=== PATIENT | female | born 1940 | race Caucasian/White ===

== ENCOUNTER → 2016-12-01 | Outpatient (CLI) | payer MEDICARE, OTHER ==
--- NOTE | 2016-12-01 16:00 | REP ---
CHEST, TWO VIEWS: HISTORY: Smoking history. COMPARISON: 07/06/2003. An increase in interstitial markings is present in the lungs. The heart is upper limits of normal in size. The pulmonary vasculature is normal in appearance. There is an old compression fracture of a lower thoracic vertebral body. IMPRESSION: COPD. Signed by Manjit Crockett MD 12/01/2016 04:01 P
[2016-12-01 16:10] LABS: ANION GAP 7 MEQ/L (8-16); BLOOD UREA NITROGEN 13 MG/DL (7-18); CALCIUM LEVEL 9.3 MG/DL (8.8-10.2); CARBON DIOXIDE LEVEL 31 MEQ/L (21-32); CHLORIDE LEVEL 103 MEQ/L (98-107); CREATININE FOR GFR 0.62 MG/DL (0.55-1.02); GLOMERULAR FILTRATION RATE > 60.0 (>39); GLUCOSE, FASTING 106 MG/DL (83-110); POTASSIUM SERUM 4.2 MEQ/L (3.5-5.1); SODIUM LEVEL 141 MEQ/L (136-145)
--- NOTE | 2016-12-01 17:12 | ECGEPIP ---
Stationary ECG Study [facility] Test Date: 2016-12-01 Pat Name: JONY HARKINS Department: Room: - Gender: F Internet Consultant: : 1940 Requested By: Mark Anthony Schroeder Order Number: [id number] Reading MD: Karma Hurtado Measurements Intervals [place] Rate: 65 P: 32 DC: 159 QRS: 0 QRSD: 102 T: 27 QT: 360 QTc: 375 Interpretive Statements SINUS RHYTHM WITH SINUS ARRHYTHMIA ST & T-WAVE ABNORMALITY NO PRIOR Electronically Signed On 12-01-2016 17:11:41 EST by Karma Hurtado
== END ==
LOC: M LAB 14:08
PROVIDERS: ATTEND Ophthalmology
DX: Z01.818 Encounter for other preprocedural examination (principal); Z79.891 Long term (current) use of opiate analgesic; H02.115 Cicatricial ectropion of left lower eyelid

== ENCOUNTER → 2017-11-06 | Outpatient (REF) | payer MEDICARE, OTHER ==
[2017-11-06 13:31] LABS: ESTIMATED AVERAGE GLUCOSE 126 MG/DL (60-110)
[2017-11-06 13:33] LABS: ALBUMIN 3.7 GM/DL (3.2-5.2); ALBUMIN/GLOBULIN RATIO 1.12 (1.00-1.93); ALKALINE PHOSPHATASE 85 U/L (45-117); ALT/SGPT 21 U/L (12-78); ANION GAP 6 MEQ/L (8-16); AST/SGOT 17 U/L (7-37); BASO # 0.1 10^3/uL (0.0-0.2); BASO % 0.8 % (0.0-1.0); BILIRUBIN,TOTAL 0.5 MG/DL (0.2-1.0); BLOOD UREA NITROGEN 14 MG/DL (7-18); CALCIUM LEVEL 8.9 MG/DL (8.8-10.2); CARBON DIOXIDE LEVEL 31 MEQ/L (21-32); CHLORIDE LEVEL 105 MEQ/L (98-107); CHOLESTEROL LEVEL 188 MG/DL (<200); CHOLESTEROL RISK RATIO 3.241 (<5); CREATININE FOR GFR 0.69 MG/DL (0.55-1.30); EOS # 0.2 10^3/uL (0.0-0.50); EOS % 2.8 % (0.0-3.0); GLOMERULAR FILTRATION RATE > 60.0 (>39); GLUCOSE, FASTING 106 MG/DL (70-100); HDL CHOLESTEROL 58 MG/DL (>40); HEMATOCRIT 45.7 % (36.0-47.0); HEMOGLOBIN 15.3 g/dl (12.0-16.0); IMMATURE GRANULOCYTE % 0.5 % (0-3.0); LDL CHOLESTEROL 109.2 MG/DL (<100); LYMPH # 1.5 10^3/uL (1.5-4.5); LYMPH % 22.2 % (24.0-44.0); MEAN CORPUSCULAR HEMOGLOBIN 33.6 pg (27.0-33.0); MEAN CORPUSCULAR HGB CONC 33.5 g/dl (32.0-36.5); MEAN CORPUSCULAR VOLUME 100.4 fl (80.0-96.0); MONO # 0.6 10^3/uL (0.0-0.8); MONO % 8.6 % (0.0-5.0); NEUTROPHILS # 4.3 10^3/uL (1.8-7.7); NEUTROPHILS % 65.1 % (36.0-66.0); NON-HDL-C 130 MG/DL; PLATELET COUNT, AUTOMATED 176 10^3/uL (150-450); POTASSIUM SERUM 4.3 MEQ/L (3.5-5.1); RED BLOOD COUNT 4.55 10^6/uL (4.00-5.40); RED CELL DISTRIBUTION WIDTH 12.4 % (11.5-14.5); SODIUM LEVEL 142 MEQ/L (136-145); TRIGLYCERIDES LEVEL 104 MG/DL (<150); WHITE BLOOD COUNT 6.5 10^3/uL (4.0-10.0)
== END ==
LOC: M SFHCADAM 08:29
DX: R73.01 Impaired fasting glucose (principal); E03.9 Hypothyroidism, unspecified
CPT/HCPCS: 84443

== ENCOUNTER → 2017-12-09 | Outpatient (REF) | payer MEDICARE, OTHER ==
[2017-12-09 13:30] LABS: INR 0.99; PROTHROMBIN TIME 13.1 SECONDS (12.4-14.5)
[2017-12-09 13:31] LABS: PARTIAL THROMBOPLASTIN TIME 24.9 SECONDS (26.8-37.9)
== END ==
LOC: M LABDRWAD 12:57
DX: R23.3 Spontaneous ecchymoses (principal)
CPT/HCPCS: 85610

== ENCOUNTER → 2018-10-15 | Outpatient (REF) | payer MEDICARE, OTHER ==
[2018-10-15 20:05] LABS: BASO # 0.1 10^3/uL (0.0-0.2); BASO % 0.6 % (0.0-1.0); EOS # 0.1 10^3/uL (0.0-0.50); EOS % 1.6 % (0.0-3.0); HEMATOCRIT 50.4 % (36.0-47.0); HEMOGLOBIN 16.9 g/dl (12.0-15.5); LYMPH # 1.8 10^3/uL (1.5-4.5); LYMPH % 22.2 % (24.0-44.0); MEAN CORPUSCULAR HEMOGLOBIN 34.6 pg (27.0-33.0); MEAN CORPUSCULAR HGB CONC 33.5 g/dl (32.0-36.5); MEAN CORPUSCULAR VOLUME 103.3 fl (80.0-96.0); MONO # 0.7 10^3/uL (0.0-0.8); MONO % 8.8 % (0.0-5.0); NEUTROPHILS # 5.4 10^3/uL (1.8-7.7); NEUTROPHILS % 66.6 % (36.0-66.0); PLATELET COUNT, AUTOMATED 189 10^3/uL (150-450); RED BLOOD COUNT 4.88 10^6/uL (4.00-5.40); WHITE BLOOD COUNT 8.1 10^3/uL (4.0-10.0)
[2018-10-15 20:20] LABS: ALBUMIN 2.9 GM/DL (3.2-5.2); ALT/SGPT 25 U/L (12-78); BILIRUBIN,TOTAL 0.4 MG/DL (0.2-1.0); BLOOD UREA NITROGEN 15 MG/DL (7-18); CALCIUM LEVEL 8.7 MG/DL (8.8-10.2); CARBON DIOXIDE LEVEL 29 MEQ/L (21-32); CHLORIDE LEVEL 103 MEQ/L (98-107); CHOLESTEROL LEVEL 215 MG/DL (<200); CHOLESTEROL RISK RATIO 3.208 (<5); CREATININE FOR GFR 0.54 MG/DL (0.55-1.30); GLOMERULAR FILTRATION RATE > 60.0 (>39); GLUCOSE, FASTING 94 MG/DL (70-100); HDL CHOLESTEROL 67 MG/DL (>40); LDL CHOLESTEROL 89 MG/DL (<100); NON-HDL-C 148 MG/DL; POTASSIUM SERUM 3.9 MEQ/L (3.5-5.1); SODIUM LEVEL 141 MEQ/L (136-145); TOTAL PROTEIN 6.1 GM/DL (6.4-8.2); TRIGLYCERIDES LEVEL 294 MG/DL (<150)
[2018-10-15 20:23] LABS: HEMOGLOBIN A1c 6.1 %
== END ==
LOC: M SFHCADAM 15:25
PROVIDERS: ATTEND Physician Assistant Medical
DX: Z00.00 Encounter for general adult medical examination without abnormal findings (principal); I10 Essential (primary) hypertension; E03.9 Hypothyroidism, unspecified; R73.01 Impaired fasting glucose
CPT/HCPCS: 80053; 80061; 83036; 84443; 85025; 93005; G0463

== ENCOUNTER → 2018-10-16 | Outpatient (REF) | payer MEDICARE, OTHER ==
[2018-10-16 20:58] LABS: CREATININE, URINE 65.6 MG/DL; MAU/CREAT RATIO 4664.6 MCG/MG (0.0-30.0)
== END ==
LOC: M SFHCADAM 12:00
PROVIDERS: ATTEND Physician Assistant Medical
DX: Z00.00 Encounter for general adult medical examination without abnormal findings (principal); I10 Essential (primary) hypertension; E03.9 Hypothyroidism, unspecified; R73.01 Impaired fasting glucose

== ENCOUNTER → 2018-12-02 | Outpatient (REF) | payer MEDICARE, OTHER ==
[2018-12-02 19:24] LABS: COMPLEMENT C3 112 MG/DL (90-180); COMPLEMENT C4 20 MG/DL (10-40)
[2018-12-08 00:08] LABS: ANCA-ATYPICAL <1:20 titer (Neg:<1:20); ANTI DOUBLE STRAND-DNA AB 2 IU/mL (0-9); ANTI-GLOMERULAR BASEMENT MEMB 4 units (0-20); CYTOPLASMIC NEUTROP AB ANCA-C <1:20 titer (Neg:<1:20); PERINUCLEAR AB ANCA-P <1:20 titer (Neg:<1:20)
[2018-12-09 13:28] LABS: UPEP INTERPRETATION NO M-SPIKE NOTED; URINE VOLUME RANDOM ML
== END ==
LOC: M LAB REF 17:24
PROVIDERS: ATTEND Internal Medicine Nephrology
DX: R80.9 Proteinuria, unspecified (principal)

== ENCOUNTER → 2018-12-20 | Outpatient (CLI) | payer MEDICARE, OTHER ==
[2018-12-20 13:01] LABS: INR 0.93; PROTHROMBIN TIME 12.6 SECONDS (12.1-14.4)
--- NOTE | 2018-12-20 13:36 | REP ---
Right lower extremity Duplex Doppler venous ultrasound: Real time compression and duplex Doppler interrogation of the right lower extremity deep venous system is performed. The right common femoral, superficial femoral and popliteal veins are fully compressible with transducer pressure and demonstrate normal spontaneous and phasic flow, without evidence of deep venous thrombosis. Impression: No evidence of deep venous thrombosis of the right lower extremity femoral popliteal venous system. Electronically Signed by Aubrey Montgomery MD 12/20/2018 01:27 P
== END ==
LOC: M RAD 11:33
PROVIDERS: ATTEND Internal Medicine Nephrology
DX: I82.401 Acute embolism and thrombosis of unspecified deep veins of right lower extremity (principal); R80.9 Proteinuria, unspecified

== ENCOUNTER → 2018-12-31 | Outpatient (CLI) | payer MEDICARE, OTHER ==
[~2018-12-31] MED LIST: LIDOCAINE 1% MDV 20ML VIAL As Ordered ONE; cloNIDine 0.1 MG TAB PO ONE
--- NOTE | 2018-12-31 18:22 | RO ---
DATE OF PROCEDURE: 12/31/2018 PREPROCEDURE DIAGNOSIS: Proteinuria. POSTPROCEDURE DIAGNOSIS: Proteinuria. PROCEDURE: Left kidney biopsy. SURGEON: Dr. Trupti Prado SHINGLE GRADER: None. ANESTHESIA: 1% lidocaine for local anesthesia. DESCRIPTION OF PROCEDURE: The patient was originally scheduled for left kidney biopsy on December 30, 2018; however, her blood pressure was about 200 mmHg due to which her biopsy was postponed yesterday and her blood pressure medications were adjusted. This morning she arrived around 9 o'clock and blood pressure was high again; however, after she settled down, her blood pressure was down into 150s. She was brought to ultrasound room after signing the consent, and she was placed in prone position on the table with a roll of towel under her abdomen. Left kidney was identified with ultrasound and skin was marked in the usual fashion. Skin was then cleaned and prepped in the usual sterile fashion. 1% lidocaine was used for local anesthesia from skin all the way down to the renal capsule. A total of 15 mL of 1% lidocaine was used. Under direct ultrasound guidance, trocar was introduced after making a small skin incision. Once we felt that the trocar was in good position, then we attempted kidney biopsy. Initially we could not penetrate the renal capsule, and the patient had to be repositioned. The trocar was removed and replaced and then we made four attempts and small pieces of tissue were obtained and sent to pathology for histopathology. The patient tolerated the procedure well, and there were no complications. At the completion of procedure, trocar was removed and dressing was applied. The patient was then sent to recovery room.
--- NOTE | 2019-01-03 17:11 | REP ---
Limited left renal sonography: History: Proteinuria. Hematuria. Findings: Sonographic guidance is provided Dr. Prado who performed ultrasound-guided needle biopsy of the left kidney. Electronically Signed by Jose Osorio MD 01/03/2019 05:43 P
== END ==
LOC: M RADPRO 12-30 10:59
PROVIDERS: ATTEND Internal Medicine Nephrology
DX: N28.9 Disorder of kidney and ureter, unspecified (principal); R80.9 Proteinuria, unspecified; R31.9 Hematuria, unspecified

== ENCOUNTER → 2019-01-11 | Outpatient (CLI) | payer MEDICARE, OTHER ==
--- NOTE | 2019-01-12 06:21 | ECHO ---
DATE OF PROCEDURE: 01/11/2019 DATE OF : 1940 AGE: 78 REFERRING PROVIDER: LUPE Sanz LOCATION: Outpatient. REASON FOR THE ECHOCARDIOGRAM: Hypertension, edema. 2D MEASUREMENTS: IVS: 0.84 cm LV: 4.8 cm LVPW: 1.1 cm LA: 3.9 cm Aorta: 3.4 cm IVC: 1.5 cm DOPPLER MEASUREMENTS: Peak velocity across the aortic valve: 1.2 m/s Peak velocity across the LVOT: 0.77 m/s Mitral E: 0.87 Mitral A: 0.78 Ratio: 1.1 Maximum tricuspid valve velocity: 3.08 m/s 2D COMMENTS: 1. Normal left ventricular size, wall thickness and low normal global left ventricular systolic function. The estimated left ventricular systolic ejection fraction is 55-60%. 2. Subjectively, the left atrium appeared to be mildly enlarged. The right atrium also subjectively appeared to be mildly enlarged. Normal right ventricle in size. Left ventricular wall thickness seems to be increased. There is normal correction of the right ventricular free wall. 3. The atrial septum appeared to be normal without evidence of defect or shunt. 4. Normal aortic root. 5. Small pericardial effusion noted. No evidence of cardiac tamponade. 6. Mildly calcified aortic valve with normal leaflet excursion. Mildly calcified mitral annulus with normal anterior mitral valve leaflet motion. Normal tricuspid valve. The pulmonic valve and proximal pulmonary artery branches were not well visualized. 7. The inferior vena cava was normal in size. DOPPLER: It detects trace mitral regurgitation, mild tricuspid regurgitation and trace pulmonic regurgitation. The calculated pulmonary artery systolic pressure varied between 40-50 mmHg. Abnormal relaxation pattern was noted across the mitral valve annulus. IMPRESSION: 1. Low normal global left ventricular systolic function. There are some features of left ventricular diastolic dysfunction, probably grade II. 2. Aortic valve sclerosis without stenosis or aortic regurgitation. 3. Mitral annulus calcification with trace mitral regurgitation. The left atrium appeared to be mildly enlarged subjectively. 4. Mild tricuspid regurgitation with probably moderate pulmonary hypertension and dilated right atrium. Right ventricular hypertrophy was noted with a normal contraction. 5. Trace pulmonic regurgitation. 6. Small pericardial effusion noted, no evidence of cardiac tamponade.
== END ==
LOC: M CARPUL 10:16
PROVIDERS: ATTEND Physician Assistant Medical
DX: I10 Essential (primary) hypertension (principal); I31.3 Pericardial effusion (noninflammatory); I35.8 Other nonrheumatic aortic valve disorders; I34.0 Nonrheumatic mitral (valve) insufficiency

== ENCOUNTER → 2019-01-25 | Outpatient (REF) | payer MEDICARE, OTHER | LOC: M LAB REF 13:20 | PROVIDERS: ATTEND Internal Medicine Nephrology | DX: R80.9 Proteinuria, unspecified (principal) ==

== ENCOUNTER → 2019-02-07 | Outpatient (REF) | payer MEDICARE, OTHER | LOC: M LAB REF 17:32 | PROVIDERS: ATTEND Internal Medicine Nephrology | DX: R80.9 Proteinuria, unspecified (principal) ==

== ENCOUNTER → 2019-02-14 | Outpatient (REF) | payer MEDICARE, OTHER | LOC: M LAB REF 17:19 | PROVIDERS: ATTEND Internal Medicine Nephrology | DX: R80.9 Proteinuria, unspecified (principal) ==

== ENCOUNTER → 2019-02-25 | Outpatient (REF) | payer MEDICARE, OTHER | LOC: M LAB REF 13:26 | PROVIDERS: ATTEND Internal Medicine Nephrology | DX: N04.2 Nephrotic syndrome with diffuse membranous glomerulonephritis (principal) ==

== ENCOUNTER → 2019-02-28 | Outpatient (REF) | payer MEDICARE, OTHER | LOC: M LAB REF 12:30 | PROVIDERS: ATTEND Internal Medicine Nephrology | DX: R80.9 Proteinuria, unspecified (principal) ==

== ENCOUNTER → 2019-03-14 | Outpatient (REF) | payer MEDICARE, OTHER | LOC: M LAB REF 17:06 | PROVIDERS: ATTEND Internal Medicine Nephrology | DX: N04.2 Nephrotic syndrome with diffuse membranous glomerulonephritis (principal); R80.9 Proteinuria, unspecified ==

== ENCOUNTER → 2019-03-29 | Outpatient (REF) | payer MEDICARE, OTHER | LOC: M LAB REF 17:21 | PROVIDERS: ATTEND Internal Medicine Nephrology | DX: R80.9 Proteinuria, unspecified (principal) ==

== ENCOUNTER → 2019-05-02 | Outpatient (REF) | payer MEDICARE, OTHER ==
[2019-05-02 20:03] LABS: HEMOGLOBIN A1c 7.7 %
== END ==
LOC: M SFHCADAM 15:26
PROVIDERS: ATTEND Physician Assistant Medical
DX: E03.9 Hypothyroidism, unspecified (principal); R73.03 Prediabetes
CPT/HCPCS: 83036; 84443; G0463

== ENCOUNTER → 2019-05-20 | Outpatient (REF) | payer MEDICARE, OTHER ==
[2019-05-20 14:29] LABS: PERCENT SATURATION 40.9 % (13.2-45.0)
== END ==
LOC: M LAB REF 12:46
PROVIDERS: ATTEND Internal Medicine Nephrology
DX: N04.2 Nephrotic syndrome with diffuse membranous glomerulonephritis (principal); R80.9 Proteinuria, unspecified; D50.9 Iron deficiency anemia, unspecified

== ENCOUNTER → 2019-06-03 | Outpatient (REF) | payer MEDICARE, OTHER ==
[2019-06-03 17:39] LABS: FREE T4 1.18 NG/DL (0.76-1.46); THYROID STIMULATING HORMONE 1.35 uIU/ML (0.358-3.740)
== END ==
LOC: M LAB REF 16:49
PROVIDERS: ATTEND Internal Medicine Nephrology
DX: N04.2 Nephrotic syndrome with diffuse membranous glomerulonephritis (principal); R80.9 Proteinuria, unspecified; E03.9 Hypothyroidism, unspecified

== ENCOUNTER → 2019-08-02 | Outpatient (REF) | payer MEDICARE, OTHER | LOC: M LAB REF 13:33 | PROVIDERS: ATTEND Internal Medicine Nephrology | DX: N04.2 Nephrotic syndrome with diffuse membranous glomerulonephritis (principal); R80.9 Proteinuria, unspecified ==

== ENCOUNTER → 2019-11-02 | Outpatient (REF) | payer MEDICARE, OTHER ==
[2019-11-02 16:58] LABS: ALBUMIN 3.4 GM/DL (3.2-5.2); BILIRUBIN,TOTAL 0.4 MG/DL (0.2-1.0); CALCIUM LEVEL 9.1 MG/DL (8.8-10.2); CHOLESTEROL RISK RATIO 3.131 (<5); CREATININE FOR GFR 1.95 MG/DL (0.55-1.30); GLOMERULAR FILTRATION RATE 26.5 (>39); POTASSIUM SERUM 5.2 MEQ/L (3.5-5.1); THYROID STIMULATING HORMONE 1.54 uIU/ML (0.358-3.740); TOTAL PROTEIN 6.2 GM/DL (6.4-8.2)
[2019-11-02 17:03] LABS: HEMOGLOBIN A1c 5.8 %
== END ==
LOC: M SFHCADAM 14:06
PROVIDERS: ATTEND Physician Assistant Medical
DX: E03.9 Hypothyroidism, unspecified (principal); I15.0 Renovascular hypertension; Z79.899 Other long term (current) drug therapy

== ENCOUNTER → 2019-12-19 | Outpatient (REF) | payer MEDICARE, OTHER | LOC: M LAB REF 13:16 | PROVIDERS: ATTEND Internal Medicine Nephrology | DX: N04.2 Nephrotic syndrome with diffuse membranous glomerulonephritis (principal); R80.9 Proteinuria, unspecified ==

== ENCOUNTER → 2020-01-03 | Outpatient (REF) | payer MEDICARE, OTHER ==
[2020-01-03 17:08] LABS: ALBUMIN 3.6 GM/DL (3.2-5.2); BILIRUBIN,TOTAL 0.6 MG/DL (0.2-1.0); CALCIUM LEVEL 9.7 MG/DL (8.8-10.2); CREATININE FOR GFR 2.02 MG/DL (0.55-1.30); GLOMERULAR FILTRATION RATE 25.4 (>39); POTASSIUM SERUM 5.6 MEQ/L (3.5-5.1); TOTAL PROTEIN 6.6 GM/DL (6.4-8.2)
[2020-01-03 17:21] LABS: HEMOGLOBIN A1c 6.4 %
== END ==
LOC: M SFHCADAM 14:17
PROVIDERS: ATTEND Physician Assistant Medical
DX: E11.22 Type 2 diabetes mellitus with diabetic chronic kidney disease (principal); N18.9 Chronic kidney disease, unspecified

== ENCOUNTER → 2020-04-30 | Outpatient (REF) | payer MEDICARE, OTHER | LOC: M LAB REF 08:18 | PROVIDERS: ATTEND Internal Medicine Nephrology | DX: N04.2 Nephrotic syndrome with diffuse membranous glomerulonephritis (principal); R80.9 Proteinuria, unspecified ==

== ENCOUNTER → 2020-08-08 | Outpatient (REF) | payer MEDICARE, OTHER | LOC: M LAB REF 16:57 | PROVIDERS: ATTEND Internal Medicine Nephrology | DX: N04.2 Nephrotic syndrome with diffuse membranous glomerulonephritis (principal); R80.9 Proteinuria, unspecified ==

== ENCOUNTER → 2020-08-31 | Outpatient (REF) | payer MEDICARE, OTHER ==
[2020-09-06 19:38] LABS: URINE TOTAL PROTEIN 560.1 MG/DL (0-12)
[2020-09-06 19:39] LABS: TOTAL PROTEIN 24 HOUR URINE 2576.4 MG/24HR (50-150)
== END ==
LOC: M LAB REF 16:54
PROVIDERS: ATTEND Internal Medicine Nephrology
DX: R80.9 Proteinuria, unspecified (principal); N04.2 Nephrotic syndrome with diffuse membranous glomerulonephritis

== ENCOUNTER → 2020-09-06 | Outpatient (REF) | payer MEDICARE, OTHER ==
[2020-09-06 18:29] LABS: FREE T4 0.92 NG/DL (0.76-1.46); THYROID STIMULATING HORMONE 2.21 uIU/ML (0.358-3.740)
== END ==
LOC: M LAB REF 16:55
PROVIDERS: ATTEND Internal Medicine Nephrology
DX: E03.9 Hypothyroidism, unspecified (principal)

== ENCOUNTER → 2020-11-05 | Outpatient (REF) | payer MEDICARE, OTHER ==
[2020-11-05 18:41] LABS: PERCENT SATURATION 28.4 % (13.2-45.0)
== END ==
LOC: M LAB REF 16:50
PROVIDERS: ATTEND Internal Medicine Nephrology
DX: N04.2 Nephrotic syndrome with diffuse membranous glomerulonephritis (principal); D50.9 Iron deficiency anemia, unspecified

== ENCOUNTER 2020-12-06 07:24 | Outpatient (CLI) | payer MEDICARE, OTHER ==
[~2020-12-06] VITALS: Ht 160 cm; Wt 62.7 kg
[2020-12-06 07:47] VITALS: BP 153/67
[2020-12-06] MEDS ORDERED: ASPI81CH33 PO (08:25)
[2020-12-06] MEDS ORDERED: LEVO25TA5 PO (08:25)
[2020-12-06] MEDS ORDERED: CARV6.25 PO (08:25)
[2020-12-06] MEDS ORDERED: ELIQ2.5T PO (08:25)
[2020-12-06] MEDS ORDERED: OMEP40CA97 PO (08:25)
[2020-12-06] MEDS ORDERED: PRED10PA PO (08:25)
[2020-12-06] MEDS ORDERED: CYCL25CA5 PO (08:25)
[2020-12-06 09:12] VITALS: BP 153/67
[2020-12-06 09:30] VITALS: BP 118/58
[2020-12-06 10:35] VITALS: BP 127/56
[2020-12-06 11:14] VITALS: BP 145/65
[2020-12-07] MEDS ORDERED: BUME2TAB3 PO (19:03)
[2020-12-07] MEDS ORDERED: ASPI81TA26 PO (20:57)
[2020-12-07] MEDS ORDERED: THERTAB52 PO (20:57)
[2020-12-07] MEDS ORDERED: OCUVTAB4 PO (20:57)
== END 2020-12-06 13:45 | disposition home or self-care (01) ==
LOC: M INFU 07:24
PROVIDERS: ATTEND Internal Medicine Nephrology
DX: D50.9 Iron deficiency anemia, unspecified (principal); D63.1 Anemia in chronic kidney disease
CPT/HCPCS: 36430; 86850; 86900; 86901; 86920; P9016

== ENCOUNTER 2020-12-07 17:38 | Inpatient (IN) | payer MEDICARE, OTHER ==
[~2020-12-07] VITALS: Ht 162.6 cm; Wt 61.8 kg
[~2020-12-07 17:38] MED LIST changes: +ASPI81CH33 PO; +CARV6.25 PO; +CYCL25CA5 PO; +ELIQ2.5T PO; +LEVO25TA5 PO; -LIDOCAINE 1% MDV 20ML VIAL As Ordered ONE; +OMEP40CA97 PO; +PRED10PA PO; +SandIMMUNE 25 MG CAP (cycloSPORINE) (J7515) PO SCH; -cloNIDine 0.1 MG TAB PO ONE
[2020-12-07] MEDS ORDERED: FUROSEMIDE 40MG/4ML VIAL (J1940) IV ONE (18:20)
[2020-12-07 18:52] LABS: EOS % 0.1 % (0.0-3.0); HEMATOCRIT 28.9 % (36.0-47.0); HEMOGLOBIN 9.3 g/dl (12.0-15.5); LYMPH # 0.5 10^3/uL (1.5-5.0); LYMPH % 7.3 % (24.0-44.0); MEAN CORPUSCULAR HEMOGLOBIN 31.1 pg (27.0-33.0); MEAN CORPUSCULAR HGB CONC 32.2 g/dl (32.0-36.5); MEAN CORPUSCULAR VOLUME 96.7 fl (80.0-96.0); MONO # 0.2 10^3/uL (0.0-0.8); MONO % 2.4 % (2.0-8.0); NEUTROPHILS # 6.3 10^3/uL (1.5-8.5); NEUTROPHILS % 89.4 % (36.0-66.0); PLATELET COUNT, AUTOMATED 303 10^3/uL (150-450); RED BLOOD COUNT 2.99 10^6/uL (4.00-5.40); WHITE BLOOD COUNT 7.1 10^3/uL (4.0-10.0)
[2020-12-07 19:00] LABS: INR 1.16; PROTHROMBIN TIME 15.1 SECONDS (12.5-14.3)
[2020-12-07] MEDS ORDERED: BUME2TAB3 PO (19:03)
--- NOTE | 2020-12-07 19:07 | REP ---
INDICATION: edema COMPARISON: 01/07/2019 TECHNIQUE: Portable AP view of the chest FINDINGS: Cardiomegaly is appreciated. Evaluation is limited by technique and underpenetration and mild interstitial edema cannot be excluded. No focal consolidation. No effusion. No pneumothorax. Skeletal structures intact. IMPRESSION: Cardiomegaly. Examination is limited by technique and mild interstitial edema cannot be excluded. <Electronically signed by Felix Alexander > 12/07/20 [id number]
--- NOTE | 2020-12-07 19:19 | REPVR ---
PROCEDURE INFORMATION: Exam: US Duplex Lower Extremity Veins, Bilateral Exam date and time: 12/07/2020 6:23 PM Age: 80 years old Clinical indication: Pain; Leg, upper and leg, lower; Bilateral; Additional info: Edema TECHNIQUE: Imaging protocol: Real-time duplex ultrasound of the extremities with 2-D matos scale, color Doppler flow and spectral waveform analysis with image documentation. Complete exam focused on the bilateral lower extremity veins. COMPARISON: US Duplex, Ext,LOWER veins,unilat 12/20/2018 11:43 AM FINDINGS: Right deep veins: Unremarkable. The common femoral, femoral, proximal profunda femoral and popliteal veins are patent without thrombus. Normal Doppler waveforms. Normal compressibility and/or augmentation response. Right superficial veins: Saphenofemoral junction is patent without thrombus. Left deep veins: Unremarkable. The common femoral, femoral, proximal profunda femoral and popliteal veins are patent without thrombus. Normal Doppler waveforms. Normal compressibility and/or augmentation response. Left superficial veins: Saphenofemoral junction is patent without thrombus. Soft tissues: There is a tiny popliteal cyst on the right 1.2 cm x 4 mm. There is also soft tissue swelling right popliteal fossa IMPRESSION: No evidence of deep venous thrombosis right or left leg. Electronically signed by: Jay Florez On 12/07/2020 19:20:33 PM
[2020-12-07 19:23] LABS: ALBUMIN 1.9 GM/DL (3.2-5.2); ALT/SGPT 22 U/L (12-78); BILIRUBIN,DIRECT < 0.1 MG/DL (0.0-0.2); BILIRUBIN,TOTAL 0.4 MG/DL (0.2-1.0); BLOOD UREA NITROGEN 90 MG/DL (7-18); CALCIUM LEVEL 8.3 MG/DL (8.8-10.2); CARBON DIOXIDE LEVEL 23 MEQ/L (21-32); CHLORIDE LEVEL 99 MEQ/L (98-107); CK-MB VALUE MASS 1.2 NG/ML (<3.6); CPK CREATINE PHOSPHOKINASE 28 U/L (26-192); CREATININE FOR GFR 3.25 MG/DL (0.55-1.30); GLOMERULAR FILTRATION RATE 14.6 (>39); GLUCOSE, FASTING 119 MG/DL (70-100); LIPASE 168 U/L (73-393); MB/CK RELATIVE INDEX 4.29 (< OR =4); NT-PRO BNP 20445 PG/ML (<450); POTASSIUM SERUM 5.5 MEQ/L (3.5-5.1); SODIUM LEVEL 132 MEQ/L (136-145); TROPONIN I < 0.02 NG/ML (< 0.10)
[2020-12-07 20:51] LABS: RSV AMPLIFICATION NEGATIVE (NEGATIVE)
--- NOTE | 2020-12-07 20:55 | HPEPDOC ---
[facility] [place] Medical History & Physical Date of Admission Dec 07, 2020 Date of Service: Dec 07, 2020 Attending Physician: LIAN GUTIERRES MD History and Physical CHIEF COMPLAINT: leg pain HISTORY OF PRESENT ILLNESS: 80 year old female with PMHx below presented to the ED with worsening leg pain and swelling. She states she has had leg pain the past few days. She states it hurts her to walk or bear weight on her legs currently. She states she is not sure how long the leg swelling has been worsening. She does note worsening leaking of fluid out of her feet and lower legs. She states she has been wrapping her legs with bandages to help with all the fluid. She states she does have some chronic shortness of breath which is at baseline. Denies chest pain or palpitations. PAST MEDICAL HISTORY: 1. 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 CKD Stage 3 3. CHF with diastolic dysfunction 4. Anemia of chronic disease 5. Hypothyroidism 6. Hypertension 7. Type 2 diabetes mellitus PAST SURGICAL HISTORY: 1. Appendectomy 2. Bilateral cataracts 3. D&C SOCIAL HISTORY: Former smoker, quit 10 years ago, 1 ppd for 40 years. Drinks 1 glass of wine per night. Denies IV drug or illicit substance use. FAMILY HISTORY: Patient had a total of six sisters, one currently living. Two had CKD, one had pancreatic cancer, and one had lung cancer. ALLERGIES: Please see below. REVIEW OF SYSTEMS: CONSTITUTIONAL: Denies fevers, chills, night sweats, fatigue. HEENT: Denies change in vision, change in hearing. CARDIOVASCULAR: Denies chest pain, palpitations, lightheadedness. RESPIRATORY: Denies cough, wheezing. GASTROINTESTINAL: Denies nausea, vomiting, abdominal pain, diarrhea, constipation, blood in stool. GENITOURINARY: Denies dysuria, urinary frequency, urinary urgency. SKIN: Denies rash, lesions. MUSCULOSKELETAL: Denies joint pain or muscle aches. NEUROLOGICAL: Denies headache, dizziness. PSYCHIATRIC: Denies change in mood. HOME MEDICATIONS: Please see below. PHYSICAL EXAMINATION: VITAL SIGNS: See below GENERAL: Alert, comfortable, in no acute distress HEENT: Normocephalic, atraumatic, sclera anicteric, moist mucous membranes NECK: Supple, trachea midline, JVP appears elevated. CARDIOVASCULAR: Irregular rhythm, normal rate, normal S1 and S2. No murmurs, rubs, or gallops RESPIRATORY: Lung sounds diminished in bilateral lung bases. Upper lung duarte clear to auscultation bilaterally. ABDOMEN: Soft, nontender, nondistended, bowel sounds present EXTREMITIES: 3+ pitting edema extending up bilateral LE with sacral 2+ pitting edema. There is extravasation of fluid through the skin in bilateral feet and lower legs. Lower extremity pulses difficulty to appreciate with extensive edema. Radial pulses 2+ bilaterally NEUROLOGIC: Alert and oriented x3 to person, place and time. No focal deficits appreciated PSYCHIATRIC: Mood and affect appropriate LABORATORY DATA: See below. IMAGING: (per radiology report impression) -CXR Cardiomegaly. Examination is limited by technique and mild interstitial edema cannot be excluded. -Bilateral duplex U/S of LE No evidence of deep venous thrombosis right or left leg. MICROBIOLOGY: Please see below. ASSESSMENT: 80 year old female with PMHx of nephrotic syndrome, CKD stage 3, CHF, anemia, hypothyroidism, and diabetes mellitus who presented with worsening leg pain and edema found to be fluid overloaded admitted for diuresis PLAN: 1. Volume overload secondary to nephrotic syndrome vs exacerbation of CHF - Pt recently switched from furosemide to bumetanide outpatient - unclear if etiology is renal failure vs CHF at this time - Echocardiogram ordered, last echo in 2019 shows diastolic dysfunction - 2 gram sodium restriction. 1800ml fluid restriction - IV lasix 40 mg q8h for net negative 2-2.5L/day 2. 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 FARNAZ on CKD Stage 3 vs worsening CKD - diuresis as noted above, trend Cr daily 4. CHF with diastolic dysfunction - repeat echo as noted above 5. Type 2 diabetes mellitus - currently no home medications, attributed to chronic steroid use - consistent carb diet. SSI ACHS while inpatient. hypoglycemic protocol 6. Anemia of chronic disease - recently transfused due to persistently low H/H - trend H/H daily 7. Hypertension - continue home carvedilol 8. Hypothyroidism - continue home levothyroxine DVT prophylaxis: on eliquis Disposition: admitted inpatient to med/surg Vital Signs Vital Signs Date Time Temp Pulse Resp B/P (MAP) Pulse Ox O2 Delivery O2 Flow Rate FiO2 12/07/20 18:53 62 18 97 Room Air 12/07/20 18:20 12/07/20 17:49 97.0 Laboratory Data Labs 24H Laboratory Tests 2 12/07/20 18:18: Immature Granulocyte % (Auto) 0.8, Neutrophils (%) (Auto) 89.4H, Lymphocytes (%) (Auto) 7.3L, Monocytes (%) (Auto) 2.4, Eosinophils (%) (Auto) 0.1, Basophils (%) (Auto) 0.0, Neutrophils # (Auto) 6.3, Lymphocytes # (Auto) 0.5L, Monocytes # (Auto) 0.2, Eosinophils # (Auto) 0.0, Basophils # (Auto) 0.0, Nucleated Red Blood Cells % (auto) 0.0, Prothrombin Time 15.1H, Prothromb Time International Ratio 1.16, Urine Color YELLOW, Urine Appearance CLOUDYH, Urine pH 5.0, Urine Specific [place] 1.011, Urine Protein 3+H, Urine Glucose (UA) NEGATIVE, Urine Ketones NEGATIVE, Urine Blood NEGATIVE, Urine Nitrite NEGATIVE, Urine Bilirubin NEGATIVE, Urine Urobilinogen 0.2, Urine Leukocyte Esterase NEGATIVE, Urine WBC (Auto) 5H, Urine RBC (Auto) 3, Urine Hyaline Casts (Auto) 13, Urine Bacteria (Auto) NEGATIVE, Urine Squamous Epithelial Cells 1, Urine Sperm (Auto) , Anion Gap 10, Glomerular Filtration Rate 14.6L, Calcium Level 8.3L, Total Bilirubin 0.4, Direct Bilirubin < 0.1, Aspartate Amino Transf (AST/SGOT) 10, Alanine Aminotransferase (ALT/SGPT) 22, Alkaline Phosphatase 97, Total Creatine Kinase 28, Creatine Kinase MB 1.2, Creatine Kinase MB Relative Index 4.29H, Troponin I < 0.02, YW-Wuu-H-Type Natriuretic Peptide 92361G, Total Protein 5.0L, Albumin 1.9L, Albumin/Globulin Ratio 0.6L, Lipase 168 12/07/20 20:03: Coronavirus (COVID-19)(PCR) NEGATIVE, Influenza Type A (RT-PCR) NEGATIVE, Influenza Type B (RT-PCR) NEGATIVE, Respiratory Syncytial Virus (PCR) NEGATIVE CBC/BMP Laboratory Tests 12/07/20 18:18 Home Medications Scheduled Apixaban (Eliquis) 2.5 Mg Tablet, 2.5 MG PO BID Aspirin (Aspirin EC) 81 Mg Tablet.dr, 81 MG PO DAILY Bumetanide (Bumetanide) 2 Mg Tablet, 3 MG PO DAILY Carvedilol (Carvedilol) 6.25 Mg Tablet, 6.25 MG PO BID Cyclosporine (Cyclosporine) 25 Mg Capsule, 50 MG PO BID Levothyroxine Sodium (Levothyroxine Sodium) 25 Mcg Tablet, 25 MCG PO DAILY Multivitamin,Therapeutic (Thera-Tabs) 1 Each Tablet, 1 TAB PO DAILY Omeprazole (Omeprazole) 40 Mg Capsule.dr, 40 MG PO Q2D Prednisone (Prednisone) 10 Mg Tab.ds.pk, 10 MG PO DAILY Vit A/Vit C/Vit E/Zinc/Copper (Preservision Areds Tablet) 1 Each Tablet, 1 TAB P O BID Allergies Coded Allergies: No Known Drug Allergies (Verified Allergy, Unknown, 12/07/20) A-FIB/CHADSVASC A-FIB History Current/History of A-Fib/PAF?: No GME ATTESTATION GME ATTESTATION My faculty preceptor for this patient encounter was physically present during the encounter and was fully available. All aspects of the patient interview, examination, medical decision making process, and medical care plan development were reviewed and approved by the faculty preceptor. The faculty preceptor is aware and concurs with the plan as stated in the body of this note and will attest to such by his/her cosignature. ATTENDING NOTE Patient seen 12/07/2020.I, Julissa Gutierres, have independently examined this patient and performed my own physical exam, as well as reviewed the documentation and edited where necessary. I have discussed in detail with the resident / student the findings and plan of treatment as documented by the resident / student and edited their note. I agree with their findings and treatment plan and have edited their documentation. I will continue to follow the patient during this hospital stay. Consider nephrology consultation in the morning if renal function does not improve. Dr Coy clinic patient. ROSHNI VELAZCO D.O. Dec 07, 2020 20:55 LIAN GUTIERRES MD Dec 08, 2020 05:45
[2020-12-07] MEDS ORDERED: OCUVTAB4 PO (20:57)
[2020-12-07] MEDS ORDERED: THERTAB52 PO (20:57)
[2020-12-07] MEDS ORDERED: ASPI81TA26 PO (20:57)
[2020-12-07] MEDS ORDERED: MOM 30ML SUSPENSION UDC PO PRN (21:00)
[2020-12-07] MEDS ORDERED: MAALOX 30 ML SUSP *UDC PO PRN (21:00)
[2020-12-07 23:15] VITALS: BP 146/62
[2020-12-08] MEDS: APIXABAN 2.5 MG TAB (ELIQUIS) PO SCH ×3 (00:23→21:15)
[2020-12-08] MEDS: CARVedilol 6.25 MG TAB PO SCH ×3 (00:29→21:15)
[2020-12-08] MEDS: OCUVITE 1 TAB PO SCH ×3 (00:30→21:15)
[2020-12-08] MEDS: FUROSEMIDE 40MG/4ML VIAL (J1940) IV SCH ×2 (00:30→08:51)
[2020-12-08] MEDS: ACETAMINOPHEN TAB 650MG DOSE (2X325MG) PO PRN ×3 (00:32→21:16)
[2020-12-08] MEDS: SandIMMUNE 25 MG CAP (cycloSPORINE) (J7515) PO SCH ×3 (00:37→21:15)
--- NOTE | 2020-12-08 05:38 | ECGEPIP ---
[facility] - ED Test Date: 2020-12-07 Pat Name: JONY HARKINS Department: Room: - Gender: Female Lumber Marker: SUSAN : 1940 Requested By: ROLLY DOMINGUEZ Order Number: [id number] Reading MD: Golden Herrera Measurements Intervals [place] Rate: 68 P: 28 DC: 156 QRS: 21 QRSD: 86 T: 8 QT: 370 QTc: 393 Interpretive Statements Sinus rhythm with marked sinus arrhythmia Nonspecific ST abnormality BASELINE ARTIFACT AFFECTS INTERPRETATION SIMILAR TO 12/01/16 Electronically Signed on 12-08-2020 5:37:49 EST by Golden Herrera
[2020-12-08 06:00] VITALS: BP 136/64
[2020-12-08 07:30] VITALS: BP 130/62
--- NOTE | 2020-12-08 08:14 | IPNPDOC ---
Subjective Date Seen The patient was seen on 12/08/20. Subjective Chief Complaint/HPI Subjective: Patient was seen this morning at bedside, She's in no acute distress. Dressing on bilateral extremities were changed. Denies CP, abd pain, fever, chills, n/v/d. Currently diuresing with IV lasix 40mg q8h and ECHO pending. Objective: PHYSICAL EXAMINATION: VITAL SIGNS: See below GENERAL: nikhil pleasant elderly female, Alert, comfortable, in no acute distress HEENT: Normocephalic, atraumatic, sclera anicteric, moist mucous membranes, fluid accumulation in the chin and neck region NECK: Supple, trachea midline, JVP appears elevated. CARDIOVASCULAR: Irregular rhythm, normal rate, normal S1 and S2. No murmurs, rubs, or gallops RESPIRATORY: Lung sounds diminished in bilateral lung bases. Upper lung duarte clear to auscultation bilaterally. ABDOMEN: Soft, nontender, nondistended, bowel sounds present EXTREMITIES: 2+ pitting edema extending up bilateral LE with sacral 2+ pitting edema. NEUROLOGIC: Alert and oriented x3 to person, place and time. No focal deficits appreciated PSYCHIATRIC: Mood and affect appropriate LABORATORY DATA: See below MICROBIOLOGY: Please see below ASSESSMENT: 80 year old female with PMHx below presented to the ED with worsening leg pain and swelling. She states she has had leg pain the past few days. She states it hurts her to walk or bear weight on her legs currently. She states she is not sure how long the leg swelling has been worsening. She does note worsening leaking of fluid out of her feet and lower legs. She states she has been wrapping her legs with bandages to help with all the fluid. She states she does have some chronic shortness of breath which is at baseline. Denies chest pain or palpitations. She'll be admitted under hospitalist service for diuresis. I will consult nephrology and speak with Dr. Snowden directly. PLAN: #Volume overload likely 2/2 nephrotic syndrome vs exacerbation of CHF - Pt recently switched from furosemide to bumetanide outpatient - unclear if etiology is renal failure vs CHF at this time - Echocardiogram ordered pending, last echo in 2019 shows diastolic dysfunction - 2 gram sodium restriction. 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 SSI ACHS while inpatient. hypoglycemic protocol #Anemia of chronic disease - recently transfused due to persistently low H/H - trend H/H daily #Hypertension - continue home carvedilol #Hypothyroidism - continue home levothyroxine DVT prophylaxis: Eliquis GI ppx: Prilosec Diet: 2g Na+ Fluids: none CODE STATUS: DNR/DNI Disposition: continue diureses. Nephrology on consult- appreciate further recommendations Assessment /Plan Plan/VTE VTE Prophylaxis Ordered?: Yes VS, I&O, 24H, Fishbone Vital Signs/I&O Vital Signs Date Time Temp Pulse Resp B/P (MAP) Pulse Ox O2 Delivery O2 Flow Rate FiO2 12/08/20 06:00 97.8 81 18 136/64 (88) 95 Room Air I&O- Last 24 Hours up to 6 AM 12/08/20 06:00 Intake Total 310 ml Output Total 425 ml Balance -115 ml Laboratory Data 24H LABS Laboratory Tests 2 12/07/20 18:18: Immature Granulocyte % (Auto) 0.8, Neutrophils (%) (Auto) 89.4H, Lymphocytes (%) (Auto) 7.3L, Monocytes (%) (Auto) 2.4, Eosinophils (%) (Auto) 0.1, Basophils (%) (Auto) 0.0, Neutrophils # (Auto) 6.3, Lymphocytes # (Auto) 0.5L, Monocytes # (Auto) 0.2, Eosinophils # (Auto) 0.0, Basophils # (Auto) 0.0, Nucleated Red Blood Cells % (auto) 0.0, Prothrombin Time 15.1H, Prothromb Time International Ratio 1.16, Urine Color YELLOW, Urine Appearance CLOUDYH, Urine pH 5.0, Urine Specific [place] 1.011, Urine Protein 3+H, Urine Glucose (UA) NEGATIVE, Urine Ketones NEGATIVE, Urine Blood NEGATIVE, Urine Nitrite NEGATIVE, Urine Bilirubin NEGATIVE, Urine Urobilinogen 0.2, Urine Leukocyte Esterase NEGATIVE, Urine WBC (Auto) 5H, Urine RBC (Auto) 3, Urine Hyaline Casts (Auto) 13, Urine Bacteria (Auto) NEGATIVE, Urine Squamous Epithelial Cells 1, Urine Sperm (Auto) , Anion Gap 10, Glomerular Filtration Rate 14.6L, Calcium Level 8.3L, Total Bilirubin 0.4, Direct Bilirubin < 0.1, Aspartate Amino Transf (AST/SGOT) 10, Alanine Aminotransferase (ALT/SGPT) 22, Alkaline Phosphatase 97, Total Creatine Kinase 28, Creatine Kinase MB 1.2, Creatine Kinase MB Relative Index 4.29H, Troponin I < 0.02, MH-[id number]-F-Type Natriuretic Peptide 04935S, Total Protein 5.0L, Albumin 1.9L, Albumin/Globulin Ratio 0.6L, Lipase 168 12/07/20 20:03: Coronavirus (COVID-19)(PCR) NEGATIVE, Influenza Type A (RT-PCR) NEGATIVE, Influenza Type B (RT-PCR) NEGATIVE, Respiratory Syncytial Virus (PCR) NEGATIVE CBC/BMP Laboratory Tests 12/07/20 18:18 GME ATTESTATION GME ATTESTATION My faculty preceptor for this patient encounter was physically present during the encounter and was fully available. All aspects of the patient interview, examination, medical decision making process, and medical care plan development were reviewed and approved by the faculty preceptor. The faculty preceptor is aware and concurs with the plan as stated in the body of this note and will attest to such by his/her cosignature. ATTENDING NOTE I, Abigail Fernandes, have independently examined this patient and performed my own physical exam, as well as reviewed the documentation and edited where necessary. I have discussed in detail with the resident / student the findings and plan of treatment as documented by the resident / student and edited their note. I agree with their findings and treatment plan and have edited their documentation. I will continue to follow the patient during this hospital stay. Alee Salter DO Dec 08, 2020 08:14 ABIGAIL FERNANDES MD Dec 08, 2020 14:38
[2020-12-08] MEDS ORDERED: DEXTROSE 50% 50 ML SYRINGE IV PRN (08:30)
[2020-12-08] MEDS ORDERED: GLUCAGON INJ 1MG VIAL SC PRN (08:30)
[2020-12-08] MEDS ORDERED: GLUCOSE 4GM CHEW TABLET PO PRN (08:30)
[2020-12-08] MEDS: predniSONE 10 MG TAB PO SCH (08:51)
[2020-12-08] MEDS: LEVOTHYROXINE 25MCG TABLET (0.025MG) PO SCH (08:52)
[2020-12-08] MEDS: ASPIRIN 81MG ENTERIC TABLET PO SCH (08:52)
[2020-12-08 09:33] LABS: BASO % 0.1 % (0.0-1.0); EOS # 0.1 10^3/uL (0.0-0.5); EOS % 1.1 % (0.0-3.0); HEMATOCRIT 27.1 % (36.0-47.0); HEMOGLOBIN 8.9 g/dl (12.0-15.5); LYMPH % 10.6 % (24.0-44.0); MEAN CORPUSCULAR HEMOGLOBIN 31.1 pg (27.0-33.0); MEAN CORPUSCULAR HGB CONC 32.8 g/dl (32.0-36.5); MEAN CORPUSCULAR VOLUME 94.8 fl (80.0-96.0); MONO # 0.6 10^3/uL (0.0-0.8); MONO % 5.9 % (2.0-8.0); NEUTROPHILS # 7.7 10^3/uL (1.5-8.5); PLATELET COUNT, AUTOMATED 318 10^3/uL (150-450); RED BLOOD COUNT 2.86 10^6/uL (4.00-5.40); WHITE BLOOD COUNT 9.3 10^3/uL (4.0-10.0)
[2020-12-08 10:03] LABS: ALBUMIN 1.6 GM/DL (3.2-5.2); BILIRUBIN,TOTAL 0.3 MG/DL (0.2-1.0); CALCIUM LEVEL 7.9 MG/DL (8.8-10.2); CREATININE FOR GFR 3.08 MG/DL (0.55-1.30); GLOMERULAR FILTRATION RATE 15.5 (>39); MAGNESIUM LEVEL 2.7 MG/DL (1.8-2.4); POTASSIUM SERUM 5.1 MEQ/L (3.5-5.1); TOTAL PROTEIN 4.3 GM/DL (6.4-8.2)
[2020-12-08] MEDS: HumaLOG INSULIN (NovoLOG) PER UNIT SC SCH ×4 (10:27→21:00)
[2020-12-08] MEDS ORDERED: metOLazone 5 MG TAB PO ONE (11:55)
[2020-12-08 13:19] VITALS: BP 118/58
[2020-12-08] MEDS: FUROSEMIDE 100MG/10ML VIAL (J1940) IV SCH (15:44)
[2020-12-08 18:46] LABS: CREATININE,RANDOM URINE 87.6 MG/DL
[2020-12-08 22:00] VITALS: BP 149/71
[2020-12-09] VITALS (8 sets, daily range): BP systolic 119–169; BP diastolic 56–78
[2020-12-09] MEDS: FUROSEMIDE 100MG/10ML VIAL (J1940) IV SCH ×3 (00:35→18:15)
[2020-12-09 07:18] LABS: CHOLESTEROL LEVEL 141 MG/DL (<200); CHOLESTEROL RISK RATIO 2.517 (<5); FERRITIN 93 NG/ML (8-252); HDL CHOLESTEROL 56 MG/DL (>40); IRON (FE) 14 UG/DL (50-170); LDL CHOLESTEROL 68 MG/DL (<100); NON-HDL-C 85 MG/DL; PERCENT SATURATION 8.2 % (13.2-45.0); TOTAL IRON BINDING CAPACITY 171 UG/DL (250-450); TRIGLYCERIDES LEVEL 86 MG/DL (<150)
[2020-12-09] MEDS: HumaLOG INSULIN (NovoLOG) PER UNIT SC SCH ×4 (07:30→20:45)
[2020-12-09 07:34] LABS: EOS # 0.1 10^3/uL (0.0-0.5); EOS % 1.7 % (0.0-3.0); HEMATOCRIT 23.7 % (36.0-47.0); HEMOGLOBIN 7.5 g/dl (12.0-15.5); LYMPH # 1.4 10^3/uL (1.5-5.0); LYMPH % 23.3 % (24.0-44.0); MEAN CORPUSCULAR HEMOGLOBIN 30.7 pg (27.0-33.0); MEAN CORPUSCULAR HGB CONC 31.6 g/dl (32.0-36.5); MEAN CORPUSCULAR VOLUME 97.1 fl (80.0-96.0); MONO # 0.5 10^3/uL (0.0-0.8); MONO % 9.2 % (2.0-8.0); NEUTROPHILS # 3.8 10^3/uL (1.5-8.5); NEUTROPHILS % 65.3 % (36.0-66.0); PLATELET COUNT, AUTOMATED 282 10^3/uL (150-450); RED BLOOD COUNT 2.44 10^6/uL (4.00-5.40); WHITE BLOOD COUNT 5.9 10^3/uL (4.0-10.0)
[2020-12-09 07:41] LABS: ALBUMIN 1.4 GM/DL (3.2-5.2); ALT/SGPT 15 U/L (12-78); BILIRUBIN,TOTAL 0.1 MG/DL (0.2-1.0); BLOOD UREA NITROGEN 89 MG/DL (7-18); CALCIUM LEVEL 7.8 MG/DL (8.8-10.2); CARBON DIOXIDE LEVEL 25 MEQ/L (21-32); CHLORIDE LEVEL 104 MEQ/L (98-107); CREATININE FOR GFR 2.92 MG/DL (0.55-1.30); GLOMERULAR FILTRATION RATE 16.5 (>39); GLUCOSE, FASTING 86 MG/DL (70-100); MAGNESIUM LEVEL 2.7 MG/DL (1.8-2.4); POTASSIUM SERUM 4.7 MEQ/L (3.5-5.1); SODIUM LEVEL 136 MEQ/L (136-145); TOTAL PROTEIN 3.8 GM/DL (6.4-8.2)
[2020-12-09] MEDS: ASPIRIN 81MG ENTERIC TABLET PO SCH (09:00)
[2020-12-09] MEDS: APIXABAN 2.5 MG TAB (ELIQUIS) PO SCH ×2 (09:00→20:44)
[2020-12-09] MEDS: OCUVITE 1 TAB PO SCH ×2 (09:00→20:44)
[2020-12-09] MEDS: LEVOTHYROXINE 25MCG TABLET (0.025MG) PO SCH (09:00)
[2020-12-09] MEDS: OMEPRAZOLE 20 MG CAP PO SCH (09:01)
[2020-12-09] MEDS: CARVedilol 6.25 MG TAB PO SCH ×2 (09:01→20:44)
[2020-12-09] MEDS: predniSONE 10 MG TAB PO SCH (09:01)
[2020-12-09] MEDS: SandIMMUNE 25 MG CAP (cycloSPORINE) (J7515) PO SCH ×2 (09:01→20:44)
--- NOTE | 2020-12-09 11:12 | IPNPDOC ---
Text Note Date of Service The patient was seen on 12/09/20. NOTE Subjective: Patient is a 80-year-old female with a PMHx of Nephrotic syndrome, CKD, HTN, Hypothyroidism, GERD who presented to emergency room with worsening leg pain and swelling. Patient had reported wheezing and leaking of her feet. She was admitted to the hospital service for further evaluation and treatment and nephrology was called on consultation. Patient was seen and examined at the bedside. Patient reports she has had an uneventful night. Denies any chest pain, shortness of breath or palpitations. Denies any nausea, vomiting, abdominal pain, still reports her lower extremities are swollen. Objective: Vitals (See below) General: Lying in bed, appears comfortable, AAOx3 HEENT: NC, AT CVS: +S1S2 Lungs: Fair air entry b/l, -w/r/r Abdomen: Soft, ND, NT Extremities: 2+ pitting edema bilaterally Skin: Dorsal surface bilateral lower extremities with some area of unroofed blisters Assessment and plan: LE edema / volume overload - likely 2/2 nephrotic syndrome vs exacerbation of CHF - Currently still exhibits signs of fluid overload - Lower extremities still reveal significant edema with some skin breakdown - No signs of infection - c/w dressing changes FARNAZ on CKD3 - Creatinine has had some improvement this morning - c/w diuresis as per nephrology - Nephrology on consultation; appreciate their input Nephrotic syndrome - likely 2/2 membranous nephropathy - Cyclosporine level pending - Anti-phospholipase A2 receptor pending - c/w cyclosporine, prednisone, and eliquis s/p Hyponatremia Diastolic CHF - ECHO 12/2018: Grade 2 diastolic dysfunction, moderate pulmonary HTN, RV hypertrophy - ECHO complete; report pending - See above Corticosteroid induced hyperglycemia - c/w ISS Anemia of chronic disease - Hg below 8 this morning - Will transfuse 1 unit PRBC - c/w Iron infusion HTN - BP well controlled - c/w Carvedilol / Furosemide Hypothyroidism - c/w Levothyroxine GERD - c/w Omeprazole DVT prophylaxis - c/w full anticoagulation with Eliquis Disposition: - Awaiting clinical improvement VS,Fishbone, I+O VS, Fishbone, I+O Laboratory Tests 12/09/20 05:26 Vital Signs Date Time Temp Pulse Resp B/P (MAP) Pulse Ox O2 Delivery O2 Flow Rate FiO2 12/09/20 09:01 69 120/72 3/14/21 06:00 97.3 18 92 Room Air I&O- Last 24 Hours up to 6 AM 12/09/20 06:00 Intake Total 870 ml Output Total 1000 ml Balance -130 ml TAURN OLVERA MD Dec 09, 2020 11:12
[2020-12-09] MEDS ORDERED: metOLazone 5 MG TAB PO ONE (11:20)
--- NOTE | 2020-12-09 11:55 | CR ---
NEPHROLOGY CONSULTATION DATE: 12/08/2020 REQUESTING PHYSICIAN: Dr. Abigail Fernandes CONSULTING PHYSICIAN: Dr. Gee Gutierrez REASON FOR CONSULTATION: Management of acute renal failure superimposed on chronic kidney disease and fluid overload. CHIEF COMPLAINT: The patient presented to the hospital yesterday with progressive lower extremity edema and leg pain. HISTORY OF PRESENT ILLNESS: Deion Boykin is a 80-year-old female with a past medical history of nephrotic syndrome secondary to membranous nephropathy, currently on immunosuppression with Cyclosporin and Prednisone; not very responsive to the treatment. She has gradually worsening renal function. She follows up with Dr. Trupti Beth as an outpatient. She presented to the hospital yesterday with worsening lower extremity edema, tenderness of the lower extremities, inability to walk and shortness of breath on walking. She also reported oozing of fluid from her feet and legs. She was using leg wraps and bandages at home. She was admitted under the Hospitalist service with volume overload. Nephrology Service was called for further help in the management of nephrotic syndrome and worsening renal function. I saw and evaluated the patient today morning at the bedside. I was told by the nursing staff that she is not responding much to the IV Lasix dose that she is receiving. She has indwelling Ray catheter now. PAST MEDICAL HISTORY: The patient's past medical history is significant for: 1. 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 2. Baseline chronic kidney disease stage 3. 3. In our records in the hospital she has a baseline creatinine of around 2 as of last year. 4. She has congestive heart failure with diastolic dysfunction. 5. Anemia of end-stage renal disease. 6. Hypothyroidism. 7. Hypertension. 8. Diabetes mellitus type 2. PAST SURGICAL HISTORY: The patient's past surgical history is significant for : 1. Appendectomy. 2. History of bilateral cataract surgeries. 3. D&C in the past. ALLERGIES: No known drug allergies. FAMILY HISTORY: No significant family history of end-stage renal disease requiring hemodialysis but two of her sisters had chronic kidney disease. SOCIAL HISTORY: The patient lives at home. She is a former smoker. She quit about 10 years ago. She denies any illicit drug abuse. REVIEW OF SYSTEMS: Constitutional: The patient reports feeling weak and tired. She denies any fevers or chills. Eyes: She denies any blurry vision, double vision. ENT: She denies any dysphagia, odynophagia. Cardiovascular: She denies any chest pain. She does report lower extremity edema. Respiratory: She denies any cough or wheezing. GI: Denies any nausea, vomiting. Genitourinary: She reports decreased urine output. Musculoskeletal: She reports lower extremity edema and pain and inability to walk. Skin: She reports oozing of fluid from the legs. Psych: She denies any depression or anxiety. Endocrine: She reports diabetes mellitus type 2. Hematological/Oncological: She denies any easy bleeding or bruising. WASHER ENGINEER: She denies any strokes or seizures or weakness. All other review of systems is negative. PHYSICAL EXAMINATION: GENERAL APPEARANCE: The patient is awake, alert, oriented x3 laying in bed. VITAL SIGNS: Temperature is 97.2 degrees Fahrenheit, blood pressure 118/58, pulse is 71, respiratory rate of 16, saturating 88% on room air. INTAKE AND OUTPUT: Urine output recorded as 125 mL yesterday and 500 mL so far today. Weight in the bed scale was 56.3 kg yesterday. GENERAL APPEARANCE: The patient is awake, alert, oriented x3, laying in bed in no apparent distress. HEAD AND NECK: Extraocular muscles intact. Pupils are equally round and reactive to light. Mucous membranes are moist. Neck is supple. Mildly elevated jugular venous distention. CARDIOVASCULAR: S1, S2, regular rate, 2+ edema of the bilateral lower extremities all the way up to the thighs. RESPIRATORY: Mildly decreased breath sounds at the bases otherwise no active rales or rhonchi. ABDOMEN: Soft, positive bowel sounds, nontender. GENITOURINARY: She has an indwelling Ray catheter. MUSCULOSKELETAL: She has 2+ edema of the bilateral lower extremities. Legs are tender to deep palpation. WASHER ENGINEER: No focal deficits. Power is 5/5 in all extremities. LABORATORY REVIEW: CBC showed a white blood cell count of 9.3, hemoglobin 8.9, platelet count 318. INR is 1.16. Urinalysis showed it was cloudy with 3+ protein, 5 WBCs. BNP showed sodium 134, potassium 5.1, chloride 103, bicarbonate 22, BUN 84, creatinine 3. It was 3.2 yesterday. Calcium 7.9, magnesium is 2.7, pro BNP is 21,703. Cyclosporin level is pending. Anti phospholipase A-2 receptor antibody is pending. IMAGING DATA: A chest x-ray was done yesterday which showed cardiomegaly, mild interstitial edema. A bilateral lower extremity Doppler was also done which showed no evidence of DVT in bilateral lower extremities. CURRENT INPATIENT MEDICATIONS: The patient's medications were all reviewed by myself. She is on: 1. Tylenol p.r.n. 2. Mylanta 30 mL daily p.r.n. 3. Dyspepsia. 4. Eliquis 2.5 mg p.o. twice daily. 5. Aspirin 81 mg p.o. daily. 6. Coreg 6.25 mg p.o. twice daily. 7. Cyclosporin 50 mg p.o. twice daily. 8. She was on Lasix 40 mg IV q. 8 hourly which I have stopped. I have increased the Lasix dose to 80 mg IV q. 8 hourly. 9. She is on Insulin Lispro sliding scale. 10. Levothyroxine 25 mcg p.o. daily. 11. He was given a dose of Metolazone 5 mg p.o. times one dose. 12. Omeprazole 40 mg p.o. q. 2 days. 13. She is on Prednisone 10 mg p.o. daily. ASSESSMENT AND PLAN: 1. Acute renal failure superimposed on chronic kidney disease the patient has worsening renal function secondary to membranous nephropathy. Creatinine was 3.2 on arrival. It is slightly better today. Okay to continue diuretics at this time since the patient is volume overloaded. If the patient does not respond well to the diuretics, she might need to start hemodialysis. 2. [id number] decompensated diastolic congestive heart failure it is secondary to nephrotic syndrome, hyperalbuminemia and salt and fluid retention. The patient's Lasix dose has been increased. He was also given a dose of Metolazone for sequential nephron blockade. Continue to monitor intake and output; 1,800 mL fluid restriction is already placed by the Medical Team. 3. 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 4. Continue home dose of Prednisone, Eliquis and Cyclosporin. Anti phospholipase A2 receptor antibody has been ordered. I was told by Dr. Prado that the patient is not responding well to the treatment at this time. 5. Hypothyroidism it is secondary to nephrotic syndrome. Continue current dose of Levothyroxine. 6. Hyperlipidemia - The patient has nephrotic syndrome and associated hyperlipidemia. She needs to be started on statins. 7. Hypercoagulability - The patient is currently on Eliquis and Aspirin. 8. Hypertension - blood pressure is acceptable at this time. Continue current dose of Coreg and diuretics. She is not a candidate for krystal inhibitors or adjutant receptor blockers because of worsening renal failure. 9. Anemia and chronic kidney disease iron levels will be checked and if the iron levels are adequate, the patient will be started on Aranesp.
[2020-12-09] MEDS: IRON SUCROSE 200 MG in NS 100 ML IV SCH (12:11)
[2020-12-09] MEDS: ACETAMINOPHEN TAB 650MG DOSE (2X325MG) PO PRN (20:45)
--- NOTE | 2020-12-09 21:31 | IPN ---
PROGRESS NOTE DATE: 12/09/2020 SUBJECTIVE: Patient was seen and examined at the bedside today morning. Her diuretic dose was increased yesterday. She reports that she is making more urine and lower extremity edema is also getting better. Renal function is stable. Creatinine is slightly down today at 2.9. OBJECTIVE: Vital signs: Temperature is 99 degrees Fahrenheit, blood pressure 169/74, pulse is 66, respiratory rate of 18, saturating 92% on room air. Intake and output: Urine output recorded is 950 mL yesterday, 1 liter so far today since overnight. Weight in the bed scale is 56 kg. PHYSICAL EXAMINATION: General: Patient is awake, alert, oriented times three, laying in bed, no apparent distress. Head and neck exam: Extraocular muscles intact. Pupils equally round and reactive to light. Mucous membranes are moist. Neck is supple. Mildly elevated jugular venous distension (JVD). Cardiovascular: S1, S2, regular rate. 2+ edema of the bilateral lower extremities. Respiratory: Chest is clear to auscultation bilaterally. Bilateral equal air entry. No rales or rhonchi. Abdomen: Soft, positive bowel sounds, nontender, no organomegaly. Musculoskeletal: Edema of the bilateral lower extremities with compression dressings. Central nervous system (SERVER SOFTWARE ENGINEER): No focal deficit. Power is 5/5 in all extremities. LABORATORY REVIEW: CBC showed WBC 5.9, hemoglobin 7.5, platelets are 282. BMP showed sodium 136, potassium 4.7, chloride 104, bicarbonate 25, BUN 89, creatinine is 2.9, it was 3 yesterday, iron is 14, TIBC is (cut off), ferritin is 93, albumin is 1.4. Triglycerides 86, total cholesterol 141, LDL cholesterol is 68, HDL is 56. Cyclosporin level is pending. CURRENT INPATIENT MEDICATIONS: Patient's medications were all reviewed by myself. She continues to be on Lasix 80 mg IV every 8 hours. She was also given a dose of metolazone 5 mg by mouth today. I have also started the patient on Venofer 200 mg IV daily for a total of three doses. ASSESSMENT AND PLAN: 1. Acute renal failure superimposed on chronic kidney disease. Patient's creatinine is stable and slightly better today. She is tolerating the high dose of diuretics. No urgent need of dialysis at this time. Continue diuresis. 2. Acute on chronic decompensated diastolic congestive heart failure. Continue Lasix 80 mg IV every 8 hours. Continue the metolazone as well. Edema is slowly improving. 3. 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 Continue cyclosporin and prednisone. Continue Eliquis for anticoagulation. Anti-phospholipase A2 receptor antibody is pending. 4. Hypertension. Blood pressure is acceptable. Continue diuretics and Coreg at this time. 5. Iron deficiency anemia. Patient will get one unit of packed red blood cells (PRBC) transfusion. She has also been started on IV Venofer.
[2020-12-10] MEDS ORDERED: diphenhydrAMINE 50MG/ML VIAL (J1200) IM PRN
[2020-12-10] MEDS ORDERED: EPINEPHrine INJ 1 MG/ML 1ML AMP IM PRN
[2020-12-10] MEDS: FUROSEMIDE 100MG/10ML VIAL (J1940) IV SCH ×3 (00:07→15:45)
[2020-12-10] MEDS: ACETAMINOPHEN TAB 650MG DOSE (2X325MG) PO PRN ×3 (00:49→20:47)
[2020-12-10 06:00] VITALS: BP 128/60
[2020-12-10 06:24] LABS: BASO % 0.2 % (0.0-1.0); EOS # 0.2 10^3/uL (0.0-0.5); EOS % 2.8 % (0.0-3.0); HEMATOCRIT 27.5 % (36.0-47.0); HEMOGLOBIN 8.8 g/dl (12.0-15.5); LYMPH # 1.4 10^3/uL (1.5-5.0); LYMPH % 20.8 % (24.0-44.0); MEAN CORPUSCULAR HEMOGLOBIN 30.8 pg (27.0-33.0); MEAN CORPUSCULAR VOLUME 96.2 fl (80.0-96.0); MONO # 0.8 10^3/uL (0.0-0.8); MONO % 11.6 % (2.0-8.0); NEUTROPHILS # 4.2 10^3/uL (1.5-8.5); PLATELET COUNT, AUTOMATED 291 10^3/uL (150-450); RED BLOOD COUNT 2.86 10^6/uL (4.00-5.40); WHITE BLOOD COUNT 6.5 10^3/uL (4.0-10.0)
[2020-12-10 07:02] LABS: ALBUMIN 1.6 GM/DL (3.2-5.2); BILIRUBIN,TOTAL 0.2 MG/DL (0.2-1.0); CALCIUM LEVEL 7.9 MG/DL (8.8-10.2); CREATININE FOR GFR 2.52 MG/DL (0.55-1.30); GLOMERULAR FILTRATION RATE 19.6 (>39); MAGNESIUM LEVEL 2.5 MG/DL (1.8-2.4); POTASSIUM SERUM 4.2 MEQ/L (3.5-5.1)
[2020-12-10] MEDS: HumaLOG INSULIN (NovoLOG) PER UNIT SC SCH ×4 (07:30→20:46)
[2020-12-10 08:00] VITALS: BP 160/78
--- NOTE | 2020-12-10 08:41 | IPNPDOC ---
Text Note Date of Service The patient was seen on 12/10/20. NOTE Subjective: Patient is a 80-year-old female with a PMHx of Nephrotic syndrome, CKD, HTN, Hypothyroidism, GERD who presented to emergency room with worsening leg pain and swelling. Patient had reported wheezing and leaking of her feet. She was admitted to the hospital service for further evaluation and treatment and nephrology was called on consultation. Patient was seen and examined at the bedside. Currently patient reports that he feels relatively fine. She has had good urine output overnight and yesterday. Denies any chest pain, shortness breath, palpitations. Has not experience any nausea, vomiting, abdominal pain or diarrhea. Patient will be working with physical therapy today. Objective: Vitals (See below) General: Patient is laying in bed, appears to be comfortable, is awake, alert and oriented 3 HEENT: NC, AT CVS: +S1S2 Lungs: Fair air entry b/l, no visual wheezing, rhonchi or rales Abdomen: Soft, nondistended and nontender Extremities: Lower extremity still reveal significant plus pitting edema Assessment and plan: LE edema / volume overload - likely 2/2 nephrotic syndrome vs exacerbation of CHF - Currently still exhibits signs of fluid overload - Lower extremities still reveal significant edema with some skin breakdown - No signs of infection - c/w dressing changes - Will consult wound care PT today - Will order PT evaluation today FARNAZ on CKD3 - Creatinine continues to improve - Has been diuresing appropriately - c/w diuresis as per nephrology - Nephrology on consultation; appreciate their input Nephrotic syndrome - likely 2/2 membranous nephropathy - Cyclosporine level pending - Anti-phospholipase A2 receptor pending - c/w cyclosporine, prednisone, and eliquis s/p Hyponatremia Diastolic CHF - ECHO 12/2018: Grade 2 diastolic dysfunction, moderate pulmonary HTN, RV hypertrophy - ECHO complete; report pending - See above Corticosteroid induced hyperglycemia - c/w ISS Anemia of chronic disease - Hg has improved appropriately - s/p 1 unit PRBC - c/w Iron infusion HTN - BP well controlled - c/w Carvedilol / Furosemide Hypothyroidism - c/w Levothyroxine GERD - c/w Omeprazole DVT prophylaxis - c/w full anticoagulation with Eliquis Disposition: - Awaiting clinical improvement - Will have PT evaluation today VS,Nayanbone, I+O VS, Fishbone, I+O Laboratory Tests 12/10/20 05:57 Vital Signs Date Time Temp Pulse Resp B/P (MAP) Pulse Ox O2 Delivery O2 Flow Rate FiO2 12/10/20 06:00 98.4 84 18 128/60 (82) 96 12/09/20 18:02 Room Air I&O- Last 24 Hours up to 6 AM 12/10/20 06:00 Intake Total 1680 ml Output Total 1620 ml Balance 60 ml TARUN OLVERA MD Dec 10, 2020 08:41
[2020-12-10] MEDS ORDERED: COVID-19 VAC,AD26(JANSSEN)/PF 0.5ML SYRINGE (EUA) IM ONE (10:00)
[2020-12-10] MEDS: SandIMMUNE 25 MG CAP (cycloSPORINE) (J7515) PO SCH ×2 (10:05→20:48)
[2020-12-10] MEDS: predniSONE 10 MG TAB PO SCH (10:06)
[2020-12-10] MEDS: ASPIRIN 81MG ENTERIC TABLET PO SCH (10:06)
[2020-12-10] MEDS: OCUVITE 1 TAB PO SCH ×2 (10:06→20:48)
[2020-12-10] MEDS: APIXABAN 2.5 MG TAB (ELIQUIS) PO SCH ×2 (10:06→20:48)
[2020-12-10] MEDS: LEVOTHYROXINE 25MCG TABLET (0.025MG) PO SCH (10:06)
[2020-12-10] MEDS: CARVedilol 6.25 MG TAB PO SCH ×2 (10:07→20:50)
[2020-12-10 11:02] LABS: HEPATITIS B SURFACE ANTIBODY NEGATIVE (POSITIVE)
[2020-12-10] MEDS: IRON SUCROSE 200 MG in NS 100 ML IV SCH (11:03)
[2020-12-10 11:12] LABS: HEPATITIS B SURFACE ANTIGEN NEGATIVE (NEGATIVE)
[2020-12-10 11:40] LABS: HEPATITIS B CORE ANTIBODY IGM NEGATIVE (NEGATIVE); HEPATITIS C VIRUS ABY INDEX < 0.0 INDEX (<0.8)
[2020-12-10] MEDS ORDERED: metOLazone 5 MG TAB PO ONE (11:55)
--- NOTE | 2020-12-10 13:51 | ECHO ---
DATE OF PROCEDURE: 12/08/2020 Age: 80 Gender: Female Height: 163 cm Weight: 56 kg REFERRING PHYSICIAN: Wilmar Gutierres MD and Jenniffer Max DO INDICATION: Edema. MEASUREMENTS: IVS 1.3 cm LV 4.9 cm LVPW 1.3 cm LA 3.3 cm Aorta 3.4 cm IVC 1.7 cm Mitral E wave velocity 84% Mitral A wave 66 E prime septal 5.9 E prime lateral 9.6 FINDINGS: This study is of acceptable technical quality. Underlying sinus rhythm. Left ventricle is normal size. Mild left ventricular hypertrophy is noted. Overall hyperdynamic LV systolic function with estimated LVEF 70% to 75%. Right ventricle is also normal size and systolic function. Both atria appear at least mildly enlarged. The aortic valve is sclerotic, but it is tricuspid and has normal mobility. There are also mild degenerative abnormalities of the mitral valve with mitral annular calcifications. Mobility of leaflets is preserved. Tricuspid and pulmonic valves are normal. No pericardial effusion is noted. Inferior vena cava is of normal size. Aortic root appears normal. The aortic arch and abdominal aorta were not visualized. Doppler interrogation of the aortic valve reveals no stenosis or insufficiency. There is mild mitral and tricuspid insufficiency. Calculated pulmonary artery pressure is in the mid to high 30s corresponding to mild pulmonary hypertension. Pulmonic valve is functionally competent. Mitral inflow pattern and tissue Doppler imaging of mitral annulus revealed grade 2 diastolic dysfunction. CONCLUSIONS: 1. Study is of acceptable technical quality, underlying sinus rhythm. 2. Normal LV size with mild LVH and hyperdynamic LV systolic function. Estimated LVEF 70% to 75%. Grade 2 diastolic dysfunction. 3. No hemodynamically significant valvular disease. 4. Normal central venous pressure. 5. Likely mild pulmonary hypertension. COMMENTS: This study is most consistent with hypertensive heart disease. MTDD
--- NOTE | 2020-12-10 21:45 | IPN ---
NEPHROLOGY PROGRESS NOTE DATE: 12/10/2020 SUBJECTIVE: Patient was seen and examined at the bedside today morning. She is afebrile, hemodynamically stable. Edema is getting better. She still has a Ray catheter. Patient has a good urine output. Creatinine is also slightly trending down, it has improved to 2.5 today. OBJECTIVE: VITAL SIGNS: Temperature 98.6 degrees Fahrenheit, blood pressure 160/78, pulse 70, respiratory rate 16, sating 91% on room air. INTAKE/OUTPUT: Urine output recorded as 1.5 liters yesterday and 1 liter so far today since overnight. Weight in the bed scale is 56.1 kg yesterday. PHYSICAL EXAMINATION: GENERAL: Patient is awake, alert, oriented x3, lying in bed, in no apparent distress. HEAD/NECK: Extraocular muscles intact. Pupils equally round and reactive to light. Mucous membranes are moist. Neck is supple. There is no JVD. RESPIRATORY: Chest is clear to auscultation bilaterally. Bilateral equal air entry. No rales or rhonchi. CARDIOVASCULAR: S1, S2, regular rate. 2+ edema of bilateral lower extremities. ABDOMEN: Soft, positive bowel sounds, nontender. No organomegaly. MUSCULOSKELETAL: 2+ edema of the bilateral lower extremities with compression dressings on the bilateral lower extremities. FAGOT HEATER: No focal deficit. Power is 5/5 in all extremities. LABORATORY DATA: CBC showed WBC 6.5, hemoglobin 8.8, platelets 291,000. BMP showed sodium 137, potassium 4.2, chloride 104, bicarb 26, BUN 87, creatinine 2.5; it was 2.9 yesterday. Magnesium 2.5. CURRENT INPATIENT MEDICATIONS: Patient's medications were all reviewed by myself. She continues to be on I.V. Venofer. She continues to be on Lasix 80 mg I.V. every 8 hours. I have ordered another dose of Metolazone 5 mg p.o. times one dose. ASSESSMENT AND PLAN: 1. Acute renal failure superimposed on chronic kidney disease: Patient's renal function is gradually improving with diuresis. Her creatinine is trending down. Continue current medical regimen. 2. Acute on chronic decompensated diastolic congestive heart failure: Continue Lasix 80 mg I.V. every 8 hours, another dose of Metolazone was given. Ray catheter is being removed now. 3. 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 Continue Eliquis. Antibody level is pending. 4. Hypertension: Blood pressure is controlled with current dose of diuretics and Coreg. 5. Iron deficiency anemia: Hemoglobin level is stable and improving. Continue I.V. Venofer. Patient got 1 unit of PRBC transfusion yesterday as well.
[2020-12-10 22:00] VITALS: BP 118/70
[2020-12-11] MEDS: FUROSEMIDE 100MG/10ML VIAL (J1940) IV SCH ×2 (00:23→08:33)
[2020-12-11 06:00] VITALS: BP 140/66
[2020-12-11 06:03] LABS: BASO % 0.2 % (0.0-1.0); EOS # 0.2 10^3/uL (0.0-0.5); EOS % 3.1 % (0.0-3.0); HEMOGLOBIN 8.8 g/dl (12.0-15.5); LYMPH # 1.3 10^3/uL (1.5-5.0); MEAN CORPUSCULAR HEMOGLOBIN 31.3 pg (27.0-33.0); MEAN CORPUSCULAR HGB CONC 32.6 g/dl (32.0-36.5); MEAN CORPUSCULAR VOLUME 96.1 fl (80.0-96.0); MONO # 0.7 10^3/uL (0.0-0.8); MONO % 9.9 % (2.0-8.0); NEUTROPHILS # 4.3 10^3/uL (1.5-8.5); NEUTROPHILS % 65.9 % (36.0-66.0); PLATELET COUNT, AUTOMATED 309 10^3/uL (150-450); RED BLOOD COUNT 2.81 10^6/uL (4.00-5.40); WHITE BLOOD COUNT 6.6 10^3/uL (4.0-10.0)
[2020-12-11 06:29] LABS: ALBUMIN 1.5 GM/DL (3.2-5.2); BILIRUBIN,TOTAL 0.1 MG/DL (0.2-1.0); CREATININE FOR GFR 2.24 MG/DL (0.55-1.30); GLOMERULAR FILTRATION RATE 22.4 (>39); MAGNESIUM LEVEL 2.6 MG/DL (1.8-2.4); POTASSIUM SERUM 4.1 MEQ/L (3.5-5.1); TOTAL PROTEIN 4.3 GM/DL (6.4-8.2)
[2020-12-11] MEDS: HumaLOG INSULIN (NovoLOG) PER UNIT SC SCH ×4 (07:29→20:27)
[2020-12-11] MEDS: IRON SUCROSE 200 MG in NS 100 ML IV SCH (08:31)
[2020-12-11] MEDS: predniSONE 10 MG TAB PO SCH (08:35)
[2020-12-11] MEDS: ASPIRIN 81MG ENTERIC TABLET PO SCH (08:35)
[2020-12-11] MEDS: APIXABAN 2.5 MG TAB (ELIQUIS) PO SCH ×2 (08:35→20:25)
[2020-12-11] MEDS: LEVOTHYROXINE 25MCG TABLET (0.025MG) PO SCH (08:35)
[2020-12-11] MEDS: OMEPRAZOLE 20 MG CAP PO SCH (08:35)
[2020-12-11] MEDS: OCUVITE 1 TAB PO SCH ×2 (08:35→20:24)
[2020-12-11] MEDS: SandIMMUNE 25 MG CAP (cycloSPORINE) (J7515) PO SCH ×2 (08:35→20:25)
[2020-12-11] MEDS: CARVedilol 6.25 MG TAB PO SCH ×2 (08:37→20:25)
[2020-12-11] MEDS: metOLazone 5 MG TAB PO ONE ×2 (12:00→13:18)
[2020-12-11] MEDS ORDERED: DARBEPOETIN 100 MCG/0.5 ML *NON-DIALYSIS* SYRINGE (J0881) SC SCH (12:00)
--- NOTE | 2020-12-11 12:35 | IPNPDOC ---
Date Seen The patient was seen on 12/11/20. Progress Note SUBJECTIVE: "Patient is a 80-year-old female with a PMHx of Nephrotic syndrome, CKD, HTN, Hypothyroidism, GERD who presented to emergency room with worsening leg pain and swelling. Patient had reported wheezing and leaking of her feet. She was admitted to the hospital service for further evaluation and treatment and nephrology was called on consultation." Patient was seen and examined at bedside this morning. Denies any acute. Has no chest pain, fevers, shortness of breath, nausea, vomiting or diarrhea. In good spirits. Had good urine output overnight. OBJECTIVE PHYSICAL EXAMINATION: VITAL SIGNS: please see below General: NAD, comfortable HEENT: PERRLA, EOMI, sclerae clear Neck: supple, normal ROM, no JVD Respiratory: lungs CTAB, no wheeze, no rales, no crackles CVS: RRR, normal S1, S2, no murmurs Abdo: soft, no masses, no hepatosplenomegaly, BS+, no rebound tenderness Extremities: Edema persists, although I suspect improved from yesterday. Chronic venous stasis changes. MSK: no joint deformities, normal ROM Psych: calm, cooperative, AAO x 3 LABORATORY DATA, IMAGING STUDIES, MICROBIOLOGY: Please see below. Echocardiogram (12/08/20): 1. Study is of acceptable technical quality, underlying sinus rhythm. 2. Normal LV size with mild LVH and hyperdynamic LV systolic function. Estimated LVEF 70% to 75%. Grade 2 diastolic dysfunction. 3. No hemodynamically significant valvular disease. 4. Normal central venous pressure. 5. Likely mild pulmonary hypertension DVT prophylaxis ordered?: on eliquis. ASSESSMENT AND PLAN: TLE edema / volume overload - likely 2/2 nephrotic syndrome vs exacerbation of CHF - Currently still exhibits signs of fluid overload - Lower extremity edema is slightly improved with some skin breakdown - No signs of infection - c/w dressing changes - wound care PT consulted FARNAZ on CKD3 - Cr improving consistently daily - c/w diuresis as per nephrology - Nephrology on consultation; appreciate their input - another dose of metalozone was given - DC lasix 80 TID - started on torsemide 50 mg PO BID by Dr. Gutierrez. 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 G2DD. No hemodynamically significant valvular disease. Mild pulmonary HTN Corticosteroid induced hyperglycemia - c/w ISS Anemia of chronic disease - Hg has improved appropriately - s/p 1 unit PRBC - c/w Iron infusion HTN - BP well controlled - c/w Carvedilol / Furosemide Hypothyroidism - c/w Levothyroxine GERD - c/w Omeprazole DVT prophylaxis - c/w full anticoagulation with Eliquis Disposition: - Awaiting clinical improvement - Evaluated with physical therapy on 12/11/20. Likely rehabilitation after discharge versus possible home with services VS, I&O, 24H, [facility] Vital Signs/I&O Vital Signs Date Time Temp Pulse Resp B/P (MAP) Pulse Ox O2 Delivery O2 Flow Rate FiO2 12/11/20 08:37 68 148/70 12/11/20 06:00 97.7 18 93 12/10/20 08:00 Room Air I&O- Last 24 Hours up to 6 AM 12/11/20 06:00 Intake Total 2063 ml Output Total 900 ml Balance 1163 ml Laboratory Data 24H LABS Laboratory Tests 2 12/10/20 17:29: Bedside Glucose (Misc Panel) 115H 12/10/20 20:44: Bedside Glucose (Misc Panel) 148H 12/11/20 05:29: Immature Granulocyte % (Auto) 0.9, Neutrophils (%) (Auto) 65.9, Lymphocytes (%) (Auto) 20.0L, Monocytes (%) (Auto) 9.9H, Eosinophils (%) (Auto) 3.1H, Basophils (%) (Auto) 0.2, Neutrophils # (Auto) 4.3, Lymphocytes # (Auto) 1.3L, Monocytes # (Auto) 0.7, Eosinophils # (Auto) 0.2, Basophils # (Auto) 0.0, Nucleated Red Blood Cells % (auto) 0.0, Anion Gap 7L, Glomerular Filtration Rate 22.4L, Calcium Level 8.0L, Magnesium Level 2.6H, Total Bilirubin 0.1L, Aspartate Amino Transf (AST/SGOT) 9, Alanine Aminotransferase (ALT/SGPT) 16, Alkaline Phosphatase 63, Total Protein 4.3L, Albumin 1.5L, Albumin/Globulin Ratio 0.5L 12/11/20 11:49: Bedside Glucose (Misc Panel) 97 CBC/BMP Laboratory Tests 12/11/20 05:29 IKE GAFFNEY MD Dec 11, 2020 12:35
[2020-12-11 14:00] VITALS: BP 120/70
[2020-12-11] MEDS: TORSEMIDE (DEMADEX) 50 MG PER 1/2 TAB PO SCH (17:50)
[2020-12-11 22:00] VITALS: BP 146/70
--- NOTE | 2020-12-11 22:23 | IPN ---
NEPHROLOGY PROGRESS NOTE DATE: 12/11/2020 SUBJECTIVE: Patient was seen and examined at the bedside today morning. She was actually sitting up in the sofa. Her Ray catheter is out. She has been walking in the hallway now. Her leg swelling is getting better. She still reports tenderness in the lower extremities. Creatinine is also slowly trending down. OBJECTIVE: VITAL SIGNS: Temperature 97 degrees Fahrenheit, blood pressure 120/70, pulse 63, respiratory rate 18, sating 92% on room air. INTAKE/OUTPUT: Urine output recorded as 1 liter yesterday and 600 mL so far today since overnight. Weight in the bed scale is 60.2 kg, which is not reliable because there is a 4 kg difference since yesterday. PHYSICAL EXAMINATION: GENERAL: Patient is awake, alert, oriented x3, sitting up in the sofa. HEAD/NECK: Extraocular muscles intact. Pupils equally round and reactive to light. Mucous membranes are moist. Neck is supple. There is no JVD. RESPIRATORY: Chest is clear to auscultation bilaterally. Bilateral equal air entry. No rales or rhonchi. CARDIOVASCULAR: S1, S2, regular rate. 2+ edema of bilateral lower extremities. ABDOMEN: Soft, positive bowel sounds, nontender. No organomegaly. MUSCULOSKELETAL: Patient has tenderness of the lower extremities and she has edema of the lower extremities. SOIL SAMPLER: No focal deficit. Power is 5/5 in all extremities. LABORATORY DATA: CBC showed WBC 6.6, hemoglobin 8.8, platelets 309,000. BMP showed sodium 137, potassium 4.1, chloride 103, bicarb 27, BUN 88, creatinine 2.2; it was 2.5 yesterday. Calcium 8, magnesium 2.6. Albumin 1.5. Cyclosporine level from 12/08/20 was 42. CURRENT INPATIENT MEDICATIONS: Patient's medications were all reviewed by myself. Patient has finished three doses of I.V. Venofer now. I.V. Furosemide was stopped today. She was also started on Aranesp 100 mcg subcutaneously once a week. Patient has been started on Torsemide 50 mg p.o. twice a day. One dose of Metolazone 5 mg was also given today. ASSESSMENT AND PLAN: 1. Acute renal failure superimposed on chronic kidney disease: Patient is tolerating the diuretics and with improvement in the volume status, her renal function is also improving. I.V. diuretic has been changed to oral now. 2. 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 Anti-phospholipase antibody level is slightly elevated. Patient would likely benefit from getting Rituxan as an outpatient. Continue current dose of Eliquis. 3. Hypertension: Continue diuretics and Coreg. 4. Iron deficiency anemia: Patient got three doses of I.V. Venofer. Hemoglobin is still low. One dose of Aranesp was also given today. DISPOSITION: Patient's renal function is improving. Volume status is also getting better. She has been switched to oral medications. Hopefully we should be able to discharge the patient home over the next 24 to 48 hours.
[2020-12-11 23:16] LABS: CREATININE,RANDOM URINE 41.4 MG/DL; TOTAL PROTEIN,RANDOM URINE 127.4 MG/DL (0.0-12.0)
[2020-12-12 06:00] VITALS: BP 130/68
[2020-12-12] MEDS ORDERED: LEVOTHYROXINE 25MCG TABLET (0.025MG) PO SCH (06:00)
[2020-12-12 06:01] LABS: BASO % 0.3 % (0.0-1.0); EOS # 0.2 10^3/uL (0.0-0.5); EOS % 2.5 % (0.0-3.0); HEMATOCRIT 28.3 % (36.0-47.0); HEMOGLOBIN 9.1 g/dl (12.0-15.5); LYMPH # 1.4 10^3/uL (1.5-5.0); LYMPH % 18.9 % (24.0-44.0); MEAN CORPUSCULAR HEMOGLOBIN 30.8 pg (27.0-33.0); MEAN CORPUSCULAR HGB CONC 32.2 g/dl (32.0-36.5); MEAN CORPUSCULAR VOLUME 95.9 fl (80.0-96.0); MONO # 0.6 10^3/uL (0.0-0.8); MONO % 8.6 % (2.0-8.0); NEUTROPHILS # 5.1 10^3/uL (1.5-8.5); PLATELET COUNT, AUTOMATED 353 10^3/uL (150-450); RED BLOOD COUNT 2.95 10^6/uL (4.00-5.40); WHITE BLOOD COUNT 7.3 10^3/uL (4.0-10.0)
[2020-12-12 06:19] LABS: ALBUMIN 1.7 GM/DL (3.2-5.2); BILIRUBIN,TOTAL 0.1 MG/DL (0.2-1.0); CREATININE FOR GFR 2.1 MG/DL (0.55-1.30); GLOMERULAR FILTRATION RATE 24.2 (>39); MAGNESIUM LEVEL 2.5 MG/DL (1.8-2.4); POTASSIUM SERUM 3.8 MEQ/L (3.5-5.1); TOTAL PROTEIN 4.7 GM/DL (6.4-8.2)
[2020-12-12] MEDS: HumaLOG INSULIN (NovoLOG) PER UNIT SC SCH ×2 (07:30→12:00)
[2020-12-12] MEDS: SandIMMUNE 25 MG CAP (cycloSPORINE) (J7515) PO SCH (08:52)
[2020-12-12] MEDS: predniSONE 10 MG TAB PO SCH (08:52)
[2020-12-12] MEDS: ASPIRIN 81MG ENTERIC TABLET PO SCH (08:52)
[2020-12-12] MEDS: OCUVITE 1 TAB PO SCH (08:52)
[2020-12-12] MEDS: TORSEMIDE (DEMADEX) 50 MG PER 1/2 TAB PO SCH (08:52)
[2020-12-12] MEDS: APIXABAN 2.5 MG TAB (ELIQUIS) PO SCH (08:52)
[2020-12-12 08:53] VITALS: BP 130/70
[2020-12-12] MEDS: CARVedilol 6.25 MG TAB PO SCH (08:53)
[2020-12-12] MEDS ORDERED: metOLazone 2.5 MG TAB PO SCH (11:52)
[2020-12-12] MEDS ORDERED: ACET1TAB55 PO (12:19)
[2020-12-12] MEDS ORDERED: CARV6.25 PO (12:19)
[2020-12-12] MEDS ORDERED: PRED10TA2 PO (12:19)
[2020-12-12] MEDS ORDERED: OMEP-218 PO (12:19)
[2020-12-12] MEDS ORDERED: LEVO25TA5 PO (12:19)
[2020-12-12] MEDS ORDERED: TORS100T PO (12:19)
[2020-12-12] MEDS ORDERED: METO25TA PO (12:19)
[2020-12-12] MEDS ORDERED: OCUVTA PO (12:19)
--- NOTE | 2020-12-12 12:23 | DS.PDOC ---
Discharge Summary General Date of Admission Dec 07, 2020 at 20:46 Date of Discharge 12/13/20 Discharge Summary PROCEDURES PERFORMED DURING STAY: [None]. ADMITTING DIAGNOSES: volume overload 2/2 nephrotic syndrome vs diastolic CHF exacerbation nephrotic syndrome diastolic CHF FARNAZ on CKD3 DM2 Anemia of chronic disease HTN Hypothyrodism DISCHARGE DIAGNOSES: volume overload 2/2 nephrotic syndrome vs diastolic CHF exacerbation nephrotic syndrome diastolic CHF FARNAZ on CKD3 DM2 Anemia of chronic disease HTN Hypothyrodism COMPLICATIONS/CHIEF COMPLAINT: Edema,Renal Failure. HISTORY OF PRESENT ILLNESS: 80 year old female with PMHx below presented to the ED with worsening leg pain and swelling. She states she has had leg pain the past few days. She states it hurts her to walk or bear weight on her legs c urrently. She states she is not sure how long the leg swelling has been worsening. She does note worsening leaking of fluid out of her feet and lower legs. She states she has been wrapping her legs with bandages to help with all the fluid. She states she does have some chronic shortness of breath which is at baseline. Denies chest pain or palpitations. HOSPITAL COURSE: TLE edema / volume overload - likely 2/2 nephrotic syndrome vs exacerbation of CHF - Currently still exhibits signs of fluid overload - Lower extremity edema is slightly improved with some skin breakdown - No signs of infection - c/w dressing changes - wound care PT consulted FARNAZ on CKD3 - Cr improving consistently daily - c/w diuresis as per nephrology - Nephrology on consultation; appreciate their input - another dose of metalozone was given - DC lasix 80 TID - started on torsemide 50 mg PO BID by Dr. Gutierrez. 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 G2DD. No hemodynamically significant valvular disease. Mild pulmonary HTN Corticosteroid induced hyperglycemia - c/w ISS Anemia of chronic disease - Hg has improved appropriately - s/p 1 unit PRBC - c/w Iron infusion HTN - BP well controlled - c/w Carvedilol / Furosemide Hypothyroidism - c/w Levothyroxine GERD - c/w Omeprazole DVT prophylaxis - c/w full anticoagulation with Eliquis DISCHARGE MEDICATIONS: Please see below. ALLERGIES: Please see below. PHYSICAL EXAMINATION ON DISCHARGE: VITAL SIGNS: Please see below. General: NAD, comfortable HEENT: PERRLA, EOMI, sclerae clear Neck: supple, normal ROM, no JVD Respiratory: lungs CTAB, no wheeze, no rales, no crackles CVS: RRR, normal S1, S2, no murmurs Abdo: soft, no masses, no hepatosplenomegaly, BS+, no rebound tenderness Extremities:1+ edema. Chronic venous stasis changes. MSK: no joint deformities, normal ROM Psych: calm, cooperative, AAO x 3 LABORATORY DATA: Please see below. IMAGING: CXR (12/07/20): Cardiomegaly. Examination is limited by technique and mild interstitial edema cannot be excluded. Bilateral Venous Duplex (12/07/20): No evidence of deep venous thrombosis right or left leg. Echocardiogram (12/08/20): 1. Study is of acceptable technical quality, underlying sinus rhythm. 2. Normal LV size with mild LVH and hyperdynamic LV systolic function. Estimated LVEF 70% to 75%. Grade 2 diastolic dysfunction. 3. No hemodynamically significant valvular disease. 4. Normal central venous pressure. 5. Likely mild pulmonary hypertension PROGNOSIS: good ACTIVITY: home health. 2 wheel walker. Gome PT> DIET: 2G sodium restricted DISCHARGE PLAN: DC home with PCP and nephrology follow up. Continue with PO diuretics as prescribed by nephrology. DISPOSITION: home with home health DISCHARGE INSTRUCTIONS: . Please follow up with PCP 3-5 days . Please follow up with nephrology in 1 week . Please take your medications as prescribed . if you developed worsening shortness of breath, chest pain, fevers, chills, nausea, vomiting or otherwise worsening of your symptoms, please call 911 or return to the ER. ITEMS TO FOLLOWUP ON ON OUTPATIENT: cyclosporine level DISCHARGE CONDITION: Stable TIME SPENT ON DISCHARGE: 35 minutes Vital Signs/I&Os Vital Signs Date Time Temp Pulse Resp B/P (MAP) Pulse Ox O2 Delivery O2 Flow Rate FiO2 12/12/20 08:53 72 130/70 12/12/20 06:00 97.9 18 93 12/11/20 14:00 Room Air I&O- Last 24 Hours up to 6 AM 12/12/20 06:00 Intake Total 1070 ml Output Total 1100 ml Balance -30 ml Laboratory Data Labs 24H Laboratory Tests 2 12/11/20 16:46: Bedside Glucose (Misc Panel) 125H 12/11/20 20:26: Bedside Glucose (Misc Panel) 128H 12/11/20 22:42: Urine Random Creatinine 41.4, Urine Random Total Protein 127.4H 12/12/20 05:25: Immature Granulocyte % (Auto) 0.7, Neutrophils (%) (Auto) 69.0H, Lymphocytes (%) (Auto) 18.9L, Monocytes (%) (Auto) 8.6H, Eosinophils (%) (Auto) 2.5, Basophils (%) (Auto) 0.3, Neutrophils # (Auto) 5.1, Lymphocytes # (Auto) 1.4L, Monocytes # (Auto) 0.6, Eosinophils # (Auto) 0.2, Basophils # (Auto) 0.0, Nucleated Red Blood Cells % (auto) 0.0, Anion Gap 7L, Glomerular Filtration Rate 24.2L, Calcium Level 8.0L, Magnesium Level 2.5H, Total Bilirubin 0.1L, Aspartate Amino Transf (AST/SGOT) 9, Alanine Aminotransferase (ALT/SGPT) 17, Alkaline Phosphatase 65, Total Protein 4.7L, Albumin 1.7L, Albumin/Globulin Ratio 0.6L 12/12/20 11:50: Bedside Glucose (Misc Panel) 105 CBC/BMP Laboratory Tests 12/12/20 05:25 FSBS Laboratory Tests Test 12/11/20 16:46 12/11/20 20:26 12/12/20 11:50 Range/Units Bedside Glucose (Misc Panel) 125 128 105 83-110 MG/DL Discharge Medications Scheduled Apixaban (Eliquis) 2.5 Mg Tablet, 2.5 MG PO BID, (Reported) Aspirin (Aspirin EC) 81 Mg Tablet.dr, 81 MG PO DAILY, (Reported) Bumetanide (Bumetanide) 2 Mg Tablet, 3 MG PO DAILY, (Reported) Carvedilol (Carvedilol) 6.25 Mg Tablet, 6.25 MG PO BID Cyclosporine (Cyclosporine) 25 Mg Capsule, 50 MG PO BID, (Reported) Levothyroxine Sodium (Levothyroxine Sodium) 25 Mcg Tablet, 25 MCG PO DAILY@0600 Metolazone (Metolazone) 2.5 Mg Tablet, 2.5 MG PO MoWeFr@0900 Multivitamin,Therapeutic (Thera-Tabs) 1 Each Tablet, 1 TAB PO DAILY, (Reported) Multivitamins (I-Shruthi Tablet) 1 Each Tablet, 1 TAB PO BID Omeprazole (Omeprazole) 20 Mg Capsule.dr, 40 MG PO Q2D Prednisone (Prednisone) 10 Mg Tablet, 10 MG PO DAILY Torsemide (Torsemide) 100 Mg Tablet, 50 MG PO BID@ Scheduled PRN Acetaminophen (Acetaminophen) 325 Mg Tablet, 650 MG PO Q4H PRN for PAIN OR FEVER Allergies Coded Allergies: No Known Drug Allergies (Verified Allergy, Unknown, 12/07/20) IKE GAFFNEY MD Dec 12, 2020 12:23
[2020-12-12 14:00] VITALS: BP 132/64
--- NOTE | 2020-12-12 21:42 | IPN ---
NEPHROLOGY PROGRESS NOTE DATE: 12/12/2020 SUBJECTIVE: Patient was seen and examined at the bedside today morning. She was actually sitting up in the sofa. She reports that she has been walking with the help of a walker now. Her leg swelling is getting better. Renal function is stable and slowly improving. Diuretics were changed to oral diuretics and she is diuresing well. OBJECTIVE: VITAL SIGNS: Temperature 97.5 degrees Fahrenheit, blood pressure 132/64, pulse 76, respiratory rate 18, sating 93% on room air. INTAKE/OUTPUT: Urine output recorded as 1 liter yesterday and 725 mL so far today since overnight. Weight in the bed scale is 61.8 kg. PHYSICAL EXAMINATION: GENERAL: Patient is awake, alert, oriented x3, sitting up in the sofa, in no apparent distress. HEAD/NECK: Extraocular muscles intact. Pupils equally round and reactive to light. Mucous membranes are moist. Neck is supple. There is no JVD. RESPIRATORY: Chest is clear to auscultation bilaterally. Bilateral equal air entry. No rales or rhonchi. CARDIOVASCULAR: S1, S2, regular rate. 1+ edema of bilateral lower extremities. ABDOMEN: Soft, positive bowel sounds, nontender. No organomegaly. MUSCULOSKELETAL: 1+ edema of the bilateral lower extremities with mild tenderness to deep palpation. MESSENGER FLOORPERSON: No focal deficit. Power is 5/5 in all extremities. LABORATORY REVIEW: CBC showed WBC 7.3, hemoglobin 9.1, platelets 353,000. BMP showed sodium 136, potassium 3.8, chloride 103, bicarb 26, BUN 91, creatinine 2.1; it was 2.2 yesterday. Magnesium 2.5. CURRENT INPATIENT MEDICATIONS: Patient's medications were all reviewed by myself. Patient is on Torsemide 50 mg p.o. twice a day. She was also started on Metolazone 2.5 mg p.o. Thursday, Thursday, Thursday. ASSESSMENT AND PLAN: 1. Acute renal failure superimposed on chronic kidney disease: Patient's renal function started improving with aggressive diuresis. Continue the diuretic regimen at this time. Creatinine is improving. 2. 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 Anti-phospholipase A2 receptor antibody is slightly elevated. She would likely benefit from I.V. Rituxan as an outpatient. Continue current regimen at this time. 3. Hypertension: Continue diuretics and Coreg. 4. Lower extremity edema: Continue Torsemide 50 mg p.o. twice a day and Metolazone 2.5 mg p.o. three times a week on discharge. 5. Iron deficiency anemia: Patient got I.V. Venofer during the hospitalization. She was also given a dose of Aranesp during the hospital stay. DISPOSITION: Patient is optimized from nephrology standpoint to be discharged home. She will need to follow-up with Dr. Prado within one week after discharge from the hospital.
== END 2020-12-12 16:47 | disposition home health service (06) | DRG 640 ==
LOC: M ED 17:38 → M ED INP 20:46 → ENRESERV 21:57 → M MSPAV 23:10
PROVIDERS: ADMIT Family Medicine; ATTEND Family Medicine
PROC: 30233N1 Transfusion of Nonautologous Red Blood Cells into Peripheral Vein, Percutaneous Approach (ICD-10-PCS; principal; 2020-12-09)
DX: E87.79 Other fluid overload (principal); I50.33 Acute on chronic diastolic (congestive) heart failure; N02.2 Recurrent and persistent hematuria with diffuse membranous glomerulonephritis; I13.0 Hypertensive heart and chronic kidney disease with heart failure and stage 1 through stage 4 chronic kidney disease, or unspecified chronic kidney disease; N17.9 Acute kidney failure, unspecified; D63.1 Anemia in chronic kidney disease; D50.9 Iron deficiency anemia, unspecified; N18.30 Chronic kidney disease, stage 3 unspecified; E11.65 Type 2 diabetes mellitus with hyperglycemia; E03.9 Hypothyroidism, unspecified; K21.9 Gastro-esophageal reflux disease without esophagitis; I27.20 Pulmonary hypertension, unspecified; Z79.82 Long term (current) use of aspirin; Z79.899 Other long term (current) drug therapy; Z98.41 Cataract extraction status, right eye; Z98.42 Cataract extraction status, left eye; E78.5 Hyperlipidemia, unspecified

== ENCOUNTER → 2021-01-03 | Outpatient (REF) | payer MEDICARE, OTHER ==
[~2021-01-03] MED LIST changes: +ACET1TAB55 PO; +ASPI81TA26 PO; +BUME2TAB3 PO; +METO25TA PO; +OCUVTA PO; +OCUVTAB4 PO; +OMEP-218 PO; +PRED10TA2 PO; -SandIMMUNE 25 MG CAP (cycloSPORINE) (J7515) PO SCH; +THERTAB52 PO; +TORS100T PO
== END ==
LOC: M LAB REF 16:53
PROVIDERS: ATTEND Internal Medicine Nephrology
DX: D64.9 Anemia, unspecified (principal)

== ENCOUNTER 2021-01-04 12:00 | Outpatient (CLI) | payer MEDICARE, OTHER ==
[2021-01-04] VITALS (9 sets, daily range): BP systolic 112–146; BP diastolic 54–67
[~2021-01-04] VITALS: Ht 160 cm; Wt 62.7 kg
== END 2021-01-04 16:00 | disposition home or self-care (01) ==
LOC: M INFU 12:00
PROVIDERS: ATTEND Internal Medicine Nephrology
DX: D50.9 Iron deficiency anemia, unspecified (principal); D63.1 Anemia in chronic kidney disease
CPT/HCPCS: 36430; P9016

== ENCOUNTER → 2021-01-16 | Outpatient (REF) | payer MEDICARE, OTHER ==
[2021-01-16 18:30] LABS: PERCENT SATURATION 24.3 % (13.2-45.0)
== END ==
LOC: M LAB REF 17:09
PROVIDERS: ATTEND Internal Medicine Nephrology
DX: D50.9 Iron deficiency anemia, unspecified (principal)

== ENCOUNTER → 2021-02-19 | Outpatient (REF) | payer MEDICARE, OTHER ==
[~2021-02-19] MED LIST changes: +POTA1TAB23 PO; +RETA1000 SQ
[2021-02-19 17:51] LABS: FREE T4 0.94 NG/DL (0.76-1.46); THYROID STIMULATING HORMONE 1.49 uIU/ML (0.358-3.740)
== END ==
LOC: M LAB REF 16:41
PROVIDERS: ATTEND Internal Medicine Nephrology
DX: N39.0 Urinary tract infection, site not specified (principal); E03.9 Hypothyroidism, unspecified

== ENCOUNTER → 2021-02-22 | Outpatient (CLI) | payer MEDICARE, OTHER | LOC: M LABSMTC 10:13 | PROVIDERS: ATTEND Anesthesiology | DX: Z20.828 Contact with and (suspected) exposure to other viral communicable diseases (principal); Z11.59 Encounter for screening for other viral diseases ==

== ENCOUNTER 2021-02-27 10:59 | Day surgery (SDC) | payer MEDICARE, OTHER ==
[~2021-02-27] VITALS: Ht 162.6 cm; Wt 56.0 kg
[~2021-02-27 10:59] MED LIST changes: +LIDOCAINE 2% 100MG/5ML SDV (FOR ANES.) As Ordered ONE; +NS 1,000 ML IV ONE; +propofoL 500 MG/50 ML VIAL As Ordered ONE
[2021-02-27] MEDS ORDERED: fentaNYL 100 MCG/2 ML INJECTION (J3010) As Ordered ONE (11:31)
[2021-02-27] MEDS ORDERED: propofoL 200 MG/20 ML VIAL As Ordered ONE (13:37)
--- NOTE | 2021-02-27 13:56 | ROOR ---
Patient Name: Deion Boykin Procedure Date: 02/27/2021 12:22 PM Date of : 1940 Age: 80 Room: [facility] Gender: Female Note Status: Finalized Procedure: Upper GI endoscopy Indications: Iron deficiency anemia Providers: Lenny Neal MD Referring MD: LUPE Ortiz Requesting Provider: Medicines: Monitored Anesthesia Care Complications: No immediate complications. Procedure: Pre-Anesthesia Assessment: - Prior to the procedure, a History and Physical was performed, and patient medications and allergies were reviewed. The patient is competent. The risks and benefits of the procedure and the sedation options and risks were discussed with the patient. All questions were answered and informed consent was obtained. Patient identification and proposed procedure were verified by the physician, the nurse and the rehabilitation therapy aide in the endoscopy suite. Mental Status Examination: alert and oriented. Airway Examination: normal oropharyngeal airway and neck mobility. Respiratory Examination: clear to auscultation. CV Examination: normal. Prophylactic Antibiotics: The patient does not require prophylactic antibiotics. Prior Anticoagulants: The patient has taken no previous anticoagulant or antiplatelet agents. ASA Grade Assessment: III - A patient with severe systemic disease. After reviewing the risks and benefits, the patient was deemed in satisfactory condition to undergo the procedure. The anesthesia plan was to use monitored anesthesia care (MAC). Immediately prior to administration of medications, the patient was re-assessed for adequacy to receive sedatives. The heart rate, respiratory rate, oxygen saturations, blood pressure, adequacy of pulmonary ventilation, and response to care were monitored throughout the procedure. The physical status of the patient was re-assessed after the procedure. The Endoscope was introduced through the mouth, and advanced to the second part of duodenum. The upper GI endoscopy was technically difficult and complex due to significant looping. Successful completion of the procedure was aided by applying abdominal pressure. Findings: The examined esophagus was normal. The Z-line was regular and was found 36 cm from the incisors. Diffuse mildly erythematous mucosa without bleeding was found in the gastric antrum. Biopsies were taken with a cold forceps for Helicobacter pylori testing. Estimated blood loss was minimal. One non-bleeding superficial gastric ulcer with no stigmata of bleeding was found in the gastric antrum. The lesion was 2 mm in largest dimension. The first portion of the duodenum and second portion of the duodenum were normal. Impression: - Normal esophagus. - Z-line regular, 36 cm from the incisors. - Erythematous mucosa in the antrum. Biopsied. - Non-bleeding gastric ulcer with no stigmata of bleeding. - Normal first portion of the duodenum and second portion of the duodenum. Recommendation: - Discharge patient to home (ambulatory). - Continue present medications. - Await pathology results. Procedure Code(s): --- Professional --- 70434, Esophagogastroduodenoscopy, flexible, transoral; with biopsy, single or multiple Diagnosis Code(s): --- Professional --- K31.89, Other diseases of stomach and duodenum K25.9, Gastric ulcer, unspecified as acute or chronic, without hemorrhage or perforation D50.9, Iron deficiency anemia, unspecified CPT copyright 2019 [employer]. All rights reserved. The codes documented in this report are preliminary and upon shock absorption floor layer review may be revised to meet current compliance requirements. Lenny Nael MD Lenny Neal MD 02/27/2021 1:56:03 PM Electronically signed by Lenny Neal MD Number of Addenda: 0 Note Initiated On: 02/27/2021 12:22 PM Estimated Blood Loss: Estimated blood loss was minimal.
--- NOTE | 2021-02-27 14:02 | ROOR ---
Patient Name: Deion Boykin Procedure Date: 02/27/2021 12:23 PM Date of : 1940 Age: 80 Room: [facility] Gender: Female Note Status: Finalized Procedure: Colonoscopy Indications: Iron deficiency anemia Providers: Lenny Neal MD Referring MD: LUPE Ortiz Requesting Provider: Medicines: Monitored Anesthesia Care Complications: No immediate complications. Procedure: Pre-Anesthesia Assessment: - Prior to the procedure, a History and Physical was performed, and patient medications and allergies were reviewed. The patient is competent. The risks and benefits of the procedure and the sedation options and risks were discussed with the patient. All questions were answered and informed consent was obtained. Patient identification and proposed procedure were verified by the physician, the nurse and the space sciences director in the endoscopy suite. Mental Status Examination: alert and oriented. Airway Examination: normal oropharyngeal airway and neck mobility. Respiratory Examination: clear to auscultation. CV Examination: normal. Prophylactic Antibiotics: The patient does not require prophylactic antibiotics. Prior Anticoagulants: The patient has taken no previous anticoagulant or antiplatelet agents. ASA Grade Assessment: III - A patient with severe systemic disease. After reviewing the risks and benefits, the patient was deemed in satisfactory condition to undergo the procedure. The anesthesia plan was to use monitored anesthesia care (MAC). Immediately prior to administration of medications, the patient was re-assessed for adequacy to receive sedatives. The heart rate, respiratory rate, oxygen saturations, blood pressure, adequacy of pulmonary ventilation, and response to care were monitored throughout the procedure. The physical status of the patient was re-assessed after the procedure. The Colonoscope was introduced through the anus and advanced to the cecum, identified by appendiceal orifice and ileocecal valve. The colonoscopy was technically difficult and complex due to a redundant colon, significant looping and a tortuous colon. Successful completion of the procedure was aided by applying abdominal pressure. The patient tolerated the procedure well. The quality of the bowel preparation was good. Findings: Hemorrhoids were found on perianal exam. A few small-mouthed diverticula were found in the sigmoid colon. Three pedunculated polyps were found in the ascending colon and cecum. The polyps were 1 to 5 mm in size. These polyps were removed with a hot snare. Resection and retrieval were complete. A 15 mm polyp was found in the proximal transverse colon. The polyp was pedunculated. The polyp was removed with a hot snare. Resection and retrieval were complete. Estimated blood loss: none. Two pedunculated polyps were found in the rectum. The polyps were 20 to 30 mm in size. These polyps were removed with a hot snare. Resection and retrieval were complete. Area was successfully injected with 2 mL Danielle ink for tattooing. The retroflexed view of the distal rectum and anal verge was normal and showed no anal or rectal abnormalities. smaller polyps may have been missed due to the length of time needed to maneuver through her colon and the larger polyps taking priorirty for removal. Impression: - Hemorrhoids found on perianal exam. - Diverticulosis in the sigmoid colon. - Three 1 to 5 mm polyps in the ascending colon and in the cecum, removed with a hot snare. Resected and retrieved. - One 15 mm polyp in the proximal transverse colon, removed with a hot snare. Resected and retrieved. - Two 20 to 30 mm polyps in the rectum, removed with a hot snare. Resected and retrieved. Injected. - The distal rectum and anal verge are normal on retroflexion view. Recommendation: - Discharge patient to home (ambulatory). - Await pathology results. - Repeat colonoscopy at appointment to be scheduled for surveillance based on pathology results. - Return to my office in 2 weeks. Procedure Code(s): --- Professional --- 91606, Colonoscopy, flexible; with removal of tumor(s), polyp(s), or other lesion(s) by snare technique 39331, Colonoscopy, flexible; with directed submucosal injection(s), any substance Diagnosis Code(s): --- Professional --- K64.9, Unspecified hemorrhoids K63.5, Polyp of colon K62.1, Rectal polyp D50.9, Iron deficiency anemia, unspecified K57.30, Diverticulosis of large intestine without perforation or abscess without bleeding CPT copyright 2019 [employer]. All rights reserved. The codes documented in this report are preliminary and upon rod pointer review may be revised to meet current compliance requirements. Lenny Neal MD Lenny Neal MD 02/27/2021 2:02:29 PM Electronically signed by Lenny Neal MD Number of Addenda: 0 Note Initiated On: 02/27/2021 12:23 PM Estimated Blood Loss: Estimated blood loss was minimal.
[2021-02-27 14:15] VITALS: BP 156/77
== END 2021-02-27 14:25 | disposition home or self-care (01) ==
LOC: M OPP 10:59
PROVIDERS: ATTEND Surgery
DX: D12.0 Benign neoplasm of cecum (principal); D12.2 Benign neoplasm of ascending colon; D12.3 Benign neoplasm of transverse colon; K57.30 Diverticulosis of large intestine without perforation or abscess without bleeding; K64.8 Other hemorrhoids; K62.1 Rectal polyp; D50.0 Iron deficiency anemia secondary to blood loss (chronic); K31.89 Other diseases of stomach and duodenum; K25.9 Gastric ulcer, unspecified as acute or chronic, without hemorrhage or perforation; Z79.82 Long term (current) use of aspirin; Z79.899 Other long term (current) drug therapy; Z80.0 Family history of malignant neoplasm of digestive organs; Z87.891 Personal history of nicotine dependence
CPT/HCPCS: 43239; 45381; 45385; 88305; J3010

== ENCOUNTER 2021-04-13 13:10 | Emergency (ER) | payer MEDICARE, OTHER ==
[~2021-04-13] VITALS: Ht 162.6 cm; Wt 56.4 kg
[~2021-04-13 13:10] MED LIST changes: -LIDOCAINE 2% 100MG/5ML SDV (FOR ANES.) As Ordered ONE; -NS 1,000 ML IV ONE; +OMEP40CA4 PO; -OMEP40CA97 PO; -propofoL 500 MG/50 ML VIAL As Ordered ONE
--- NOTE | 2021-04-13 14:08 | REP ---
INDICATION: FALL. COMPARISON: None. TECHNIQUE: Four views. The middle 1/3 of the calf is heavily bandaged. FINDINGS: Tibia and fibula show no visible or displaced fracture or avulsion. There is no destructive lesion. There are vascular calcifications of the calf arteries and other ill-defined soft tissue calcifications may reflect some myositis ossificans. Soft tissue injury is suspected with contour of a bulges that may reflect hematomas medially the upper aspect of the middle 1/3 of the calf a possible laceration also suggested anteriorly and laterally but overlying bandages make this difficult to assess. No radiopaque foreign body identified. Mortise joint symmetric. Subtalar joints intact some degenerative changes in the talar navicular joint superiorly some chondrocalcinosis of the medial and lateral joint compartments without joint space narrowing. IMPRESSION: 1. No evidence of acute fracture tibia fibula but soft tissue injury and swelling suggesting hematoma and laceration as described in detail above. Overlying dressing/bandage limits evaluation for this. No visualized radiopaque foreign body. There is vascular calcification throughout arteries in the calf. <Electronically signed by Lucian Quan > 04/13/21 2300
[2021-04-13] MEDS ORDERED: BOOSTRIX/ADACEL VACCINE (DIPHTH/PERTUSS/ACELL/TETANUS) 0.5ML SYR IM ONE (16:30)
[2021-04-13 16:39] VITALS: BP 198/77
[2021-04-14] MEDS ORDERED: CYCL25CA23 PO (14:10)
== END 2021-04-13 16:50 | disposition home or self-care (01) ==
LOC: M ED 13:10
DX: S81.811A Laceration without foreign body, right lower leg, initial encounter (principal); W10.8XXA Fall (on) (from) other stairs and steps, initial encounter; Y92.019 Unspecified place in single-family (private) house as the place of occurrence of the external cause; Y93.9 Activity, unspecified; Y99.8 Other external cause status; Z79.82 Long term (current) use of aspirin; Z79.899 Other long term (current) drug therapy

== ENCOUNTER 2021-04-14 13:37 | Emergency (ER) | payer MEDICARE, OTHER ==
[~2021-04-14] VITALS: Ht 162.6 cm; Wt 56.4 kg
[2021-04-14] MEDS ORDERED: CYCL25CA23 (14:10)
[2021-04-14] MEDS ORDERED: SILVER SULFADIAZINE 1% CR 50 GM JAR TOP ONE (18:25)
[2021-04-14 19:20] VITALS: BP 162/80
== END 2021-04-14 19:24 | disposition home or self-care (01) ==
LOC: M ED 13:37
DX: S81.811D Laceration without foreign body, right lower leg, subsequent encounter (principal); W10.8XXD Fall (on) (from) other stairs and steps, subsequent encounter; Y92.9 Unspecified place or not applicable; Y93.9 Activity, unspecified; Y99.8 Other external cause status; I12.9 Hypertensive chronic kidney disease with stage 1 through stage 4 chronic kidney disease, or unspecified chronic kidney disease; E78.5 Hyperlipidemia, unspecified; G89.29 Other chronic pain; M54.5 Low back pain; K21.9 Gastro-esophageal reflux disease without esophagitis; G47.30 Sleep apnea, unspecified; E03.9 Hypothyroidism, unspecified; H35.30 Unspecified macular degeneration; Z79.82 Long term (current) use of aspirin; Z79.899 Other long term (current) drug therapy

== ENCOUNTER 2021-04-17 14:43 | Inpatient (IN) | payer MEDICARE, OTHER ==
[2021-04-17] VITALS (7 sets, daily range): BP systolic 130–194; BP diastolic 67–84
[~2021-04-17] VITALS: Ht 162.6 cm; Wt 60.0 kg
[~2021-04-17 14:43] MED LIST changes: +CYCL25CA23 PO
[2021-04-17] MEDS ORDERED: OCUVTAB4 PO (15:00)
[2021-04-17] MEDS ORDERED: CARV6.25 PO (15:48)
[2021-04-17] MEDS ORDERED: PRED10TA2 PO (15:48)
[2021-04-17] MEDS ORDERED: TORS100T PO (15:48)
[2021-04-17] MEDS ORDERED: METO25TA PO (15:48)
[2021-04-17] MEDS ORDERED: OMEP-221 PO (15:48)
[2021-04-17] MEDS ORDERED: SYNT25TA PO (15:48)
[2021-04-17 16:15] LABS: BASO % 0.1 % (0.0-1.0); EOS % 0.1 % (0.0-3.0); HEMATOCRIT 24.9 % (36.0-47.0); HEMOGLOBIN 7.8 g/dl (12.0-15.5); LYMPH # 0.9 10^3/uL (1.5-5.0); LYMPH % 9.5 % (24.0-44.0); MEAN CORPUSCULAR HEMOGLOBIN 30.7 pg (27.0-33.0); MEAN CORPUSCULAR HGB CONC 31.3 g/dl (32.0-36.5); MONO # 0.6 10^3/uL (0.0-0.8); MONO % 5.9 % (2.0-8.0); NEUTROPHILS # 7.9 10^3/uL (1.5-8.5); NEUTROPHILS % 83.8 % (36.0-66.0); PLATELET COUNT, AUTOMATED 194 10^3/uL (150-450); RED BLOOD COUNT 2.54 10^6/uL (4.00-5.40); WHITE BLOOD COUNT 9.5 10^3/uL (4.0-10.0)
[2021-04-17] MEDS ORDERED: cefTRIAXone SOD 1 GM in D5W MINI-BAG PLUS 50 ML IV ONE (16:30)
[2021-04-17 16:32] LABS: CALCIUM LEVEL 8.3 MG/DL (8.8-10.2); CREATININE FOR GFR 2.32 MG/DL (0.55-1.30); GLOMERULAR FILTRATION RATE 21.6 (>39); POTASSIUM SERUM 4.2 MEQ/L (3.5-5.1)
--- NOTE | 2021-04-17 17:00 | REP ---
INDICATION: pre-op clearance. COMPARISON: 12/07/2020. TECHNIQUE: Single portable AP view of the chest was performed. FINDINGS: There is no acute infiltrate. There is mild bibasilar interstitial fibrotic change which is stable. There is mild cardiomegaly. There is mild calcification and tortuosity of the thoracic aorta. The mediastinal silhouette is unchanged. IMPRESSION: No acute pulmonary disease.Stable chronic findings. <Electronically signed by Aubrey Montgomery > 04/17/21 1583
[2021-04-17 17:34] LABS: RSV AMPLIFICATION NEGATIVE (NEGATIVE)
[2021-04-17 17:34] LABS: INR 0.93; PROTHROMBIN TIME 12.7 SECONDS (12.5-14.3)
[2021-04-17] MEDS ORDERED: NS 1,000 ML IV SCH (17:35)
--- NOTE | 2021-04-17 17:50 | HPEPDOC ---
[facility] Medical History & Physical Date of Admission Apr 17, 2021 Date of Service: Apr 17, 2021 History and Physical CHIEF COMPLAINT: RLE wound HISTORY OF PRESENT ILLNESS: Patient is 80 year old female with PMH HTN, Hypothyroidism, Nephrotic syndrome, CKD 3, HFpEF is sent in from her plastic surgeon's office for RLE debridement. She fell several days prior resulting in a significant RLE skin tear that was initially cleaned out by general surgery. She was discharged to follow up with Dr. Elliott as outpatient today for further treatment. However, given the extensive nature of her wound, it was recommended that she be admitted to the hospital for debridement in OR tomorrow instead. Patient reports pain to the extremity but otherwise denies any other physical complaints. She is chronically anemic with current Hb at 7.8 PAST MEDICAL HISTORY: Refer to [facility] PAST SURGICAL HISTORY: Appendectomy b/l cataract surgery D and C SOCIAL HISTORY: Former smoker, consumed 1 glass of wine nigihtly. Denies illicit drug use. FAMILY HISTORY: Patient had 2 siblings with CKD, one with pancreatic cancer and one with lung cancer ALLERGIES: Please see below. REVIEW OF SYSTEMS: 10 point review of system negative except as stated in [facility] HOME MEDICATIONS: Please see below. PHYSICAL EXAMINATION: General: No acute distress, Alert Eyes: Normal sclera, EOMI HENT: Atraumatic Cardiovascular: Normal rate, normal rhythm. Pulmonary: Clear to auscultation b/l, no wheezing GI: Soft, nontender, nondistended Skin: Warm and dry. RLE in JOCY wrap c/d/i, recently bandaged outpatient today. Neuro: CN grossly intact. No focal deficits. Strengths equal b/l. Psych: oriented x 3 LABORATORY DATA: See below. IMAGING: CXR- No acute pulmonary disease.Stable chronic findings. MICROBIOLOGY: Please see below. ASSESSMENT AND PLAN: 1. RLE wound s/p fall - Initial debridement by general surgery several days ago. Wound still extensive with plan for plastic surgery tomorrow AM. - Given 1 dose of Abx in ER per instructed. - Patient's Hb 7.8, will give 1 unit pRBC to optimize prior to surgery. 2. Hypothyroidism - levothyroxine 25 mcg daily. 3. GERD - Omeprazole 4. HFpEF - c/w home med torsemide and coreg. 5. HTN - Patient denies. DVT ppx: HSQ, hold Am dose. Code status: DNR/DNI. Vital Signs Vital Signs Date Time Temp Pulse Resp B/P (MAP) Pulse Ox O2 Delivery O2 Flow Rate FiO2 04/17/21 15:36 04/17/21 14:45 97.6 68 18 96 Room Air Laboratory Data Labs 24H Laboratory Tests 2 04/17/21 15:21: Immature Granulocyte % (Auto) 0.6, Neutrophils (%) (Auto) 83.8H, Lymphocytes (%) (Auto) 9.5L, Monocytes (%) (Auto) 5.9, Eosinophils (%) (Auto) 0.1, Basophils (%) (Auto) 0.1, Neutrophils # (Auto) 7.9, Lymphocytes # (Auto) 0.9L, Monocytes # (Auto) 0.6, Eosinophils # (Auto) 0.0, Basophils # (Auto) 0.0, Nucleated Red Blood Cells % (auto) 0.0, Anion Gap 7L, Glomerular Filtration Rate 21.6L, Calcium Level 8.3L 04/17/21 16:18: Coronavirus (COVID-19)(PCR) NEGATIVE, Influenza Type A (RT-PCR) NEGATIVE, Influenza Type B (RT-PCR) NEGATIVE, Respiratory Syncytial Virus (PCR) NEGATIVE 04/17/21 16:56: Prothrombin Time 12.7, Prothromb Time International Ratio 0.93 CBC/BMP Laboratory Tests 04/17/21 15:21 Microbiology Microbiology 04/17/21 Blood Culture, Received Pending Home Medications Scheduled Aspirin (Aspirin EC) 81 Mg Tablet.dr, 81 MG PO DAILY Carvedilol (Carvedilol) 6.25 Mg Tablet, 6.25 MG PO BID Cyclosporine, Modified (Cyclosporine Modified) 25 Mg Capsule, 50 MG PO BID Epoetin Shay-Epbx (Retacrit) 10,000 Unit/1 Ml Vial, 1 INJ SQ Q2WK Levothyroxine Sodium (Synthroid) 25 Mcg Tablet, 25 MCG PO DAILY Metolazone (Metolazone) 2.5 Mg Tablet, 2.5 MG PO 3XW MON, WED, FRI Multivitamin,Therapeutic (Thera-Tabs) 1 Each Tablet, 1 TAB PO DAILY Omeprazole (Omeprazole) 40 Mg Capsule.dr, 40 MG PO DAILY Potassium Chloride (Potassium Chloride) 10 Meq Tablet.er, 20 MEQ PO BID Prednisone (Prednisone) 10 Mg Tablet, 10 MG PO DAILY Torsemide (Torsemide) 100 Mg Tablet, 50 MG PO BID Vit A/Vit C/Vit E/Zinc/Copper (Preservision Areds Tablet) 1 Each Tablet, 1 TAB PO BID Allergies Coded Allergies: No Known Drug Allergies (Verified Allergy, Unknown, 02/18/21) A-FIB/CHADSVASC A-FIB History Current/History of A-Fib/PAF?: No HUMPHREY CUNNINGHAM MD Apr 17, 2021 17:50
--- NOTE | 2021-04-17 17:57 | ECGEPIP ---
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
[2021-04-17] MEDS ORDERED: HOME MED LIST COMPLETE! XX SCH (18:20)
[2021-04-17] MEDS ORDERED: **hydrALAZINE HCL** 25 MG TAB PO ONE (22:15)
[2021-04-17] MEDS: ACETAMINOPHEN TAB 650MG DOSE (2X325MG) PO PRN (22:19)
[2021-04-18] VITALS (12 sets, daily range): BP systolic 126–156; BP diastolic 62–81
[2021-04-18] MEDS: LEVOTHYROXINE 25MCG TABLET (0.025MG) PO SCH (06:00)
[2021-04-18 06:43] LABS: ALBUMIN 2.1 GM/DL (3.2-5.2); BILIRUBIN,TOTAL 0.4 MG/DL (0.2-1.0); CALCIUM LEVEL 8.2 MG/DL (8.8-10.2); CREATININE FOR GFR 2.11 MG/DL (0.55-1.30); GLOMERULAR FILTRATION RATE 24.1 (>39); POTASSIUM SERUM 3.9 MEQ/L (3.5-5.1); TOTAL PROTEIN 4.6 GM/DL (6.4-8.2)
[2021-04-18] MEDS ORDERED: LIDOCAINE 2% 100MG/5ML SDV (FOR ANES.) As Ordered ONE (08:16)
[2021-04-18] MEDS ORDERED: ONDANSETRON 4MG/2ML VIAL As Ordered ONE (08:16)
[2021-04-18] MEDS ORDERED: propofoL 200 MG/20 ML VIAL As Ordered ONE (08:16)
[2021-04-18] MEDS ORDERED: fentaNYL 100 MCG/2 ML INJECTION (J3010) As Ordered ONE ×2 (08:16→10:49)
[2021-04-18] MEDS ORDERED: dexameTHASONE 4 MG/ML 1ML VIAL (J1100 PER 1MG) As Ordered ONE (08:16)
[2021-04-18] MEDS ORDERED: MIDAZOLAM INJ 2MG/2ML VIAL (J2250 PER 1MG) As Ordered ONE (08:17)
[2021-04-18] MEDS: HEPARIN SOD (PORCINE) 5000UNITS/ML 1ML VIAL/SYRINGE SC SCH ×2 (08:27→21:00)
[2021-04-18] MEDS ORDERED: GENTAMICIN SULF 80MG/2ML VIAL As Ordered ONE (09:07)
--- NOTE | 2021-04-18 09:17 | CR.PDOC ---
Plastic Surgery Consultation Date of Consultation 04/18/21 History and Physical CONSULT REPORT FOR: Medical team REASON FOR CONSULTATION: Right lower extremity open wound HISTORY OF PRESENT ILLNESS: 80 y/o female s/p fall 5 days ago at home. Patient tripped and right leg skin got degloved from the front of the leg. Patient was seen in ER and partial debridement was done by general surgery. Patient was seen in my office yesterday. Significant amount of necrotic tissue still present. Patient was not able to tolerate debridement at the bedside and wound started to have odor. Patient is a known anemic. We have decided to admit patient for possible blood transfusion and surgical debridement of the right extremity. PAST MEDICAL HISTORY: Renal dz, HTN, anemia PAST SURGICAL HISTORY: INCLUDES: appendectomy, D&C PREVIOUS ANESTHESIA REACTIONS: denies ALLERGIES: Please see below. FAMILY HISTORY: non contributory HOME MEDICATIONS: Please see below. REVIEW OF SYSTEMS: GENERAL: Denies chills, reports weight gain,. HEENT: Denies blurred vision and double vision. Denies ear symptoms. Denies hoarseness. NECK: Denies any neck pain]. CARDIOVASCULAR: Denies chest pain and palpitations. MUSCULOSKELETAL: Denies arthralgias, back pain and thrombophlebitis. SKIN: Open wound right leg. NEUROLOGIC: Denies headache, stroke and transient ischemic attack. PSYCHIATRIC: Denies anxiety and depression. ENDOCRINE: Denies thyroid disease. HEMATOLOGY/ONCOLOGY: Denies bleeding or clotting disorder. HEART: Denies any chest pains, palpitations, paroxysmal dyspnea, orthopnea. PULMONARY: Denies chronic cough, dyspnea and wheezing. GASTROINTESTINAL: Denies rectal bleeding, family history of colon cancer, constipation, diarrhea, dysphagia, heartburn and jaundice. GENITOURINARY: Denies dysuria, frequency, hematuria and nocturia. ENDOCRINE: Denies polydipsia, polyphagia, polyuria, heat or cold intolerance. INFECTIOUS: Denies any recent upper respiratory tract infection, UTI, need for use of antibiotics. NUTRITION: Reports good appetite. PHYSICAL EXAMINATION: VITALS SIGNS: Please see below. GENERAL APPEARANCE:Patient seen, laying in bed, awake, alert, and oriented. Comfortable, in no acute distress. SKIN: Warm and moist. Right leg with full thickness open wound with significant amount of necrotic skin. Part of degloving injury. Wound full thickness from the knee to the ankle crease. NECK: Supple, no thyromegaly. No obvious jugular venous distention. LUNGS: Clear to auscultation bilaterally. No wheezing appreciated. HEART: No chest wall abnormalities. Regular rate and rhythm with no murmurs appreciated. ABDOMEN: Abdomen is soft, non-tender, non-distended. EXTREMITIES: Extremities have no deformities. No edema identified. No calf tenderness. LABORATORY DATA: Please see below. IMAGING STUDIES:LE xray no fractures IMPRESSION: Right lower extremity degloving injury. PLANS: Admit to hospital. Blood transfusion if Hg below 8 Irrigation and debridement right lower extremity under general anesthesia Antibiotics Cultures. Vital Signs Vital Signs Date Time Temp Pulse Resp B/P (MAP) Pulse Ox O2 Delivery O2 Flow Rate FiO2 04/18/21 08:32 97.9 83 16 152/81 (104) 91 Room Air I&Os I&O- Last 24 Hours up to 6 AM 04/18/21 06:00 Intake Total 400 ml Output Total 350 ml Balance 50 ml Laboratory Data Labs 24H Laboratory Tests 2 04/17/21 15:21: Immature Granulocyte % (Auto) 0.6, Neutrophils (%) (Auto) 83.8H, Lymphocytes (%) (Auto) 9.5L, Monocytes (%) (Auto) 5.9, Eosinophils (%) (Auto) 0.1, Basophils (%) (Auto) 0.1, Neutrophils # (Auto) 7.9, Lymphocytes # (Auto) 0.9L, Monocytes # (Auto) 0.6, Eosinophils # (Auto) 0.0, Basophils # (Auto) 0.0, Nucleated Red Blo od Cells % (auto) 0.0, Anion Gap 7L, Glomerular Filtration Rate 21.6L, Calcium Level 8.3L 04/17/21 16:18: Coronavirus (COVID-19)(PCR) NEGATIVE, Influenza Type A (RT-PCR) NEGATIVE, Influenza Type B (RT-PCR) NEGATIVE, Respiratory Syncytial Virus (PCR) NEGATIVE 04/17/21 16:56: Prothrombin Time 12.7, Prothromb Time International Ratio 0.93 04/18/21 05:57: Anion Gap 5L, Glomerular Filtration Rate 24.1L, Calcium Level 8.2L, Total Bilirubin 0.4, Aspartate Amino Transf (AST/SGOT) 18, Alanine Aminotransferase (ALT/SGPT) 22, Alkaline Phosphatase 97, Total Protein 4.6L, Albumin 2.1L, Albumin/Globulin Ratio 0.8L CBC/BMP Laboratory Tests 04/17/21 15:21 04/17/21 22:09 04/18/21 05:57 Microbiology Microbiology 04/17/21 Blood Culture, Received Pending Home Medications Scheduled Aspirin (Aspirin EC) 81 Mg Tablet.dr, 81 MG PO DAILY, (Reported) Carvedilol (Carvedilol) 6.25 Mg Tablet, 6.25 MG PO BID, (Reported) Cyclosporine, Modified (Cyclosporine Modified) 25 Mg Capsule, 50 MG PO BID, (Reported) Epoetin Shay-Epbx (Retacrit) 10,000 Unit/1 Ml Vial, 1 INJ SQ Q2WK, (Reported) HAD NEXT DOSE SCHEDULED FOR 04/18/21 Levothyroxine Sodium (Synthroid) 25 Mcg Tablet, 25 MCG PO DAILY, (Reported) Metolazone (Metolazone) 2.5 Mg Tablet, 2.5 MG PO 3XW, (Reported) MON, WED, FRI Multivitamin,Therapeutic (Thera-Tabs) 1 Each Tablet, 1 TAB PO DAILY, (Reported) Omeprazole (Omeprazole) 40 Mg Capsule.dr, 40 MG PO DAILY, (Reported) Potassium Chloride (Potassium Chloride) 10 Meq Tablet.er, 20 MEQ PO BID, (Reported) Prednisone (Prednisone) 10 Mg Tablet, 10 MG PO DAILY, (Reported) Torsemide (Torsemide) 100 Mg Tablet, 50 MG PO BID, (Reported) Vit A/Vit C/Vit E/Zinc/Copper (Preservision Areds Tablet) 1 Each Tablet, 1 TAB PO BID, (Reported) Allergies Coded Allergies: No Known Drug Allergies (Verified Allergy, Unknown, 02/18/21) SHILPI VÁSQUEZ DO Apr 18, 2021 09:17
[2021-04-18] MEDS ORDERED: cefTRIAXone SOD 1GM VIAL (J0696 PER 250MG) As Ordered ONE (09:52)
[2021-04-18] MEDS ORDERED: ePHEDrine SULFATE 25 MG/5 ML(5MG/ML) SYRINGE As Ordered ONE (09:53)
[2021-04-18] MEDS ORDERED: LIDOCAINE W/EPINEPHRINE 1% 20ML VIAL As Ordered ONE (10:11)
--- NOTE | 2021-04-18 10:43 | POST-OPPD ---
Postoperative Procedure Note Date Of Procedure: Apr 18, 2021 PREOPERATIVE DIAGNOSIS: Right lower leg degloving injury. Open wound POSTOPERATIVE DIAGNOSIS: same FINDINGS: full thickness open wound right lower anterior leg. Size [id number] PROCEDURE: Irrigation and debridement right lower leg open wound. Application of Epifix 100 mg. SURGEON: Dr Vásquez PATTERN CHECKER: none SPECIMENS: debrided tissue. Cultures. ESTIMATED BLOOD LOSS: 50 cc ANESTHESIA: General REPLACED: none DRAINS: none COMPLICATIONS: none POSTOPERATIVE CONDITION: stable SHILPI VÁSQUEZ DO Apr 18, 2021 10:43
--- NOTE | 2021-04-18 10:43 | ROOPDOC ---
[facility] Report Of Operation Report of Operation DATE OF PROCEDURE: 04/18/21 PREOPERATIVE DIAGNOSIS: Right lower leg degloving injury. Open wound POSTOPERATIVE DIAGNOSIS: same FINDINGS: full thickness open wound right lower anterior leg. Size [id number] PROCEDURE: Irrigation and debridement right lower leg open wound. Application of Epifix 100 mg. SURGEON: Dr Vásquez PROCUREMENT PROFESSIONAL LOGISTICS: none SPECIMENS: debrided tissue. Cultures. ESTIMATED BLOOD LOSS: 50 cc ANESTHESIA: General REPLACED: none DRAINS: none COMPLICATIONS: none POSTOPERATIVE CONDITION: stable DESCRIPTION OF PROCEDURE: This is a 80-year-old female with degloving injury to the right lower extremity. She is scheduled today for irrigation debridement of necrotic tissue of right lower extremity with possible application of artificial dermis. Risk, benefits, and alternatives discussed with the patient and her family in details and she is ready to proceed. After obtaining informed consent, patient was brought into the operating room, placed in supine position, preoperative antibiotics were given, sequential sto ckings placed on the left lower leg, and general anesthesia was induced. She was prepped and draped in usual sterile fashion. The wound measures 30 x 14 cm extending from just below the knee to the ankle crease. We started by doing excisional debridement using knife and curettes to eliminate the necrotic tissue. Significant amount of degloving skin was identified on the lower part of the wound which was excised. Tissue was cultured and also sent to pathology. Post debridement measurements are the same 30 x 14 cm full-thickness. The wound is irrigated with copious amount of gentamicin normal saline solution. Hemostasis obtained with pressure as well as 1% lidocaine with epinephrine diluted with saline topical gauze. We used 100 mg powdered epifix throughout the wound then it was covered with single-layer Xeroform followed by bulky dressing, Kerlix, and Deon. Patient tolerated procedure well, she was extubated in operating room and transferred to recovery room in stable condition. SHILPI VÁSQUEZ DO Apr 18, 2021 10:43
[2021-04-18] MEDS ORDERED: LR 1,000 ML IV SCH (10:55)
[2021-04-18] MEDS ORDERED: ONDANSETRON 4MG/2ML VIAL IV PRN (10:55)
[2021-04-18] MEDS ORDERED: METOCLOPRAMIDE INJ 10MG/2ML VIAL (J2765 PER 1) IV PRN (10:55)
[2021-04-18] MEDS: fentaNYL 100 MCG/2 ML INJECTION (J3010) IV PRN ×4 (11:10→11:26)
[2021-04-18] MEDS: OCUVITE 1 TAB PO SCH ×2 (12:58→20:59)
[2021-04-18] MEDS: POTASSIUM CHLORIDE 10 MEQ SR TABLET PO SCH ×2 (12:58→20:59)
[2021-04-18] MEDS: ASPIRIN 81MG ENTERIC TABLET PO SCH (12:59)
[2021-04-18] MEDS: CARVedilol 6.25 MG TAB PO SCH ×2 (12:59→21:00)
[2021-04-18] MEDS: NEORAL 25 MG CAP (J7515) PO SCH ×2 (13:00→20:59)
[2021-04-18] MEDS: predniSONE 10 MG TAB PO SCH (13:00)
[2021-04-18] MEDS: TORSEMIDE (DEMADEX) 50 MG PER 1/2 TAB PO SCH (16:23)
--- NOTE | 2021-04-18 16:28 | IPNPDOC ---
Text Note Date of Service The patient was seen on 04/18/21. NOTE SUBJECTIVE: Ms. Boykin was taken to the OR with Plastics today. Per Dr. Elliott procedure went well with about 50cc EBL though extensive washout was performed. Patient reports good pain control and no other symptoms. PHYSICAL EXAM: VITAL SIGNS: see below GENERAL APPEARANCE: Well appearing female, slightly older than stated age, lying in bed, NAD HEENT: Atraumatic, normocephalic. Eyes are anicteric. Left inferior eyelid with slight erythema which is chronic per patient. Mucous membranes are pink and moist CARDIOVASCULAR: NSR regular rhythm, no noted murmurs LUNGS: CTAB ABDOMEN: Normoactive sounds, soft, nondistended. No rebound tenderness or guarding. EXTREMITIES: No lower extremity edema, RLE surgical site is covered in dressing without strikethrough NEUROLOGICAL: Awake, speech is clear, AOx3 LABORATORY STUDIES: Reviewed, please see below. RADIOLOGY STUDIES: No recent ASSESSMENT: 80 year old female with PMH HTN, Hypothyroidism, Nephrotic syndrome, CKD 3, HF pEF is sent in from her plastic surgeon's office for RLE debridement admitted for obs overnight following 2U PRBC for perioperative/post procedural acute blood loss anemia. # RLE wound: Patient tolerated procedure well with no intra or post-operative complications. She has adequate pain control and will work with physical therapy in the morning. Meds: Tylenol first line PRN pain Percocet second line PRN pain Follow up with plastics as directed # Anemia: Patient had anemia 2/2 wound and has received 2U PRBCs for optimization with great response. Will recheck H&H in the morning. Meds: None f/u with iron studies as outpatient in approximately 1 month # Hypothyroidism: Continue home medications # GERD: Continue Omeprazole HFpEF: Continue home Torsemide and Coreg following surgery. DISPO: Med/Surg Obs DIET: Heart Healthy DVT PROPHY: SQ Heparin CONSULTS: Plastic Surgery, PT/OT, NCM/SW DISCHARGE: Anticipate d/c to home with home health for wound care in the morning PLAN: DISPO: DIET: DVT PROPHY: CONSULTS: DISCHARGE: VS,Fishbone, I+O VS, Fishbone, I+O Laboratory Tests 04/17/21 22:09 04/18/21 05:57 Vital Signs Date Time Temp Pulse Resp B/P (MAP) Pulse Ox O2 Delivery O2 Flow Rate FiO2 04/18/21 15:10 97.9 75 16 139/73 92 Nasal Cannula 1.0 I&O- Last 24 Hours up to 6 AM 04/18/21 06:00 Intake Total 400 ml Output Total 350 ml Balance 50 ml SUMANTH GARNICA MD [facility] Apr 18, 2021 16:28
[2021-04-18 18:14] LABS: HEMOGLOBIN 10.3 g/dl (12.0-15.5); MEAN CORPUSCULAR HEMOGLOBIN 30.3 pg (27.0-33.0); MEAN CORPUSCULAR HGB CONC 32.2 g/dl (32.0-36.5); MEAN CORPUSCULAR VOLUME 94.1 fl (80.0-96.0); PLATELET COUNT, AUTOMATED 209 10^3/uL (150-450); WHITE BLOOD COUNT 7.8 10^3/uL (4.0-10.0)
[2021-04-18] MEDS: ACETAMINOPHEN TAB 650MG DOSE (2X325MG) PO PRN (21:05)
[2021-04-19 05:54] LABS: HEMATOCRIT 28.9 % (36.0-47.0); HEMOGLOBIN 9.3 g/dl (12.0-15.5)
[2021-04-19 06:00] VITALS: BP 152/86
[2021-04-19] MEDS: LEVOTHYROXINE 25MCG TABLET (0.025MG) PO SCH (06:02)
[2021-04-19] MEDS: ASPIRIN 81MG ENTERIC TABLET PO SCH (08:51)
[2021-04-19] MEDS: NEORAL 25 MG CAP (J7515) PO SCH ×2 (08:51→20:19)
[2021-04-19] MEDS: TORSEMIDE (DEMADEX) 50 MG PER 1/2 TAB PO SCH ×2 (08:51→17:54)
[2021-04-19] MEDS: predniSONE 10 MG TAB PO SCH (08:51)
[2021-04-19] MEDS: OCUVITE 1 TAB PO SCH ×2 (08:52→20:17)
[2021-04-19] MEDS: metOLazone 2.5 MG TAB PO SCH (08:52)
[2021-04-19] MEDS: POTASSIUM CHLORIDE 10 MEQ SR TABLET PO SCH ×2 (08:52→20:18)
[2021-04-19] MEDS: ACETAMINOPHEN TAB 650MG DOSE (2X325MG) PO PRN (08:54)
[2021-04-19] MEDS: CARVedilol 6.25 MG TAB PO SCH ×2 (08:54→20:18)
[2021-04-19] MEDS: HEPARIN SOD (PORCINE) 5000UNITS/ML 1ML VIAL/SYRINGE SC SCH ×2 (08:54→20:16)
--- NOTE | 2021-04-19 10:53 | IPNPDOC ---
Text Note Date of Service The patient was seen on 04/19/21. NOTE SUBJECTIVE: Ms. Boykin reports that she is feeling well, pain is well controlled. The major issue today is that she continues to require oxygen to maintain saturations. Especially when walking with PT she desaturated into the 70's on two different monitors. She is not normally on oxygen at home. PHYSICAL EXAM: GENERAL APPEARANCE: Well appearing female, slightly older than stated age, sitting on the edge of the bed, she was just returned to bed by PT HEENT: Atraumatic, normocephalic. Eyes are anicteric. Left inferior eyelid with slight erythema which is chronic per patient. Mucous membranes are pink and moist CARDIOVASCULAR: NSR regular rhythm, no noted murmurs LUNGS: CTAB ABDOMEN: Normoactive sounds, soft, nondistended. No rebound tenderness or guarding. EXTREMITIES: No lower extremity edema, RLE surgical site is covered in dressing, appears clean NEUROLOGICAL: Awake, speech is clear, AOx3 ASSESSMENT: 80 year old female with PMH HTN, Hypothyroidism, Nephrotic syndrome, CKD 3, HFpEF is sent in from her plastic surgeon's office for RLE debridement admitted for obs overnight following 2U PRBC for perioperative/post procedural acute blood loss anemia. # RLE wound: - Patient tolerated procedure well with no intra or post-operative complications. - She has adequate pain control - Working with PT, wound seems to be doing well, just desaturating with a mbulation Meds: Tylenol first line PRN pain Percocet second line PRN pain Follow up with plastics as directed # Hypoxia - Desaturations with ambulation - Will keep in hospital another 24 hours and attempt to wean O2, not on O2 at home # Anemia: Patient had anemia 2/2 wound and has received 2U PRBCs for optimization with great response. -H&H a little lower this morning, but still within acceptable limits, will repeat H&H daily Meds: None f/u with iron studies as outpatient in approximately 1 month # Hypothyroidism: Continue home medications # GERD: Continue Omeprazole HFpEF: Continue home Torsemide and Coreg following surgery. DISPO: Med/Surg Obs DIET: Heart Healthy DVT PROPHY: SQ Heparin CONSULTS: Plastic Surgery, PT/OT, NCM/SW DISCHARGE: Anticipate d/c to home when we can wean off oxygen VS,Fishbone, I+O VS, Fishbone, I+O Laboratory Tests 7/22/21 17:00 04/19/21 05:16 Vital Signs Date Time Temp Pulse Resp B/P (MAP) Pulse Ox O2 Delivery O2 Flow Rate FiO2 04/19/21 08:54 79 168/78 04/19/21 06:00 97.8 20 93 Nasal Cannula 0.5 I&O- Last 24 Hours up to 6 AM 04/19/21 06:00 Intake Total 1701 ml Output Total 750 ml Balance 951 ml BUCK GALLARDO DO Apr 19, 2021 10:53
[2021-04-19] MEDS: PERCOCET 5MG/325MG TAB PO PRN ×2 (11:01→20:17)
--- NOTE | 2021-04-19 11:59 | IPNPDOC ---
Subjective General Date Seen: Apr 19, 2021 Subject Chief Complaint/History The patient is a 80-year-old female admitted with a reason for visit of ISTAP type 3 skin tear of right lower extremity. Patient s/p irrigation and debridement of Right lower extremity degloving injury with application Epifix. POD 1. Doing well. Pain controlled. Current Medications Current Medications Current Medications Medications (Trade) Dose Ordered Sig/Ruddy Route PRN Reason Start Time Stop Time Status Last Admin Dose Admin Acetaminophen (Tylenol Tab) 650 mg Q4H PRN PO MILD PAIN or TEMP > 101 04/17/21 17:40 04/19/21 08:54 Aspirin (Ecotrin) 81 mg DAILY PO 04/18/21 09:00 04/19/21 08:51 Carvedilol (COReg) 6.25 mg BID PO 04/18/21 09:00 04/19/21 08:54 Cyclosporine (Modified) (NeoraL) 50 mg BID PO 04/18/21 09:00 04/19/21 08:51 Fentanyl Citrate (Sublimaze) 25 mcg Q5MP PRN IV PAIN LEVEL 5-10 04/18/21 10:55 04/18/21 11:26 DC 04/18/21 11:26 Heparin Sodium (Porcine) (Heparin) 5,000 units Q12H SC 04/18/21 09:00 04/19/21 08:54 Home Med (Med Rec Complete!) ASDIRECTED XX 04/17/21 18:20 04/17/21 18:21 DC Lactated Ringer's 1,000 ml @ 50 mls/hr Q20H IV 04/18/21 10:55 04/18/21 12:55 DC 04/18/21 11:26 Levothyroxine Sodium (Synthroid) 25 mcg DAILY@0600 PO 04/18/21 06:00 04/19/21 06:02 Metoclopramide HCl (REGLAN INJection) 10 mg Q6HP PRN IV NAUSEA OR VOMITING 04/18/21 10:55 04/18/21 12:55 DC Metolazone (Zaroxolyn) 2.5 mg MoWeFr@0900 PO 04/19/21 09:00 04/19/21 08:52 Multivitamins (Ocuvite(I-Shruthi)) 1 tab BID PO 04/18/21 09:00 04/19/21 08:52 Ondansetron HCl (ZOFRAN INJection) 4 mg Q4HP PRN IV NAUSEA OR VOMITING 04/18/21 10:55 04/18/21 12:55 DC Oxycodone/ Acetaminophen (Percocet 5mg/ 325mg Tablet) 1 tab Q4HP PRN PO PAIN LEVEL 8-10 04/18/21 10:50 Potassium Chloride (Micro-K Extencaps) 20 meq BID PO 04/18/21 09:00 04/19/21 08:52 Prednisone (Deltasone) 10 mg DAILY PO 04/18/21 09:00 04/19/21 08:51 Sodium Chloride 1,000 ml @ 15 mls/hr Q24H IV 04/17/21 17:35 04/17/21 22:22 DC 04/17/21 21:27 Torsemide (Demadex) 50 mg BID@0900,1700 PO 04/18/21 17:00 04/19/21 08:51 Allergies Coded Allergies: No Known Drug Allergies (Verified Allergy, Unknown, 02/18/21) Objective Physical Examination Examination GENERAL APPEARANCE:Patient seen, laying in bed, awake, alert, and oriented. Comfortable, in no acute distress. SKIN: Warm and moist. Dressing in place on the right lower extremity. No bleeding. NECK: Supple, no thyromegaly. No obvious jugular venous distention. LUNGS: Clear to auscultation bilaterally. No wheezing appreciated. HEART: No chest wall abnormalities. Regular rate and rhythm with no murmurs appreciated. ABDOMEN: Abdomen is soft, non-tender, non-distended. EXTREMITIES: No edema identified. No calf tenderness. Vital Signs Vital Signs Date Time Temp Pulse Resp B/P (MAP) Pulse Ox O2 Delivery O2 Flow Rate FiO2 04/19/21 08:54 79 168/78 04/19/21 06:00 97.8 20 93 Nasal Cannula 0.5 I&Os I&O- Last 24 Hours up to 6 AM 04/19/21 05:59 Intake Total 1601 ml Output Total 650 ml Balance 951 ml Laboratory Data Labs 24H Laboratory Tests 2 04/18/21 11:16: Lab Scanned Report Transfusion Record 04/18/21 17:00: Nucleated Red Blood Cells % (auto) 0.0 CBC/BMP Laboratory Tests 04/18/21 17:00 04/19/21 05:16 Microbiology Microbiology 04/18/21 Gram Stain - Final, Resulted 04/18/21 Abscess Culture, Resulted Pending 04/18/21 Anaerobic Culture, Resulted Pending 04/17/21 Blood Culture - Preliminary, Resulted No growth after 24 hours . All specim... Impression S/p right lower extremity irrigation and debridement open wound POD 1. Doing well from the surgical stand point. Pain controlled. No bleeding. S/p 2 U PRBC transfusion. Plan for dressing removal on Thursday04/22/21 Plastic surgery f/up scheduled. Home health referral for dressing changes for next week. Plan / VTE VTE Prophylaxis Ordered?: Yes SHILPI VÁSQUEZ DO Apr 19, 2021 11:59
[2021-04-19 14:00] VITALS: BP 124/54
[2021-04-19 20:00] VITALS: BP 156/87
[2021-04-20] MEDS: ACETAMINOPHEN TAB 650MG DOSE (2X325MG) PO PRN ×3 (03:08→21:33)
[2021-04-20] MEDS: LEVOTHYROXINE 25MCG TABLET (0.025MG) PO SCH (05:31)
[2021-04-20 06:00] VITALS: BP 169/81
[2021-04-20 08:22] LABS: HEMATOCRIT 31.5 % (36.0-47.0); MEAN CORPUSCULAR HEMOGLOBIN 30.6 pg (27.0-33.0); MEAN CORPUSCULAR HGB CONC 31.7 g/dl (32.0-36.5); MEAN CORPUSCULAR VOLUME 96.3 fl (80.0-96.0); PLATELET COUNT, AUTOMATED 225 10^3/uL (150-450); RED BLOOD COUNT 3.27 10^6/uL (4.00-5.40); WHITE BLOOD COUNT 6.8 10^3/uL (4.0-10.0)
[2021-04-20 08:48] LABS: CALCIUM LEVEL 8.5 MG/DL (8.8-10.2); CREATININE FOR GFR 1.86 MG/DL (0.55-1.30); GLOMERULAR FILTRATION RATE 27.8 (>39); POTASSIUM SERUM 4.2 MEQ/L (3.5-5.1); THYROID STIMULATING HORMONE 1.18 uIU/ML (0.358-3.740)
[2021-04-20] MEDS ORDERED: predniSONE 20 MG TAB PO ONE (09:00)
[2021-04-20] MEDS: NEORAL 25 MG CAP (J7515) PO SCH ×2 (10:48→21:32)
[2021-04-20] MEDS: TORSEMIDE (DEMADEX) 50 MG PER 1/2 TAB PO SCH ×2 (10:48→16:43)
[2021-04-20] MEDS: POTASSIUM CHLORIDE 10 MEQ SR TABLET PO SCH ×2 (10:48→21:32)
[2021-04-20] MEDS: CARVedilol 6.25 MG TAB PO SCH ×2 (10:49→21:36)
[2021-04-20] MEDS: OCUVITE 1 TAB PO SCH ×2 (10:49→21:32)
[2021-04-20] MEDS: ASPIRIN 81MG ENTERIC TABLET PO SCH (10:49)
[2021-04-20] MEDS: PERCOCET 5MG/325MG TAB PO PRN (10:49)
[2021-04-20] MEDS: HEPARIN SOD (PORCINE) 5000UNITS/ML 1ML VIAL/SYRINGE SC SCH ×2 (10:50→21:33)
--- NOTE | 2021-04-20 12:09 | IPNPDOC ---
Text Note Date of Service The patient was seen on 04/20/21. NOTE SUBJECTIVE: Ms. Boykin reports that she is once again feeling well, however she does become short of breath and fatigued when working with physical therapy. Otherwise, she reports that her leg is feeling well, and her pain is adequately controlled PHYSICAL EXAM: GENERAL APPEARANCE: Sitting in the chair, she is in no acute distress at this time. CARDIOVASCULAR: NSR regular rhythm, no noted murmurs LUNGS: CTAB ABDOMEN: Normoactive sounds, soft, nondistended. No rebound tenderness or guarding. EXTREMITIES: No lower extremity edema, RLE surgical site is covered in dressing, appears clean NEUROLOGICAL: Awake, speech is clear, AOx3 ASSESSMENT: 80 year old female with PMH HTN, Hypothyroidism, Nephrotic syndrome, CKD 3, HFpEF is sent in from her plastic surgeon's office for RLE debridement admitted for obs overnight following 2U PRBC for perioperative/post procedural acute blood loss anemia. # RLE wound: - Patient tolerated procedure well with no intra or post-operative complications. - wound seems to be doing well - She has adequate pain control - Working with PT, apparently improved today, but still not quite ready for discharge at this time -I spoke with the surgeon yesterday, and she indicated that the patient may go home when medically ready, recommend home health care referral for wound care. Meds: Tylenol first line PRN pain Percocet second line PRN pain Follow up with plastics as directed # Hypoxia - Desaturations with ambulation -Improved today, but still not safe for home at this time -I will give her an increased dose of prednisone today (40 mg). Apparently she has been on 10 mg daily for many years due to renal disease. She may have adrenal insufficiency, but she is certainly not an adrenal crisis at this time. -Also, on review of the charts it appears that she generally oxygen saturation approximately 90-92%, therefore I will adjust the oxygen weaning orders for a target of greater than 88%. # Anemia: Patient had anemia 2/2 wound and has received 2U PRBCs for optimization with great response. -H&H still within acceptable limits, no indication for transfusion at this time Meds: None f/u with iron studies as outpatient in approximately 1 month # Hypothyroidism: Continue home medications, TSH was rechecked and found to be within normal limits # GERD: Continue Omeprazole HFpEF: Continue home Torsemide and Coreg following surgery. DISPO: Med/Surg Obs DIET: Heart Healthy DVT PROPHY: SQ Heparin CONSULTS: Plastic Surgery, PT/OT, NCM/SW DISCHARGE: Anticipate d/c to home when we can wean off oxygen. Will need re ferral for wound care for dressing changes, and follow-up with surgeon as indicated in their notes. VS,Fishbone, I+O VS, Fishbone, I+O Laboratory Tests 04/20/21 07:51 Vital Signs Date Time Temp Pulse Resp B/P (MAP) Pulse Ox O2 Delivery O2 Flow Rate FiO2 04/20/21 10:49 16 04/20/21 10:49 78 169/81 04/20/21 06:00 97.1 92 Nasal Cannula 0.5 I&O- Last 24 Hours up to 6 AM 04/20/21 05:59 Intake Total 1118 ml Output Total 700 ml Balance 418 ml BUCK GALLARDO DO Apr 20, 2021 12:09
[2021-04-20 14:00] VITALS: BP 156/72
[2021-04-20] MEDS ORDERED: MIRALAX *UNIT DOSE* 17GM PACKET PO PRN (21:45)
[2021-04-20] MEDS ORDERED: MOM 30ML SUSPENSION UDC PO PRN (21:45)
[2021-04-20] MEDS: DOCUSATE SODIUM 100MG CAPSULE PO SCH (21:56)
[2021-04-20 22:00] VITALS: BP 178/74
[2021-04-21] MEDS: PERCOCET 5MG/325MG TAB PO PRN ×2 (03:51→13:07)
[2021-04-21 06:00] VITALS: BP 168/74
[2021-04-21] MEDS: LEVOTHYROXINE 25MCG TABLET (0.025MG) PO SCH (06:07)
[2021-04-21 06:37] LABS: HEMATOCRIT 28.7 % (36.0-47.0); HEMOGLOBIN 9.1 g/dl (12.0-15.5); MEAN CORPUSCULAR HEMOGLOBIN 30.1 pg (27.0-33.0); MEAN CORPUSCULAR HGB CONC 31.7 g/dl (32.0-36.5); PLATELET COUNT, AUTOMATED 239 10^3/uL (150-450); RED BLOOD COUNT 3.02 10^6/uL (4.00-5.40); WHITE BLOOD COUNT 5.5 10^3/uL (4.0-10.0)
[2021-04-21 07:04] LABS: CALCIUM LEVEL 8.2 MG/DL (8.8-10.2); CREATININE FOR GFR 1.64 MG/DL (0.55-1.30); GLOMERULAR FILTRATION RATE 32.2 (>39); POTASSIUM SERUM 4.3 MEQ/L (3.5-5.1)
[2021-04-21] MEDS: TORSEMIDE (DEMADEX) 50 MG PER 1/2 TAB PO SCH ×2 (09:58→17:56)
[2021-04-21] MEDS: ASPIRIN 81MG ENTERIC TABLET PO SCH (09:58)
[2021-04-21] MEDS: CARVedilol 6.25 MG TAB PO SCH ×2 (09:58→20:15)
[2021-04-21] MEDS: predniSONE 10 MG TAB PO SCH (09:58)
[2021-04-21] MEDS: NEORAL 25 MG CAP (J7515) PO SCH ×2 (09:58→20:14)
[2021-04-21] MEDS: DOCUSATE SODIUM 100MG CAPSULE PO SCH ×2 (09:58→20:13)
[2021-04-21] MEDS: POTASSIUM CHLORIDE 10 MEQ SR TABLET PO SCH ×2 (09:58→20:14)
[2021-04-21] MEDS: OCUVITE 1 TAB PO SCH ×2 (09:59→20:13)
[2021-04-21] MEDS: HEPARIN SOD (PORCINE) 5000UNITS/ML 1ML VIAL/SYRINGE SC SCH ×2 (09:59→20:13)
[2021-04-21 14:00] VITALS: BP_SYST 158; BP_DIAS 62; BP_DIAS 72
--- NOTE | 2021-04-21 15:01 | IPNPDOC ---
Subjective Date Seen The patient was seen on 04/21/21. Subjective Chief Complaint/HPI Mrs. Boykin is a 80 year old female with hypothyroidism, CKD stage 3 with nephrotic syndrome, and HFpEF who presents from her plastic surgeon's office for RLE debridement. Overnight, she was weaned off of her oxygen. This morning, she denied any chest pain or dyspnea. Placed order for HSE. When she worked with physical therapy, her oxygen saturation dropped to 82. She required some time to recover. Objective Physical Examination General Exam: Positive: Alert, Cooperative Eye Exam: Negative: Sclera icteric ENT Exam: Positive: Atraumatic Neck Exam: Positive: Supple Chest Exam: Positive: Clear to auscultation Heart Exam: Positive: Rate Normal, Regular Rhythm Abdomen Exam: Positive: Normal bowel sounds, Soft; Negative: Tenderness Extremity Exam: Negative: Edema Neuro Exam: Positive: Normal Speech Psych Exam: Positive: Mental status NL, Mood NL Assessment /Plan Assessment Mrs. Boykin is a 80 year old female with hypothyroidism, CKD stage 3 with nephrotic syndrome, and HFpEF who presents from her plastic surgeon's office for RLE debridement. Dr. Elliott took patient to the OR on 04/18/21, and afterwards, patient was hypoxic. Unclear etiology. Patient was able to be weaned off of NC. Attempted physical therapy, but patient desaturated down to 82%. Continue with current steroid regimen and diuresis. Will add on incentive spirometry Plan/VTE VTE Prophylaxis Ordered?: Yes Plan 1. Right lower extremity wound -Plastic surgery following, recommendations appreciated -Patient went to the OR on 04/18 for debridement 2. Acute hypoxic respiratory failure -Patient was able to be weaned off of oxygen at rest -On ambulation, patient desaturated down to 82% -Continue with PO prednisone and PO diuretics -Will add on incentive spirometer 3. Anemia -During hospitalization, patient received 2u pRBC -Monitor 4. Hypothyroidism -Continue levothyroxine 5. GERD -Continue omeprazole 6. HFpEF -Continue with torsemide 7. Hypertension -Continue Coreg -Patient hypertensive today, added on amlodipine 8. DVT ppx -Heparin subq Disposition: Pending improvement on oxygenation during ambulation VS, I&O, 24H, Fishbone Vital Signs/I&O Vital Signs Date Time Temp Pulse Resp B/P (MAP) Pulse Ox O2 Delivery O2 Flow Rate FiO2 04/21/21 14:00 97.9 70 20 158/72 (100) 90 Room Air 04/20/21 06:00 0.5 I&O- Last 24 Hours up to 6 AM 04/21/21 06:00 Intake Total 1500 ml Balance 1500 ml Laboratory Data 24H LABS Laboratory Tests 2 04/21/21 05:35: Nucleated Red Blood Cells % (auto) 0.0, Anion Gap 8, Glomerular Filtration Rate 32.2L, Calcium Level 8.2L CBC/BMP Laboratory Tests 04/21/21 05:35 Microbiology Microbiology 04/18/21 Gram Stain - Final, Complete 04/18/21 Abscess Culture - Final, Complete Enterococcus Faecalis Staphylococcus Aureus 04/18/21 Anaerobic Culture - Final, Complete 04/17/21 Blood Culture - Preliminary, Resulted No Growth after 72 hours. All specime... DARNELL VERAS DO Apr 21, 2021 15:01
[2021-04-21] MEDS: amLODIPine 5 MG TAB PO SCH (15:20)
[2021-04-21] MEDS: ACETAMINOPHEN TAB 650MG DOSE (2X325MG) PO PRN (20:15)
--- NOTE | 2021-04-21 20:32 | ECGEPIP ---
[facility] Test Date: 2021-04-21 Pat Name: JONY HARKINS Department: Room: [place] [address] Gender: Female Dining Room Hostess: tanja : 1940 Requested By: DARNELL Gonzalez Order Number: [id number] Reading MD: Varinder Hendrix Measurements Intervals [place] Rate: 78 P: IA: 148 QRS: 6 QRSD: 92 T: 50 QT: 348 QTc: 396 Interpretive Statements Sinus rhythm with premature atrial complexes Nonspecific T wave abnormality Compared to prior tracings in the system. No remarkable changes Electronically Signed on 04-21-2021 20:31:53 EDT by Varinder Hendrix
[2021-04-21 21:00] VITALS: BP 132/55
[2021-04-22] MEDS: ACETAMINOPHEN TAB 650MG DOSE (2X325MG) PO PRN ×3 (04:27→20:28)
[2021-04-22] MEDS: LEVOTHYROXINE 25MCG TABLET (0.025MG) PO SCH (05:34)
[2021-04-22 06:09] LABS: HEMOGLOBIN 9.6 g/dl (12.0-15.5); MEAN CORPUSCULAR HEMOGLOBIN 30.4 pg (27.0-33.0); MEAN CORPUSCULAR VOLUME 94.9 fl (80.0-96.0); PLATELET COUNT, AUTOMATED 257 10^3/uL (150-450); RED BLOOD COUNT 3.16 10^6/uL (4.00-5.40); WHITE BLOOD COUNT 6.4 10^3/uL (4.0-10.0)
[2021-04-22 06:31] LABS: CALCIUM LEVEL 8.1 MG/DL (8.8-10.2); CREATININE FOR GFR 1.6 MG/DL (0.55-1.30); GLOMERULAR FILTRATION RATE 33.1 (>39); POTASSIUM SERUM 4.3 MEQ/L (3.5-5.1)
[2021-04-22 08:03] VITALS: BP 179/88
[2021-04-22] MEDS: HEPARIN SOD (PORCINE) 5000UNITS/ML 1ML VIAL/SYRINGE SC SCH ×2 (08:48→20:27)
[2021-04-22] MEDS: ASPIRIN 81MG ENTERIC TABLET PO SCH (08:49)
[2021-04-22] MEDS: NEORAL 25 MG CAP (J7515) PO SCH ×2 (08:49→20:28)
[2021-04-22] MEDS: predniSONE 10 MG TAB PO SCH (08:49)
[2021-04-22] MEDS: TORSEMIDE (DEMADEX) 50 MG PER 1/2 TAB PO SCH ×2 (08:49→16:09)
[2021-04-22] MEDS: OCUVITE 1 TAB PO SCH ×2 (08:49→20:28)
[2021-04-22] MEDS: POTASSIUM CHLORIDE 10 MEQ SR TABLET PO SCH ×2 (08:50→20:28)
[2021-04-22] MEDS: DOCUSATE SODIUM 100MG CAPSULE PO SCH ×2 (08:50→20:29)
[2021-04-22] MEDS: CARVedilol 6.25 MG TAB PO SCH ×2 (08:50→20:27)
[2021-04-22] MEDS: metOLazone 2.5 MG TAB PO SCH (08:50)
[2021-04-22] MEDS: amLODIPine 5 MG TAB PO SCH (08:51)
[2021-04-22] MEDS: MUPIROCIN 2% OINT 22 GM TUBE TOP SCH (13:24)
[2021-04-22 14:00] VITALS: BP 163/82
--- NOTE | 2021-04-22 15:02 | IPNPDOC ---
Subjective Date Seen The patient was seen on 04/22/21. Subjective Chief Complaint/HPI Mrs. Boykin is a 80 year old female with hypothyroidism, CKD stage 3 with nephrotic syndrome, and HFpEF who presents from her plastic surgeon's office for RLE debridement. This morning, her oxygen saturation is borderline. She has not been using her incentive spirometer. I continue to encourage the use of her IS. Otherwise, she is hypoxic with ambulation. Will repeat CXR and obtain US lower extremity. Objective Physical Examination General Exam: Positive: Alert, Cooperative Eye Exam: Negative: Sclera icteric ENT Exam: Positive: Atraumatic Neck Exam: Positive: Supple Chest Exam: Positive: Clear to auscultation Heart Exam: Positive: Rate Normal, Regular Rhythm Abdomen Exam: Positive: Normal bowel sounds, Soft; Negative: Tenderness Extremity Exam: Negative: Edema Neuro Exam: Positive: Normal Speech Psych Exam: Positive: Mental status NL, Mood NL Assessment /Plan Assessment Mrs. Boykin is a 80 year old female with hypothyroidism, CKD stage 3 with nephrotic syndrome, and HFpEF who presents from her plastic surgeon's office for RLE debridement. Dr. Elliott took patient to the OR on 04/18/21, and afterwards, patient was hypoxic. Unclear etiology. Patient was able to be weaned off of NC. Attempted physical therapy, but patient desaturated down to 82%. Continue with current steroid regimen and diuresis. Continue to encourage incentive spirometry Since hypoxia has not improved, will order CXR and US lower extremity Plan/VTE VTE Prophylaxis Ordered?: Yes Plan 1. Right lower extremity wound -Plastic surgery following, recommendations appreciated -Patient went to the OR on 04/18 for debridement 2. Acute hypoxic respiratory failure -Patient was able to be weaned off of oxygen at rest -On ambulation, patient desaturated down to 82% -Continue with PO prednisone and PO diuretics -Will add on incentive spirometer and encourage the use of incentive spirometer -Otherwise, will repeat CXR and obtain US lower extremity 3. Anemia -During hospitalization, patient received 2u pRBC -Hemoglobin stable -Monitor 4. Hypothyroidism -Continue levothyroxine 5. GERD -Continue omeprazole 6. HFpEF -Continue with torsemide 7. Hypertension -Continue Coreg -Added amlodipine, BP still elevated. Did not want to use thiazide or ACEi/ARB due to FARNAZ. Will add on hydralazine 8. DVT ppx -Heparin subq Disposition: Pending improvement on oxygenation during ambulation VS, I&O, 24H, Fishbone Vital Signs/I&O Vital Signs Date Time Temp Pulse Resp B/P (MAP) Pulse Ox O2 Delivery O2 Flow Rate FiO2 04/22/21 13:12 88 Room Air 04/22/21 08:50 72 176/86 04/22/21 08:03 97.6 17 04/20/21 06:00 0.5 I&O- Last 24 Hours up to 6 AM 04/22/21 06:00 Intake Total 270 ml Output Total 300 ml Balance -30 ml Laboratory Data 24H LABS Laboratory Tests 2 04/22/21 05:28: Nucleated Red Blood Cells % (auto) 0.0, Anion Gap 6L, Glomerular Filtration Rate 33.1L, Calcium Level 8.1L 04/22/21 11:58: Bedside Glucose (Misc Panel) 119H CBC/BMP Laboratory Tests 04/22/21 05:28 Microbiology Microbiology 04/18/21 Gram Stain - Final, Complete 04/18/21 Abscess Culture - Final, Complete Enterococcus Faecalis Staphylococcus Aureus 04/18/21 Anaerobic Culture - Final, Complete 04/17/21 Blood Culture - Preliminary, Resulted No Growth after 72 hours. All specime... DARNELL VERAS DO Apr 22, 2021 15:02
--- NOTE | 2021-04-22 15:57 | REP ---
INDICATION: Hypoxia. COMPARISON: 12/01/2016 TECHNIQUE: PA lateral FINDINGS: Lung duarte are hyperinflated with changes of COPD, bullous emphysematous changes and pulmonary artery hypertension with prominent central pulmonary arteries. There are a few Beena B lines in the bases that may reflect some mild interstitial edema there are blunted CP angles left greater than right consistent with small effusions. The heart is enlarged with left atrial and ventricular enlargement. The aorta is calcified and tortuous without gross aneurysm. Bony thorax shows the T10 superior endplate depression unchanged from 2017 bones demineralized without acute compression deformity. No kyphosis or scoliosis. Demineralization with degenerative changes in the shoulders as well. IMPRESSION: 1. Cardiomegaly with the some mild interstitial edema with Beena B lines noted at the bases peripherally and bilateral small effusions, left greater than right. 2. No dense consolidation or parenchymal mass. 3. Advanced COPD, bullous emphysematous changes and pulmonary artery hypertension, likely on the basis of that COPD. 4. Tortuous calcified aorta without gross aneurysm. <Electronically signed by Lucian Quan > 04/22/21 [id number]
[2021-04-22] MEDS: **hydrALAZINE HCL** 25 MG TAB PO SCH ×2 (16:09→21:00)
[2021-04-22] MEDS: PERCOCET 5MG/325MG TAB PO PRN (16:10)
--- NOTE | 2021-04-22 16:45 | REP ---
INDICATION: Hypoxia, recent surgery, unable to obtain CTA. COMPARISON: Comparison study December 16, 2020.. TECHNIQUE: Bilateral lower extremity duplex venous scanning is performed from the groin to the ankle level. FINDINGS: In the right lower extremity, there is occlusive thrombosis involving the greater saphenous vein from the groin to the knee region. The deep veins in the right lower extremity visualized from the groin to the popliteal fossa are anechoic and compressible. No evidence of deep vein thrombosis. We were not able to evaluate the calf veins in the right lower extremity due to bandage related to recent surgery. There is superficial vein, saphenous, venous thrombosis. In the left lower extremity the deep veins are anechoic and fully compressible from the groin to the popliteal fossa. There is no evidence of DVT in the visualized calf veins. . IMPRESSION: There is occlusive superficial vein thrombosis of the right greater saphenous vein. No evidence of DVT seen on either side as discussed in detail above.. <Electronically signed by Yogesh Osorio > 04/22/21 [id number]
--- NOTE | 2021-04-22 17:05 | IPNPDOC ---
Subjective General Date Seen: Apr 22, 2021 Subject Chief Complaint/History The patient is a 80-year-old female admitted with a reason for visit of ISTAP type 3 skin tear of right lower extremity. Patient is feeling better today. No pain in the leg. She describes intermittent achiness in the ankle. No active bleeding in the wound. Current Medications Current Medications Current Medications Medications (Trade) Dose Ordered Sig/Ruddy Route PRN Reason Start Time Stop Time Status Last Admin Dose Admin Acetaminophen (Tylenol Tab) 650 mg Q4H PRN PO MILD PAIN or TEMP > 101 04/17/21 17:40 04/22/21 08:49 Amlodipine Besylate (Norvasc) 5 mg DAILY PO 04/21/21 09:00 04/22/21 08:51 Aspirin (Ecotrin) 81 mg DAILY PO 04/18/21 09:00 04/22/21 08:49 Carvedilol (COReg) 6.25 mg BID PO 04/18/21 09:00 04/22/21 08:50 Cyclosporine (Modified) (NeoraL) 50 mg BID PO 04/18/21 09:00 04/22/21 08:49 Docusate Sodium (Colace) 100 mg BID PO 04/20/21 21:00 04/22/21 08:50 Fentanyl Citrate (Sublimaze) 25 mcg Q5MP PRN IV PAIN LEVEL 5-10 04/18/21 10:55 04/18/21 11:26 DC 04/18/21 11:26 Heparin Sodium (Porcine) (Heparin) 5,000 units Q12H SC 04/18/21 09:00 04/22/21 08:48 Home Med (Med Rec Complete!) ASDIRECTED XX 04/17/21 18:20 04/17/21 18:21 DC Hydralazine HCl (Apresoline) 25 mg BID PO 04/22/21 09:00 04/22/21 16:09 Lactated Ringer's 1,000 ml @ 50 mls/hr Q20H IV 04/18/21 10:55 04/18/21 12:55 DC 04/18/21 11:26 Levothyroxine Sodium (Synthroid) 25 mcg DAILY@0600 PO 04/18/21 06:00 04/22/21 05:34 Magnesium Hydroxide (Milk Of Magnesia) 30 ml DAILYPRN PRN PO CONSTIPATION 04/20/21 21:45 04/21/21 06:16 Metoclopramide HCl (REGLAN INJection) 10 mg Q6HP PRN IV NAUSEA OR VOMITING 04/18/21 10:55 04/18/21 12:55 DC Metolazone (Zaroxolyn) 2.5 mg MoWeFr@0900 PO 04/19/21 09:00 04/22/21 08:50 Multivitamins (Ocuvite(I-Shruthi)) 1 tab BID PO 04/18/21 09:00 04/22/21 08:49 Mupirocin (Bactroban 2% Ointment) RIGHT LEG DAILY TOP 04/22/21 09:00 04/22/21 13:24 Ondansetron HCl (ZOFRAN INJection) 4 mg Q4HP PRN IV NAUSEA OR VOMITING 04/18/21 10:55 04/18/21 12:55 DC Oxycodone/ Acetaminophen (Percocet 5mg/ 325mg Tablet) 1 tab Q4HP PRN PO PAIN LEVEL 8-10 04/18/21 10:50 04/22/21 16:10 Polyethylene Glycol (Miralax) 1 pkt DAILYPRN PRN PO CONSTIPATION 04/20/21 21:45 Potassium Chloride (Micro-K Extencaps) 20 meq BID PO 04/18/21 09:00 04/22/21 08:50 Prednisone (Deltasone) 10 mg DAILY PO 04/18/21 09:00 04/22/21 08:49 Sodium Chloride 1,000 ml @ 15 mls/hr Q24H IV 04/17/21 17:35 04/17/21 22:22 DC 04/17/21 21:27 Torsemide (Demadex) 50 mg BID@0900,1700 PO 04/18/21 17:00 04/22/21 16:09 Allergies Coded Allergies: No Known Drug Allergies (Verified Allergy, Unknown, 02/18/21) Objective Physical Examination Examination GENERAL APPEARANCE:Patient seen, laying in bed, awake, alert, and oriented. Comfortable, in no acute distress. Able to breath without O2 at rest. SKIN: Warm and moist. Right lower anterior leg with open wound. 100 % granulating tissue. No active bleeding, no odor. No bleeding. LUNGS: Clear to auscultation bilaterally. No wheezing appreciated. HEART: No chest wall abnormalities. EXTREMITIES: No edema identified. No calf tenderness. Vital Signs Vital Signs Date Time Temp Pulse Resp B/P (MAP) Pulse Ox O2 Delivery O2 Flow Rate FiO2 04/22/21 16:10 18 91 Room Air 04/22/21 16:09 164/81 04/22/21 14:00 97.8 63 04/20/21 06:00 0.5 I&Os I&O- Last 24 Hours up to 6 AM 04/22/21 06:00 Intake Total 270 ml Output Total 300 ml Balance -30 ml Laboratory Data Labs 24H Laboratory Tests 2 04/22/21 05:28: Nucleated Red Blood Cells % (auto) 0.0, Anion Gap 6L, Glomerular Filtration Rate 33.1L, Calcium Level 8.1L 04/22/21 11:58: Bedside Glucose (Misc Panel) 119H CBC/BMP Laboratory Tests 04/22/21 05:28 Microbiology Microbiology 04/18/21 Gram Stain - Final, Complete 04/18/21 Abscess Culture - Final, Complete Enterococcus Faecalis Staphylococcus Aureus 04/18/21 Anaerobic Culture - Final, Complete 04/17/21 Blood Culture - Final, Complete NO GROWTH AFTER 5 DAYS Impression Cultures, CXR and right leg venous US appreciated. No DVT. Dressing changed. Mupirocin topical to the wound daily, covered with Xeroform, bulky dressing. Continue with treatment per medical team for COPD and CHF. No plan for further surgery at this time. Will continue with wound care. Will plan for skin graft after medically improved and wound bed is ready for grafting. Findings discussed with patient and daughter. Will continue to follow. Plan / VTE VTE Prophylaxis Ordered?: Yes SHILPI VÁSQUEZ DO Apr 22, 2021 17:05
[2021-04-22] MEDS ORDERED: IPRATROPIUM 0.5MG/ALBUTEROL 2.5MG INH SOL UD 3ML (DUONEB) NEB PRN (17:10)
[2021-04-22] MEDS ORDERED: FUROSEMIDE 40MG/4ML VIAL (J1940) IV ONE (20:00)
[2021-04-22 20:24] VITALS: BP 116/63
[2021-04-23] MEDS: LEVOTHYROXINE 25MCG TABLET (0.025MG) PO SCH (05:26)
[2021-04-23] MEDS: ACETAMINOPHEN TAB 650MG DOSE (2X325MG) PO PRN ×2 (05:26→20:42)
[2021-04-23 05:47] LABS: HEMATOCRIT 29.8 % (36.0-47.0); HEMOGLOBIN 9.7 g/dl (12.0-15.5); MEAN CORPUSCULAR HEMOGLOBIN 30.6 pg (27.0-33.0); MEAN CORPUSCULAR HGB CONC 32.6 g/dl (32.0-36.5); PLATELET COUNT, AUTOMATED 278 10^3/uL (150-450); RED BLOOD COUNT 3.17 10^6/uL (4.00-5.40)
[2021-04-23 06:08] LABS: CALCIUM LEVEL 8.6 MG/DL (8.8-10.2); CREATININE FOR GFR 1.6 MG/DL (0.55-1.30); GLOMERULAR FILTRATION RATE 33.1 (>39); POTASSIUM SERUM 4.3 MEQ/L (3.5-5.1)
[2021-04-23 06:26] VITALS: BP 140/78
[2021-04-23] MEDS: **hydrALAZINE HCL** 25 MG TAB PO SCH ×2 (09:00→20:43)
[2021-04-23] MEDS: amLODIPine 5 MG TAB PO SCH (09:00)
[2021-04-23] MEDS: CARVedilol 6.25 MG TAB PO SCH ×2 (09:00→20:43)
[2021-04-23] MEDS: ASPIRIN 81MG ENTERIC TABLET PO SCH (09:27)
[2021-04-23] MEDS: NEORAL 25 MG CAP (J7515) PO SCH ×2 (09:27→20:41)
[2021-04-23] MEDS: POTASSIUM CHLORIDE 10 MEQ SR TABLET PO SCH ×2 (09:28→20:41)
[2021-04-23] MEDS: HEPARIN SOD (PORCINE) 5000UNITS/ML 1ML VIAL/SYRINGE SC SCH ×2 (09:28→20:40)
[2021-04-23] MEDS: OCUVITE 1 TAB PO SCH ×2 (09:28→20:40)
[2021-04-23] MEDS: predniSONE 10 MG TAB PO SCH (09:28)
[2021-04-23] MEDS: TORSEMIDE (DEMADEX) 50 MG PER 1/2 TAB PO SCH ×2 (09:28→17:39)
[2021-04-23] MEDS: PERCOCET 5MG/325MG TAB PO PRN (09:29)
[2021-04-23] MEDS: DOCUSATE SODIUM 100MG CAPSULE PO SCH ×2 (09:30→20:43)
[2021-04-23] MEDS: MUPIROCIN 2% OINT 22 GM TUBE TOP SCH (09:30)
--- NOTE | 2021-04-23 11:10 | IPNPDOC ---
Subjective Date Seen The patient was seen on 04/23/21. Subjective Chief Complaint/HPI Mrs. Boykin is a 80 year old female with hypothyroidism, CKD stage 3 with nephrotic syndrome, and HFpEF who presents from her plastic surgeon's office for RLE debridement. Yesterday, Dr. Elliott debrided the right lower extremity. I ordered a CXR yesterday which was suggestive of acute CHF exacerbation. Gave an addition dose of Lasix this evening in addition to her BID torsemide. Otherwise, this morning, she denies chest pain or worsening dyspnea. Objective Physical Examination General Exam: Positive: Alert, Cooperative Eye Exam: Negative: Sclera icteric ENT Exam: Positive: Atraumatic Neck Exam: Positive: Supple Chest Exam: Positive: Clear to auscultation Heart Exam: Positive: Rate Normal, Regular Rhythm Abdomen Exam: Positive: Normal bowel sounds, Soft; Negative: Tenderness Extremity Exam: Negative: Edema Neuro Exam: Positive: Normal Speech Psych Exam: Positive: Mental status NL, Mood NL Assessment /Plan Assessment Mrs. Boykin is a 80 year old female with hypothyroidism, CKD stage 3 with nephrotic syndrome, and HFpEF who presents from her plastic surgeon's office for RLE debridement. Dr. Elliott took patient to the OR on 04/18/21, and afterwards, patient was hypoxic. Unclear etiology. Patient was able to be weaned off of NC. Attempted physical therapy, but patient desaturated down to 82%. Continue with current steroid regimen and diuresis. Continue to encourage incentive spirometry. Otherwise, CXR suggests acute CHF exacerbation which is the most likely cause to patient's hypoxia. Patient already on high dose torsemide and metolazone. Adding on a daily evening IV Lasix. Albumin is low which may make diuresis difficult. Added on Ensure Enlive to help. Plan/VTE VTE Prophylaxis Ordered?: Yes Plan 1. Right lower extremity wound -Plastic surgery following, recommendations appreciated -Patient went to the OR on 04/18 for debridement. Dressings were changed on 04/22 2. Acute hypoxic respiratory failure -Patient was able to be weaned off of oxygen at rest -On ambulation, patient desaturated down to 82% -Continue with PO prednisone and PO diuretics -Will add on incentive spirometer and encourage the use of incentive spirometer -CXR demonstrates severe COPD and acute CHF exacerbation -US lower extremity was negative for DVT 3. Anemia -During hospitalization, patient received 2u pRBC -Hemoglobin stable -Monitor 4. Hypothyroidism -Continue levothyroxine 5. GERD -Continue omeprazole 6. Acute HFpEF -Echocardiogram from 12/08/20 demonstrates EF 70 to 75% with grade 2 diastolic dysfunction -Continue with torsemide and metolazone -Add on additional Lasix -Albumin is low, added on Ensure Enlive 7. Hypertension -Continue Coreg -Continue amlodipine and hydralazine 8. DVT ppx -Heparin subq Disposition: Pending improvement on oxygenation during ambulation. Hypoxia most likely from acute CHF exacerbation. Already on high dose Torsemide and Metalozone. Adding on an evening Lasix. Albumin is low which may be causing difficulty with diuresis. Added on Ensure. VS, I&O, 24H, Fishbone Vital Signs/I&O Vital Signs Date Time Temp Pulse Resp B/P (MAP) Pulse Ox O2 Delivery O2 Flow Rate FiO2 04/23/21 09:29 65 18 104/72 89 Room Air 04/23/21 06:26 98.2 04/20/21 06:00 0.5 I&O- Last 24 Hours up to 6 AM 04/23/21 06:00 Intake Total 1200 ml Output Total 550 ml Balance 650 ml Laboratory Data 24H LABS Laboratory Tests 2 04/22/21 11:58: Bedside Glucose (Misc Panel) 119H 04/23/21 05:22: Nucleated Red Blood Cells % (auto) 0.0, Anion Gap 6L, Glomerular Filtration Rate 33.1L, Calcium Level 8.6L CBC/BMP Laboratory Tests 04/23/21 05:22 Microbiology Microbiology 04/18/21 Gram Stain - Final, Complete 04/18/21 Abscess Culture - Final, Complete Enterococcus Faecalis Staphylococcus Aureus 04/18/21 Anaerobic Culture - Final, Complete 04/17/21 Blood Culture - Final, Complete NO GROWTH AFTER 5 DAYS DARNELL VERAS DO Apr 23, 2021 11:10
[2021-04-23 14:00] VITALS: BP 111/70
[2021-04-23 16:00] VITALS: O2SAT 92
[2021-04-23] MEDS ORDERED: FUROSEMIDE 40MG/4ML VIAL (J1940) IV SCH (20:00)
[2021-04-23 22:00] VITALS: BP 144/65
[2021-04-24] MEDS: LEVOTHYROXINE 25MCG TABLET (0.025MG) PO SCH (05:09)
[2021-04-24 06:00] VITALS: BP 153/81
[2021-04-24 06:14] LABS: HEMATOCRIT 30.4 % (36.0-47.0); HEMOGLOBIN 9.6 g/dl (12.0-15.5); MEAN CORPUSCULAR HEMOGLOBIN 30.1 pg (27.0-33.0); MEAN CORPUSCULAR HGB CONC 31.6 g/dl (32.0-36.5); MEAN CORPUSCULAR VOLUME 95.3 fl (80.0-96.0); PLATELET COUNT, AUTOMATED 291 10^3/uL (150-450); RED BLOOD COUNT 3.19 10^6/uL (4.00-5.40); WHITE BLOOD COUNT 6.3 10^3/uL (4.0-10.0)
[2021-04-24 06:41] LABS: CALCIUM LEVEL 8.7 MG/DL (8.8-10.2); CREATININE FOR GFR 1.59 MG/DL (0.55-1.30); GLOMERULAR FILTRATION RATE 33.3 (>39); POTASSIUM SERUM 4.3 MEQ/L (3.5-5.1)
[2021-04-24] MEDS: OCUVITE 1 TAB PO SCH ×2 (08:45→22:02)
[2021-04-24] MEDS: metOLazone 2.5 MG TAB PO SCH (08:46)
[2021-04-24] MEDS: POTASSIUM CHLORIDE 10 MEQ SR TABLET PO SCH ×2 (08:46→22:01)
[2021-04-24] MEDS: ASPIRIN 81MG ENTERIC TABLET PO SCH (08:46)
[2021-04-24] MEDS: DOCUSATE SODIUM 100MG CAPSULE PO SCH ×2 (08:46→22:01)
[2021-04-24] MEDS: **hydrALAZINE HCL** 25 MG TAB PO SCH ×2 (08:47→22:02)
[2021-04-24] MEDS: CARVedilol 6.25 MG TAB PO SCH ×2 (08:48→22:02)
[2021-04-24] MEDS: amLODIPine 5 MG TAB PO SCH (08:48)
[2021-04-24] MEDS: predniSONE 10 MG TAB PO SCH (08:49)
[2021-04-24] MEDS: TORSEMIDE (DEMADEX) 50 MG PER 1/2 TAB PO SCH (08:49)
[2021-04-24] MEDS: HEPARIN SOD (PORCINE) 5000UNITS/ML 1ML VIAL/SYRINGE SC SCH ×2 (08:50→22:01)
[2021-04-24] MEDS: MUPIROCIN 2% OINT 22 GM TUBE TOP SCH (08:50)
[2021-04-24] MEDS: NEORAL 25 MG CAP (J7515) PO SCH ×2 (08:51→22:19)
[2021-04-24 09:00] VITALS: O2SAT 93
[2021-04-24 10:45] VITALS: O2SAT 95
[2021-04-24 11:00] VITALS: O2SAT 89
[2021-04-24] MEDS: TIOTROPIUM INHALER/CAPSULE (SPIRIVA) INH SCH (11:15)
[2021-04-24] MEDS: SALMETEROL DISKUS 50MCG INHALER (SEREVENT) INH SCH ×2 (11:15→19:28)
[2021-04-24 14:00] VITALS: BP 144/61
[2021-04-24] MEDS: PERCOCET 5MG/325MG TAB PO PRN (15:19)
--- NOTE | 2021-04-24 16:09 | IPNPDOC ---
Subjective Date Seen The patient was seen on 04/24/21. Subjective Chief Complaint/HPI Mrs. Boykin is a 80 year old female with hypothyroidism, CKD stage 3 with nephrotic syndrome, and HFpEF who presents from her plastic surgeon's office for RLE debridement. This morning, patient denies any chest pain or dyspnea. There is no wheezing on auscultation. I touched base with pulmonology about patient's newly diagnosed COPD. Okay to start LAMA/LABA. Objective Physical Examination General Exam: Positive: Alert, Cooperative Eye Exam: Negative: Sclera icteric ENT Exam: Positive: Atraumatic Neck Exam: Positive: Supple Chest Exam: Positive: Clear to auscultation Heart Exam: Positive: Rate Normal, Regular Rhythm Abdomen Exam: Positive: Normal bowel sounds, Soft; Negative: Tenderness Extremity Exam: Negative: Edema Neuro Exam: Positive: Normal Speech Psych Exam: Positive: Mental status NL, Mood NL Assessment /Plan Assessment Mrs. Boykin is a 80 year old female with hypothyroidism, CKD stage 3 with nephrotic syndrome, and HFpEF who presents from her plastic surgeon's office for RLE debridement. Dr. Elliott took patient to the OR on 04/18/21, and afterwards, patient was hypoxic. Unclear etiology. Patient was able to be weaned off of NC. Attempted physical therapy, but patient desaturated down to 82%. Continue with current steroid regimen and diuresis. Continue to encourage incentive spirometry. Otherwise, CXR suggests acute CHF exacerbation which is the most likely cause to patient's hypoxia. Patient already on high dose torsemide and metolazone. Adding on a daily evening IV Lasix. Albumin is low which may make diuresis difficult. Added on Ensure Enlive to help. Patient does have COPD, but not in exacerbation. Will start patient on LAMA and LABA Plan/VTE VTE Prophylaxis Ordered?: Yes Plan 1. Right lower extremity wound -Plastic surgery following, recommendations appreciated -Patient went to the OR on 04/18 for debridement. Dressings were changed on 04/22 2. Acute hypoxic respiratory failure -Weaning patient off of oxygen -Most likely from acute CHF exacerbation -Will add on incentive spirometer and encourage the use of incentive spirometer 3. Acute HFpEF -Echocardiogram from 12/08/20 demonstrates EF 70 to 75% with grade 2 diastolic dysfunction -Continue with metolazone -Discontinued torsemide. Will instead do IV Lasix q8h -Albumin is low, added on Ensure Enlive 4. Advanced COPD -Not in exacerbation -Will need outpatient PFTs for evaluation -Nelia RUBION dyspnea -Start LAMA and LABA 5. GERD -Continue omeprazole 6. Anemia -During hospitalization, patient received 2u pRBC -Hemoglobin stable -Monitor 7. Hypertension -Continue Coreg -Continue amlodipine and hydralazine 8. Hypothyroidism -Continue levothyroxine 9. DVT ppx -Heparin subq Disposition: Pending improvement on oxygenation during ambulation. Hypoxia most likely from acute CHF exacerbation. Changed diuretics to Lasix q8h with metolazone. Starting patient on LAMA and LABA for COPD. VS, I&O, 24H, Fishbone Vital Signs/I&O Vital Signs Date Time Temp Pulse Resp B/P (MAP) Pulse Ox O2 Delivery O2 Flow Rate FiO2 04/24/21 15:19 16 04/24/21 15:15 85 Room Air 04/24/21 15:15 0.5 04/24/21 14:00 97.8 73 144/61 (88) I&O- Last 24 Hours up to 6 AM 04/24/21 06:00 Intake Total 740 ml Output Total 200 ml Balance 540 ml Laboratory Data 24H LABS Laboratory Tests 2 04/24/21 05:32: Nucleated Red Blood Cells % (auto) 0.0, Anion Gap 6L, Glomerular Filtration Rate 33.3L, Calcium Level 8.7L CBC/BMP Laboratory Tests 04/24/21 05:32 Microbiology Microbiology 04/18/21 Gram Stain - Final, Complete 04/18/21 Abscess Culture - Final, Complete Enterococcus Faecalis Staphylococcus Aureus 04/18/21 Anaerobic Culture - Final, Complete 04/17/21 Blood Culture - Final, Complete NO GROWTH AFTER 5 DAYS DARNELL VERAS DO Apr 24, 2021 16:09
[2021-04-24] MEDS: FUROSEMIDE 100MG/10ML VIAL (J1940) IV SCH (17:09)
[2021-04-24 22:00] VITALS: BP 133/74
[2021-04-24] MEDS: ACETAMINOPHEN TAB 650MG DOSE (2X325MG) PO PRN (22:20)
[2021-04-25] MEDS: FUROSEMIDE 100MG/10ML VIAL (J1940) IV SCH ×4 (00:41→23:12)
[2021-04-25 02:25] VITALS: O2SAT 94
[2021-04-25] MEDS ORDERED: LEVALBUTEROL 1.25 MG/0.5 ML CONCENTRATE NEB INH PRN (03:10)
[2021-04-25 04:22] LABS: HEMATOCRIT 31.7 % (36.0-47.0); HEMOGLOBIN 10.1 g/dl (12.0-15.5); MEAN CORPUSCULAR HEMOGLOBIN 30.6 pg (27.0-33.0); MEAN CORPUSCULAR HGB CONC 31.9 g/dl (32.0-36.5); MEAN CORPUSCULAR VOLUME 96.1 fl (80.0-96.0); PLATELET COUNT, AUTOMATED 342 10^3/uL (150-450); WHITE BLOOD COUNT 5.6 10^3/uL (4.0-10.0)
[2021-04-25 04:54] LABS: CALCIUM LEVEL 8.7 MG/DL (8.8-10.2); CREATININE FOR GFR 1.55 MG/DL (0.55-1.30); GLOMERULAR FILTRATION RATE 34.3 (>39); MAGNESIUM LEVEL 2.1 MG/DL (1.8-2.4); POTASSIUM SERUM 4.6 MEQ/L (3.5-5.1)
[2021-04-25] MEDS: LEVOTHYROXINE 25MCG TABLET (0.025MG) PO SCH (05:55)
[2021-04-25 06:00] VITALS: BP 130/77
[2021-04-25] MEDS: ACETAMINOPHEN TAB 650MG DOSE (2X325MG) PO PRN (06:09)
[2021-04-25] MEDS: SALMETEROL DISKUS 50MCG INHALER (SEREVENT) INH SCH ×2 (07:19→20:00)
[2021-04-25] MEDS: TIOTROPIUM INHALER/CAPSULE (SPIRIVA) INH SCH (07:19)
[2021-04-25] MEDS: POTASSIUM CHLORIDE 10 MEQ SR TABLET PO SCH ×2 (08:54→20:40)
[2021-04-25] MEDS: ASPIRIN 81MG ENTERIC TABLET PO SCH (08:54)
[2021-04-25] MEDS: OCUVITE 1 TAB PO SCH ×2 (08:54→20:36)
[2021-04-25] MEDS: predniSONE 10 MG TAB PO SCH (08:54)
[2021-04-25] MEDS: HEPARIN SOD (PORCINE) 5000UNITS/ML 1ML VIAL/SYRINGE SC SCH ×2 (08:54→20:34)
[2021-04-25] MEDS: DOCUSATE SODIUM 100MG CAPSULE PO SCH ×2 (08:54→20:36)
[2021-04-25] MEDS: CARVedilol 6.25 MG TAB PO SCH ×2 (08:55→22:05)
[2021-04-25] MEDS: amLODIPine 5 MG TAB PO SCH (08:55)
[2021-04-25] MEDS: MUPIROCIN 2% OINT 22 GM TUBE TOP SCH (08:56)
[2021-04-25] MEDS: **hydrALAZINE HCL** 25 MG TAB PO SCH ×3 (08:56→23:05)
[2021-04-25] MEDS: NEORAL 25 MG CAP (J7515) PO SCH ×2 (08:56→20:37)
[2021-04-25] MEDS: PERCOCET 5MG/325MG TAB PO PRN ×2 (11:31→20:35)
--- NOTE | 2021-04-25 13:56 | IPNPDOC ---
Subjective Date Seen The patient was seen on 04/25/21. Subjective Chief Complaint/HPI Mrs. Boykin is a 80 year old female with hypothyroidism, CKD stage 3 with nephrotic syndrome, and HFpEF who presents from her plastic surgeon's office for RLE debridement. This morning, she denies any chest pain or worsening dyspnea. Will need to continue to encourage use of IS and ambulation. Objective Physical Examination General Exam: Positive: Alert, Cooperative Eye Exam: Negative: Sclera icteric ENT Exam: Positive: Atraumatic Neck Exam: Positive: Supple Chest Exam: Positive: Clear to auscultation Heart Exam: Positive: Rate Normal, Regular Rhythm Abdomen Exam: Positive: Normal bowel sounds, Soft; Negative: Tenderness Extremity Exam: Negative: Edema Neuro Exam: Positive: Normal Speech Psych Exam: Positive: Mental status NL, Mood NL Assessment /Plan Assessment Mrs. Boykin is a 80 year old female with hypothyroidism, CKD stage 3 with nephrotic syndrome, and HFpEF who presents from her plastic surgeon's office for RLE debridement. Dr. Elliott took patient to the OR on 04/18/21, and afterwards, patient was hypoxic. Unclear etiology. Patient was able to be weaned off of NC. Attempted physical therapy, but patient desaturated down to 82%. Continue with current steroid regimen and diuresis. Continue to encourage incentive spirometry. Otherwise, CXR suggests acute CHF exacerbation which is the most likely cause to patient's hypoxia. Patient already on high dose torsemide and metolazone. Adding on a daily evening IV Lasix. Albumin is low which may make diuresis difficult. Added on Ensure Enlive to help. Patient does have COPD, but not in exacerbation. Will start patient on LAMA and LABA Plan/VTE VTE Prophylaxis Ordered?: Yes Plan 1. Right lower extremity wound -Plastic surgery following, recommendations appreciated -Patient went to the OR on 04/18 for debridement. Dressings were changed on 04/22 2. Acute hypoxic respiratory failure -Weaning patient off of oxygen -Most likely from acute CHF exacerbation -Will add on incentive spirometer and encourage the use of incentive spirometer 3. Acute HFpEF -Echocardiogram from 12/08/20 demonstrates EF 70 to 75% with grade 2 diastolic dysfunction -Continue with metolazone -Discontinued torsemide. On IV Lasix q8h instead -Albumin is low, added on Ensure Enlive 4. Advanced COPD -Not in exacerbation -Will need outpatient PFTs for evaluation -On Xopenex as needed (tachycardia with duonebs) -Start LAMA and LABA 5. GERD -Continue omeprazole 6. Anemia -During hospitalization, patient received 2u pRBC -Hemoglobin stable -Monitor 7. Hypertension -Continue Coreg -Continue amlodipine and hydralazine 8. Hypothyroidism -Continue levothyroxine 9. DVT ppx -Heparin subq Disposition: Pending improvement on oxygenation VS, I&O, 24H, Fishbone Vital Signs/I&O Vital Signs Date Time Temp Pulse Resp B/P (MAP) Pulse Ox O2 Delivery O2 Flow Rate FiO2 04/25/21 11:34 88 Room Air 04/25/21 11:31 20 04/25/21 09:00 0.5 04/25/21 08:55 93 129/77 04/25/21 06:00 97.5 I&O- Last 24 Hours up to 6 AM 04/25/21 06:00 Intake Total 1530 ml Output Total 2200 ml Balance -670 ml Laboratory Data 24H LABS Laboratory Tests 2 04/25/21 04:10: Nucleated Red Blood Cells % (auto) 0.0, Anion Gap 5L, Glomerular Filtration Rate 34.3L, Calcium Level 8.7L, Magnesium Level 2.1 CBC/BMP Laboratory Tests 04/25/21 04:10 Microbiology Microbiology 04/18/21 Gram Stain - Final, Complete 04/18/21 Abscess Culture - Final, Complete Enterococcus Faecalis Staphylococcus Aureus 04/18/21 Anaerobic Culture - Final, Complete 04/17/21 Blood Culture - Final, Complete NO GROWTH AFTER 5 DAYS DARNELL VERAS DO Apr 25, 2021 13:56
[2021-04-25 14:00] VITALS: BP 108/63
--- NOTE | 2021-04-25 18:48 | ECGEPIP ---
[facility] Test Date: 2021-04-25 Pat Name: JONY HARKINS Department: Room: [place] [address] Gender: Female Director Speech And Hearing: [place] : 1940 Requested By: PREET Gonzalez Order Number: [id number] Reading MD: Varinder Hendrix Measurements Intervals [place] Rate: 111 P: PA: QRS: -12 QRSD: 92 T: 130 QT: 312 QTc: 424 Interpretive Statements Atrial flutter with variable AV block Minimal voltage criteria for LVH, may be normal variant ( Mansoor product ) Nonspecific ST and T wave abnormality Compared to prior tracings (4) in the system, Atrial Flutter is new Electronically Signed on 04-25-2021 18:48:05 EDT by Varinder Hendrix
[2021-04-25] MEDS ORDERED: METOPROLOL 5 MG/5 ML VIAL IV ONE (20:00)
--- NOTE | 2021-04-25 20:49 | IPNPDOC ---
Text Note Date of Service Significant event. The patient was seen on 04/25/21. NOTE Notified pt with tachycardia, labile at rest with oxygen. Her albuterol changed to xopenex, mag 2.1. EKG shows aflutter with variable block- her previous ekg had showed sinus arrythmia with block. Pt in no acute distress. 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 Last echo >1 year ago. Pt with coarse bases, but no overt wheeze. 88% on RA, 91% on 1L NC with no change in HR. Hr ranging 105-130. Pt denies cp, palpitations or SOB. s1,s2, notable extrasystoles and irregularity. Chads vasc 5pt, however with her wound and anemia believe full AC risk benefit too great- consider OAC with discharge. She is on Asa and Hep sq presently. Will increase coreg with BP parameters. ECHO in AM. WCTM. VS,Fishbone, I+O VS, Fishbone, I+O Laboratory Tests 04/25/21 04:10 Vital Signs Date Time Temp Pulse Resp B/P (MAP) Pulse Ox O2 Delivery O2 Flow Rate FiO2 04/25/21 14:00 98.2 99 18 108/63 (78) 91 Room Air 04/25/21 09:00 0.5 I&O- Last 24 Hours up to 6 AM 04/25/21 06:00 Intake Total 1530 ml Output Total 2200 ml Balance -670 ml PREET CONTRERAS NP Apr 25, 2021 20:12
[2021-04-25 22:00] VITALS: BP 112/67
[2021-04-25 23:05] VITALS: BP 121/76
[2021-04-25 23:27] VITALS: O2SAT 93
[2021-04-26] MEDS: LEVOTHYROXINE 25MCG TABLET (0.025MG) PO SCH (05:45)
[2021-04-26 06:00] VITALS: BP 132/73
[2021-04-26 06:01] LABS: HEMATOCRIT 32.2 % (36.0-47.0); HEMOGLOBIN 10.1 g/dl (12.0-15.5); MEAN CORPUSCULAR HEMOGLOBIN 30.1 pg (27.0-33.0); MEAN CORPUSCULAR HGB CONC 31.4 g/dl (32.0-36.5); MEAN CORPUSCULAR VOLUME 95.8 fl (80.0-96.0); PLATELET COUNT, AUTOMATED 388 10^3/uL (150-450); RED BLOOD COUNT 3.36 10^6/uL (4.00-5.40); WHITE BLOOD COUNT 7.6 10^3/uL (4.0-10.0)
[2021-04-26] MEDS: PERCOCET 5MG/325MG TAB PO PRN (06:16)
[2021-04-26 06:23] LABS: CALCIUM LEVEL 8.9 MG/DL (8.8-10.2); CREATININE FOR GFR 1.84 MG/DL (0.55-1.30); GLOMERULAR FILTRATION RATE 28.2 (>39); POTASSIUM SERUM 4.3 MEQ/L (3.5-5.1)
[2021-04-26 06:35] LABS: FREE T4 1.14 NG/DL (0.76-1.46); THYROID STIMULATING HORMONE 1.57 uIU/ML (0.358-3.740)
[2021-04-26] MEDS: TIOTROPIUM INHALER/CAPSULE (SPIRIVA) INH SCH (07:21)
[2021-04-26] MEDS: SALMETEROL DISKUS 50MCG INHALER (SEREVENT) INH SCH ×2 (07:21→17:35)
[2021-04-26] MEDS: FUROSEMIDE 100MG/10ML VIAL (J1940) IV SCH ×3 (08:00→16:06)
[2021-04-26] MEDS: HEPARIN SOD (PORCINE) 5000UNITS/ML 1ML VIAL/SYRINGE SC SCH (08:17)
[2021-04-26] MEDS: DOCUSATE SODIUM 100MG CAPSULE PO SCH ×2 (08:18→20:43)
[2021-04-26] MEDS: predniSONE 10 MG TAB PO SCH (08:18)
[2021-04-26] MEDS: ASPIRIN 81MG ENTERIC TABLET PO SCH (08:19)
[2021-04-26] MEDS: metOLazone 2.5 MG TAB PO SCH (08:19)
[2021-04-26] MEDS: NEORAL 25 MG CAP (J7515) PO SCH ×2 (08:19→20:43)
[2021-04-26] MEDS: POTASSIUM CHLORIDE 10 MEQ SR TABLET PO SCH ×2 (08:19→20:43)
[2021-04-26] MEDS: OCUVITE 1 TAB PO SCH ×2 (08:19→21:48)
[2021-04-26] MEDS: amLODIPine 5 MG TAB PO SCH ×2 (08:21→08:36)
[2021-04-26] MEDS: **hydrALAZINE HCL** 25 MG TAB PO SCH ×2 (08:22→08:35)
[2021-04-26] MEDS: CARVedilol 6.25 MG TAB PO SCH (08:22)
[2021-04-26] MEDS: MUPIROCIN 2% OINT 22 GM TUBE TOP SCH (08:36)
--- NOTE | 2021-04-26 09:16 | IPNPDOC ---
Subjective General Date Seen: Apr 26, 2021 Subject Chief Complaint/History The patient is a 80-year-old female admitted with a reason for visit of ISTAP type 3 skin tear of right lower extremity. Patient seen and examined at bedside today. She states she is feeling well. She does have nasal cannula oxygen on, feeling no shortness of breath. No pain in the leg. Current Medications Current Medications Current Medications Medications (Trade) Dose Ordered Sig/Ruddy Route PRN Reason Start Time Stop Time Status Last Admin Dose Admin Acetaminophen (Tylenol Tab) 650 mg Q4H PRN PO MILD PAIN or TEMP > 101 04/17/21 17:40 04/25/21 06:09 Albuterol/ Ipratropium (Duoneb (Ipr 0.5mg/Alb 2.5mg)) 3 ml Q4HP PRN NEB SOB/WHEEZING 04/22/21 17:10 04/25/21 03:11 DC 04/22/21 17:25 Amlodipine Besylate (Norvasc) 5 mg DAILY PO 04/21/21 09:00 04/25/21 08:55 Aspirin (Ecotrin) 81 mg DAILY PO 04/18/21 09:00 04/26/21 08:19 Carvedilol (COReg) 6.25 mg BID PO 04/18/21 09:00 04/25/21 20:32 DC 04/25/21 08:55 Carvedilol (COReg) 12.5 mg BID PO 04/25/21 21:00 04/26/21 08:22 Cyclosporine (Modified) (NeoraL) 50 mg BID PO 04/18/21 09:00 04/26/21 08:19 Docusate Sodium (Colace) 100 mg BID PO 04/20/21 21:00 04/26/21 08:18 Fentanyl Citrate (Sublimaze) 25 mcg Q5MP PRN IV PAIN LEVEL 5-10 04/18/21 10:55 04/18/21 11:26 DC 04/18/21 11:26 Furosemide (LASIX injection) 40 mg DAILY@2000 IV 04/23/21 20:00 04/24/21 16:04 DC 04/23/21 20:40 Furosemide (LASIX injection) 60 mg Q8H IV 04/24/21 16:00 04/25/21 23:12 Heparin Sodium (Porcine) (Heparin) 5,000 units Q12H SC 04/18/21 09:00 04/26/21 08:17 Home Med (Med Rec Complete!) ASDIRECTED XX 04/17/21 18:20 04/17/21 18:21 DC Hydralazine HCl (Apresoline) 25 mg BID PO 04/22/21 09:00 04/25/21 08:56 Lactated Ringer's 1,000 ml @ 50 mls/hr Q20H IV 04/18/21 10:55 04/18/21 12:55 DC 04/18/21 11:26 Levalbuterol HCl (Xopenex Neb) 0.63 mg Q4HP PRN INH SOB/WHEEZING 04/25/21 03:10 Levothyroxine Sodium (Synthroid) 25 mcg DAILY@0600 PO 04/18/21 06:00 04/26/21 05:45 Magnesium Hydroxide (Milk Of Magnesia) 30 ml DAILYPRN PRN PO CONSTIPATION 04/20/21 21:45 04/21/21 06:16 Metoclopramide HCl (REGLAN INJection) 10 mg Q6HP PRN IV NAUSEA OR VOMITING 04/18/21 10:55 04/18/21 12:55 DC Metolazone (Zaroxolyn) 2.5 mg MoWeFr@0900 PO 04/19/21 09:00 04/26/21 08:19 Multivitamins (Ocuvite(I-Shruthi)) 1 tab BID PO 04/18/21 09:00 04/26/21 08:19 Mupirocin (Bactroban 2% Ointment) RIGHT LEG DAILY TOP 04/22/21 09:00 04/25/21 08:56 Ondansetron HCl (ZOFRAN INJection) 4 mg Q4HP PRN IV NAUSEA OR VOMITING 04/18/21 10:55 04/18/21 12:55 DC Oxycodone/ Acetaminophen (Percocet 5mg/ 325mg Tablet) 1 tab Q4HP PRN PO PAIN LEVEL 8-10 04/18/21 10:50 04/26/21 06:16 Polyethylene Glycol (Miralax) 1 pkt DAILYPRN PRN PO CONSTIPATION 04/20/21 21:45 Potassium Chloride (Micro-K Extencaps) 20 meq BID PO 04/18/21 09:00 04/26/21 08:19 Prednisone (Deltasone) 10 mg DAILY PO 04/18/21 09:00 04/26/21 08:18 Salmeterol Xinafoate (Serevent Diskus) 1 puff BID INH 04/24/21 09:35 04/26/21 07:21 Sodium Chloride 1,000 ml @ 15 mls/hr Q24H IV 04/17/21 17:35 04/17/21 22:22 DC 04/17/21 21:27 Tiotropium [place] (Spiriva Handihaler) 1 inhalation DAILY@08 INH 04/24/21 09:35 04/26/21 07:21 Torsemide (Demadex) 50 mg BID@0900,1700 PO 04/18/21 17:00 04/24/21 16:04 DC 04/24/21 08:49 Allergies Coded Allergies: No Known Drug Allergies (Verified Allergy, Unknown, 02/18/21) Objective Physical Examination Examination GENERAL APPEARANCE:Patient seen, laying in bed, awake, alert, and oriented. Comfortable, in no acute distress. SKIN: Warm and moist. Right anterior leg with open wound. Clean granulating tissue, areas of epithelization present. No swelling, pain, drainage or odor. LUNGS: No wheezing appreciated. HEART: No chest wall abnormalities. Tachycardia. ABDOMEN: Abdomen is soft, non-tender, non-distended. EXTREMITIES: No edema identified. No calf tenderness. Vital Signs Vital Signs Date Time Temp Pulse Resp B/P (MAP) Pulse Ox O2 Delivery O2 Flow Rate FiO2 04/26/21 06:46 18 Nasal Cannula 1.0 04/26/21 06:00 97.9 117 132/73 (92) 95 I&Os I&O- Last 24 Hours up to 6 AM 04/26/21 05:59 Intake Total 1470 ml Output Total 0 ml Balance 1470 ml Laboratory Data Labs 24H Laboratory Tests 2 04/26/21 05:29: Nucleated Red Blood Cells % (auto) 0.0, Anion Gap 6L, Glomerular Filtration Rate 28.2L, Calcium Level 8.9, Thyroid Stimulating Hormone (TSH) 1.570, Free Thyroxine 1.14 CBC/BMP Laboratory Tests 04/26/21 05:29 Microbiology Microbiology 04/18/21 Gram Stain - Final, Complete 04/18/21 Abscess Culture - Final, Complete Enterococcus Faecalis Staphylococcus Aureus 04/18/21 Anaerobic Culture - Final, Complete 04/17/21 Blood Culture - Final, Complete NO GROWTH AFTER 5 DAYS Impression Right leg open wound s/p degloving injury. No evidence of residual infection. Wound is clean, no odor. Granulating tissue present. Continue with Xeroform dressing changes daily. Continue with medical management. No planning for surgical intervention at this time. Will follow. Plan / VTE VTE Prophylaxis Ordered?: Yes SHILPI VÁSQUEZ DO Apr 26, 2021 09:16
[2021-04-26 10:11] VITALS: BP 129/93
[2021-04-26] MEDS: METOPROLOL 5 MG/5 ML VIAL IV PRN (10:17)
--- NOTE | 2021-04-26 13:42 | IPNPDOC ---
Subjective Date Seen The patient was seen on 04/26/21. Subjective Chief Complaint/HPI Mrs. Boykin is a 80 year old female with hypothyroidism, CKD stage 3 with nephrotic syndrome, and HFpEF who presents from her plastic surgeon's office for RLE debridement. Overnight, she went into a rapid ventricular rhythm. She was increased in her Coreg. Heart rate was still elevated in the 150s this morning, and I upgraded her to PCU so that she may receive IV Lopressor. Otherwise, when I saw her she denies chest pain or worsening dyspnea. I discussed anticoagulation with patient. She was agreeable to anticoagulation. I spoke with Dr. Elliott. She is also okay with anticoagulation. Objective Physical Examination General Exam: Positive: Alert, Cooperative Eye Exam: Negative: Sclera icteric ENT Exam: Positive: Atraumatic Neck Exam: Positive: Supple Chest Exam: Positive: Clear to auscultation Heart Exam: Positive: Rate Normal, Regular Rhythm Abdomen Exam: Positive: Normal bowel sounds, Soft; Negative: Tenderness Extremity Exam: Negative: Edema Neuro Exam: Positive: Normal Speech Psych Exam: Positive: Mental status NL, Mood NL Assessment /Plan Assessment Mrs. Boykin is a 80 year old female with hypothyroidism, CKD stage 3 with nephrotic syndrome, and HFpEF who presents from her plastic surgeon's office for RLE debridement. Dr. Elliott took patient to the OR on 04/18/21, and afterwards, patient was hypoxic. Unclear etiology. Patient was able to be weaned off of NC. Attempted physical therapy, but patient desaturated down to 82%. Continue with current steroid regimen and diuresis. Continue to encourage incentive spirometry. Otherwise, CXR suggests acute CHF exacerbation which is the most likely cause to patient's hypoxia. Patient already on high dose torsemide and metolazone. Adding on a daily evening IV Lasix. Albumin is low which may make diuresis difficult. Added on Ensure Enlive to help. Patient does have COPD, but not in exacerbation. Will start patient on LAMA and LABA Patient went into rapid ventricular rhythm. Difficult to discern afib vs aflutter although previous EKG demonstrated atrial flutter with variable AV block. Patient agreeable to anticoagulation. Will increase beta davy to control rate. Plan/VTE VTE Prophylaxis Ordered?: Yes Plan 1. Right lower extremity wound -Plastic surgery following, recommendations appreciated -Patient went to the OR on 04/18 for debridement. Dressings were changed on 04/22 2. Acute hypoxic respiratory failure -Weaning patient off of oxygen -Most likely from acute CHF exacerbation -Will add on incentive spirometer and encourage the use of incentive spirometer 3. Acute HFpEF -Echocardiogram from 12/08/20 demonstrates EF 70 to 75% with grade 2 diastolic dysfunction -Continue with metolazone -Discontinued torsemide. On IV Lasix q8h instead -Albumin is low, added on Ensure Enlive 4. Advanced COPD -Not in exacerbation -Will need outpatient PFTs for evaluation -On Xopenex as needed (tachycardia with duonebs) -Start LAMA and LABA 5. Atrial flutter/fib with RVR -Tachycardic and irregular, but previous EKG read a.flutter with variable AV block -Patient is agreeable to anticoagulation with Eliquis -Increase Coreg for rate control -Continue Lopressor IV PRN HR >120 -Repeat Echocardiogram ordered -TSH and Free T4 within normal limits 6. Anemia -During hospitalization, patient received 2u pRBC -Hemoglobin stable -Monitor 7. Hypertension -Continue Coreg -Continue amlodipine and hydralazine 8. Hypothyroidism -Continue levothyroxine 9. GERD -Continue omeprazole 10. DVT ppx -Heparin subq Disposition: Pending improvement on oxygenation and rate control of rhythm VS, I&O, 24H, Fishbone Vital Signs/I&O Vital Signs Date Time Temp Pulse Resp B/P (MAP) Pulse Ox O2 Delivery O2 Flow Rate FiO2 04/26/21 10:17 139 129/93 04/26/21 10:15 1.0 04/26/21 10:11 97.5 18 97 Nasal Cannula I&O- Last 24 Hours up to 6 AM 04/26/21 05:59 Intake Total 1470 ml Output Total 0 ml Balance 1470 ml Laboratory Data 24H LABS Laboratory Tests 2 04/26/21 05:29: Nucleated Red Blood Cells % (auto) 0.0, Anion Gap 6L, Glomerular Filtration Rate 28.2L, Calcium Level 8.9, Thyroid Stimulating Hormone (TSH) 1.570, Free Thyroxine 1.14 CBC/BMP Laboratory Tests 04/26/21 05:29 Microbiology Microbiology 04/18/21 Gram Stain - Final, Complete 04/18/21 Abscess Culture - Final, Complete Enterococcus Faecalis Staphylococcus Aureus 04/18/21 Anaerobic Culture - Final, Complete 04/17/21 Blood Culture - Final, Complete NO GROWTH AFTER 5 DAYS DARNELL VERAS DO Apr 26, 2021 13:42
--- NOTE | 2021-04-26 13:47 | IPNPDOC ---
Subjective Date Seen The patient was seen on 04/26/21. Subjective Chief Complaint/HPI Mrs. Jonas is an 83 year old female with chronic neuropathy and multiple spinal cord stimulators s/p removal who is here for worsening tremors/tonic-clonic motions and inability to ambulate. This morning, she is more awake and alert. Still having neck pain and stiffness. Physical therapy worked with patient and recommended trying hot compress. Otherwise, patient denies chest pain or dyspnea. She feels that the tremors are improved. Placed ARU screen today. Objective Physical Examination General Exam: Positive: Alert, Cooperative Eye Exam: Negative: Sclera icteric ENT Exam: Positive: Atraumatic Neck Exam: Positive: Supple Chest Exam: Positive: Clear to auscultation Heart Exam: Positive: Rate Normal, Regular Rhythm Abdomen Exam: Positive: Normal bowel sounds, Soft; Negative: Tenderness Extremity Exam: Negative: Edema Neuro Exam: Positive: Normal Speech Psych Exam: Positive: Mental status NL, Mood NL Assessment /Plan Assessment Mrs. Jonas is an 83 year old female with chronic neuropathy and multiple spinal cord stimulators s/p removal who is here for worsening tremors/tonic-clonic motions and inability to ambulate. Neurology was consulted, recommendations appreciated. Patient was not able to tolerate Baclofen 10mg TID (increased lethargy). EEG demonstrates encephalopathy. MRI unable to obtain due to pacemaker. Neurology evaluated patient and patient's tremors is asterixis induced by Lyrica. Decreased Lyrica dosage and patient is doing better. Plan/VTE VTE Prophylaxis Ordered?: Yes Plan 1. Severe tremors affecting ADLs and ambulation//Asterixis secondary to Lyrica -Tremors worse with activity, better at rest -Patient unable to ambulate -Neurology consulted, recommendations appreciated -TSH 0.7, Copper 171, Vitamin B1 (Pending), and Vitamin B12 1494 -EEG demonstrates encephalopathy -Unable to obtain MRI due to pacemaker -Unable to tolerate baclofen 10mg TID (increased lethargy and nausea) -Decrease Lyrica dosage form 200mg TID to 100mg TID 2. Acute kidney injury -Unknown baseline but creatinine is elevated -Will hold Lasix and irbesartan -US renal negative -UA negative -Resolved 3. Atrial fibrillation on warfarin -Stable -Continue Lopressor and warfarin -Check INR daily 4. Hypertension -Continue amlodipine -Hold irbesartan. Start hydralazine 25mg PO q6hp SBP >160 5. Chronic pain -Continue tramadol and pregabalin -Pregabalin decreased as it was causing the asterixis/tremors 6. DVT ppx -On Warfarin Disposition: ARU screen placed VS, I&O, 24H, Fishbone Vital Signs/I&O Vital Signs Date Time Temp Pulse Resp B/P (MAP) Pulse Ox O2 Delivery O2 Flow Rate FiO2 04/26/21 10:17 139 129/93 04/26/21 10:15 1.0 04/26/21 10:11 97.5 18 97 Nasal Cannula I&O- Last 24 Hours up to 6 AM 04/26/21 05:59 Intake Total 1470 ml Output Total 0 ml Balance 1470 ml Laboratory Data 24H LABS Laboratory Tests 2 04/26/21 05:29: Nucleated Red Blood Cells % (auto) 0.0, Anion Gap 6L, Glomerular Filtration Rate 28.2L, Calcium Level 8.9, Thyroid Stimulating Hormone (TSH) 1.570, Free Thyroxine 1.14 CBC/BMP Laboratory Tests 04/26/21 05:29 Microbiology Microbiology 04/18/21 Gram Stain - Final, Complete 04/18/21 Abscess Culture - Final, Complete Enterococcus Faecalis Staphylococcus Aureus 04/18/21 Anaerobic Culture - Final, Complete 04/17/21 Blood Culture - Final, Complete NO GROWTH AFTER 5 DAYS DARNELL VERAS DO Apr 26, 2021 13:47
[2021-04-26] MEDS ORDERED: CARVedilol 12.5 MG TAB PO ONE (14:00)
[2021-04-26 15:11] VITALS: BP 116/70
[2021-04-26] MEDS: ACETAMINOPHEN TAB 650MG DOSE (2X325MG) PO PRN ×2 (16:07→20:44)
[2021-04-26 20:00] VITALS: BP 105/72
[2021-04-26] MEDS: APIXABAN 2.5 MG TAB (ELIQUIS) PO SCH (20:42)
[2021-04-26] MEDS: CARVedilol 12.5 MG TAB PO SCH (20:43)
[2021-04-27] VITALS (15 sets, daily range): BP systolic 101–127; BP diastolic 56–79; O2SAT 91–95
[2021-04-27] MEDS: FUROSEMIDE 100MG/10ML VIAL (J1940) IV SCH (00:28)
[2021-04-27 05:34] LABS: HEMOGLOBIN 10.1 g/dl (12.0-15.5); MEAN CORPUSCULAR HEMOGLOBIN 30.7 pg (27.0-33.0); MEAN CORPUSCULAR HGB CONC 31.6 g/dl (32.0-36.5); MEAN CORPUSCULAR VOLUME 97.3 fl (80.0-96.0); PLATELET COUNT, AUTOMATED 370 10^3/uL (150-450); RED BLOOD COUNT 3.29 10^6/uL (4.00-5.40); WHITE BLOOD COUNT 6.6 10^3/uL (4.0-10.0)
[2021-04-27 06:00] LABS: CALCIUM LEVEL 8.4 MG/DL (8.8-10.2); CREATININE FOR GFR 2.02 MG/DL (0.55-1.30); GLOMERULAR FILTRATION RATE 25.3 (>39); MAGNESIUM LEVEL 2.3 MG/DL (1.8-2.4); POTASSIUM SERUM 4.5 MEQ/L (3.5-5.1)
[2021-04-27] MEDS: LEVOTHYROXINE 25MCG TABLET (0.025MG) PO SCH (06:46)
[2021-04-27] MEDS: TIOTROPIUM INHALER/CAPSULE (SPIRIVA) INH SCH (07:20)
[2021-04-27] MEDS: SALMETEROL DISKUS 50MCG INHALER (SEREVENT) INH SCH (07:21)
[2021-04-27] MEDS: MUPIROCIN 2% OINT 22 GM TUBE TOP SCH ×2 (09:00→09:08)
[2021-04-27] MEDS ORDERED: TORSEMIDE (DEMADEX) 50 MG PER 1/2 TAB PO SCH (09:00)
[2021-04-27] MEDS: APIXABAN 2.5 MG TAB (ELIQUIS) PO SCH ×2 (09:03→20:48)
[2021-04-27] MEDS: OCUVITE 1 TAB PO SCH ×2 (09:04→20:47)
[2021-04-27] MEDS: DOCUSATE SODIUM 100MG CAPSULE PO SCH ×2 (09:05→20:48)
[2021-04-27] MEDS: CARVedilol 12.5 MG TAB PO SCH ×2 (09:05→20:47)
[2021-04-27] MEDS: POTASSIUM CHLORIDE 10 MEQ SR TABLET PO SCH ×2 (09:05→20:48)
[2021-04-27] MEDS: predniSONE 10 MG TAB PO SCH (09:06)
[2021-04-27] MEDS: NEORAL 25 MG CAP (J7515) PO SCH ×2 (09:06→20:47)
[2021-04-27] MEDS: ASPIRIN 81MG ENTERIC TABLET PO SCH (09:12)
[2021-04-27] MEDS: PERCOCET 5MG/325MG TAB PO PRN (10:09)
[2021-04-27] MEDS ORDERED: NS 500 ML IV ONE ×2 (14:35→17:10)
--- NOTE | 2021-04-27 14:41 | IPNPDOC ---
Subjective Date Seen The patient was seen on 04/27/21. Subjective Chief Complaint/HPI Mrs. Boykin is a 80 year old female with hypothyroidism, CKD stage 3 with nephrotic syndrome, and HFpEF who presents from her plastic surgeon's office for RLE debridement. This morning, she denies any chest pain or dyspnea. Her heart rate still not optimized. Her tachycardia and a.fib seems to have started after the initiate of salmeterol which I suspect may have instigated this rhythm. I will discontinue salmeterol and continue her on Spiriva. Will hold off on diuresis today as her creatinine is starting to rise. Objective Physical Examination General Exam: Positive: Alert, Cooperative Eye Exam: Negative: Sclera icteric ENT Exam: Positive: Atraumatic Neck Exam: Positive: Supple Chest Exam: Positive: Clear to auscultation Heart Exam: Positive: Rate Normal, Regular Rhythm Abdomen Exam: Positive: Normal bowel sounds, Soft; Negative: Tenderness Extremity Exam: Negative: Edema Neuro Exam: Positive: Normal Speech Psych Exam: Positive: Mental status NL, Mood NL Assessment /Plan Assessment Mrs. Boykin is a 80 year old female with hypothyroidism, CKD stage 3 with nephrotic syndrome, and HFpEF who presents from her plastic surgeon's office for RLE debridement. Dr. Elliott took patient to the OR on 04/18/21, and afterwards, patient was hypoxic. Repeat imaging did demonstrate both COPD and CHF. Suspecting that the CHF is the main cause of hypoxia. Otherwise, patient not in COPD exacerbation as there was no wheezing. Continue LAMA. Hold LABA as it may be contributing to her atrial fibrillation. Patient went into atrial fibrillation with rapid ventricular response. Patient agreeable to anticoagulation. Continue rate control with Coreg Plan/VTE VTE Prophylaxis Ordered?: Yes Plan 1. Right lower extremity wound -Plastic surgery following, recommendations appreciated -Patient went to the OR on 04/18 for debridement. Dressings were changed on 04/22 2. Acute hypoxic respiratory failure -Weaning patient off of oxygen -Most likely from acute CHF exacerbation -Continue with IS -Will order a CT chest as she is not improving 3. Acute HFpEF -Echocardiogram from 12/08/20 demonstrates EF 70 to 75% with grade 2 diastolic dysfunction -Anticipate difficult diuresis with low albumin -Will hold off on diuresis today as creatinine is on the rise 4. Advanced COPD -Not in exacerbation -Will need outpatient PFTs for evaluation -On Xopenex as needed (tachycardia with duonebs) -LABA held as it may be contributing to her atrial fibrillation with RVR -Continue LAMA 5. Atrial fib with RVR -Patient is agreeable to anticoagulation with Eliquis -Continue Coreg for rate control -Continue Lopressor IV PRN HR >120 6. Anemia -During hospitalization, patient received 2u pRBC -Hemoglobin stable -Monitor 7. Hypertension -Continue Coreg -Hold amlodipine and hydralazine so we may go up on beta davy 8. Hypothyroidism -Continue levothyroxine 9. GERD -Continue omeprazole 10. DVT ppx -Heparin subq Disposition: Pending improvement on oxygenation and rate control of rhythm VS, I&O, 24H, Fishbone Vital Signs/I&O Vital Signs Date Time Temp Pulse Resp B/P (MAP) Pulse Ox O2 Delivery O2 Flow Rate FiO2 04/27/21 12:00 97.9 119 18 102/56 (71) 93 Nasal Cannula 1.0 I&O- Last 24 Hours up to 6 AM 04/27/21 05:59 Intake Total 440 ml Output Total 0 ml Balance 440 ml Laboratory Data 24H LABS Laboratory Tests 2 04/27/21 04:59: Nucleated Red Blood Cells % (auto) 0.0, Anion Gap 5L, Glomerular Filtration Rate 25.3L, Calcium Level 8.4L, Magnesium Level 2.3, YS-Cpb-[id number]-Type Natriuretic Peptide [id number] CBC/BMP Laboratory Tests 04/27/21 04:59 Microbiology Microbiology 04/18/21 Gram Stain - Final, Complete 04/18/21 Abscess Culture - Final, Complete Enterococcus Faecalis Staphylococcus Aureus 04/18/21 Anaerobic Culture - Final, Complete 04/17/21 Blood Culture - Final, Complete NO GROWTH AFTER 5 DAYS DARNELL VERAS DO Apr 27, 2021 14:41
[2021-04-27] MEDS: METOPROLOL 5 MG/5 ML VIAL IV PRN (14:56)
[2021-04-27] MEDS: ACETAMINOPHEN TAB 650MG DOSE (2X325MG) PO PRN ×2 (16:16→20:48)
[2021-04-27] MEDS ORDERED: DIGOXIN INJ 0.5 MG/2 ML AMP (J1160) IV ONE (17:50)
--- NOTE | 2021-04-27 18:00 | REP ---
INDICATION: hypoxia. COMPARISON: None. TECHNIQUE: Contiguous axial [place] images were obtained of the chest. 2D sagittal and coronal reconstructions were performed. Radiation optimization: All CT scans at this facility use at least one of these dose optimization techniques: automated exposure control; mA and/or kV adjustment per patient size (includes targeted exams where dose is matched to clinical indication); or iterative reconstruction. FINDINGS: Lower neck: There is a coarse calcification in the right thyroid lobe. There are no noncalcified thyroid nodules. The thyroid gland is normal in size. There is no supraclavicular lymphadenopathy. Mediastinum: There are multiple common not pathologically enlarged, mediastinal lymph nodes. Heart/thoracic aorta: The heart is enlarged. There is a small pericardial effusion. There is calcific vascular disease of the thoracic aorta and coronary arteries. Upper abdomen: There is calcific vascular disease of the abdominal aorta. There is a possible infrarenal abdominal aortic aneurysm not imaged. There are 1.7 cm in diameter, and 5 mm in diameter, benign cortical cysts in the interpolar region of the left kidney. There is thickening of the limbs of both adrenal glands suggesting hyperplasia. Thoracic esophagus: Normal. Chest wall and axilla: The breasts and soft tissues of the chest wall appear unremarkable. There is no axillary lymphadenopathy. There is multilevel degenerative disc disease of the thoracic and upper lumbar spine with associated dextroscoliosis. There is moderate central compression of the superior endplate of T10. Lung parenchyma: There is moderate upper lobe predominant centrilobular emphysema. There is a 5 x 5 mm peripheral soft tissue density nodule in the lower lobe of the left lung (image 49). There is pulmonary parenchymal scarring in the middle lobe the right lung and in the inferior segment of the lingula. There are small bilateral pleural effusions. There is compressive atelectasis of the adjacent portion of both lungs. IMPRESSION: 1. Moderate emphysema. 2. Soft tissue density nodule in the lower lobes the left lung. Follow-up low-dose chest CT in 6 months. 3. Bilateral pleural effusions with bibasilar atelectasis. 4. There is calcific vascular disease of the thoracoabdominal aorta and coronary arteries. Possible infrarenal abdominal aortic aneurysm, not imaged. Recommend abdominal aortic ultrasound. 5. Cardiomegaly with a pericardial effusion. 6. Thoracolumbar degenerative disc disease with dextroscoliosis. 7. Other findings as noted. <Electronically signed by Manuel Hyatt > 04/27/21 1220
[2021-04-28] VITALS (11 sets, daily range): BP systolic 108–134; BP diastolic 56–93; O2SAT 91–96
[2021-04-28 05:18] LABS: HEMATOCRIT 29.6 % (36.0-47.0); HEMOGLOBIN 9.3 g/dl (12.0-15.5); MEAN CORPUSCULAR HEMOGLOBIN 30.6 pg (27.0-33.0); MEAN CORPUSCULAR HGB CONC 31.4 g/dl (32.0-36.5); MEAN CORPUSCULAR VOLUME 97.4 fl (80.0-96.0); PLATELET COUNT, AUTOMATED 367 10^3/uL (150-450); RED BLOOD COUNT 3.04 10^6/uL (4.00-5.40); WHITE BLOOD COUNT 7.3 10^3/uL (4.0-10.0)
[2021-04-28 05:39] LABS: CALCIUM LEVEL 7.8 MG/DL (8.8-10.2); CREATININE FOR GFR 1.98 MG/DL (0.55-1.30); GLOMERULAR FILTRATION RATE 25.9 (>39); POTASSIUM SERUM 4.4 MEQ/L (3.5-5.1)
[2021-04-28] MEDS: LEVOTHYROXINE 25MCG TABLET (0.025MG) PO SCH (05:49)
[2021-04-28] MEDS: TIOTROPIUM INHALER/CAPSULE (SPIRIVA) INH SCH (07:23)
[2021-04-28] MEDS: MUPIROCIN 2% OINT 22 GM TUBE TOP SCH (09:00)
[2021-04-28] MEDS: OCUVITE 1 TAB PO SCH ×2 (09:04→20:23)
[2021-04-28] MEDS: POTASSIUM CHLORIDE 10 MEQ SR TABLET PO SCH ×2 (09:04→20:21)
[2021-04-28] MEDS: ASPIRIN 81MG ENTERIC TABLET PO SCH (09:04)
[2021-04-28] MEDS: CARVedilol 12.5 MG TAB PO SCH (09:05)
[2021-04-28] MEDS: predniSONE 10 MG TAB PO SCH (09:06)
[2021-04-28] MEDS: APIXABAN 2.5 MG TAB (ELIQUIS) PO SCH ×2 (09:06→20:21)
[2021-04-28] MEDS: DOCUSATE SODIUM 100MG CAPSULE PO SCH ×2 (09:06→20:21)
[2021-04-28] MEDS: NEORAL 25 MG CAP (J7515) PO SCH ×2 (09:06→20:24)
[2021-04-28] MEDS: PERCOCET 5MG/325MG TAB PO PRN (10:44)
[2021-04-28] MEDS: METOPROLOL TART 25 MG TABLET PO SCH ×2 (15:51→20:21)
--- NOTE | 2021-04-28 17:14 | ECHO ---
ECHOCARDIOGRAM DATE OF PROCEDURE: 04/26/2021 Age: 80 Gender: Male Height: 163 cm Weight: 57 kg REFERRING PHYSICIAN: Cydney Roland NP. PATIENT LOCATION: Room 3214. REASON FOR THE TESTING: Cardiac arrhythmias. MEASUREMENTS: 2D Measurements: IVS 1.6 cm LVPW 1.5 cm LV 4.0 cm Aortic root 3.4 Left atrium 3.7 cm Doppler Measurements: Peak velocity across the aortic valve 0.93 m/sec Peak velocity across the LVOT 0.5 m/sec Mitral E 0.70 Maximum tricuspid valve velocity 2.2 m/sec 2D COMMENTS: 1. Moderately increased left ventricular wall thickness with normal left ventricular size, but with a depressed global left ventricular systolic function. The estimated left ventricular ejection fraction is 35-40%. There was global hypokinesis. 2. Subsequently, the left atrium and the right atrium appear to be enlarged. Normal right ventricle noted in limited views. 3. The atrial septum appeared to be normal without evidence of defect or shunt. 4. Normal aortic root. 5. A small pericardial effusion was noted. No evidence of cardiac tamponade. 6. Mildly calcified aortic valve with normal leaflet excursion. Moderately calcified mitral annulus with normal anterior mitral valve leaflet motion. Normal tricuspid valve and pulmonic valve. The proximal pulmonary artery branches were not well visualized. 7. The inferior vena cava was not well visualized DOPPLER: It detects just mild tricuspid regurgitation and mild pulmonic regurgitation. The calculated pulmonary artery systolic pressure was normal. Assessment of the left ventricular diastolic function was limited in view of the underlying arrhythmias. IMPRESSION: 1. Moderate global left ventricular systolic dysfunction with underlying moderate concentric left ventricular hypertrophy and a normal left ventricular size. There was global hypokinesis. 2. Moderate mitral annulus calcification. No evidence of mitral stenosis or mitral regurgitation. Subsequently, the left atrium appeared to be enlarged. 3. Trace to mild tricuspid regurgitation with a normal calculated pulmonary artery systolic pressure. The right atrium appeared to be mildly enlarged. 5. Aortic valve sclerosis without stenosis or aortic regurgitation. 6. A small pericardial effusion was noted. No evidence of cardiac tamponade. 7. Patient was in atrial fibrillation during the test.
--- NOTE | 2021-04-28 19:37 | IPNPDOC ---
Subjective Date Seen The patient was seen on 04/28/21. Subjective Chief Complaint/HPI Mrs. Boykin is a 80 year old female with hypothyroidism, CKD stage 3 with nephrotic syndrome, and HFpEF who presents from her plastic surgeon's office for RLE debridement. Patient's heart rate did improve with the digoxin, but only to between 90 to 130. This morning, patient continues to feel well. Denies chest pain , dyspnea, or palpitations. Planning to switch from PO Coreg to PO Lopressor for better rate control and less effect on the blood pressure. Objective Physical Examination General Exam: Positive: Alert, Cooperative Eye Exam: Negative: Sclera icteric ENT Exam: Positive: Atraumatic Neck Exam: Positive: Supple Chest Exam: Positive: Clear to auscultation Heart Exam: Positive: Rate Normal, Regular Rhythm Abdomen Exam: Positive: Normal bowel sounds, Soft; Negative: Tenderness Extremity Exam: Negative: Edema Neuro Exam: Positive: Normal Speech Psych Exam: Positive: Mental status NL, Mood NL Assessment /Plan Assessment Mrs. Boykin is a 80 year old female with hypothyroidism, CKD stage 3 with nephrotic syndrome, and HFpEF who presents from her plastic surgeon's office for RLE debridement. Dr. Elliott took patient to the OR on 04/18/21, and afterwards, patient was hypoxic. Repeat imaging did demonstrate both COPD and CHF. Suspecting that the CHF is the main cause of hypoxia. Otherwise, patient not in COPD exacerbation as there was no wheezing. Continue LAMA. Hold LABA as it may be contributing to her atrial fibrillation. Patient went into atrial fibrillation with rapid ventricular response. Patient agreeable to anticoagulation. Switch rate control from Coreg to Lopressor. Plan/VTE VTE Prophylaxis Ordered?: Yes Plan 1. Right lower extremity wound -Plastic surgery following, recommendations appreciated -Patient went to the OR on 04/18 for debridement. Dressings were changed on 04/22 2. Acute hypoxic respiratory failure -Weaning patient off of oxygen -Most likely from acute CHF exacerbation -Continue with IS -Will order a CT chest as she is not improving 3. Acute HFrEF -Echocardiogram from 12/08/20 demonstrates EF 70 to 75% with grade 2 diastolic dysfunction -Echocardiogram from 04/26/21 demonstrates EF 35 to 40% -Will need to reach out to Cardiology. Patient may be a candidate for a life vest 4. Advanced COPD -Not in exacerbation -Will need outpatient PFTs for evaluation -On Xopenex as needed (tachycardia with duonebs) -LABA held as it may be contributing to her atrial fibrillation with RVR -Continue LAMA 5. Atrial fib with RVR -Patient is agreeable to anticoagulation with Eliquis -Switched from PO Coreg to PO Lopressor -Continue Lopressor IV PRN HR >120 6. Anemia -During hospitalization, patient received 2u pRBC -Hemoglobin stable -Monitor 7. Hypertension -Switched from Coreg to Lopressor to have more control on rate without affecting blood pressure too much -Hold amlodipine and hydralazine so we may go up on beta davy 8. Hypothyroidism -Continue levothyroxine 9. GERD -Continue omeprazole 10. DVT ppx -Heparin subq Disposition: Pending improvement on oxygenation and rate control of rhythm VS, I&O, 24H, Fishbone Vital Signs/I&O Vital Signs Date Time Temp Pulse Resp B/P (MAP) Pulse Ox O2 Delivery O2 Flow Rate FiO2 04/28/21 16:00 97.4 106 18 134/93 (107) 93 Nasal Cannula 1.0 I&O- Last 24 Hours up to 6 AM 04/28/21 06:00 Intake Total 1500 ml Balance 1500 ml Laboratory Data 24H LABS Laboratory Tests 2 04/28/21 04:56: Nucleated Red Blood Cells % (auto) 0.0, Anion Gap 5L, Glomerular Filtration Rate 25.9L, Calcium Level 7.8L CBC/BMP Laboratory Tests 04/28/21 04:56 Microbiology Microbiology 04/18/21 Gram Stain - Final, Complete 04/18/21 Abscess Culture - Final, Complete Enterococcus Faecalis Staphylococcus Aureus 04/18/21 Anaerobic Culture - Final, Complete DARNELL VERAS DO Apr 28, 2021 19:37
[2021-04-28] MEDS: ACETAMINOPHEN TAB 650MG DOSE (2X325MG) PO PRN (20:24)
[2021-04-29] VITALS: BP 120/67
[2021-04-29 04:00] VITALS: BP 125/88
[2021-04-29 04:17] LABS: HEMATOCRIT 29.3 % (36.0-47.0); HEMOGLOBIN 8.9 g/dl (12.0-15.5); MEAN CORPUSCULAR HGB CONC 30.4 g/dl (32.0-36.5); MEAN CORPUSCULAR VOLUME 98.7 fl (80.0-96.0); PLATELET COUNT, AUTOMATED 372 10^3/uL (150-450); RED BLOOD COUNT 2.97 10^6/uL (4.00-5.40); WHITE BLOOD COUNT 7.9 10^3/uL (4.0-10.0)
[2021-04-29 04:34] LABS: CALCIUM LEVEL 8.3 MG/DL (8.8-10.2); CREATININE FOR GFR 1.94 MG/DL (0.55-1.30); GLOMERULAR FILTRATION RATE 26.5 (>39); POTASSIUM SERUM 4.9 MEQ/L (3.5-5.1)
[2021-04-29] MEDS: LEVOTHYROXINE 25MCG TABLET (0.025MG) PO SCH (06:14)
[2021-04-29] MEDS ORDERED: NS 500 ML IV ONE (07:00)
[2021-04-29 08:08] VITALS: BP 122/80
[2021-04-29] MEDS: TIOTROPIUM INHALER/CAPSULE (SPIRIVA) INH SCH (08:14)
[2021-04-29] MEDS: MUPIROCIN 2% OINT 22 GM TUBE TOP SCH ×2 (09:00→09:27)
[2021-04-29] MEDS: NEORAL 25 MG CAP (J7515) PO SCH ×2 (09:21→20:30)
[2021-04-29] MEDS: METOPROLOL TART 50 MG TAB PO SCH ×3 (09:21→20:29)
[2021-04-29] MEDS: DOCUSATE SODIUM 100MG CAPSULE PO SCH ×2 (09:21→20:29)
[2021-04-29] MEDS: APIXABAN 2.5 MG TAB (ELIQUIS) PO SCH ×2 (09:21→20:29)
[2021-04-29] MEDS: ASPIRIN 81MG ENTERIC TABLET PO SCH (09:21)
[2021-04-29] MEDS: OCUVITE 1 TAB PO SCH ×2 (09:21→20:29)
[2021-04-29] MEDS: predniSONE 10 MG TAB PO SCH (09:21)
[2021-04-29] MEDS: ACETAMINOPHEN TAB 650MG DOSE (2X325MG) PO PRN ×3 (09:25→20:30)
[2021-04-29 12:00] VITALS: BP 119/74
[2021-04-29 15:39] VITALS: BP 114/78
--- NOTE | 2021-04-29 16:30 | IPNPDOC ---
Subjective Date Seen The patient was seen on 04/29/21. Subjective Chief Complaint/HPI Mrs. Boykin is a 80 year old female with hypothyroidism, CKD stage 3 with nephrotic syndrome, and HFpEF who presents from her plastic surgeon's office for RLE debridement. This morning, she denies any chest pain, dyspnea, or palpitations. Her heart rate was not controlled on Lopressor 25mg TID so I increased it to 50mg TID. I reached out to cardiology, Dr. Hendrix, since her EF had dropped from 70 to 75% in November 2020 to 35-40% now. Patient does not need life vest, but would eventually need a cardiac cath. Since she has FARNAZ on CKD stage 3, recommending nephrology to be consulted. Objective Physical Examination General Exam: Positive: Alert, Cooperative Eye Exam: Negative: Sclera icteric ENT Exam: Positive: Atraumatic Neck Exam: Positive: Supple Chest Exam: Positive: Clear to auscultation Heart Exam: Positive: Tachycardic, Irregular Rhythm Abdomen Exam: Positive: Normal bowel sounds, Soft; Negative: Tenderness Extremity Exam: Negative: Edema Neuro Exam: Positive: Normal Speech Psych Exam: Positive: Mental status NL, Mood NL Assessment /Plan Assessment Mrs. Boykin is a 80 year old female with hypothyroidism, CKD stage 3 with nephrotic syndrome, and HFpEF who presents from her plastic surgeon's office for RLE debridement. Dr. Elliott took patient to the OR on 04/18/21, and afterwards, patient was hypoxic. Repeated CXR demonstrated COPD and CHF. Suspecting CHF was the cause of hypoxia and diuresed her. With her rising creatinine and BUN and falling blood pressure, diuresis was stopped. Nephrology has been consulted. Otherwise, echocardiogram repeated and demonstrated a drop in EF from 70-75% to 35-40%. Reached out to Cardiology, Dr. Hendrix. Patient would need a cardiac cath in the future. Nephrology has been consulted. CXR demonstrated bullous emphysematous changes. I initially started patient on LABA and LAMA, but patient went into A.fib with RVR. May have been due to the diuresis and LABA. LABA has been discontinued. Patient should follow up with Pulmonology outpatient for full PFTs Patient does not have history of A.fib. Discussed risk and benefits of anticoagulation and patient was agreeable to anticoagulation. Otherwise, switched from Coreg to Lopressor for rate control as Lopressor can be given more frequently. Plan/VTE VTE Prophylaxis Ordered?: Yes Plan 1. Right lower extremity wound -Plastic surgery following, recommendations appreciated -Patient went to the OR on 04/18 for debridement. Dressings were changed on 04/22 2. Hypoxia -Weaning patient off of oxygen -Most likely from acute CHF exacerbation -Continue with IS 3. Acute HFrEF -Echocardiogram from 12/08/20 demonstrates EF 70 to 75% with grade 2 diastolic dysfunction -Echocardiogram from 04/26/21 demonstrates EF 35 to 40% -Spoke with cardiology, patient would need cardiac cath in the future. Recommended nephrology consultation 4. FARNAZ on CKD stage 3 -Potentially due to diuresis -Held diuretics -Nephrology consulted, recommendations appreciated 5. Advanced COPD -Not in exacerbation -Will need outpatient PFTs for evaluation -On Xopenex as needed (tachycardia with duonebs) -LABA held as it may be contributing to her atrial fibrillation with RVR -Continue LAMA 6. Atrial fib with RVR -Patient is agreeable to anticoagulation with Eliquis -Switched from PO Coreg to PO Lopressor 7. Anemia -During hospitalization, patient received 2u pRBC -Hemoglobin stable -Monitor 8. Hypertension -Switched from Coreg to Lopressor -Hold amlodipine and hydralazine so we may go up on beta davy 9. Hypothyroidism -Continue levothyroxine 10. GERD -Continue omeprazole 11. DVT ppx -Eliquis Disposition: Pending improvement on oxygenation and rate control of rhythm VS, I&O, 24H, Fishbone Vital Signs/I&O Vital Signs Date Time Temp Pulse Resp B/P (MAP) Pulse Ox O2 Delivery O2 Flow Rate FiO2 04/29/21 15:39 96.9 143 18 114/78 (90) Room Air 04/29/21 14:50 85 04/29/21 14:40 1.0 I&O- Last 24 Hours up to 6 AM 04/29/21 06:00 Intake Total 940 ml Balance 940 ml Laboratory Data 24H LABS Laboratory Tests 2 04/29/21 03:46: Nucleated Red Blood Cells % (auto) 0.0, Anion Gap 5L, Glomerular Filtration Rate 26.5L, Calcium Level 8.3L CBC/BMP Laboratory Tests 04/29/21 03:46 DARNELL VERAS DO Apr 29, 2021 16:30
--- NOTE | 2021-04-29 17:40 | IPNPDOC ---
Subjective General Date Seen: Apr 29, 2021 Subject Chief Complaint/History The patient is a 80-year-old female admitted with a reason for visit of ISTAP type 3 skin tear of right lower extremity. Patient s/p debridement right LE for degloving injury. She is doing well with the wound. Minimal pain. No bleeding. She has been transferred to telemetry for cardiac issues. However, patient states she is feeling normal. Current Medications Current Medications Current Medications Medications (Trade) Dose Ordered Sig/Ruddy Route PRN Reason Start Time Stop Time Status Last Admin Dose Admin Acetaminophen (Tylenol Tab) 650 mg Q4H PRN PO MILD PAIN or TEMP > 101 04/17/21 17:40 04/29/21 16:24 Albuterol/ Ipratropium (Duoneb (Ipr 0.5mg/Alb 2.5mg)) 3 ml Q4HP PRN NEB SOB/WHEEZING 04/22/21 17:10 04/25/21 03:11 DC 04/22/21 17:25 Amlodipine Besylate (Norvasc) 5 mg DAILY PO 04/21/21 09:00 04/26/21 13:43 DC 04/25/21 08:55 Apixaban (Eliquis) 2.5 mg BID PO 04/26/21 21:00 04/29/21 09:21 Aspirin (Ecotrin) 81 mg DAILY PO 04/18/21 09:00 04/29/21 09:21 Carvedilol (COReg) 6.25 mg BID PO 04/18/21 09:00 04/25/21 20:32 DC 04/25/21 08:55 Carvedilol (COReg) 12.5 mg BID PO 04/25/21 21:00 04/26/21 13:24 DC 04/26/21 08:22 Carvedilol (COReg) 25 mg BID PO 04/26/21 21:00 04/28/21 15:16 DC 04/28/21 09:05 Cyclosporine (Modified) (NeoraL) 50 mg BID PO 04/18/21 09:00 04/29/21 09:21 Docusate Sodium (Colace) 100 mg BID PO 04/20/21 21:00 04/29/21 09:21 Fentanyl Citrate (Sublimaze) 25 mcg Q5MP PRN IV PAIN LEVEL 5-10 04/18/21 10:55 04/18/21 11:26 DC 04/18/21 11:26 Furosemide (LASIX injection) 40 mg DAILY@2000 IV 04/23/21 20:00 04/24/21 16:04 DC 04/23/21 20:40 Furosemide (LASIX injection) 60 mg Q8H IV 04/24/21 16:00 04/27/21 07:02 DC 04/27/21 00:28 Heparin Sodium (Porcine) (Heparin) 5,000 units Q12H SC 04/18/21 09:00 04/26/21 13:59 DC 04/26/21 08:17 Home Med (Med Rec Complete!) ASDIRECTED XX 04/17/21 18:20 04/17/21 18:21 DC Hydralazine HCl (Apresoline) 25 mg BID PO 04/22/21 09:00 04/26/21 13:43 DC 04/25/21 08:56 Lactated Ringer's 1,000 ml @ 50 mls/hr Q20H IV 04/18/21 10:55 04/18/21 12:55 DC 04/18/21 11:26 Levalbuterol HCl (Xopenex Neb) 0.63 mg Q4HP PRN INH SOB/WHEEZING 04/25/21 03:10 Levothyroxine Sodium (Synthroid) 25 mcg DAILY@0600 PO 04/18/21 06:00 04/29/21 06:14 Magnesium Hydroxide (Milk Of Magnesia) 30 ml DAILYPRN PRN PO CONSTIPATION 04/20/21 21:45 04/21/21 06:16 Metoclopramide HCl (REGLAN INJection) 10 mg Q6HP PRN IV NAUSEA OR VOMITING 04/18/21 10:55 04/18/21 12:55 DC Metolazone (Zaroxolyn) 2.5 mg MoWeFr@0900 PO 04/19/21 09:00 04/26/21 13:43 DC 04/26/21 08:19 Metoprolol Tartrate (Lopressor) 5 mg Q6HP PRN IV HR>120 04/26/21 09:25 04/27/21 14:56 Metoprolol Tartrate (Lopressor) 25 mg TID PO 04/28/21 16:00 04/29/21 07:49 DC 04/28/21 20:21 Metoprolol Tartrate (Lopressor) 50 mg TID PO 04/29/21 09:00 04/29/21 16:24 Multivitamins (Ocuvite(I-Shruthi)) 1 tab BID PO 04/18/21 09:00 04/29/21 09:21 Mupirocin (Bactroban 2% Ointment) RIGHT LEG DAILY TOP 04/22/21 09:00 04/25/21 08:56 Ondansetron HCl (ZOFRAN INJection) 4 mg Q4HP PRN IV NAUSEA OR VOMITING 04/18/21 10:55 04/18/21 12:55 DC Oxycodone/ Acetaminophen (Percocet 5mg/ 325mg Tablet) 1 tab Q4HP PRN PO PAIN LEVEL 8-10 04/18/21 10:50 04/28/21 10:44 Polyethylene Glycol (Miralax) 1 pkt DAILYPRN PRN PO CONSTIPATION 04/20/21 21:45 Potassium Chloride (Micro-K Extencaps) 20 meq BID PO 04/18/21 09:00 04/29/21 09:54 DC 04/28/21 20:21 Prednisone (Deltasone) 10 mg DAILY PO 04/18/21 09:00 04/29/21 09:21 Salmeterol Xinafoate (Serevent Diskus) 1 puff BID INH 04/24/21 09:35 04/27/21 14:32 DC 04/27/21 07:21 Sodium Chloride 1,000 ml @ 15 mls/hr Q24H IV 04/17/21 17:35 04/17/21 22:22 DC 04/17/21 21:27 Tiotropium [place] (Spiriva Handihaler) 1 inhalation DAILY@08 INH 04/24/21 09:35 04/29/21 08:14 Torsemide (Demadex) 50 mg BID@09,17 PO 04/27/21 09:00 04/27/21 14:33 DC 04/27/21 09:04 Torsemide (Demadex) 50 mg BID@0900,1700 PO 04/18/21 17:00 04/24/21 16:04 DC 04/24/21 08:49 Allergies Coded Allergies: No Known Drug Allergies (Verified Allergy, Unknown, 02/18/21) Objective Physical Examination Examination GENERAL APPEARANCE:Patient seen, laying in bed, awake, alert, and oriented. Comfortable, in no acute distress. SKIN: Warm and moist. Right lower anterior leg with open wound. Parts of the wound are epithelized. No drainage, odor, bleeding. LUNGS: Clear to auscultation bilaterally. HEART: No chest wall abnormalities. EXTREMITIES: No edema identified. No calf tenderness. Vital Signs Vital Signs Date Time Temp Pulse Resp B/P (MAP) Pulse Ox O2 Delivery O2 Flow Rate FiO2 04/29/21 16:24 117 114/78 04/29/21 16:00 1.0 04/29/21 15:39 96.9 18 Room Air 04/29/21 14:50 85 I&Os I&O- Last 24 Hours up to 6 AM 04/29/21 06:00 Intake Total 940 ml Balance 940 ml Laboratory Data Labs 24H Laboratory Tests 2 04/29/21 03:46: Nucleated Red Blood Cells % (auto) 0.0, Anion Gap 5L, Glomerular Filtration Rate 26.5L, Calcium Level 8.3L CBC/BMP Laboratory Tests 04/29/21 03:46 Impression Right lower leg degloving injury. Wound is epithelizing well. Do not expect the need for surgical intervention at this time. D/c Mupirocin ointment. Continue with Xeroform dressing changes every other day. Showing marked improvement. Keep leg elevated when in the chair. No restrictions to anticoagulation therapy. Will continue with follow. Findings discussed with patient. Plan / VTE VTE Prophylaxis Ordered?: Yes SHILPI VÁSQUEZ DO Apr 29, 2021 17:40
[2021-04-29 20:00] VITALS: BP_SYST 137; BP_SYST 155; BP_DIAS 66; BP_DIAS 69
[2021-04-30] VITALS (7 sets, daily range): BP systolic 124–144; BP diastolic 66–91
[2021-04-30 04:08] LABS: HEMATOCRIT 30.5 % (36.0-47.0); HEMOGLOBIN 9.4 g/dl (12.0-15.5); MEAN CORPUSCULAR HEMOGLOBIN 30.3 pg (27.0-33.0); MEAN CORPUSCULAR HGB CONC 30.8 g/dl (32.0-36.5); MEAN CORPUSCULAR VOLUME 98.4 fl (80.0-96.0); PLATELET COUNT, AUTOMATED 397 10^3/uL (150-450); WHITE BLOOD COUNT 8.3 10^3/uL (4.0-10.0)
[2021-04-30 04:32] LABS: ALBUMIN 2.2 GM/DL (3.2-5.2); CALCIUM LEVEL 8.2 MG/DL (8.8-10.2); CREATININE FOR GFR 1.75 MG/DL (0.55-1.30); GLOMERULAR FILTRATION RATE 29.8 (>39); PHOSPHORUS LEVEL 3.8 MG/DL (2.5-4.9); POTASSIUM SERUM 4.6 MEQ/L (3.5-5.1)
[2021-04-30] MEDS: LEVOTHYROXINE 25MCG TABLET (0.025MG) PO SCH (06:13)
[2021-04-30] MEDS: METOPROLOL 5 MG/5 ML VIAL IV PRN (06:59)
[2021-04-30] MEDS: TIOTROPIUM INHALER/CAPSULE (SPIRIVA) INH SCH (07:23)
[2021-04-30] MEDS: DOCUSATE SODIUM 100MG CAPSULE PO SCH ×2 (08:20→20:47)
[2021-04-30] MEDS: predniSONE 10 MG TAB PO SCH (08:38)
[2021-04-30] MEDS: NEORAL 25 MG CAP (J7515) PO SCH ×2 (08:39→20:46)
[2021-04-30] MEDS: METOPROLOL TART 50 MG TAB PO SCH ×3 (08:39→20:46)
[2021-04-30] MEDS: ASPIRIN 81MG ENTERIC TABLET PO SCH (08:39)
[2021-04-30] MEDS: APIXABAN 2.5 MG TAB (ELIQUIS) PO SCH ×2 (08:39→20:46)
[2021-04-30] MEDS: OCUVITE 1 TAB PO SCH ×2 (08:39→20:46)
[2021-04-30] MEDS: ACETAMINOPHEN TAB 650MG DOSE (2X325MG) PO PRN ×3 (08:40→20:47)
--- NOTE | 2021-04-30 15:55 | IPNPDOC ---
Subjective Date Seen The patient was seen on 04/30/21. Subjective Chief Complaint/HPI Patient was seen and examined at bedside this morning. This morning, she denies having palpitations, chest pain, shortness of breath, abdominal pain, nausea, vomiting, problems with urination or bowel movements. Overnight telemetry events noted patient to have uncontrolled A. fib. Other systems 10 point review of system was negative except for what is noted in the HPI Objective Physical Examination General Exam: Positive: Alert, Cooperative, No Acute Distress Eye Exam: Positive: EOMI; Negative: PERRLA, Sclera icteric ENT Exam: Positive: Atraumatic, Mucous membr. moist/pink, Pharynx Normal Neck Exam: Positive: Supple Chest Exam: Positive: Clear to auscultation, Normal air movement; Negative: Rales, Wheezing Heart Exam: Positive: Tachycardic (Heart rate around 115), Irregular Rhythm (Irregularly irregular) Telemetry: Positive: Atrial fibrillation Abdomen Exam: Positive: Normal bowel sounds, Soft; Negative: BS Hyperactive, BS Hypoactive, Tenderness Extremity Exam: Positive: Normal pulses; Negative: Clubbing, Cyanosis, Edema Skin Exam: Positive: Other skin issue (Left lower leg was wrapped and no soaking appreciated.) Neuro Exam: Positive: Normal Speech Psych Exam: Positive: Mental status NL, Mood NL Assessment /Plan Plan/VTE VTE Prophylaxis Ordered?: Yes Plan #Atrial fibrillation -This is new for her. Her heart rate remains uncontrolled. Electrolytes are within normal limits. In order to control her heart rate she was started on me toprolol 50 mg 3 times daily. However, she still remains uncontrolled. This was discussed with the cardiology team (Dr. Hendrix) and is recommended for her metoprolol dose to be increased to 50mg q6; increase dose with holding parameters. Systemic anticoagulation with apixaban. #HFrEF -s/p diuresis and now is clinically euvolemic. An echocardiogram noted a left ventricular ejection fraction of 35 to 40% done on 04/26. Prior echocardiogram done on 12/08 noted a left ventricular ejection fraction of 70 to 75%. Cardiology recommended a cardiac catheterization to rule out ischemic cardiomyopathy that can be done in follow-up. At this time, we are holding off on JOCY/ARB therapy due to her renal function. Continue with beta-blockers. Furosemide being held due to an elevation in her creatinine. If required will resume. #Acute on chronic kidney disease -Resolved. Baseline creatinine is 2.10 mg/dL from 11/2020. She was diuresed due to her heart failure with furosemide which likely caused the increase in her creatinine this admission. At this time she remains euvolemic. Will monitor off further diuresis. #COPD -No signs of acute exacerbation. She was switched to levalbuterol and ipratropium; gage thought to be causing contributing to tachycardia. She will need outpatient follow-up with pulmonology for pulmonary function tests. #Anemia -Normocytic anemia, MCV on the higher end. Will check B12/folate levels #HTN -Blood pressure acceptable. Continue with metoprolol. #Hypothyroidism -Continue levothyroxine #DVT ppx -On apixaban. VS, I&O, 24H, Fishbone Vital Signs/I&O Vital Signs Date Time Temp Pulse Resp B/P (MAP) Pulse Ox O2 Delivery O2 Flow Rate FiO2 04/30/21 12:07 98.0 78 18 130/74 (92) 88 Room Air 04/30/21 04:00 1.0 I&O- Last 24 Hours up to 6 AM 04/30/21 05:59 Intake Total 2400 ml Output Total 0 ml Balance 2400 ml Laboratory Data 24H LABS Laboratory Tests 2 04/30/21 03:36: Nucleated Red Blood Cells % (auto) 0.0, Anion Gap 5L, Glomerular Filtration Rate 29.8L, Calcium Level 8.2L, Phosphorus Level 3.8, Albumin 2.2L CBC/BMP Laboratory Tests 04/30/21 03:36 KHUSHBU PELAEZ M.D. Apr 30, 2021 14:43
--- NOTE | 2021-04-30 21:52 | CR ---
CONSULTATION DATE: 04/30/2021 REASON FOR CONSULTATION: Acute kidney injury superimposed on chronic kidney disease and congestive heart failure. HISTORY OF PRESENT ILLNESS: Ms. 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 She was admitted to [facility] on April 17. She developed recurrent episodes of atrial fibrillation with rapid ventricular rate. She has been on chronic anticoagulation. She was even on anticoagulation in the past due to severe nephrotic syndrome. However, currently, she has resumed apixaban due to atrial fibrillation. The patient is being followed by cardiology here in the hospital. She had an echocardiogram done, which did show decreased ejection fraction of 35 to 40% with global left ventricular hypokinesis. PAST MEDICAL HISTORY: Significant for: 1. Hypertension. 2. Nephrotic syndrome. 3. Stage IV chronic kidney disease. 4. Recurrent anemia. 5. History of hypothyroidism. 6. History of chronic obstructive pulmonary disease (COPD). PAST SURGICAL HISTORY: Significant for appendectomy, bilateral cataract surgery, dilation and curettage. PERSONAL AND SOCIAL HISTORY: The patient is a former smoker. She does drink one glass at night. Denies any illicit drug use. FAMILY HISTORY: Significant for chronic kidney disease and pancreatic cancer in her family. REVIEW OF SYSTEMS: She denies any fevers or chills. She has mild hearing deficit. Denies any headache. Nose and throat are unremarkable. Cardiovascular system: Significant for long standing hypertension. She has recently developed atrial fibrillation. She also has history of chronic lower extremity edema. Respiratory system: Significant for chronic obstructive pulmonary disease (COPD). She denies any hemoptysis or pleuritic type of chest pain. Gastrointestinal (GI) system: Negative for vomiting or diarrhea. Genitourinary () system: Negative for dysuria or hematuria. Musculoskeletal system: Significant for skin laceration to her right lower extremity. Hematological system: Significant for blood loss anemia and exterminator helper termite anticoagulation. Neurological system: Negative for seizures or stroke. PHYSICAL EXAMINATION: At the time of my visit this morning, the patient looks comfortable and lying in the bed. Temperature is 97.1 degrees Fahrenheit, heart rate 78 per minute and respiratory rate 18 per minute. Blood pressure 144/56 mmHg and oxygen saturation 100% on room air. Head is atraumatic. Neck supple and jugular venous distention (JVD) only mildly elevated. There is no oral thrush or ulcers. Heart sounds are irregular in rhythm and lungs with slightly diminished breath sounds at bases. She also has few basilar crepitations. Abdomen was soft and nontender and bowel sounds were normal. Extremities without any cyanosis or clubbing. Right lower extremity is wrapped in dressing. Neurologically, she is awake, alert, oriented x3. LABORATORY DATA: Previously labs showed WBC count 8.3, hemoglobin 9.4 and hematocrit 30.5. Platelets 397. Sodium 141, potassium 4.6, Co2 20, BUN 63 and creatinine 1.75. On April 27, her creatinine was 2.02. Her BNP level was 18,[address] scan of the chest was done on April 27 which revealed moderate emphysema and soft tissue density in left lung. Bilateral pleural effusions and basilar atelectasis. Cardiomegaly with a small pericardial effusion and calcific vascular disease of thoracoabdominal aorta and coronary arteries. PROBLEMS: 1. Acute kidney injury superimposed on chronic kidney disease. The patient did have worsening kidney function while she was being diuresed aggressively. Most likely this was related to atrial fibrillation with rapid ventricular rate and leading to renal hyperperfusion. Now, her diuretic is on hold and kidney function seems to be improved. She has been on chronic diuretic and likely to require diuretic again. I will reevaluate her tomorrow for need for diuretic. 2. Congestive heart failure. An echocardiogram did reveal systolic dysfunction with global hypokinesis and ejection fraction about 35 to 40%. I feel that rapid atrial fibrillation contributed to decompensation in her volume status. Now, volume has improved as her ventricular rate has also improved. Diuretic is currently on hold. 3. Anemia. She has a history of acute blood loss anemia, which is currently stable. No urgent need for a transfusion. 4. Hypertension. Blood pressure is very well controlled here in the hospital. She usually has suboptimal control of her hypertension. 5. Nephrotic syndrome. Nephrotic syndrome has been in partial remission. She is currently off angiotensin receptor davy. She has been treated with prednisone and cyclosporin. She remains on cyclosporin 50 mg twice a day. MEDICATIONS: Current medications include Eliquis 2.5 mg twice a day, aspirin 81 mg daily, cyclosporin 50 mg twice a day, Colace 100 mg twice a day, Xopenex nebulizers as needed and levothyroxine 25 mcg daily, metoprolol 50 mg tid1, Ocuvite one tablet daily, oxycodone 5/325 mg as needed for severe pain, prednisone 10 mg daily, MiraLax as needed. ALLERGIES: No known drug allergies. Thank you for involving in the care of Ms. Boykin. I will follow her along with you.
[2021-05-01] VITALS (9 sets, daily range): BP systolic 123–166; BP diastolic 60–77; O2SAT 92–96
[2021-05-01 05:51] LABS: HEMATOCRIT 28.6 % (36.0-47.0); HEMOGLOBIN 8.9 g/dl (12.0-15.5); MEAN CORPUSCULAR HEMOGLOBIN 30.3 pg (27.0-33.0); MEAN CORPUSCULAR HGB CONC 31.1 g/dl (32.0-36.5); MEAN CORPUSCULAR VOLUME 97.3 fl (80.0-96.0); PLATELET COUNT, AUTOMATED 365 10^3/uL (150-450); RED BLOOD COUNT 2.94 10^6/uL (4.00-5.40); WHITE BLOOD COUNT 8.2 10^3/uL (4.0-10.0)
[2021-05-01] MEDS: LEVOTHYROXINE 25MCG TABLET (0.025MG) PO SCH (06:00)
[2021-05-01 06:11] LABS: CALCIUM LEVEL 8.1 MG/DL (8.8-10.2); CREATININE FOR GFR 1.78 MG/DL (0.55-1.30); GLOMERULAR FILTRATION RATE 29.3 (>39); PHOSPHORUS LEVEL 3.5 MG/DL (2.5-4.9); POTASSIUM SERUM 4.1 MEQ/L (3.5-5.1)
[2021-05-01] MEDS: TIOTROPIUM INHALER/CAPSULE (SPIRIVA) INH SCH (07:30)
[2021-05-01] MEDS: NEORAL 25 MG CAP (J7515) PO SCH ×2 (08:58→20:10)
[2021-05-01] MEDS: DOCUSATE SODIUM 100MG CAPSULE PO SCH ×2 (08:59→20:10)
[2021-05-01] MEDS: predniSONE 10 MG TAB PO SCH (08:59)
[2021-05-01] MEDS: OCUVITE 1 TAB PO SCH ×2 (08:59→20:10)
[2021-05-01] MEDS: ACETAMINOPHEN TAB 650MG DOSE (2X325MG) PO PRN ×2 (08:59→20:19)
[2021-05-01] MEDS: METOPROLOL TART 50 MG TAB PO SCH ×3 (08:59→20:13)
[2021-05-01] MEDS: ASPIRIN 81MG ENTERIC TABLET PO SCH (08:59)
[2021-05-01] MEDS: APIXABAN 2.5 MG TAB (ELIQUIS) PO SCH ×2 (08:59→20:10)
[2021-05-01] MEDS ORDERED: SLF 3 ML SYR IV PRN (10:15)
[2021-05-01] MEDS: SLF 3 ML SYR IV SCH ×2 (14:15→20:13)
--- NOTE | 2021-05-01 14:36 | IPNPDOC ---
Subjective Date Seen The patient was seen on 05/01/21. Subjective Chief Complaint/HPI Patient was seen and examined at bedside this morning. She reports feeling well and has no new complaints. She denies headaches, chest pain, shortness of breath, palpitations, abdominal pain, nausea, vomiting components with urination and bowel movements. Other systems 10 point review of system was negative except for what is noted in the HPI. Objective Physical Examination Other physical findings General: Lying in bed, no acute distress Head/Neck/Throat: Trachea midline, mucous membranes moist Eyes: Sclera anicteric, no erythema or discharge appreciated bilateral Thorax: Normal respiratory effort on room air, lungs clear to auscultation bilaterally, no wheezes/rales/rhonchi Cardiovascular: Normal rate -60, regular rhythm, normal S1, S2 Abdomen: Bowel sounds present, soft/nontender/nondistended Genitourinary: No CVA tenderness, no Ray in place Musculoskeletal: Moving all extremities, no edema Skin: Warm, dry Neurologic: AAOx3, speech fluent and goal-directed, no focal deficits, grossly intact Assessment /Plan Plan/VTE VTE Prophylaxis Ordered?: Yes Plan #Atrial fibrillation -Broke into sinus rhythm on 05/01. We will continue with the current dose. If she is unable to tolerate this dose do HR/BP it will need to be decreased. Systemic anticoagulation with apixaban. #Constipation -Will optimize bowel regimen. KUB negative for his obstruction. #Urinary retention -She was retaining approximately 350 cc of urine which was bladder scanned and complaining of abdominal discomfort. She was straight cathed x1. We will continue to monitor for urinary retention at this time hold off on inserting Ray unless she needs to be straight cathetered 2 more times. #HFrEF -s/p diuresis and now is clinically euvolemic. An echocardiogram noted a left ventricular ejection fraction of 35 to 40% done on 04/26. Prior echocardiogram done on 12/08 noted a left ventricular ejection fraction of 70 to 75%. Cardiology recommended a cardiac catheterization to rule out ischemic cardiomyopathy that can be done in follow-up. At this time, we are holding off on JOCY/ARB therapy due to her renal function. Continue with beta-blockers. Furosemide being held due to an elevation in her creatinine. If required will resume. #Acute on chronic kidney disease -Resolved. Baseline creatinine is 2.10 mg/dL from 11/2020. She was diuresed due to her heart failure with furosemide which likely caused the increase in her creatinine this admission. At this time she remains euvolemic. Will monitor off further diuresis. #Nephrotic syndrome -Continue with chronic prednisone and cyclosporin. #COPD -No signs of acute exacerbation. She was switched to levalbuterol and ipratropium; gage thought to be causing contributing to tachycardia. She will need outpatient follow-up with pulmonology for pulmonary function tests. #Anemia -Normocytic anemia, MCV on the higher end. Will check B12/folate levels #HTN -Blood pressure acceptable. Continue with metoprolol. #Hypothyroidism -Continue levothyroxine #DVT ppx -On apixaban. VS, I&O, 24H, Fishbone Vital Signs/I&O Vital Signs Date Time Temp Pulse Resp B/P (MAP) Pulse Ox O2 Delivery O2 Flow Rate FiO2 05/01/21 04:00 1.0 05/01/21 04:00 97.7 64 16 144/66 (92) 92 Room Air I&O- Last 24 Hours up to 6 AM 05/01/21 06:00 Intake Total 770 ml Output Total 475 ml Balance 295 ml Laboratory Data 24H LABS Laboratory Tests 2 05/01/21 05:27: Nucleated Red Blood Cells % (auto) 0.0, Anion Gap 6L, Glomerular Filtration Rate 29.3L, Calcium Level 8.1L, Phosphorus Level 3.5, Magnesium Level 3.0H CBC/BMP Laboratory Tests 05/01/21 05:27 KHUSHBU PELAEZ M.D. May 01, 2021 07:00
--- NOTE | 2021-05-01 18:35 | REP ---
INDICATION: abd pain/r/o obstruction. COMPARISON: None. TECHNIQUE: AP view abdomen and pelvis. FINDINGS: There is scattered air throughout nondilated large and small bowel loops in a nonspecific pattern, with no compelling radiographic evidence of small bowel obstruction. Multiple phleboliths are seen in the pelvis and there are mild diffuse vascular calcifications. There is curvature of the lumbar spine convex to the right with mild degenerative changes. IMPRESSION: No compelling radiographic evidence of small bowel obstruction. <Electronically signed by Aubrey Montgomery > 05/01/21 [id number]
[2021-05-01] MEDS ORDERED: FUROSEMIDE 100MG/10ML VIAL (J1940) IV ONE (19:50)
--- NOTE | 2021-05-01 20:57 | IPN ---
PROGRESS NOTE DATE: 05/01/2021 SUBJECTIVE: Ms. Boykin is seen this morning on her bedside. She has complaint of abdominal discomfort and nausea. She reports that she did not eat well this morning. She denies any dyspnea or chest pain. OBJECTIVE: On physical examination, temperature 96.7 degrees Fahrenheit, heart rate is 68 per minute, respiratory rate 20 per minute. Blood pressure 138/60 mmHg and oxygen saturation about 90% on 1 liter of oxygen. Head is atraumatic. Neck supple and jugular venous distention (JVD) not abnormally elevated. Heart sounds are irregular and lungs with diminished breath sounds bilaterally. Abdomen soft and bowel sounds are present. Extremities without any cyanosis or clubbing. Right leg is wrapped in dressing. Neurologically, she is awake and at her baseline mentation. LABORATORY DATA: Today's labs showed WBC count 8.2, hemoglobin 8.9 and hematocrit 28.6. Platelets 365. Sodium 140, potassium 4.1, Co2 28, BUN 62 and creatinine 1.78. Calcium is 8.1 and phosphorus 3.5. PROBLEMS: 1. Acute on chronic kidney disease. Kidney function is essentially unchanged for the last 24 hours. She has no uremic symptoms and electrolytes are stable. 2. Congestive heart failure and hypoxemia. Her volume status seems to be worsened. She is now oxygenating only 88% with 1 liter oxygen. Her diuretic has been on hold. I am going to give her one dose of Lasix and we will monitor her oxygenation and urine output. Will give her one dose of 100 mg and see how she responds. 3. Anemia. Anemia is stable at present and does not need any urgent intervention. 4. Atrial fibrillation. At present, her ventricular rate is well controlled and should continue with metoprolol 50 mg three times a day. 5. Nephrotic syndrome. She has been in partial remission and remains on cyclosporin and prednisone. No changes are being made today.
[2021-05-02] VITALS (22 sets, daily range): BP systolic 132–160; BP diastolic 69–87; O2SAT 87–95
[2021-05-02 02:01] LABS: AMORPHOUS SEDIMENT SMALL (NEGATIVE); APPEARANCE, URINE HAZY (CLEAR); BACTERIA, URINE AUTO NEGATIVE (NEGATIVE); BILIRUBIN, URINE AUTO NEGATIVE (NEGATIVE); BLOOD, URINE BLOOD NEGATIVE (NEGATIVE); COLOR, URINE YELLOW (YELLOW); GLUCOSE, URINE (UA) AUTO NEGATIVE (NEGATIVE); KETONE, URINE AUTO NEGATIVE (NEGATIVE); LEUKOCYTE ESTERASE, URINE AUTO NEGATIVE (NEGATIVE); NITRITE, URINE AUTO NEGATIVE (NEGATIVE); PROTEIN, URINE AUTO 2+ mg/dL (NEGATIVE); RBC, URINE AUTO 7 /HPF (0-3); SPECIFIC GRAVITY URINE AUTO 1.009 (1.002-1.035); SQUAMOUS EPITHELIAL CELL UR AU 0 /HPF (0-6); UROBILINOGEN, URINE AUTO 0.2 mg/dL (0.0-2.0); WBC, URINE AUTO 1 /HPF (0-3)
[2021-05-02 04:01] LABS: HEMATOCRIT 29.1 % (36.0-47.0); HEMOGLOBIN 9.2 g/dl (12.0-15.5); MEAN CORPUSCULAR HEMOGLOBIN 30.7 pg (27.0-33.0); MEAN CORPUSCULAR HGB CONC 31.6 g/dl (32.0-36.5); PLATELET COUNT, AUTOMATED 356 10^3/uL (150-450); WHITE BLOOD COUNT 8.1 10^3/uL (4.0-10.0)
[2021-05-02 04:19] LABS: BLOOD UREA NITROGEN 61 MG/DL (7-18); CALCIUM LEVEL 7.9 MG/DL (8.8-10.2); CARBON DIOXIDE LEVEL 30 MEQ/L (21-32); CHLORIDE LEVEL 103 MEQ/L (98-107); CREATININE FOR GFR 1.66 MG/DL (0.55-1.30); GLOMERULAR FILTRATION RATE 31.7 (>39); GLUCOSE, FASTING 77 MG/DL (70-100); MAGNESIUM LEVEL 2.7 MG/DL (1.8-2.4); PHOSPHORUS LEVEL 4.1 MG/DL (2.5-4.9); POTASSIUM SERUM 4.2 MEQ/L (3.5-5.1); SODIUM LEVEL 138 MEQ/L (136-145)
[2021-05-02] MEDS: LEVOTHYROXINE 25MCG TABLET (0.025MG) PO SCH (05:28)
[2021-05-02] MEDS: SLF 3 ML SYR IV SCH ×3 (05:28→20:43)
--- NOTE | 2021-05-02 06:42 | IPNPDOC ---
Subjective Date Seen The patient was seen on 05/02/21. Subjective Chief Complaint/HPI Patient was seen and examined at bedside this morning. She reports having a difficult time urinating and required intermittent catheterization now twice. Otherwise, she denies headaches, chest pain, palpitation, abdominal pain, nausea, vomiting, and problems with bowel movements. Other systems 10 point review of system was negative except for what is noted in the HPI. Objective Physical Examination Other physical findings General: Lying in bed, no acute distress Head/Neck/Throat: Trachea midline, mucous membranes moist Eyes: Sclera anicteric, no erythema or discharge appreciated bilateral Thorax: Normal respiratory effort on room air, lungs clear to auscultation radha aterally, no wheezes/rales/rhonchi Cardiovascular: Normal rate -60, regular rhythm, normal S1, S2 Abdomen: Bowel sounds present, soft/nontender/nondistended Genitourinary: No CVA tenderness, no Ray in place Musculoskeletal: Moving all extremities, no edema Skin: Warm, dry Neurologic: AAOx3, speech fluent and goal-directed, no focal deficits, grossly intact Assessment /Plan Plan/VTE VTE Prophylaxis Ordered?: Yes Plan #Atrial fibrillation -Broke into sinus rhythm on 05/01. We will continue with the current dose. If she is unable to tolerate this dose do HR/BP it will need to be decreased. Systemic anticoagulation with apixaban. #Constipation -Will optimize bowel regimen. KUB negative for his obstruction. -She needs to mobilize, I have asked pt/ot for re-eval - Spoke with plastics team okay with this plan #Urinary retention -She was retaining approximately 350 cc of urine when bladder scanned and complaining of abdominal discomfort. She was straight cathed x2 now. We will continue to monitor for urinary retention at this time hold off on inserting Ray unless she needs to be straight cathetered another time. #HFrEF -s/p diuresis and now is clinically euvolemic. An echocardiogram noted a left ventricular ejection fraction of 35 to 40% done on 04/26. Prior echocardiogram done on 12/08 noted a left ventricular ejection fraction of 70 to 75%. Cardiology recommended a cardiac catheterization to rule out ischemic cardiomyopathy that can be done in follow-up. At this time, we are holding off on JOCY/ARB therapy due to her renal function. Continue with beta-blockers. Furosemide being held due to an elevation in her creatinine. If required will resume. #Acute on chronic kidney disease -Resolved. Baseline creatinine is 2.10 mg/dL from 11/2020. She was diuresed due to her heart failure with furosemide which likely caused the increase in her creatinine this admission. At this time she remains euvolemic. Will monitor off further diuresis. #Nephrotic syndrome -Continue with chronic prednisone and cyclosporin. #COPD -No signs of acute exacerbation. She was switched to levalbuterol and ipratropium; gage thought to be causing contributing to tachycardia. She will need outpatient follow-up with pulmonology for pulmonary function tests. #Anemia -Normocytic anemia, MCV on the higher end. Will check B12/folate levels #HTN -Blood pressure acceptable. Continue with metoprolol. #Hypothyroidism -Continue levothyroxine #DVT ppx -On apixaban. VS, I&O, 24H, Fishbone Vital Signs/I&O Vital Signs Date Time Temp Pulse Resp B/P (MAP) Pulse Ox O2 Delivery O2 Flow Rate FiO2 05/02/21 04:00 2.0 05/02/21 04:00 98.4 70 17 145/69 (94) 91 Nasal Cannula I&O- Last 24 Hours up to 6 AM 05/02/21 06:00 Intake Total 1060 ml Output Total 1780 ml Balance -720 ml Laboratory Data 24H LABS Laboratory Tests 2 05/02/21 01:44: Urine Color YELLOW, Urine Appearance HAZY, Urine pH 6.0, Urine Specific [place] 1.009, Urine Protein 2+H, Urine Glucose (Auto)(UA) NEGATIVE, Urine Ketones (Auto) NEGATIVE, Urine Blood NEGATIVE, Urine Nitrite NEGATIVE, Urine Bilirubin NEGATIVE, Urine Urobilinogen 0.2, Urine Leukocyte Esterase (Auto) NEGATIVE, Urine WBC (Auto) 1, Urine RBC (Auto) 7H, Urine Hyaline Casts (Auto) 0, Urine Bacteria (Auto) NEGATIVE, Urine Squamous Epithelial Cells 0, Urine Amorphous Sediment (Auto) SMALLH, Urine Sperm (Auto) 05/02/21 03:27: Nucleated Red Blood Cells % (auto) 0.0, Anion Gap 5L, Glomerular Filtration Rate 31.7L, Calcium Level 7.9L, Phosphorus Level 4.1, Magnesium Level 2.7H CBC/BMP Laboratory Tests 05/02/21 03:27 Microbiology Microbiology 05/02/21 Stool Occult Blood (BERTA) - Final, Complete KHUSHBU PELAEZ M.D. May 02, 2021 06:41
[2021-05-02] MEDS: TIOTROPIUM INHALER/CAPSULE (SPIRIVA) INH SCH (07:37)
[2021-05-02] MEDS ORDERED: FUROSEMIDE 100MG/10ML VIAL (J1940) IV ONE ×2 (07:55→15:00)
[2021-05-02] MEDS: MIRALAX *UNIT DOSE* 17GM PACKET PO SCH (09:00)
[2021-05-02] MEDS: ACETAMINOPHEN TAB 650MG DOSE (2X325MG) PO PRN ×2 (09:00→20:46)
[2021-05-02] MEDS: NEORAL 25 MG CAP (J7515) PO SCH ×2 (09:00→20:42)
[2021-05-02] MEDS: ASPIRIN 81MG ENTERIC TABLET PO SCH (09:01)
[2021-05-02] MEDS: predniSONE 10 MG TAB PO SCH (09:01)
[2021-05-02] MEDS: METOPROLOL TART 50 MG TAB PO SCH ×3 (09:01→20:42)
[2021-05-02] MEDS: DOCUSATE SODIUM 100MG CAPSULE PO SCH ×2 (09:01→20:41)
[2021-05-02] MEDS: APIXABAN 2.5 MG TAB (ELIQUIS) PO SCH ×2 (09:01→20:41)
[2021-05-02] MEDS: OCUVITE 1 TAB PO SCH ×2 (09:01→20:42)
[2021-05-02 09:04] LABS: VITAMIN B12 LEVEL 668 PG/ML (247-911)
[2021-05-02 09:05] LABS: FOLATE > 24.0 NG/ML (>5.4)
[2021-05-02] MEDS: METOPROLOL 5 MG/5 ML VIAL IV PRN (12:12)
--- NOTE | 2021-05-02 13:01 | IPN ---
PROGRESS NOTE DATE: 05/02/2021 SUBJECTIVE: Mrs. Boykin is seen this morning on her bedside. She is feeling about the same. She denies any fever or chills. She did drop her oxygen saturation down to 89% and required 2 liters of oxygen due to which I gave her one dose of Lasix 100 mg intravenously yesterday. She is still about the same and did not diurese a whole lot. She was negative only by 190 ml. Her weight is essentially unchanged. OBJECTIVE: VITAL SIGNS: Temperature is 98.7 degrees Fahrenheit, heart rate is 68 per minute and respiratory rate is 20 per minute. Blood pressure 160/74 mmHg and oxygen saturation is 90% on 2 liters of oxygen. HEAD: Atraumatic. NECK: Supple. JVD difficult to be assessed. LUNGS: Diminished breath sounds bilaterally. HEART: Irregular in rhythm. ABDOMEN: Soft and nontender. Bowel sounds are present. EXTREMITIES: Without any cyanosis or clubbing. The right leg is wrapped in a dressing. NEUROLOGIC: She is awake, alert and oriented x3. LABORATORY DATA: Today's labs showed a WBC of 8.1, hemoglobin 9.2 and hematocrit 29, platelets are 356,000. Sodium is 138, potassium is 4.2, CO2 30, BUN 61 and creatinine is 1.66. Calcium 7.9 and phosphorus 4.1. PROBLEMS: 1. Acute on chronic congestive heart failure, volume status is slightly decompensated. She did not respond to diuretic very well yesterday. We are going to give her another dose of 100 mg of Lasix intravenously now and we will repeat the dose again in the afternoon. 2. COPD. She has a known history of emphysema and COPD by her CT scan. She does not seem to have any acute exacerbation at this point. 3. Acute kidney injury superimposed on chronic kidney disease. Her kidney function is essentially unchanged with only slight variation. She has no uremic symptoms and will continue to monitor her closely. 4. Anemia, she has not been given any Aranesp since she is in the hospital. Anemia is stable. 5. Hypertension, blood pressure seems very well-controlled at present. 6. Atrial fibrillation, her ventricular rate seems to be reasonably well-controlled on current dose of metoprolol. She is also on Eliquis 2.5 mg b.i.d.
--- NOTE | 2021-05-02 13:22 | IPNPDOC ---
Subjective General Date Seen: May 02, 2021 Subject Chief Complaint/History The patient is a 80-year-old female admitted with a reason for visit of ISTAP type 3 skin tear of right lower extremity. Patient seen and examined at the bedside. She is feeling well right now. Leg has intermittent anterior side pain, no calf tenderness. She is compliant with dressing changes. No active bleeding. Current Medications Current Medications Current Medications Medications (Trade) Dose Ordered Sig/Ruddy Route PRN Reason Start Time Stop Time Status Last Admin Dose Admin Acetaminophen (Tylenol Tab) 650 mg Q4H PRN PO MILD PAIN or TEMP > 101 04/17/21 17:40 05/02/21 09:00 Albuterol/ Ipratropium (Duoneb (Ipr 0.5mg/Alb 2.5mg)) 3 ml Q4HP PRN NEB SOB/WHEEZING 04/22/21 17:10 04/25/21 03:11 DC 04/22/21 17:25 Amlodipine Besylate (Norvasc) 5 mg DAILY PO 04/21/21 09:00 04/26/21 13:43 DC 04/25/21 08:55 Apixaban (Eliquis) 2.5 mg BID PO 04/26/21 21:00 05/02/21 09:01 Aspirin (Ecotrin) 81 mg DAILY PO 04/18/21 09:00 05/02/21 09:01 Carvedilol (COReg) 6.25 mg BID PO 04/18/21 09:00 04/25/21 20:32 DC 04/25/21 08:55 Carvedilol (COReg) 12.5 mg BID PO 04/25/21 21:00 04/26/21 13:24 DC 04/26/21 08:22 Carvedilol (COReg) 25 mg BID PO 04/26/21 21:00 04/28/21 15:16 DC 04/28/21 09:05 Cyclosporine (Modified) (NeoraL) 50 mg BID PO 04/18/21 09:00 05/02/21 09:00 Docusate Sodium (Colace) 100 mg BID PO 04/20/21 21:00 05/02/21 09:01 Fentanyl Citrate (Sublimaze) 25 mcg Q5MP PRN IV PAIN LEVEL 5-10 04/18/21 10:55 04/18/21 11:26 DC 04/18/21 11:26 Furosemide (LASIX injection) 40 mg DAILY@2000 IV 04/23/21 20:00 04/24/21 16:04 DC 04/23/21 20:40 Furosemide (LASIX injection) 60 mg Q8H IV 04/24/21 16:00 04/27/21 07:02 DC 04/27/21 00:28 Heparin Sodium (Porcine) (Heparin) 5,000 units Q12H SC 04/18/21 09:00 04/26/21 13:59 DC 04/26/21 08:17 Home Med (Med Rec Complete!) ASDIRECTED XX 04/17/21 18:20 04/17/21 18:21 DC Hydralazine HCl (Apresoline) 25 mg BID PO 04/22/21 09:00 04/26/21 13:43 DC 04/25/21 08:56 Lactated Ringer's 1,000 ml @ 50 mls/hr Q20H IV 04/18/21 10:55 04/18/21 12:55 DC 04/18/21 11:26 Levalbuterol HCl (Xopenex Neb) 0.63 mg Q4HP PRN INH SOB/WHEEZING 04/25/21 03:10 Levothyroxine Sodium (Synthroid) 25 mcg DAILY@0600 PO 04/18/21 06:00 05/02/21 05:28 Magnesium Hydroxide (Milk Of Magnesia) 30 ml DAILYPRN PRN PO CONSTIPATION 04/20/21 21:45 05/01/21 07:00 DC 04/21/21 06:16 Metoclopramide HCl (REGLAN INJection) 10 mg Q6HP PRN IV NAUSEA OR VOMITING 04/18/21 10:55 04/18/21 12:55 DC Metolazone (Zaroxolyn) 2.5 mg MoWeFr@0900 PO 04/19/21 09:00 04/26/21 13:43 DC 04/26/21 08:19 Metoprolol Tartrate (Lopressor) 5 mg Q6HP PRN IV HR>120 04/26/21 09:25 05/02/21 12:12 Metoprolol Tartrate (Lopressor) 25 mg TID PO 04/28/21 16:00 04/29/21 07:49 DC 04/28/21 20:21 Metoprolol Tartrate (Lopressor) 50 mg TID PO 04/29/21 09:00 05/02/21 09:01 Multivitamins (Ocuvite(I-Shruthi)) 1 tab BID PO 04/18/21 09:00 05/02/21 09:01 Mupirocin (Bactroban 2% Ointment) RIGHT LEG DAILY TOP 04/22/21 09:00 04/29/21 17:40 DC 04/25/21 08:56 Ondansetron HCl (ZOFRAN INJection) 4 mg Q4HP PRN IV NAUSEA OR VOMITING 04/18/21 10:55 04/18/21 12:55 DC Oxycodone/ Acetaminophen (Percocet 5mg/ 325mg Tablet) 1 tab Q4HP PRN PO PAIN LEVEL 8-10 04/18/21 10:50 04/28/21 10:44 Polyethylene Glycol (Miralax) 1 pkt DAILY PO 05/02/21 09:00 05/02/21 09:00 Polyethylene Glycol (Miralax) 1 pkt DAILYPRN PRN PO CONSTIPATION 04/20/21 21:45 05/02/21 06:40 DC 05/01/21 16:37 Potassium Chloride (Micro-K Extencaps) 20 meq BID PO 04/18/21 09:00 04/29/21 09:54 DC 04/28/21 20:21 Prednisone (Deltasone) 10 mg DAILY PO 04/18/21 09:00 05/02/21 09:01 Salmeterol Xinafoate (Serevent Diskus) 1 puff BID INH 04/24/21 09:35 04/27/21 14:32 DC 04/27/21 07:21 Sodium Chloride 1,000 ml @ 15 mls/hr Q24H IV 04/17/21 17:35 04/17/21 22:22 DC 04/17/21 21:27 Sodium Chloride (Saline Lock Flush) 2 ml ASDIRECTED PRN IV SEE LABEL COMMENTS 05/01/21 10:15 Sodium Chloride (Saline Lock Flush) 2 ml SLF IV 05/01/21 14:00 05/02/21 05:28 Tiotropium [place] (Spiriva Handihaler) 1 inhalation DAILY@08 INH 04/24/21 09:35 05/02/21 07:37 Torsemide (Demadex) 50 mg BID@09,17 PO 04/27/21 09:00 04/27/21 14:33 DC 04/27/21 09:04 Torsemide (Demadex) 50 mg BID@0900,1700 PO 04/18/21 17:00 04/24/21 16:04 DC 04/24/21 08:49 Allergies Coded Allergies: No Known Drug Allergies (Verified Allergy, Unknown, 02/18/21) Objective Physical Examination Examination GENERAL APPEARANCE:Patient seen, laying in bed, awake, alert, and oriented. Comfortable, in no acute distress. SKIN: Warm and moist. Right anterior lower extremity with open wound 50% epithelization present now. Granulation tissue 50%. Clean wound. No drainage. LUNGS: No wheezing appreciated. ABDOMEN: Abdomen is soft, non-tender, non-distended. EXTREMITIES: No edema identified. No calf tenderness. No edema. Vital Signs Vital Signs Date Time Temp Pulse Resp B/P (MAP) Pulse Ox O2 Delivery O2 Flow Rate FiO2 05/02/21 12:12 138 137/77 05/02/21 12:06 98.2 20 91 Nasal Cannula 3.0 I&Os I&O- Last 24 Hours up to 6 AM 05/02/21 06:00 Intake Total 1060 ml Output Total 1780 ml Balance -720 ml Laboratory Data Labs 24H Laboratory Tests 2 05/02/21 01:44: Urine Color YELLOW, Urine Appearance HAZY, Urine pH 6.0, Urine Specific [place] 1.009, Urine Protein 2+H, Urine Glucose (Auto)(UA) NEGATIVE, Urine Ketones (Auto) NEGATIVE, Urine Blood NEGATIVE, Urine Nitrite NEGATIVE, Urine Bilirubin NEGATIVE, Urine Urobilinogen 0.2, Urine Leukocyte Esterase (Auto) NEGATIVE, Urine WBC (Auto) 1, Urine RBC (Auto) 7H, Urine Hyaline Casts (Auto) 0, Urine Bacteria (Auto) NEGATIVE, Urine Squamous Epithelial Cells 0, Urine Amorphous Sediment (Auto) SMALLH, Urine Sperm (Auto) 05/02/21 03:27: Nucleated Red Blood Cells % (auto) 0.0, Anion Gap 5L, Glomerular Filtration Rate 31.7L, Calcium Level 7.9L, Phosphorus Level 4.1, Magnesium Level 2.7H, Vitamin B12 Level 668, Folate > 24.0 CBC/BMP Laboratory Tests 05/02/21 03:27 Microbiology Microbiology 05/02/21 Stool Occult Blood (BERTA) - Final, Complete Impression Right lower extremity degloving injury. Wound is healing well. She may be followed outpatient for lower extremity open wound from plastic surgery standpoint. We will continue with Xeroform dressing changes every other day covered with dry gauze, Kerlix, and Deon dressing. Greatly improving. Will not anticipate surgical intervention. Follow-up with plastic surgery after discharge. Findings discussed with patient and primary care team. Plan / VTE VTE Prophylaxis Ordered?: Yes SHILPI VÁSQUEZ DO May 02, 2021 13:22
[2021-05-02] MEDS ORDERED: METOPROLOL 5 MG/5 ML VIAL IV STA (14:13)
[2021-05-03] VITALS (7 sets, daily range): BP systolic 118–137; BP diastolic 70–80
[2021-05-03 04:01] LABS: HEMATOCRIT 30.6 % (36.0-47.0); HEMOGLOBIN 9.9 g/dl (12.0-15.5); MEAN CORPUSCULAR HEMOGLOBIN 30.7 pg (27.0-33.0); MEAN CORPUSCULAR HGB CONC 32.4 g/dl (32.0-36.5); PLATELET COUNT, AUTOMATED 398 10^3/uL (150-450); RED BLOOD COUNT 3.22 10^6/uL (4.00-5.40); WHITE BLOOD COUNT 9.5 10^3/uL (4.0-10.0)
[2021-05-03 04:23] LABS: ALBUMIN 2.1 GM/DL (3.2-5.2); CALCIUM LEVEL 7.7 MG/DL (8.8-10.2); CREATININE FOR GFR 1.46 MG/DL (0.55-1.30); GLOMERULAR FILTRATION RATE 36.8 (>39); MAGNESIUM LEVEL 2.3 MG/DL (1.8-2.4); PHOSPHORUS LEVEL 4.3 MG/DL (2.5-4.9); POTASSIUM SERUM 3.8 MEQ/L (3.5-5.1)
[2021-05-03] MEDS: LEVOTHYROXINE 25MCG TABLET (0.025MG) PO SCH (05:35)
[2021-05-03] MEDS: ACETAMINOPHEN TAB 650MG DOSE (2X325MG) PO PRN ×3 (05:35→20:07)
[2021-05-03] MEDS: SLF 3 ML SYR IV SCH ×3 (05:37→22:00)
[2021-05-03] MEDS: TIOTROPIUM INHALER/CAPSULE (SPIRIVA) INH SCH (07:41)
[2021-05-03] MEDS: MIRALAX *UNIT DOSE* 17GM PACKET PO SCH ×2 (09:57→23:36)
[2021-05-03] MEDS: NEORAL 25 MG CAP (J7515) PO SCH ×2 (09:58→20:08)
[2021-05-03] MEDS: OCUVITE 1 TAB PO SCH ×2 (09:58→20:08)
[2021-05-03] MEDS: predniSONE 10 MG TAB PO SCH (09:58)
[2021-05-03] MEDS: APIXABAN 2.5 MG TAB (ELIQUIS) PO SCH ×2 (09:58→20:08)
[2021-05-03] MEDS: ASPIRIN 81MG ENTERIC TABLET PO SCH (09:58)
[2021-05-03] MEDS: DOCUSATE SODIUM 100MG CAPSULE PO SCH ×2 (09:58→20:08)
[2021-05-03] MEDS: METOPROLOL TART 50 MG TAB PO SCH ×3 (09:59→23:36)
[2021-05-03] MEDS: BUMETANIDE 1 MG TAB PO SCH (12:27)
[2021-05-03] MEDS: METOPROLOL 5 MG/5 ML VIAL IV PRN (14:40)
--- NOTE | 2021-05-03 15:55 | IPN ---
PROGRESS NOTE DATE: 05/03/2021 SUBJECTIVE: Mrs. Boykin is seen this morning on her bedside. She is feeling about the same and still feeling weak. She also has a concern about inability to urinate. Her Ray catheter did come out and she reports that she tried this morning, however, she was unable to urinate. PHYSICAL EXAMINATION: VITALS: Temperature 97.5 degrees Fahrenheit, heart rate 116 per minute, respiratory rate 18 per minute, blood pressure 134/70 mmHg, oxygen saturation 92% on 1 liter oxygen. INTAKE AND OUTPUT: Records from yesterday show a negative fluid balance of about 1770 mL. Her weight is down by about 1 kg. HEENT: Head is atraumatic. Neck is supple and JVD difficult to be assessed. LUNGS: Diminished breath sounds bilaterally. HEART: Sounds are irregular in rhythm and tachycardic. ABDOMEN: Soft, nontender. Bowel sounds are normal. EXTREMITIES: Without any cyanosis or clubbing. Right leg is wrapped in dressing. NEUROLOGIC: She is at baseline mentation, without a focal deficit. LABORATORY STUDIES: Today's labs show WBC 9.5, hemoglobin 9.9, hematocrit 30.6, platelets 398,000. Sodium 138, potassium 3.8, CO2 30, BUN 53 and creatinine 1.46, glucose 80 and calcium 7.7. Albumin is only 2.1. Her urinalysis yesterday did not show any blood, but she had 2+ protein. PROBLEMS: 1. Acute on chronic congestive heart failure: She did diurese well with intravenous Lasix yesterday and her hypoxemic has improved. I am going to switch her to oral Bumetanide 2 mg daily; dose may need to be adjusted if needed. 2. Acute on chronic kidney disease: Kidney function has been stable and improved. Electrolytes are within normal range. We will continue to monitor her closely. 3. Nephrotic syndrome: Her nephrotic syndrome has been in partial remission and she continues with prednisone and cyclosporin. 4. Anemia: Her anemia has improved and does not need any urgent intervention at present. 5. Urinary retention: Patient reports that she has difficulty voiding. Her Ray catheter has been removed and now she has not been able to void. It is likely that she will require Ray catheter again. Her bladder scan should be checked later today.
[2021-05-03] MEDS ORDERED: BISACODYL 10 MG SUPP PR ONE (16:30)
--- NOTE | 2021-05-03 19:17 | IPNPDOC ---
Subjective Date Seen The patient was seen on 05/03/21. Subjective Chief Complaint/HPI Pt seen and examined at bedside this morning. She had no new complaints except for feeling constipated. Denies chest pain, sob, abdominal pain, nausea, vomiting. Other systems 10 point review of system was negative except for what is noted in the HPI. Objective Physical Examination Other physical findings General: Lying in bed, no acute distress Head/Neck/Throat: Trachea midline, mucous membranes moist Eyes: Sclera anicteric, no erythema or discharge appreciated bilateral Thorax: Normal respiratory effort on room air, lungs clear to auscultation bilaterally, no wheezes/rales/rhonchi Cardiovascular: Normal rate -60, regular rhythm, normal S1, S2 Abdomen: Bowel sounds present, soft/nontender/nondistended Genitourinary: No CVA tenderness, no Powell in place Musculoskeletal: Moving all extremities, no edema Skin: Warm, dry Neurologic: AAOx3, speech fluent and goal-directed, no focal deficits, grossly intact Assessment /Plan Plan/VTE VTE Prophylaxis Ordered?: Yes Plan #Atrial fibrillation -Continue with bb therapy, system ac with apixaban. #Constipation -Will optimize bowel regimen. KUB negative for his obstruction. -She needs to mobilize, I have asked pt/ot for re-eval - Spoke with plastics team okay with this plan -suppository + rectal enema. #Urinary retention -Trial of voiding today, if not successful then will reinsert powell. #HFrEF -s/p diuresis and now is clinically euvolemic. An echocardiogram noted a left ventricular ejection fraction of 35 to 40% done on 04/26. Prior echocardiogram done on 12/08 noted a left ventricular ejection fraction of 70 to 75%. Cardiology recommended a cardiac catheterization to rule out ischemic cardiomyopathy that can be done in follow-up. At this time, will touch base with renal appropriate time to resume JOCY/ARB therapy due to her renal function. Continue with beta-blockers. Started on Bumex today. #Acute on chronic kidney disease -Resolved. Baseline creatinine is 2.10 mg/dL from 11/2020. She was diuresed due to her heart failure with furosemide which likely caused the increase in her creatinine this admission. #Nephrotic syndrome -Continue with chronic prednisone and cyclosporin. #COPD -No signs of acute exacerbation. She was switched to levalbuterol and ipratropium; gage thought to be causing contributing to tachycardia. She will need outpatient follow-up with pulmonology for pulmonary function tests. #Anemia -Normocytic anemia, MCV on the higher end. Will check B12/folate levels #HTN -Blood pressure acceptable. Continue with metoprolol. #Hypothyroidism -Continue levothyroxine #DVT ppx -On apixaban. VS, I&O, 24H, Fishbone Vital Signs/I&O Vital Signs Date Time Temp Pulse Resp B/P (MAP) Pulse Ox O2 Delivery O2 Flow Rate FiO2 05/03/21 18:19 131 126/76 05/03/21 15:34 98.6 18 93 Nasal Cannula 1.0 I&O- Last 24 Hours up to 6 AM 05/03/21 06:00 Intake Total 900 ml Output Total 2575 ml Balance -1675 ml Laboratory Data 24H LABS Laboratory Tests 2 05/03/21 03:29: Nucleated Red Blood Cells % (auto) 0.0, Anion Gap 6L, Glomerular Filtration Rate 36.8L, Calcium Level 7.7L, Phosphorus Level 4.3, Magnesium Level 2.3, Albumin 2.1L CBC/BMP Laboratory Tests 05/03/21 03:29 Microbiology Microbiology 05/02/21 Stool Occult Blood (BERTA) - Final, Complete KHUSHBU PELAEZ M.D. May 03, 2021 19:15
[2021-05-03] MEDS: BISACODYL 10 MG SUPP PR SCH (20:08)
[2021-05-04] VITALS (9 sets, daily range): BP systolic 108–142; BP diastolic 64–99; O2SAT 90–93
[2021-05-04] MEDS: LEVOTHYROXINE 25MCG TABLET (0.025MG) PO SCH (05:57)
[2021-05-04] MEDS: METOPROLOL TART 50 MG TAB PO SCH ×3 (05:58→17:44)
[2021-05-04] MEDS: ACETAMINOPHEN TAB 650MG DOSE (2X325MG) PO PRN ×2 (06:00→21:56)
[2021-05-04 06:08] LABS: HEMATOCRIT 30.7 % (36.0-47.0); HEMOGLOBIN 9.9 g/dl (12.0-15.5); MEAN CORPUSCULAR HEMOGLOBIN 30.5 pg (27.0-33.0); MEAN CORPUSCULAR HGB CONC 32.2 g/dl (32.0-36.5); MEAN CORPUSCULAR VOLUME 94.5 fl (80.0-96.0); PLATELET COUNT, AUTOMATED 369 10^3/uL (150-450); RED BLOOD COUNT 3.25 10^6/uL (4.00-5.40); WHITE BLOOD COUNT 9.8 10^3/uL (4.0-10.0)
[2021-05-04 06:29] LABS: CALCIUM LEVEL 7.7 MG/DL (8.8-10.2); CREATININE FOR GFR 1.5 MG/DL (0.55-1.30); GLOMERULAR FILTRATION RATE 35.7 (>39); MAGNESIUM LEVEL 2.3 MG/DL (1.8-2.4); PHOSPHORUS LEVEL 4.1 MG/DL (2.5-4.9); POTASSIUM SERUM 3.8 MEQ/L (3.5-5.1)
[2021-05-04] MEDS: SLF 3 ML SYR IV SCH ×3 (06:48→21:58)
[2021-05-04] MEDS: TIOTROPIUM INHALER/CAPSULE (SPIRIVA) INH SCH (07:05)
[2021-05-04] MEDS: BISACODYL 10 MG SUPP PR SCH ×2 (09:00→21:57)
[2021-05-04] MEDS: NEORAL 25 MG CAP (J7515) PO SCH ×2 (09:02→21:57)
[2021-05-04] MEDS: PERCOCET 5MG/325MG TAB PO PRN (09:02)
[2021-05-04] MEDS: BUMETANIDE 1 MG TAB PO SCH (09:03)
[2021-05-04] MEDS: ASPIRIN 81MG ENTERIC TABLET PO SCH (09:03)
[2021-05-04] MEDS: DOCUSATE SODIUM 100MG CAPSULE PO SCH ×2 (09:03→21:57)
[2021-05-04] MEDS: APIXABAN 2.5 MG TAB (ELIQUIS) PO SCH ×2 (09:03→21:58)
[2021-05-04] MEDS: OCUVITE 1 TAB PO SCH ×2 (09:03→21:58)
[2021-05-04] MEDS: predniSONE 10 MG TAB PO SCH (09:03)
[2021-05-04] MEDS: MIRALAX *UNIT DOSE* 17GM PACKET PO SCH ×2 (09:03→21:56)
--- NOTE | 2021-05-04 10:20 | REP ---
INDICATION: abdominal pain. COMPARISON: The chest CT dated 04/27/2021. TECHNIQUE: Abdomen/pelvis CT without IV or bowel contrast. FINDINGS: There are small bilateral pleural effusions, however, they have increased since in size from the comparison study. There is compression atelectasis of the lower lobe lung duarte adjacent to the pleural effusions. Cardiac size is upper normal. There is a small pericardial effusion. This measures up to 6 mm in depth along the right cardiac margin. The unenhanced hepatic parenchyma is unremarkable. The unenhanced pancreas and spleen are unremarkable except for calcified splenic granulomas. These are unchanged. There are surgical clips in the right upper quadrant compatible with bariatric surgery. The adrenals are unremarkable. The kidneys are unremarkable except for a left renal 1.9 cm cortical cyst. The abdominal aorta is unremarkable except for calcified atheroma. There is no periaortic adenopathy or mass. No bowel distention or obstruction. Pelvis: There is marked distention of the rectal ampulla with fecal residue. This extends into the sigmoid colon and may represent fecal impaction. There is a Ray catheter in the bladder. The uterus and adnexa are unremarkable. There is no ascites. IMPRESSION: Small bilateral pleural effusions, slightly increased in size from the comparison chest CT. Small pericardial effusion as an interval change. Surgical clips suggestive of bariatric surgery. No bowel distention or obstruction. Marked distention of the rectal ampulla extending into the sigmoid colon, is possibly fecal impaction. Bladder catheter. <Electronically signed by Aubrey Rankin > 05/04/21 [id number]
--- NOTE | 2021-05-04 13:52 | IPNPDOC ---
Subjective Date Seen The patient was seen on 05/04/21. Subjective Chief Complaint/HPI Pt was seen and examined at bedside this morning. She endorsed having abdominal discomfort attributed to constipation. She reports significant improvement after she was mildly dysmetric by nursing staff. Other systems 10 point review of system negative except for what is noted in the HPI Objective Physical Examination Other physical findings General: Lying in bed, no acute distress Head/Neck/Throat: Trachea midline, mucous membranes moist Eyes: Sclera anicteric, erythema and discharge appreciated bilaterally Thorax: Normal respiratory effort on room air, lungs clear to auscultation bilaterally, no wheezes/rales/rhonchi Cardiovascular: Normal rate, regular rhythm, normal S1, S2; no S3, S4, rubs/gallops/murmurs Abdomen: Bowel sounds present, soft, no tenderness reported with palpation. Genitourinary: Ray draining yellow urine Musculoskeletal: Moving all extremities, no edema Skin: Right leg was wrapped without soaking appreciated Neurologic: AAOx3, speech fluent and goal-directed, no focal deficits, grossly intact Assessment /Plan Assessment #Atrial fibrillation -Increase in metoprolol dose for better heart rate control, and continue system ac with apixaban. #Constipation -Pt was manually disimpacted by nursing staff; continue with bowel regimen. This helped relieve much of abdominal pain. Continue with mobilization. #Urinary retention -Suspect this secondary to her fecal impaction. She was manually disimpacted and responding to bowel regimen. We will give a trial of voiding on 05/05 #HFrEF -An echocardiogram noted a left ventricular ejection fraction of 35 to 40% done on 04/26. Prior echocardiogram done on 12/08 noted a left ventricular ejection fraction of 70 to 75%. Cardiology recommended a cardiac catheterization to rule out ischemic cardiomyopathy that can be done in follow-up. At this time, will touch base with renal appropriate time to resume JOCY/ARB therapy due to her renal function. Continue with beta-blockers. Started on Bumex by nephrology team. #Acute on chronic kidney disease -Resolved. Baseline creatinine is 2.10 mg/dL from 11/2020. She was diuresed due to her heart failure with furosemide which likely caused the increase in her creatinine this admission. #Nephrotic syndrome -Continue with chronic prednisone and cyclosporin. #COPD -No signs of acute exacerbation. She was switched to levalbuterol and ipratropium; gage thought to be contributing to tachycardia. She will need outpatient follow-up with pulmonology for pulmonary function tests. #Anemia -Normocytic anemia, MCV on the higher end. B12/folate within normal limits. #HTN -Blood pressure acceptable. Continue with metoprolol. #Hypothyroidism -Continue levothyroxine #DVT ppx -On apixaban. Plan/VTE VTE Prophylaxis Ordered?: Yes VS, I&O, 24H, Fishbone Vital Signs/I&O Vital Signs Date Time Temp Pulse Resp B/P (MAP) Pulse Ox O2 Delivery O2 Flow Rate FiO2 05/04/21 04:00 98.2 108 20 142/99 (113) 91 Nasal Cannula 1.0 I&O- Last 24 Hours up to 6 AM 05/04/21 06:00 Intake Total 660 ml Output Total 100 ml Balance 560 ml Laboratory Data 24H LABS Laboratory Tests 2 05/04/21 05:35: Nucleated Red Blood Cells % (auto) 0.0, Anion Gap 7L, Glomerular Filtration Rate 35.7L, Calcium Level 7.7L, Phosphorus Level 4.1, Magnesium Level 2.3 CBC/BMP Laboratory Tests 05/04/21 05:35 Microbiology Microbiology 05/02/21 Stool Occult Blood (BERTA) - Final, Complete KHUSHBU PELAEZ M.D. May 04, 2021 06:42
--- NOTE | 2021-05-04 21:39 | IPN ---
NEPHROLOGY PROGRESS NOTE DATE: 05/04/2021 SUBJECTIVE: The patient was seen and examined at the bedside today morning. She is afebrile, hemodynamically stable. She denies any active complaints at this time. Her renal function is stable and she reports mild pain in the right leg. OBJECTIVE: VITAL SIGNS: Temperature is 97.5 degrees Fahrenheit, blood pressure is 108/66, pulse is 122, respiratory rate of 18, saturating 92% on nasal cannula at one liter. INTAKE AND OUTPUT: Urine output recorded at 625 mL yesterday, 900 mL so far today since overnight. Weight in the bed scale is 60 kg. PHYSICAL EXAMINATION: GENERAL APPEARANCE: The patient is awake, alert, oriented x3, laying in bed in no apparent distress. HEAD AND NECK: Extraocular muscles intact. Pupils are equally round and reactive to light. Mucous membranes are moist. Neck is supple. There is no jugular venous distention. CARDIOVASCULAR: S1, S2, irregular rate. EXTREMITIES: Trace edema of the bilateral lower extremities. RESPIRATORY: Chest is clear to auscultation bilaterally. Bilaterally currently no rales or rhonchi. ABDOMEN: Soft, positive bowel sounds, nontender, no organomegaly. MUSCULOSKELETAL: No clubbing, no cyanosis. Pulses are 2+. AUTOMATION/CONTROLS MANAGER: No focal deficits. Power is 5/5 in all extremities. LAB REVIEW: CBC showed a WBC count of 9.8, hemoglobin is 9.9, platelet count 369. BMP showed sodium of 135, potassium 3.8, chloride 100, bicarbonate 28, BUN 53, creatinine is 1.5, phosphorous 4.1, magnesium 2.3. CURRENT INPATIENT MEDICATIONS: The patient's medications were all reviewed by myself. No significant change in the medications as compared with yesterday except that her Metoprolol dose was changed to 50 mg p.o. q. 6 hourly. ASSESSMENT AND PLAN: 1. 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 I have ordered a repeat antiphospholipid A2 receptor antibody levels. Latest levels were done in November, and they were positive at 36.5. 2. Acute kidney injury superimposed on chronic kidney disease the patient's renal function is improving back to baseline. Her creatinine is 1.5 which is okay at this time. 3. Atrial fibrillation - heart rate is uncontrolled. Metoprolol dose was already increased by the Medical Team. She is currently on anticoagulation with Eliquis. 4. Lower extremity edema it is controlled with current dose of Bumex 2 mg p.o. daily.
[2021-05-05] VITALS: BP 117/81
[2021-05-05] MEDS: METOPROLOL TART 50 MG TAB PO SCH ×2 (00:26→06:28)
[2021-05-05 04:55] LABS: HEMATOCRIT 30.1 % (36.0-47.0); HEMOGLOBIN 9.7 g/dl (12.0-15.5); MEAN CORPUSCULAR HEMOGLOBIN 30.7 pg (27.0-33.0); MEAN CORPUSCULAR HGB CONC 32.2 g/dl (32.0-36.5); MEAN CORPUSCULAR VOLUME 95.3 fl (80.0-96.0); PLATELET COUNT, AUTOMATED 322 10^3/uL (150-450); RED BLOOD COUNT 3.16 10^6/uL (4.00-5.40); WHITE BLOOD COUNT 7.2 10^3/uL (4.0-10.0)
[2021-05-05 05:14] LABS: CALCIUM LEVEL 7.8 MG/DL (8.8-10.2); CREATININE FOR GFR 1.57 MG/DL (0.55-1.30); GLOMERULAR FILTRATION RATE 33.8 (>39); MAGNESIUM LEVEL 2.5 MG/DL (1.8-2.4); POTASSIUM SERUM 3.7 MEQ/L (3.5-5.1)
[2021-05-05] MEDS: SLF 3 ML SYR IV SCH ×3 (06:28→20:57)
[2021-05-05] MEDS: LEVOTHYROXINE 25MCG TABLET (0.025MG) PO SCH (06:28)
[2021-05-05] MEDS: TIOTROPIUM INHALER/CAPSULE (SPIRIVA) INH SCH (07:17)
[2021-05-05 07:50] VITALS: BP 128/80
[2021-05-05] MEDS: APIXABAN 2.5 MG TAB (ELIQUIS) PO SCH ×2 (07:54→20:56)
[2021-05-05] MEDS: ASPIRIN 81MG ENTERIC TABLET PO SCH (07:54)
[2021-05-05] MEDS: NEORAL 25 MG CAP (J7515) PO SCH ×2 (07:54→20:57)
[2021-05-05] MEDS: OCUVITE 1 TAB PO SCH ×2 (07:54→20:57)
[2021-05-05] MEDS: MIRALAX *UNIT DOSE* 17GM PACKET PO SCH (07:55)
[2021-05-05] MEDS: BUMETANIDE 1 MG TAB PO SCH (07:55)
[2021-05-05] MEDS: predniSONE 10 MG TAB PO SCH (07:55)
[2021-05-05] MEDS: DOCUSATE SODIUM 100MG CAPSULE PO SCH (07:55)
[2021-05-05] MEDS: BISACODYL 10 MG SUPP PR SCH (07:55)
[2021-05-05] MEDS: PERCOCET 5MG/325MG TAB PO PRN (08:41)
--- NOTE | 2021-05-05 09:51 | IPNPDOC ---
Subjective Date Seen The patient was seen on 05/05/21. Subjective Chief Complaint/HPI Patient seen and examined at bedside this morning. She reports significant improvement in her abdominal pain with her bowel movement from 05/04. She endorsed no new complaints Other systems 10 point review of system was negative except for what is noted in the HPI Objective Physical Examination Other physical findings General: Lying in bed, no acute distress Head/Neck/Throat: Trachea midline, mucous membranes moist Eyes: Sclera anicteric, erythema and discharge appreciated bilaterally Thorax: Normal respiratory effort on room air, lungs clear to auscultation bilaterally, no wheezes/rales/rhonchi Cardiovascular: Normal rate, regular rhythm, normal S1, S2; no S3, S4, ru bs/gallops/murmurs Abdomen: Bowel sounds present, soft, no tenderness reported with palpation. Genitourinary: Ray draining yellow urine Musculoskeletal: Moving all extremities, no edema Skin: Right leg was wrapped without soaking appreciated Neurologic: AAOx3, speech fluent and goal-directed, no focal deficits, grossly intact Assessment /Plan Plan/VTE VTE Prophylaxis Ordered?: Yes Plan #Atrial fibrillation -Increase in metoprolol dose for better heart rate control. If she is uncontrolled despite increasing metoprolol as this has been the case, will add 0.125 MCG of digoxin every 48 hours. -continue system ac with apixaban. #Constipation -Pt was manually disimpacted by nursing staff on 05/04; continue with bowel regim en. Encourage mobilization #Urinary retention -Suspect this secondary to her fecal impaction. She was manually disimpacted and responding to bowel regimen. Trial of voiding today. #HFrEF -An echocardiogram noted a left ventricular ejection fraction of 35 to 40% done on 04/26. Prior echocardiogram done on 12/08 noted a left ventricular ejection fraction of 70 to 75%. Cardiology recommended a cardiac catheterization to rule out ischemic cardiomyopathy that can be done in follow-up. At this time, will touch base with renal appropriate time to resume JOCY/ARB therapy due to her renal function. Continue with beta-blockers. Started on Bumex by nephrology team. -Continue diuretic therapy. #Acute on chronic kidney disease -Resolved. Baseline creatinine is 2.10 mg/dL from 11/2020. She was diuresed due to her heart failure with furosemide which likely caused the increase in her creatinine this admission. #Nephrotic syndrome -Continue with chronic prednisone and cyclosporin. #Acute on chronic bronchitis -Suspect she may have copd; but this has not been formally diagnosed with pul monary function tests. Now resolved. -She was switched to levalbuterol and tiotropium; gage thought to be contributing to tachycardia. -She will need outpatient follow-up with pulmonology for pulmonary function tests. #Anemia -Normocytic anemia, MCV on the higher end. B12/folate within normal limits. #HTN -Blood pressure acceptable. Continue with metoprolol. #Hypothyroidism -Continue levothyroxine #Rt leg laceration -Follow up with plastics as outpatient. PRN pain meds. #DVT ppx -On apixaban. VS, I&O, 24H, Fishbone Vital Signs/I&O Vital Signs Date Time Temp Pulse Resp B/P (MAP) Pulse Ox O2 Delivery O2 Flow Rate FiO2 05/05/21 08:41 16 05/05/21 07:50 97.8 94 128/80 (96) 90 Room Air 05/05/21 04:00 1.0 I&O- Last 24 Hours up to 6 AM 05/05/21 06:00 Intake Total 1080 ml Output Total 900 ml Balance 180 ml Laboratory Data 24H LABS Laboratory Tests 2 05/05/21 04:22: Nucleated Red Blood Cells % (auto) 0.0, Anion Gap 6L, Glomerular Filtration Rate 33.8L, Calcium Level 7.8L, Phosphorus Level 4.0, Magnesium Level 2.5H CBC/BMP Laboratory Tests 05/05/21 04:22 Microbiology Microbiology 05/02/21 Stool Occult Blood (BERTA) - Final, Complete KHUSHBU PELAEZ M.D. May 05, 2021 09:38
[2021-05-05] MEDS ORDERED: POTASSIUM CHLORIDE 10 MEQ SR TABLET PO ONE (10:00)
[2021-05-05 11:57] VITALS: BP 128/70
[2021-05-05] MEDS: METOPROLOL SUCC (TopROL XL) 50MG **XL** TAB PO SCH ×2 (12:02→20:56)
[2021-05-05 15:49] VITALS: BP 138/80
[2021-05-05] MEDS ORDERED: DOCUSATE SODIUM 100MG CAPSULE PO PRN (18:00)
[2021-05-05 20:00] VITALS: BP 117/75
[2021-05-05] MEDS: ACETAMINOPHEN TAB 650MG DOSE (2X325MG) PO PRN (20:55)
--- NOTE | 2021-05-05 21:58 | IPN ---
NEPHROLOGY PROGRESS NOTE DATE: 05/05/2021 SUBJECTIVE: The patient was seen and examined at the bedside today morning. She is afebrile, hemodynamically stable, denies any active complaints at this time. Her renal function is stable. OBJECTIVE: VITAL SIGNS: Temperature is 98 degrees Fahrenheit, blood pressure 117/75, pulse is 98, respiratory rate of 16, saturating 93% on nasal cannula at one liter. INTAKE AND OUTPUT: Urine output recorded as 425 mL since overnight. Weight in the bed scale was 60 kg yesterday. PHYSICAL EXAMINATION: GENERAL APPEARANCE: The patient is awake, alert, oriented x3, laying in bed in no apparent distress. HEAD AND NECK: Extraocular muscles intact. Pupils are equally round and reactive to light. Mucous membranes are moist. Neck is supple. There is no jugular venous distention. CARDIOVASCULAR: S1, S2, regular rate. EXTREMITIES: Trace edema of the bilateral lower extremities. RESPIRATORY: Chest is clear to auscultation bilaterally. Bilaterally currently no rales or rhonchi. ABDOMEN: Soft, positive bowel sounds, nontender, no organomegaly. MUSCULOSKELETAL: She has a dressing on the right leg. METALLURGICAL ENGINEERING TEACHER: No focal deficits. Power is 5/5 in all extremities. LAB REVIEW: CBC showed a WBC of 7.2, hemoglobin 9.7, platelet count 322. BMP showed sodium of 137, potassium 3.7, chloride 101, bicarbonate 30, BUN 60, creatinine is 1.5; it was 1.5 yesterday as well. IMAGING: A CAT scan of the abdomen and pelvis was done yesterday which showed small bilateral pleural effusions, slightly increased in size from the comparison. Small pericardial effusion. Mild distention of the rectal ampulla extending into the sigmoid colon, possibly fecal impaction. CURRENT INPATIENT MEDICATIONS: The patient's medications were all reviewed by myself. Colace and Bisacodyl have been stopped. Metoprolol has been changed to 150 mg p.o. twice daily. ASSESSMENT AND PLAN: 1. History of nephrotic syndrome secondary to membranous nephropathy - The patient continues to be on Cyclosporin and Prednisone. Latest anti-phospholipase a2 receptor antibody is pending. Continue current immunosuppression. 2. Acute kidney injury superimposed on chronic kidney disease - renal function is stable with a creatinine of 1.5. Okay to continue diuretics. She has chronic kidney disease secondary to membranous nephropathy. 3. Atrial fibrillation - heart rate was uncontrolled so Metoprolol dose was increased. She is anticoagulated with Eliquis. 4. Lower extremity edema - continue current dose of Bumex. Weight is stable at this time. 5. Constipation on the CT scan - management is as per Medical Team.
[2021-05-06] VITALS: BP 128/93
[2021-05-06 04:00] VITALS: BP 135/89
[2021-05-06] MEDS: LEVOTHYROXINE 25MCG TABLET (0.025MG) PO SCH (05:15)
[2021-05-06] MEDS: SLF 3 ML SYR IV SCH ×3 (05:15→20:51)
[2021-05-06 06:01] LABS: CALCIUM LEVEL 8.1 MG/DL (8.8-10.2); CREATININE FOR GFR 1.56 MG/DL (0.55-1.30); GLOMERULAR FILTRATION RATE 34.1 (>39); MAGNESIUM LEVEL 2.5 MG/DL (1.8-2.4); PHOSPHORUS LEVEL 3.5 MG/DL (2.5-4.9); POTASSIUM SERUM 4.4 MEQ/L (3.5-5.1)
[2021-05-06 08:00] VITALS: BP 142/80
[2021-05-06] MEDS: TIOTROPIUM INHALER/CAPSULE (SPIRIVA) INH SCH (08:04)
[2021-05-06] MEDS ORDERED: DIGOXIN 0.125 MG TAB PO SCH (09:00)
[2021-05-06] MEDS ORDERED: DIGOXIN INJ 0.5 MG/2 ML AMP (J1160) IV SCH (09:00)
[2021-05-06] MEDS: NEORAL 25 MG CAP (J7515) PO SCH ×2 (09:01→20:49)
[2021-05-06] MEDS: APIXABAN 2.5 MG TAB (ELIQUIS) PO SCH ×2 (09:01→20:50)
[2021-05-06] MEDS: predniSONE 10 MG TAB PO SCH (09:01)
[2021-05-06] MEDS: BUMETANIDE 1 MG TAB PO SCH (09:01)
[2021-05-06] MEDS: ASPIRIN 81MG ENTERIC TABLET PO SCH (09:01)
[2021-05-06] MEDS: METOPROLOL SUCC (TopROL XL) 50MG **XL** TAB PO SCH (09:02)
[2021-05-06] MEDS: OCUVITE 1 TAB PO SCH ×2 (09:02→20:49)
--- NOTE | 2021-05-06 10:32 | IPNPDOC ---
Subjective Date Seen The patient was seen on 05/06/21. Subjective Chief Complaint/HPI Patient was seen and examined at bedside this morning. She had no new complaints. She denied chest pain, palpitations, shortness of breath, abdominal pain, problems urination and bowel movements. Other systems 10 point review of system was negative except for what is noted in the HPI Objective Physical Examination Other physical findings General: Lying in bed, no acute distress Head/Neck/Throat: Trachea midline, mucous membranes moist Eyes: Sclera anicteric, erythema of the left eye and discharge appreciated bilaterally Thorax: Normal respiratory effort on room air, lungs clear to auscultation bilaterally, no wheezes/rales/rhonchi Cardiovascular: Normal rate, irregularly irregular, normal S1, S2; no S3, S4, rubs/gallops/murmurs Abdomen: Bowel sounds present, soft/nontender/nondistended Genitourinary: No CVA tenderness, no Ray in place Musculoskeletal: Moving all extremities, no edema Skin: Warm, dry, right leg was wrapped with no soaking appreciated Neurologic: AAOx3, speech fluent and goal-directed, no focal deficits, grossly intact Assessment /Plan Plan/VTE VTE Prophylaxis Ordered?: Yes Plan #Atrial fibrillation -Increase in metoprolol dose for better heart rate control. Her heart rate tends to fluctuate. Today, digoxin will be added 0.125 MCG every 48 hours -this was discussed with cardiology as well as nephrology. #Bacterial conjunctivitis -Polymyxin/trimethoprim drops were added. She is to take these for 7 days. #Constipation -Resolved. Pt was manually disimpacted by nursing staff on 05/04; continue with bowel regimen. Encourage mobilization #Urinary retention -Resolved now. She is voiding freely. This was likely due to her constipation. #HFrEF -An echocardiogram noted a left ventricular ejection fraction of 35 to 40% done on 04/26. Prior echocardiogram done on 12/08 noted a left ventricular ejection fraction of 70 to 75%. Cardiology recommended a cardiac catheterization to rule out ischemic cardiomyopathy that can be done in follow-up. At this time, will touch base with renal appropriate time to resume JOCY/ARB therapy due to her renal function. Continue with beta-blockers. -Continue diuretic therapy. #Acute on chronic kidney disease -Resolved. Baseline creatinine is 2.10 mg/dL from 11/2020. #Nephrotic syndrome -Continue with chronic prednisone and cyclosporin. #Acute on chronic bronchitis -Resolved. Suspect she may have copd; but this has not been formally diagnosed with pulmonary function tests. -She was switched to levalbuterol and tiotropium; gage thought to be contributing to tachycardia. -She will need outpatient follow-up with pulmonology for pulmonary function tests. #Anemia -Normocytic anemia, MCV on the higher end. B12/folate within normal limits. #HTN -Blood pressure acceptable. Continue with metoprolol. #Hypothyroidism -Continue levothyroxine #Rt leg laceration -Follow up with plastics as outpatient. PRN pain meds. #DVT ppx -On apixaban. VS, I&O, 24H, Fishbone Vital Signs/I&O Vital Signs Date Time Temp Pulse Resp B/P (MAP) Pulse Ox O2 Delivery O2 Flow Rate FiO2 05/06/21 09:02 132 142/80 05/06/21 08:00 97.6 16 92 Nasal Cannula 1.0 I&O- Last 24 Hours up to 6 AM 05/06/21 06:00 Intake Total 1200 ml Output Total 825 ml Balance 375 ml Laboratory Data 24H LABS Laboratory Tests 2 05/06/21 05:23: Anion Gap 5L, Glomerular Filtration Rate 34.1L, Calcium Level 8.1L, Phosphorus Level 3.5, Magnesium Level 2.5H CBC/BMP Laboratory Tests 05/06/21 05:23 Microbiology Microbiology 05/02/21 Stool Occult Blood (BERTA) - Final, Complete KHUSHBU PELAEZ M.D. May 06, 2021 10:32
[2021-05-06] MEDS ORDERED: METOPROLOL SUCC (TopROL XL) 50MG **XL** TAB PO ONE (11:15)
[2021-05-06 12:00] VITALS: BP 140/70
[2021-05-06] MEDS: POLYTRIM OPTH DROPS 10ML OU SCH ×4 (12:17→20:51)
--- NOTE | 2021-05-06 12:27 | IPN ---
PROGRESS NOTE DATE: 05/06/2021 SUBJECTIVE: Patient was seen and examined at the bedside today morning. He is laying in the bed. He denies any active complaints. Renal function is stable. OBJECTIVE: VITAL SIGNS: Temperature is 97.6 degrees Fahrenheit, blood pressure is 142/80, pulse is 132, respiratory rate is 16, saturating 92% on nasal cannula at 1 liter. INTAKE AND OUPUT: Urine output recorded as 400 ml since overnight. Weight on the bed scale is not available. GENERAL: Patient is awake, alert and oriented x3, laying in bed, in no apparent distress. HEENT: Extraocular muscles are intact. Pupils equally round and reactive to light. Mucous membranes are moist. NECK: Supple. There is no JVD. CARDIOVASCULAR: S1 and S2 irregularly heart rate and tachycardia is noted. No edema of the bilateral lower extremities. RESPIRATORY: Chest is clear to auscultation bilaterally. Bilateral equal air entry, no rales or rhonchi. ABDOMEN: Soft, positive bowel sounds. Nontender. No organomegaly. MUSCULOSKELETAL: No clubbing or cyanosis. She has a dressing on the right leg. ANALYST COMPETITIVE INTELLIGENCE: No focal deficit. Power is 5/5 in all extremities. LABORATORY DATA: CBC showed a WBC of 7.2 and a hemoglobin of 9.7 yesterday and BMP done today morning showed a sodium of 135, potassium is 4.4, chloride 99, bicarbonate 31, BUN 56, creatinine is 1.5, it was 1.5 yesterday as well. Calcium is 8.1, magnesium was 2.5. CURRENT INPATIENT MEDICATIONS: Patient's medications were all reviewed by myself. He has been started on metoprolol XL 200 mg p.o. twice a day. No other significant change in the medications today. ASSESSMENT AND PLAN: 1. History of chronic kidney disease secondary to membranous nephropathy. Patient's renal function is stable, creatinine is 1.5, okay to continue diuretics. 2. 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 Continue Cyclosporin and prednisone. Anti-phospholipase A2 receptor antibody is pending. 3. Atrial fibrillation, heart rate is still uncontrolled. Metoprolol dose has been increased by medical team. She is on Eliquis as well. 4. Lower extremity edema, continue current dose of Bumex, volume status is optimal.
[2021-05-06 16:00] VITALS: BP 134/70
[2021-05-06 20:00] VITALS: BP 119/78
[2021-05-06] MEDS: ACETAMINOPHEN TAB 650MG DOSE (2X325MG) PO PRN (20:49)
[2021-05-06] MEDS: METOPROLOL SUCC (TopROL XL) 100MG *XL* TAB PO SCH (20:50)
[2021-05-07] VITALS: BP 121/70
[2021-05-07 04:00] VITALS: BP 144/74
[2021-05-07 04:00] LABS: HEMATOCRIT 27.9 % (36.0-47.0); HEMOGLOBIN 8.8 g/dl (12.0-15.5); MEAN CORPUSCULAR HEMOGLOBIN 30.4 pg (27.0-33.0); MEAN CORPUSCULAR HGB CONC 31.5 g/dl (32.0-36.5); MEAN CORPUSCULAR VOLUME 96.5 fl (80.0-96.0); PLATELET COUNT, AUTOMATED 278 10^3/uL (150-450); RED BLOOD COUNT 2.89 10^6/uL (4.00-5.40); WHITE BLOOD COUNT 6.5 10^3/uL (4.0-10.0)
[2021-05-07 04:20] LABS: CREATININE FOR GFR 1.44 MG/DL (0.55-1.30); GLOMERULAR FILTRATION RATE 37.4 (>39); MAGNESIUM LEVEL 2.5 MG/DL (1.8-2.4); PHOSPHORUS LEVEL 3.8 MG/DL (2.5-4.9); POTASSIUM SERUM 4.3 MEQ/L (3.5-5.1)
[2021-05-07] MEDS: POLYTRIM OPTH DROPS 10ML OU SCH ×3 (05:52→13:05)
[2021-05-07] MEDS: LEVOTHYROXINE 25MCG TABLET (0.025MG) PO SCH (05:52)
[2021-05-07] MEDS: SLF 3 ML SYR IV SCH (05:52)
[2021-05-07 07:31] VITALS: BP 131/75
[2021-05-07] MEDS: TIOTROPIUM INHALER/CAPSULE (SPIRIVA) INH SCH (07:46)
[2021-05-07] MEDS ORDERED: SPIR1CAP INH (09:38)
[2021-05-07] MEDS ORDERED: DIGO0.123 PO (09:38)
[2021-05-07] MEDS ORDERED: ELIQ2.5T PO (09:38)
[2021-05-07] MEDS ORDERED: BUME1TAB3 PO (09:38)
[2021-05-07] MEDS ORDERED: METO1TAB33 PO (09:38)
[2021-05-07] MEDS ORDERED: LEVAINH INH (09:38)
[2021-05-07] MEDS ORDERED: POLY2.5S OU (09:38)
[2021-05-07] MEDS: APIXABAN 2.5 MG TAB (ELIQUIS) PO SCH (09:41)
[2021-05-07] MEDS: NEORAL 25 MG CAP (J7515) PO SCH (09:41)
[2021-05-07 09:42] VITALS: BP 131/75
[2021-05-07] MEDS: ASPIRIN 81MG ENTERIC TABLET PO SCH (09:42)
[2021-05-07] MEDS: BUMETANIDE 1 MG TAB PO SCH (09:42)
[2021-05-07] MEDS: METOPROLOL SUCC (TopROL XL) 100MG *XL* TAB PO SCH (09:42)
[2021-05-07] MEDS: predniSONE 10 MG TAB PO SCH (09:44)
[2021-05-07 10:14] LABS: DIGOXIN LEVEL 0.6 NG/ML (0.5-2.0)
--- NOTE | 2021-05-07 12:31 | IPN ---
PROGRESS NOTE DATE: 05/07/2021 SUBJECTIVE: The patient was seen and examined at the beside today morning. She is afebrile, hemodynamically stable. She is feeling much better. She informed me that she is going to be discharged today. OBJECTIVE: VITAL SIGNS: Temperature is 97.9 degrees Fahrenheit, blood pressure is 131/75, pulse is 72, respirations are 19, saturating 91% on nasal cannula a 1 liter. INTAKE AND OUTPUT: Urine output recorded so far is 250 ml, weight on the bed scale is not available. GENERAL: Patient is awake, alert and oriented x3, laying in bed, in no apparent distress. HEAD AND NECK: Extraocular muscles are intact. Pupils equally round and reactive to light. Mucous membranes are moist. Neck is supple. There is no JVD. CARDIOVASCULAR: S1 and S2. Regular rate. There is no edema of the bilateral lower extremities. RESPIRATORY: Chest is clear to auscultation bilaterally. Bilateral equal air entry. No rales or rhonchi. ABDOMEN: Soft, positive bowel sounds, nontender. No organomegaly. MUSCULOSKELETAL: She has a dressing on the right leg. LABOURERS: No focal deficits. Power is 5/5 in all extremities. LABORATORY DATA: CBC revealed a WBC of 6.5, hemoglobin 8.8, platelets are 278,000. BNP showed a sodium of 137, potassium of 4.3, chloride 100, bicarbonate 33, BUN 57, creatinine 1.4, it was 1.5 yesterday. Magnesium level was 2.5. CURRENT INPATIENT MEDICATIONS: The patient's medications were all reviewed by myself. No significant change in the medications today as compared with yesterday. ASSESSMENT AND PLAN: 1. Chronic kidney disease Stage III, renal function is stable. Creatinine is at baseline. 2. Nephrotic syndrome secondary to membranous nephropathy, continue current dose of Cyclosporin and prednisone. Patient will follow-up with Dr. Prado as an outpatient. 3. Atrial fibrillation, heart rate is controlled with metoprolol and anticoagulation is being done with Eliquis. 4. Lower extremity edema. It is controlled with Bumex. 5. Disposition: Patient is optimized from a Nephrology standpoint to be discharged home.
[2021-05-07] MEDS: OCUVITE 1 TAB PO SCH (13:05)
--- NOTE | 2021-05-07 16:20 | DS.PDOC ---
Discharge Summary General Date of Admission Apr 17, 2021 at 17:53 Date of Discharge 05/07/2021 Discharge Summary PROCEDURES PERFORMED DURING STAY: 04/18: Irrigation and debridement of right lower extremity open leg wound with Dr. Randee Elliott ADMITTING DIAGNOSES / DISCHARGE DIAGNOSES: s/p Atrial fibrillation Bacterial conjunctivitis Constipation s/p Urinary retention HFrEF Acute on chronic kidney disease / Nephrotic syndrome Nephrotic syndrome Acute on chronic bronchitis Anemia HTN Hypothyroidism R Leg laceration DVT prophylaxis COMPLICATIONS/CHIEF COMPLAINT: Leg wound HISTORY OF PRESENT ILLNESS: Patient is a 80-year-old female with a PMHx of HTN, HFpEF, Hypothyroidism, Nephrotic syndrome, CKD3, who sent in from her plastic surgeon's office for right lower extremity debridement. Patient had a right lower extremity skin tear was initially cleared by general surgery. Patient was following with Dr. Elliott as an outpatient; for evaluation. Patient was noted to have extensive nature of the wound recommended admission to hospital service for further debridement. Patient was admitted to hospital service for further evaluation and treatment. Plastic surgery was called on consultation, as well as nephrology was called to manage her nephrotic syndrome/CKD. Patient was seen and examined at the bedside. Currently patient denies any nausea, vomiting, chest pain, chest breath, palpitations, abdominal pain, diarrhea, or urinary discomfort. Patient reports right lower tremors. He is doing significantly better. HOSPITAL COURSE: s/p Atrial fibrillation - Patient denies any chest pain or palpitations. Denies any shortness of breath - Heart rate remains well controlled - c/w Metoprolol at current dose / Digoxin - c/w full anticoagulation with Eliquis Bacterial conjunctivitis - c/w Eye drops Constipation - c/w Bowel regimen as ordered s/p Urinary retention HFrEF - Clinically patient does not have any signs of fluid overload - ECHO noted below - c/w Bumetanide - Will have outpatient follow-up with cardiology, nephrology within the next 5 days Acute on chronic kidney disease / Nephrotic syndrome - Nephrology on consultation; we appreciate their input Nephrotic syndrome - c/w prednisone and cyclosporin Acute on chronic bronchitis - Physical does not reveal any wheezing - Continue with inhaled therapy as ordered - Will have outpatient follow-up with primary care provider, and referral to pulmonology Anemia - Hg remains stable - No evidence of bleeding HTN - BP well controlled - c/w Metoprolol and Bumetanide Hypothyroidism - c/w levothyroxine R Leg laceration - s/p Debridement with Plastic surgery - Will have outpatient follow up with Plastic surgery within 7 days DVT prophylaxis - c/w full anticoagulation with Eliquis DISCHARGE MEDICATIONS: Please see below. ALLERGIES: Please see below. PHYSICAL EXAMINATION ON DISCHARGE: Vitals (See below) General: Lying in bed, appears comfortable, AAOx3 HEENT: NC, AT CVS: +S1S2 Lungs: Fair air entry b/l, no wheezing, rales or rhonchi Abdomen: Soft, ND, NT Extremities: No edema, - Calf tenderness LABORATORY DATA: Please see below. IMAGING: CXR 04/17: No acute pulmonary disease.Stable chronic findings. CXR 04/22: 1. Cardiomegaly with the some mild interstitial edema with Beena B lines noted at the bases peripherally and bilateral small effusions, left greater than right. 2. No dense consolidation or parenchymal mass. 3. Advanced COPD, bullous emphysematous changes and pulmonary artery hypertension, likely on the basis of that COPD. 4. Tortuous calcified aorta without gross aneurysm. Vascular US 04/22: There is occlusive superficial vein thrombosis of the right greater saphenous vein. No evidence of DVT seen on either side as discussed in detail above.. CT chest 04/27: 1. Moderate emphysema. 2. Soft tissue density nodule in the lower lobes the left lung. Follow-up low- dose chest CT in 6 months. 3. Bilateral pleural effusions with bibasilar atelectasis. 4. There is calcific vascular disease of the thoracoabdominal aorta and coronary arteries. Possible infrarenal abdominal aortic aneurysm, not imaged. Recommend abdominal aortic ultrasound. 5. Cardiomegaly with a pericardial effusion. 6. Thoracolumbar degenerative disc disease with dextroscoliosis. 7. Other findings as noted. Abdomen XR 05/01: No compelling radiographic evidence of small bowel obstruction. CT abdomen / pelvis 05/04: Small bilateral pleural effusions, slightly increased in size from the comparison chest CT. Small pericardial effusion as an interval change. Surgical clips suggestive of bariatric surgery. No bowel distention or obstruction. Marked distention of the rectal ampulla extending into the sigmoid colon, is possibly fecal impaction. Bladder catheter. ACTIVITY: [As tolerated]. DISCHARGE PLAN: Follow-up with primary care provider, nephrology and plastic surgery within the next 7 days Remain compliant with treatment plan and medications Return to the ER if you experience any problems DISPOSITION: Home Health Service. DISCHARGE CONDITION: [Stable]. TIME SPENT ON DISCHARGE: 35 minutes. Vital Signs/I&Os Vital Signs Date Time Temp Pulse Resp B/P (MAP) Pulse Ox O2 Delivery O2 Flow Rate FiO2 05/07/21 09:42 72 131/75 05/07/21 07:31 97.9 19 91 Nasal Cannula 1.0 I&O- Last 24 Hours up to 6 AM 05/07/21 06:00 Intake Total 1160 ml Output Total 200 ml Balance 960 ml Laboratory Data Labs 24H Laboratory Tests 2 05/07/21 03:35: Nucleated Red Blood Cells % (auto) 0.0, Anion Gap 4L, Glomerular Filtration Rate 37.4L, Calcium Level 8.0L, Phosphorus Level 3.8, Magnesium Level 2.5H, Digoxin Level 0.6 CBC/BMP Laboratory Tests 05/07/21 03:35 Microbiology Microbiology 05/02/21 Stool Occult Blood (BERTA) - Final, Complete Discharge Medications Scheduled Apixaban (Eliquis) 2.5 Mg Tablet, 2.5 MG PO BID Aspirin (Aspirin EC) 81 Mg Tablet.dr, 81 MG PO DAILY, (Reported) Bumetanide (Bumetanide) 1 Mg Tablet, 2 MG PO DAILY Cyclosporine, Modified (Cyclosporine Modified) 25 Mg Capsule, 50 MG PO BID, (Reported) Digoxin (Digoxin) 125 Mcg Tablet, 0.125 MG PO Q48H Epoetin Shay-Epbx (Retacrit) 10,000 Unit/1 Ml Vial, 1 INJ SQ Q2WK, (Reported) HAD NEXT DOSE SCHEDULED FOR 04/18/21 Metoprolol Succinate (Metoprolol Succinate) 100 Mg Tab.er.24h, 200 MG PO BID Multivitamin,Therapeutic (Thera-Tabs) 1 Each Tablet, 1 TAB PO DAILY, (Reported) Omeprazole (Omeprazole) 40 Mg Capsule.dr, 40 MG PO DAILY, (Reported) Polymyxin B Sulf/Trimethoprim (Polymyxin B-Tmp Eye Drops) 10 Ml Drops, 1 DROP OU 6XD Prednisone (Prednisone) 10 Mg Tablet, 10 MG PO DAILY, (Reported) Tiotropium [place] (Spiriva) 18 Mcg Cap.w.dev, 1 CAP INH DAILY Vit A/Vit C/Vit E/Zinc/Copper (Preservision Areds Tablet) 1 Each Tablet, 1 TAB PO BID, (Reported) Scheduled PRN Levalbuterol Hydrochloride (Xopenex Hfa) 15 Gm Hfa.aer.ad, 2 PUFF INH Q4-6HP PRN for wheezing Allergies Coded Allergies: No Known Drug Allergies (Verified Allergy, Unknown, 02/18/21) TARUN OLVERA MD May 07, 2021 16:20
== END 2021-05-07 13:38 | disposition home health service (06) | DRG 576 ==
LOC: M ED 14:43 → M ED INP 17:53 → M MSPAV 21:36 → M PCU 04-26 10:10
PROVIDERS: ADMIT Student in an Organized Health Care Education/Training Program; ATTEND Internal Medicine
PROC: 30233N1 Transfusion of Nonautologous Red Blood Cells into Peripheral Vein, Percutaneous Approach (ICD-10-PCS; 2021-04-17)
PROC: 0HDKXZZ Extraction of Right Lower Leg Skin, External Approach (ICD-10-PCS; 2021-04-18)
PROC: 0YBH0ZZ Excision of Right Lower Leg, Open Approach (ICD-10-PCS; principal; 2021-04-18 09:15)
DX: S81.811A Laceration without foreign body, right lower leg, initial encounter (principal); J96.01 Acute respiratory failure with hypoxia; I50.33 Acute on chronic diastolic (congestive) heart failure; N17.9 Acute kidney failure, unspecified; I13.0 Hypertensive heart and chronic kidney disease with heart failure and stage 1 through stage 4 chronic kidney disease, or unspecified chronic kidney disease; N04.9 Nephrotic syndrome with unspecified morphologic changes; I48.92 Unspecified atrial flutter; I48.91 Unspecified atrial fibrillation; E03.9 Hypothyroidism, unspecified; D64.9 Anemia, unspecified; N18.30 Chronic kidney disease, stage 3 unspecified; K59.00 Constipation, unspecified; H10.9 Unspecified conjunctivitis; Z79.899 Other long term (current) drug therapy; Z79.82 Long term (current) use of aspirin; Z98.41 Cataract extraction status, right eye; Z98.42 Cataract extraction status, left eye; Z87.891 Personal history of nicotine dependence; K21.9 Gastro-esophageal reflux disease without esophagitis; J44.9 Chronic obstructive pulmonary disease, unspecified; R33.9 Retention of urine, unspecified; W18.30XA Fall on same level, unspecified, initial encounter; Y92.009 Unspecified place in unspecified non-institutional (private) residence as the place of occurrence of the external cause

== ENCOUNTER → 2021-05-24 | Outpatient (REF) | payer MEDICARE, OTHER ==
[~2021-05-24] MED LIST changes: +BUME1TAB3 PO; +DIGO0.123 PO; +LEVAINH INH; +METO1TAB33 PO; +OMEP-221 PO; +POLY2.5S OU; +SPIR1CAP INH; +SYNT25TA PO
[2021-05-24 19:08] LABS: DIGOXIN LEVEL 1.2 NG/ML (0.5-2.0); PERCENT SATURATION 32.9 % (13.2-45.0); THYROID STIMULATING HORMONE 2.28 uIU/ML (0.358-3.740)
== END ==
LOC: M LAB REF 17:52
PROVIDERS: ATTEND Internal Medicine Nephrology
DX: D50.9 Iron deficiency anemia, unspecified (principal); E03.9 Hypothyroidism, unspecified; I48.0 Paroxysmal atrial fibrillation

== ENCOUNTER → 2021-06-20 | Outpatient (REF) | payer MEDICARE, OTHER ==
[2021-06-20 18:46] LABS: DIGOXIN LEVEL 1.3 NG/ML (0.5-2.0); MAGNESIUM LEVEL 2.2 MG/DL (1.8-2.4)
== END ==
LOC: M LAB REF 17:22
PROVIDERS: ATTEND Internal Medicine Nephrology
DX: I48.0 Paroxysmal atrial fibrillation (principal); E83.42 Hypomagnesemia

== ENCOUNTER → 2021-07-31 | Outpatient (REF) | payer MEDICARE, OTHER ==
[2021-07-31 19:36] LABS: MAGNESIUM LEVEL 2.5 MG/DL (1.8-2.4)
== END ==
LOC: M LAB REF 17:52
PROVIDERS: ATTEND Internal Medicine Nephrology
DX: I48.0 Paroxysmal atrial fibrillation (principal); E83.42 Hypomagnesemia

== ENCOUNTER → 2021-11-19 | Outpatient (REF) | payer MEDICARE, OTHER ==
[~2021-11-19] MED LIST changes: +OMEP-173 PO; -OMEP-218 PO; -OMEP-221 PO; +OMEP40CA5 PO
[2021-11-19 18:36] LABS: FREE T4 1.3 NG/DL (0.76-1.46); MAGNESIUM LEVEL 2.5 MG/DL (1.8-2.4); THYROID STIMULATING HORMONE 1.77 uIU/ML (0.358-3.740)
== END ==
LOC: M LAB REF 16:38
PROVIDERS: ATTEND Internal Medicine Nephrology
DX: I48.0 Paroxysmal atrial fibrillation (principal); E83.42 Hypomagnesemia; E03.9 Hypothyroidism, unspecified; Z79.01 Long term (current) use of anticoagulants

== ENCOUNTER → 2021-12-04 | Outpatient (REF) | payer MEDICARE, OTHER | LOC: M LAB REF 16:52 | PROVIDERS: ATTEND Internal Medicine Nephrology | DX: I48.0 Paroxysmal atrial fibrillation (principal) ==

== ENCOUNTER 2021-12-12 08:41 | Inpatient (IN) | payer MEDICARE, OTHER ==
[~2021-12-12] VITALS: Ht 162.6 cm; Wt 52.3 kg
[2021-12-12] MEDS ORDERED: NS 1,000 ML IV SCH (09:00)
[2021-12-12] MEDS ORDERED: LIDOCAINE 2% 5ML JELLY UROJET TOP ONE (09:15)
[2021-12-12 09:18] LABS: BASO % 0.2 % (0.0-1.0); HEMATOCRIT 29.7 % (36.0-47.0); HEMOGLOBIN 10.2 g/dl (12.0-15.5); LYMPH # 0.9 10^3/uL (1.5-5.0); MEAN CORPUSCULAR HEMOGLOBIN 31.8 pg (27.0-33.0); MEAN CORPUSCULAR HGB CONC 34.3 g/dl (32.0-36.5); MEAN CORPUSCULAR VOLUME 92.5 fl (80.0-96.0); MONO # 0.9 10^3/uL (0.0-0.8); MONO % 6.4 % (2.0-8.0); NEUTROPHILS # 12.6 10^3/uL (1.5-8.5); NEUTROPHILS % 86.6 % (36.0-66.0); PLATELET COUNT, AUTOMATED 326 10^3/uL (150-450); RED BLOOD COUNT 3.21 10^6/uL (4.00-5.40); WHITE BLOOD COUNT 14.6 10^3/uL (4.0-10.0)
[2021-12-12 09:29] LABS: INR 0.97; PROTHROMBIN TIME 13.3 SECONDS (12.7-14.5)
[2021-12-12 09:43] LABS: CK-MB VALUE MASS 2.1 NG/ML (<3.6); MB/CK RELATIVE INDEX 2.76 (< OR =4)
[2021-12-12 09:53] LABS: ALBUMIN 2.9 GM/DL (3.2-5.2); ALT/SGPT 95 U/L (12-78); AMYLASE 62 U/L (25-115); BILIRUBIN,DIRECT 0.1 MG/DL (0.0-0.2); BILIRUBIN,TOTAL 0.3 MG/DL (0.2-1.0); BLOOD UREA NITROGEN 102 MG/DL (7-18); CALCIUM LEVEL 8.5 MG/DL (8.8-10.2); CARBON DIOXIDE LEVEL 26 MEQ/L (21-32); CHLORIDE LEVEL 95 MEQ/L (98-107); CREATININE FOR GFR 2.49 MG/DL (0.55-1.30); GLOMERULAR FILTRATION RATE 19.8 (>32); GLUCOSE, FASTING 102 MG/DL (70-100); LIPASE 347 U/L (73-393); POTASSIUM SERUM 3.9 MEQ/L (3.5-5.1); SODIUM LEVEL 130 MEQ/L (136-145); TOTAL PROTEIN 5.5 GM/DL (6.4-8.2)
[2021-12-12 09:54] LABS: ETHYL ALCOHOL (ETHANOL) < 0.003 % (0.000-0.010)
[2021-12-12] MEDS ORDERED: BOOSTRIX/ADACEL VACCINE (DIPHTH/PERTUSS/ACELL/TETANUS) 0.5ML SYR IM ONE (10:10)
[2021-12-12] MEDS ORDERED: fentaNYL 100 MCG/2 ML INJECTION IV ONE (10:55)
[2021-12-12 11:00] LABS: RSV AMPLIFICATION NEGATIVE (NEGATIVE)
[2021-12-12 11:07] LABS: CK-MB VALUE MASS 2.6 NG/ML (<3.6); MB/CK RELATIVE INDEX 3.61 (< OR =4)
[2021-12-12 11:42] LABS: AMPHETAMINES LEVEL URINE NEGATIVE (NEGATIVE); BARBITURATES URINE NEGATIVE (NEGATIVE); BENZODIAZEPINES URINE NEGATIVE (NEGATIVE); CANNABINOIDS URINE NEGATIVE (NEGATIVE); COCAINE METABOLITE URINE NEGATIVE (NEGATIVE); METHADONE URINE NEGATIVE (NEGATIVE); OPIATES URINE NEGATIVE (NEGATIVE); PHENCYCLIDINE URINE NEGATIVE (NEGATIVE)
[2021-12-12] MEDS ORDERED: DIGO0.123 PO (12:03)
[2021-12-12] MEDS ORDERED: PATIENT COMMENT (12:03)
[2021-12-12] MEDS ORDERED: METO100T5 PO (12:03)
[2021-12-12] MEDS ORDERED: ELIQ2.5T PO (12:03)
[2021-12-12] MEDS ORDERED: ASPI-161 PO (12:03)
[2021-12-12] MEDS ORDERED: LEVO25TA5 PO (12:03)
[2021-12-12] MEDS ORDERED: HOME MED LIST COMPLETE! XX SCH (12:05)
[2021-12-12] MEDS ORDERED: MAALOX 30 ML SUSP *UDC PO PRN (12:25)
[2021-12-12] MEDS: NEORAL 25 MG CAP (J7515) PO SCH (13:13)
[2021-12-12] MEDS: ACETAMINOPHEN TAB 650MG DOSE (2X325MG) PO PRN ×2 (13:13→22:11)
[2021-12-12] MEDS: LEVOTHYROXINE 25MCG TABLET (0.025MG) PO SCH (13:13)
[2021-12-12 15:29] VITALS: BP 125/57
[2021-12-12] MEDS: METOPROLOL TARTRATE 100MG TAB PO SCH ×2 (16:00→21:02)
[2021-12-12 16:51] VITALS: BP 116/53
[2021-12-12] MEDS: MORPHINE 4 MG/ML 1ML VIAL/SYRINGE (J2270) IV PRN ×2 (16:51→21:02)
[2021-12-12 19:10] VITALS: BP 114/52
[2021-12-12] MEDS ORDERED: METOPROLOL TART 50 MG TAB PO SCH (21:00)
[2021-12-12] MEDS: DOCUSATE SODIUM 100MG CAPSULE PO SCH (21:01)
[2021-12-13 05:47] VITALS: BP 118/54
[2021-12-13] MEDS: ACETAMINOPHEN TAB 650MG DOSE (2X325MG) PO PRN ×2 (05:53→21:21)
[2021-12-13] MEDS: LEVOTHYROXINE 25MCG TABLET (0.025MG) PO SCH (05:53)
[2021-12-13 08:05] LABS: BASO % 0.1 % (0.0-1.0); EOS # 0.1 10^3/uL (0.0-0.5); EOS % 0.7 % (0.0-3.0); HEMATOCRIT 24.4 % (36.0-47.0); LYMPH # 1.2 10^3/uL (1.5-5.0); LYMPH % 16.3 % (24.0-44.0); MEAN CORPUSCULAR HEMOGLOBIN 31.5 pg (27.0-33.0); MEAN CORPUSCULAR HGB CONC 33.2 g/dl (32.0-36.5); MEAN CORPUSCULAR VOLUME 94.9 fl (80.0-96.0); MONO # 0.7 10^3/uL (0.0-0.8); MONO % 9.5 % (2.0-8.0); NEUTROPHILS # 5.3 10^3/uL (1.5-8.5); PLATELET COUNT, AUTOMATED 257 10^3/uL (150-450); RED BLOOD COUNT 2.57 10^6/uL (4.00-5.40); WHITE BLOOD COUNT 7.2 10^3/uL (4.0-10.0)
[2021-12-13 08:09] LABS: HEMOGLOBIN 8.1 g/dl (12.0-15.5)
[2021-12-13 08:34] LABS: ALBUMIN 2.2 GM/DL (3.2-5.2); BILIRUBIN,TOTAL 0.4 MG/DL (0.2-1.0); CALCIUM LEVEL 7.9 MG/DL (8.8-10.2); CREATININE FOR GFR 2.06 MG/DL (0.55-1.30); GLOMERULAR FILTRATION RATE 24.7 (>32); MAGNESIUM LEVEL 2.4 MG/DL (1.8-2.4); POTASSIUM SERUM 3.5 MEQ/L (3.5-5.1); TOTAL PROTEIN 4.3 GM/DL (6.4-8.2)
[2021-12-13 08:49] LABS: DIGOXIN LEVEL 2.2 NG/ML (0.5-2.0)
[2021-12-13] MEDS ORDERED: DIGOXIN 0.125 MG TAB PO SCH (09:00)
[2021-12-13] MEDS ORDERED: predniSONE 10 MG TAB PO SCH (09:00)
[2021-12-13] MEDS: NEORAL 25 MG CAP (J7515) PO SCH (10:00)
[2021-12-13] MEDS: ASPIRIN 81MG ENTERIC TABLET PO SCH (10:01)
[2021-12-13] MEDS: DOCUSATE SODIUM 100MG CAPSULE PO SCH ×2 (10:01→21:17)
[2021-12-13] MEDS: METOPROLOL TARTRATE 100MG TAB PO SCH ×3 (10:02→21:17)
[2021-12-13] MEDS ORDERED: cefTRIAXone SOD 1 GM in D5W MINI-BAG PLUS 50 ML IV SCH (13:00)
[2021-12-13] MEDS: ERYTHROMYCIN OPHTH OINT OU SCH ×3 (13:11→21:17)
[2021-12-13 14:00] VITALS: BP 115/53
[2021-12-13 22:00] VITALS: BP 112/50
[2021-12-14] VITALS (7 sets, daily range): BP systolic 105–119; BP diastolic 49–68
[2021-12-14] MEDS: LEVOTHYROXINE 25MCG TABLET (0.025MG) PO SCH (06:00)
[2021-12-14] MEDS ORDERED: CIPROFLOXACIN 400 MG in IV 1 EA IV SCH (07:35)
[2021-12-14 08:12] LABS: BASO % 0.2 % (0.0-1.0); EOS # 0.1 10^3/uL (0.0-0.5); EOS % 0.8 % (0.0-3.0); HEMATOCRIT 22.5 % (36.0-47.0); HEMOGLOBIN 7.3 g/dl (12.0-15.5); LYMPH # 1.3 10^3/uL (1.5-5.0); MEAN CORPUSCULAR HEMOGLOBIN 31.5 pg (27.0-33.0); MEAN CORPUSCULAR HGB CONC 32.4 g/dl (32.0-36.5); MONO # 0.8 10^3/uL (0.0-0.8); NEUTROPHILS # 4.4 10^3/uL (1.5-8.5); NEUTROPHILS % 66.5 % (36.0-66.0); PLATELET COUNT, AUTOMATED 237 10^3/uL (150-450); RED BLOOD COUNT 2.32 10^6/uL (4.00-5.40); WHITE BLOOD COUNT 6.7 10^3/uL (4.0-10.0)
[2021-12-14 08:39] LABS: ALBUMIN 1.9 GM/DL (3.2-5.2); BILIRUBIN,TOTAL 0.2 MG/DL (0.2-1.0); CALCIUM LEVEL 7.7 MG/DL (8.8-10.2); CREATININE FOR GFR 1.85 MG/DL (0.55-1.30); GLOMERULAR FILTRATION RATE 27.9 (>32); MAGNESIUM LEVEL 2.4 MG/DL (1.8-2.4); POTASSIUM SERUM 3.4 MEQ/L (3.5-5.1); TOTAL PROTEIN 3.9 GM/DL (6.4-8.2)
[2021-12-14] MEDS: ERYTHROMYCIN OPHTH OINT OU SCH ×4 (10:04→20:03)
[2021-12-14] MEDS: DOCUSATE SODIUM 100MG CAPSULE PO SCH ×2 (10:04→20:03)
[2021-12-14] MEDS: ASPIRIN 81MG ENTERIC TABLET PO SCH (10:04)
[2021-12-14] MEDS: NEORAL 25 MG CAP (J7515) PO SCH (10:04)
[2021-12-14] MEDS: CIPROFLOXACIN 200 MG in IV 1 EA IV SCH ×2 (10:05→20:03)
[2021-12-14] MEDS: METOPROLOL TARTRATE 100MG TAB PO SCH ×3 (10:06→20:06)
[2021-12-14] MEDS: ACETAMINOPHEN TAB 650MG DOSE (2X325MG) PO PRN ×2 (10:16→20:04)
[2021-12-14] MEDS ORDERED: POTASSIUM CHLORIDE 10MEQ SR TABLET PO ONE (10:25)
[2021-12-15 06:00] VITALS: BP 107/50
[2021-12-15] MEDS: LEVOTHYROXINE 25MCG TABLET (0.025MG) PO SCH (06:17)
[2021-12-15 06:26] LABS: HEMATOCRIT 25.4 % (36.0-47.0); HEMOGLOBIN 8.3 g/dl (12.0-15.5); MEAN CORPUSCULAR HEMOGLOBIN 30.9 pg (27.0-33.0); MEAN CORPUSCULAR HGB CONC 32.7 g/dl (32.0-36.5); MEAN CORPUSCULAR VOLUME 94.4 fl (80.0-96.0); PLATELET COUNT, AUTOMATED 234 10^3/uL (150-450); RED BLOOD COUNT 2.69 10^6/uL (4.00-5.40); WHITE BLOOD COUNT 7.1 10^3/uL (4.0-10.0)
[2021-12-15 06:46] LABS: CALCIUM LEVEL 7.5 MG/DL (8.8-10.2); CREATININE FOR GFR 1.62 MG/DL (0.55-1.30); GLOMERULAR FILTRATION RATE 32.5 (>32); POTASSIUM SERUM 3.9 MEQ/L (3.5-5.1)
[2021-12-15] MEDS: DOCUSATE SODIUM 100MG CAPSULE PO SCH ×2 (09:00→21:00)
[2021-12-15] MEDS: METOPROLOL TARTRATE 100MG TAB PO SCH ×3 (09:31→21:18)
[2021-12-15] MEDS: ASPIRIN 81MG ENTERIC TABLET PO SCH (09:31)
[2021-12-15] MEDS: predniSONE 5 MG TAB PO SCH (09:31)
[2021-12-15] MEDS: ACETAMINOPHEN TAB 650MG DOSE (2X325MG) PO PRN ×2 (09:32→21:20)
[2021-12-15] MEDS: ERYTHROMYCIN OPHTH OINT OU SCH ×4 (09:32→21:19)
[2021-12-15] MEDS: CIPROFLOXACIN 200 MG in IV 1 EA IV SCH ×2 (09:33→21:19)
[2021-12-15 14:03] VITALS: BP 119/61
[2021-12-15 21:00] VITALS: BP 121/60
[2021-12-16 06:00] VITALS: BP 108/58
[2021-12-16] MEDS: LEVOTHYROXINE 25MCG TABLET (0.025MG) PO SCH (06:07)
[2021-12-16] MEDS: ACETAMINOPHEN TAB 650MG DOSE (2X325MG) PO PRN ×2 (06:07→20:45)
[2021-12-16 07:53] LABS: BASO % 0.5 % (0.0-1.0); EOS # 0.1 10^3/uL (0.0-0.5); EOS % 1.8 % (0.0-3.0); HEMATOCRIT 26.5 % (36.0-47.0); HEMOGLOBIN 8.6 g/dl (12.0-15.5); LYMPH # 1.3 10^3/uL (1.5-5.0); LYMPH % 20.3 % (24.0-44.0); MEAN CORPUSCULAR HEMOGLOBIN 31.4 pg (27.0-33.0); MEAN CORPUSCULAR HGB CONC 32.5 g/dl (32.0-36.5); MEAN CORPUSCULAR VOLUME 96.7 fl (80.0-96.0); MONO # 0.7 10^3/uL (0.0-0.8); MONO % 10.2 % (2.0-8.0); NEUTROPHILS # 4.3 10^3/uL (1.5-8.5); NEUTROPHILS % 66.7 % (36.0-66.0); PLATELET COUNT, AUTOMATED 247 10^3/uL (150-450); RED BLOOD COUNT 2.74 10^6/uL (4.00-5.40); WHITE BLOOD COUNT 6.5 10^3/uL (4.0-10.0)
[2021-12-16 07:56] LABS: ALBUMIN 1.8 GM/DL (3.2-5.2); BILIRUBIN,TOTAL 0.3 MG/DL (0.2-1.0); CALCIUM LEVEL 7.7 MG/DL (8.8-10.2); CREATININE FOR GFR 1.39 MG/DL (0.55-1.30); GLOMERULAR FILTRATION RATE 38.8 (>32); MAGNESIUM LEVEL 2.3 MG/DL (1.8-2.4); TOTAL PROTEIN 3.9 GM/DL (6.4-8.2)
[2021-12-16] MEDS: NYSTATIN 100,000 UNITS/GM TOPICAL PWD 15 GM TOP SCH ×2 (09:00→23:20)
[2021-12-16] MEDS: MORPHINE 4 MG/ML 1ML VIAL/SYRINGE (J2270) IV PRN (09:28)
[2021-12-16] MEDS: DOCUSATE SODIUM 100MG CAPSULE PO SCH ×2 (09:29→20:43)
[2021-12-16] MEDS: METOPROLOL TARTRATE 100MG TAB PO SCH ×3 (09:29→20:44)
[2021-12-16] MEDS: ERYTHROMYCIN OPHTH OINT OU SCH ×4 (09:30→20:44)
[2021-12-16] MEDS: ASPIRIN 81MG ENTERIC TABLET PO SCH (09:30)
[2021-12-16] MEDS: CIPROFLOXACIN 200 MG in IV 1 EA IV SCH ×2 (09:38→20:44)
[2021-12-16] MEDS: APIXABAN 2.5 MG TAB (ELIQUIS) PO SCH ×2 (10:23→20:44)
[2021-12-16] MEDS ORDERED: FERRIC CARBOXYMALTOSE INJ 750 MG, VIAL MATE ADAPTER 1 EACH in NS 250 ML IV ONE (12:00)
[2021-12-16] MEDS ORDERED: CIPR250T3 PO (13:37)
[2021-12-16] MEDS ORDERED: ERYT5OIN25 OU (13:37)
[2021-12-16] MEDS ORDERED: NYST10006 TOP (13:37)
[2021-12-16] MEDS ORDERED: PRED5TA PO (13:37)
[2021-12-16 14:00] VITALS: BP 104/48
[2021-12-16] MEDS: SILVER SULFADIAZINE 1% CR 50 GM JAR TOP SCH (17:57)
[2021-12-16 18:53] VITALS: BP 112/56
[2021-12-16 20:48] VITALS: BP 125/58
[2021-12-17 05:00] VITALS: BP 125/57
[2021-12-17] MEDS ORDERED: CIPROFLOXACIN 250MG TAB PO SCH (06:00)
[2021-12-17] MEDS: LEVOTHYROXINE 25MCG TABLET (0.025MG) PO SCH (06:03)
[2021-12-17] MEDS: ACETAMINOPHEN TAB 650MG DOSE (2X325MG) PO PRN (06:03)
[2021-12-17 08:04] LABS: BASO % 0.4 % (0.0-1.0); EOS # 0.2 10^3/uL (0.0-0.5); EOS % 2.4 % (0.0-3.0); HEMOGLOBIN 9.4 g/dl (12.0-15.5); LYMPH # 1.2 10^3/uL (1.5-5.0); LYMPH % 18.3 % (24.0-44.0); MEAN CORPUSCULAR HEMOGLOBIN 30.8 pg (27.0-33.0); MEAN CORPUSCULAR HGB CONC 31.3 g/dl (32.0-36.5); MEAN CORPUSCULAR VOLUME 98.4 fl (80.0-96.0); MONO # 0.7 10^3/uL (0.0-0.8); MONO % 9.9 % (2.0-8.0); NEUTROPHILS # 4.6 10^3/uL (1.5-8.5); NEUTROPHILS % 68.4 % (36.0-66.0); PLATELET COUNT, AUTOMATED 265 10^3/uL (150-450); RED BLOOD COUNT 3.05 10^6/uL (4.00-5.40); WHITE BLOOD COUNT 6.8 10^3/uL (4.0-10.0)
[2021-12-17 08:34] LABS: CALCIUM LEVEL 7.9 MG/DL (8.8-10.2); CREATININE FOR GFR 1.29 MG/DL (0.55-1.30); GLOMERULAR FILTRATION RATE 42.3 (>32); MAGNESIUM LEVEL 2.1 MG/DL (1.8-2.4); POTASSIUM SERUM 4.2 MEQ/L (3.5-5.1)
[2021-12-17] MEDS ORDERED: traMADol 50 MG TAB PO PRN (09:10)
[2021-12-17] MEDS: predniSONE 5 MG TAB PO SCH (09:12)
[2021-12-17] MEDS: DOCUSATE SODIUM 100MG CAPSULE PO SCH (09:13)
[2021-12-17] MEDS: APIXABAN 2.5 MG TAB (ELIQUIS) PO SCH (09:13)
[2021-12-17] MEDS: ASPIRIN 81MG ENTERIC TABLET PO SCH (09:13)
[2021-12-17 09:14] VITALS: BP 124/60
[2021-12-17] MEDS: SILVER SULFADIAZINE 1% CR 50 GM JAR TOP SCH (09:14)
[2021-12-17] MEDS: METOPROLOL TARTRATE 100MG TAB PO SCH (09:14)
[2021-12-17] MEDS: ERYTHROMYCIN OPHTH OINT OU SCH ×2 (09:14→13:32)
[2021-12-17] MEDS: NYSTATIN 100,000 UNITS/GM TOPICAL PWD 15 GM TOP SCH (09:15)
[2021-12-17] MEDS ORDERED: DIGO0.123 PO (12:06)
[2021-12-17 14:00] VITALS: BP 108/60
== END 2021-12-17 15:09 | DRG 605 ==
LOC: M ED 08:41 → EDBD 08:41 → M ED INP 12:25 → ENRESERV 14:16 → M MSPAV 15:30
PROVIDERS: ADMIT Family Medicine; ATTEND Family Medicine
PROC: 30233N1 Transfusion of Nonautologous Red Blood Cells into Peripheral Vein, Percutaneous Approach (ICD-10-PCS; principal; 2021-12-14)
DX: S81.812A Laceration without foreign body, left lower leg, initial encounter (principal); I13.0 Hypertensive heart and chronic kidney disease with heart failure and stage 1 through stage 4 chronic kidney disease, or unspecified chronic kidney disease; I50.22 Chronic systolic (congestive) heart failure; N18.4 Chronic kidney disease, stage 4 (severe); N04.9 Nephrotic syndrome with unspecified morphologic changes; E87.1 Hypo-osmolality and hyponatremia; N39.0 Urinary tract infection, site not specified; N17.9 Acute kidney failure, unspecified; S81.811A Laceration without foreign body, right lower leg, initial encounter; J44.9 Chronic obstructive pulmonary disease, unspecified; E03.9 Hypothyroidism, unspecified; D64.9 Anemia, unspecified; S00.83XA Contusion of other part of head, initial encounter; M54.9 Dorsalgia, unspecified; Z79.01 Long term (current) use of anticoagulants; Z79.82 Long term (current) use of aspirin; Z66 Do not resuscitate; W19.XXXA Unspecified fall, initial encounter; I48.91 Unspecified atrial fibrillation; S51.012A Laceration without foreign body of left elbow, initial encounter; H10.9 Unspecified conjunctivitis; Y92.018 Other place in single-family (private) house as the place of occurrence of the external cause; R91.1 Solitary pulmonary nodule; Z79.899 Other long term (current) drug therapy; Z79.52 Long term (current) use of systemic steroids; Z98.41 Cataract extraction status, right eye; Z98.42 Cataract extraction status, left eye; E87.6 Hypokalemia; S00.11XA Contusion of right eyelid and periocular area, initial encounter

== ENCOUNTER 2021-12-16 12:25 | Inpatient (IN) | payer MEDICARE, OTHER ==
[~2021-12-16] VITALS: Ht 162.6 cm; Wt 56.2 kg
[~2021-12-16 12:25] MED LIST changes: +ASPI-161 PO; +METO100T5 PO; +PATIENT COMMENT
[2021-12-16] MEDS ORDERED: ERYT5OIN25 OU (13:37)
[2021-12-16] MEDS ORDERED: NYST10006 TOP (13:37)
[2021-12-16] MEDS ORDERED: CIPR250T3 PO (13:37)
[2021-12-16] MEDS ORDERED: PRED5TA PO (13:37)
[2021-12-16] MEDS ORDERED: BISACODYL 10 MG SUPP PR PRN (16:55)
[2021-12-16] MEDS ORDERED: ACETAMINOPHEN TAB 650MG DOSE (2X325MG) PO PRN (16:55)
[2021-12-16] MEDS ORDERED: ERYTHROMYCIN OPHTH OINT OU SCH (17:00)
[2021-12-16] MEDS ORDERED: LACTOBACILLUS ACIDOPHILUS CAP (BACID) PO SCH (18:00)
[2021-12-16] MEDS ORDERED: NYSTATIN 100,000 UNITS/GM TOPICAL PWD 15 GM TOP SCH (21:00)
[2021-12-16] MEDS ORDERED: REMEDY PHYTOPLEX Z-GUARD PASTE 113GM TUBE (FROM STOREROOM PRODUCT) TOP SCH (21:00)
[2021-12-16] MEDS ORDERED: METOPROLOL TARTRATE 100MG TAB PO SCH (21:00)
[2021-12-16] MEDS ORDERED: SENNA 8.6 MG TAB (SENOKOT) PO SCH (21:00)
[2021-12-16] MEDS ORDERED: DOCUSATE SODIUM 100MG CAPSULE PO SCH (21:00)
[2021-12-16] MEDS ORDERED: APIXABAN 2.5 MG TAB (ELIQUIS) PO SCH (21:00)
[2021-12-17] MEDS ORDERED: LEVOTHYROXINE 25MCG TABLET (0.025MG) PO SCH (06:00)
[2021-12-17] MEDS ORDERED: CIPROFLOXACIN 500MG TABLET PO SCH (06:00)
[2021-12-17] MEDS ORDERED: OMEPRAZOLE 20MG CAP PO SCH (09:00)
[2021-12-17] MEDS ORDERED: ASPIRIN 81MG ENTERIC TABLET PO SCH (09:00)
[2021-12-17] MEDS ORDERED: MULTIVITAMINS/MINERALS THERAP 1 TAB PO SCH (09:00)
[2021-12-17] MEDS ORDERED: DIGO0.123 PO (12:06)
[2021-12-17] MEDS ORDERED: BISACODYL 10 MG SUPP PR PRN (14:45)
[2021-12-17 15:08] VITALS: BP 127/58
[2021-12-17] MEDS: ERYTHROMYCIN OPHTH OINT OU SCH ×2 (16:35→21:02)
[2021-12-17] MEDS: METOPROLOL TARTRATE 100MG TAB PO SCH ×2 (16:35→21:01)
[2021-12-17] MEDS: LACTOBACILLUS ACIDOPHILUS CAP (BACID) PO SCH ×2 (17:55→21:01)
[2021-12-17 20:00] VITALS: BP 124/61
[2021-12-17] MEDS: APIXABAN 2.5 MG TAB (ELIQUIS) PO SCH (21:01)
[2021-12-17] MEDS: DOCUSATE SODIUM 100MG CAPSULE PO SCH (21:01)
[2021-12-17] MEDS: SENNA 8.6 MG TAB (SENOKOT) PO SCH (21:02)
[2021-12-17] MEDS: NYSTATIN 100,000 UNITS/GM TOPICAL PWD 15 GM TOP SCH (21:02)
[2021-12-17] MEDS: REMEDY PHYTOPLEX Z-GUARD PASTE 113GM TUBE (FROM STOREROOM PRODUCT) TOP SCH (21:02)
[2021-12-17] MEDS: ACETAMINOPHEN TAB 650MG DOSE (2X325MG) PO PRN (21:03)
[2021-12-18] MEDS: CIPROFLOXACIN 500MG TABLET PO SCH (04:57)
[2021-12-18] MEDS: LEVOTHYROXINE 25MCG TABLET (0.025MG) PO SCH (04:57)
[2021-12-18 06:00] VITALS: BP 111/56
[2021-12-18] MEDS: OMEPRAZOLE 20MG CAP PO SCH (07:42)
[2021-12-18] MEDS: DOCUSATE SODIUM 100MG CAPSULE PO SCH ×2 (07:42→21:00)
[2021-12-18] MEDS: APIXABAN 2.5 MG TAB (ELIQUIS) PO SCH ×2 (07:42→21:04)
[2021-12-18] MEDS: METOPROLOL TARTRATE 100MG TAB PO SCH ×3 (07:43→21:04)
[2021-12-18] MEDS: MULTIVITAMINS/MINERALS THERAP 1 TAB PO SCH (07:43)
[2021-12-18] MEDS: LACTOBACILLUS ACIDOPHILUS CAP (BACID) PO SCH ×4 (07:43→21:04)
[2021-12-18] MEDS: NYSTATIN 100,000 UNITS/GM TOPICAL PWD 15 GM TOP SCH ×2 (07:43→21:06)
[2021-12-18] MEDS: ASPIRIN 81MG ENTERIC TABLET PO SCH (07:43)
[2021-12-18] MEDS: REMEDY PHYTOPLEX Z-GUARD PASTE 113GM TUBE (FROM STOREROOM PRODUCT) TOP SCH ×3 (07:44→21:07)
[2021-12-18] MEDS: ERYTHROMYCIN OPHTH OINT OU SCH ×4 (07:44→21:05)
[2021-12-18] MEDS ORDERED: predniSONE 5 MG TAB PO SCH (09:00)
[2021-12-18] MEDS: ACETAMINOPHEN TAB 650MG DOSE (2X325MG) PO PRN ×2 (11:28→21:04)
[2021-12-18 14:00] VITALS: BP 96/53
[2021-12-18] MEDS: DIGOXIN 0.0625MG PER 1/2TABLET PO SCH (16:55)
[2021-12-18] MEDS: SENNA 8.6 MG TAB (SENOKOT) PO SCH (21:00)
[2021-12-18 21:02] VITALS: BP 120/57
[2021-12-19] MEDS: CIPROFLOXACIN 500MG TABLET PO SCH (05:14)
[2021-12-19] MEDS: LEVOTHYROXINE 25MCG TABLET (0.025MG) PO SCH (05:14)
[2021-12-19 06:00] VITALS: BP 123/64
[2021-12-19] MEDS: REMEDY PHYTOPLEX Z-GUARD PASTE 113GM TUBE (FROM STOREROOM PRODUCT) TOP SCH ×3 (09:00→20:39)
[2021-12-19] MEDS: APIXABAN 2.5 MG TAB (ELIQUIS) PO SCH ×2 (09:56→20:37)
[2021-12-19] MEDS: DOCUSATE SODIUM 100MG CAPSULE PO SCH ×2 (09:56→20:37)
[2021-12-19] MEDS: MULTIVITAMINS/MINERALS THERAP 1 TAB PO SCH (09:56)
[2021-12-19] MEDS: predniSONE 5 MG TAB PO SCH (09:56)
[2021-12-19] MEDS: OMEPRAZOLE 20MG CAP PO SCH (09:56)
[2021-12-19] MEDS: ASPIRIN 81MG ENTERIC TABLET PO SCH (09:56)
[2021-12-19] MEDS: METOPROLOL TARTRATE 100MG TAB PO SCH ×3 (09:57→20:36)
[2021-12-19] MEDS: ERYTHROMYCIN OPHTH OINT OU SCH ×4 (09:59→20:37)
[2021-12-19] MEDS: NYSTATIN 100,000 UNITS/GM TOPICAL PWD 15 GM TOP SCH ×2 (09:59→20:38)
[2021-12-19] MEDS: LACTOBACILLUS ACIDOPHILUS CAP (BACID) PO SCH ×4 (10:01→20:36)
[2021-12-19 14:00] VITALS: BP 119/58
[2021-12-19 19:45] VITALS: BP 147/63
[2021-12-19] MEDS: SENNA 8.6 MG TAB (SENOKOT) PO SCH (20:37)
[2021-12-19] MEDS: LACTIC ACID 12% LOTION 225 GM BTL TOP SCH (20:38)
[2021-12-20 05:28] VITALS: BP 111/58
[2021-12-20] MEDS: CIPROFLOXACIN 500MG TABLET PO SCH (05:55)
[2021-12-20] MEDS: LEVOTHYROXINE 25MCG TABLET (0.025MG) PO SCH (05:55)
[2021-12-20] MEDS: DOCUSATE SODIUM 100MG CAPSULE PO SCH ×2 (09:00→20:32)
[2021-12-20] MEDS: OMEPRAZOLE 20MG CAP PO SCH (10:06)
[2021-12-20] MEDS: LACTOBACILLUS ACIDOPHILUS CAP (BACID) PO SCH ×4 (10:07→20:31)
[2021-12-20] MEDS: MULTIVITAMINS/MINERALS THERAP 1 TAB PO SCH (10:07)
[2021-12-20] MEDS: APIXABAN 2.5 MG TAB (ELIQUIS) PO SCH ×2 (10:07→20:31)
[2021-12-20] MEDS: ASPIRIN 81MG ENTERIC TABLET PO SCH (10:07)
[2021-12-20] MEDS: DIGOXIN 0.0625MG PER 1/2TABLET PO SCH (10:07)
[2021-12-20] MEDS: METOPROLOL TARTRATE 100MG TAB PO SCH ×3 (10:08→20:32)
[2021-12-20] MEDS: POLYSPORIN TOPICAL OINTMENT 15GM TOP SCH (10:09)
[2021-12-20] MEDS: ERYTHROMYCIN OPHTH OINT OU SCH ×4 (10:09→20:32)
[2021-12-20] MEDS: SANTYL OINT 30GM TOP SCH (10:10)
[2021-12-20] MEDS: LACTIC ACID 12% LOTION 225 GM BTL TOP SCH ×2 (10:10→20:33)
[2021-12-20] MEDS: REMEDY PHYTOPLEX Z-GUARD PASTE 113GM TUBE (FROM STOREROOM PRODUCT) TOP SCH ×3 (10:11→20:34)
[2021-12-20] MEDS: NYSTATIN 100,000 UNITS/GM TOPICAL PWD 15 GM TOP SCH ×2 (10:11→20:34)
[2021-12-20 10:57] LABS: BASO % 0.4 % (0.0-1.0); EOS # 0.1 10^3/uL (0.0-0.5); EOS % 1.5 % (0.0-3.0); HEMATOCRIT 27.8 % (36.0-47.0); HEMOGLOBIN 8.9 g/dl (12.0-15.5); LYMPH # 0.8 10^3/uL (1.5-5.0); LYMPH % 11.7 % (24.0-44.0); MEAN CORPUSCULAR HEMOGLOBIN 31.1 pg (27.0-33.0); MEAN CORPUSCULAR VOLUME 97.2 fl (80.0-96.0); MONO # 0.8 10^3/uL (0.0-0.8); MONO % 11.1 % (2.0-8.0); NEUTROPHILS # 5.4 10^3/uL (1.5-8.5); NEUTROPHILS % 74.6 % (36.0-66.0); PLATELET COUNT, AUTOMATED 274 10^3/uL (150-450); RED BLOOD COUNT 2.86 10^6/uL (4.00-5.40); WHITE BLOOD COUNT 7.2 10^3/uL (4.0-10.0)
[2021-12-20 11:25] LABS: CALCIUM LEVEL 7.8 MG/DL (8.8-10.2); CREATININE FOR GFR 1.63 MG/DL (0.55-1.30); GLOMERULAR FILTRATION RATE 32.3 (>32)
[2021-12-20 14:00] VITALS: BP 132/60
[2021-12-20 20:00] VITALS: BP 125/59
[2021-12-20] MEDS: SENNA 8.6 MG TAB (SENOKOT) PO SCH (20:32)
[2021-12-21 06:00] VITALS: BP 113/55
[2021-12-21] MEDS: LEVOTHYROXINE 25MCG TABLET (0.025MG) PO SCH (06:01)
[2021-12-21] MEDS: DOCUSATE SODIUM 100MG CAPSULE PO SCH ×2 (08:06→21:00)
[2021-12-21] MEDS: METOPROLOL TARTRATE 100MG TAB PO SCH ×3 (08:13→21:10)
[2021-12-21] MEDS: MULTIVITAMINS/MINERALS THERAP 1 TAB PO SCH (08:13)
[2021-12-21] MEDS: OMEPRAZOLE 20MG CAP PO SCH (08:13)
[2021-12-21] MEDS: LACTIC ACID 12% LOTION 225 GM BTL TOP SCH ×2 (08:14→21:11)
[2021-12-21] MEDS: APIXABAN 2.5 MG TAB (ELIQUIS) PO SCH ×2 (08:14→21:09)
[2021-12-21] MEDS: ERYTHROMYCIN OPHTH OINT OU SCH ×2 (08:14→12:21)
[2021-12-21] MEDS: ASPIRIN 81MG ENTERIC TABLET PO SCH (08:14)
[2021-12-21] MEDS: LACTOBACILLUS ACIDOPHILUS CAP (BACID) PO SCH ×4 (08:14→21:09)
[2021-12-21] MEDS: predniSONE 5 MG TAB PO SCH (08:14)
[2021-12-21] MEDS: REMEDY PHYTOPLEX Z-GUARD PASTE 113GM TUBE (FROM STOREROOM PRODUCT) TOP SCH ×3 (08:15→21:11)
[2021-12-21] MEDS: SANTYL OINT 30GM TOP SCH (08:15)
[2021-12-21] MEDS: NYSTATIN 100,000 UNITS/GM TOPICAL PWD 15 GM TOP SCH ×2 (08:15→21:11)
[2021-12-21] MEDS: POLYSPORIN TOPICAL OINTMENT 15GM TOP SCH (08:16)
[2021-12-21 14:00] VITALS: BP 122/60
[2021-12-21 20:00] VITALS: BP 131/62
[2021-12-21] MEDS: SENNA 8.6 MG TAB (SENOKOT) PO SCH (21:00)
[2021-12-22] MEDS: LEVOTHYROXINE 25MCG TABLET (0.025MG) PO SCH (05:12)
[2021-12-22 06:00] VITALS: BP 125/58
[2021-12-22] MEDS: METOPROLOL TARTRATE 100MG TAB PO SCH ×3 (08:36→20:21)
[2021-12-22] MEDS: DIGOXIN 0.0625MG PER 1/2TABLET PO SCH (08:36)
[2021-12-22] MEDS: APIXABAN 2.5 MG TAB (ELIQUIS) PO SCH ×2 (08:36→20:22)
[2021-12-22] MEDS: MULTIVITAMINS/MINERALS THERAP 1 TAB PO SCH (08:36)
[2021-12-22] MEDS: ASPIRIN 81MG ENTERIC TABLET PO SCH (08:36)
[2021-12-22] MEDS: LACTOBACILLUS ACIDOPHILUS CAP (BACID) PO SCH ×4 (08:36→20:21)
[2021-12-22] MEDS: OMEPRAZOLE 20MG CAP PO SCH (08:36)
[2021-12-22] MEDS: NYSTATIN 100,000 UNITS/GM TOPICAL PWD 15 GM TOP SCH ×2 (08:37→20:22)
[2021-12-22] MEDS: REMEDY PHYTOPLEX Z-GUARD PASTE 113GM TUBE (FROM STOREROOM PRODUCT) TOP SCH ×3 (08:37→20:23)
[2021-12-22] MEDS: POLYSPORIN TOPICAL OINTMENT 15GM TOP SCH (08:37)
[2021-12-22] MEDS: SANTYL OINT 30GM TOP SCH (08:37)
[2021-12-22] MEDS: LACTIC ACID 12% LOTION 225 GM BTL TOP SCH ×2 (08:38→20:22)
[2021-12-22] MEDS: DOCUSATE SODIUM 100MG CAPSULE PO SCH ×2 (08:38→19:07)
[2021-12-22 14:00] VITALS: BP 110/59
[2021-12-22] MEDS: SENNA 8.6 MG TAB (SENOKOT) PO SCH (19:07)
[2021-12-22 19:23] VITALS: BP 108/52
[2021-12-23] MEDS: LEVOTHYROXINE 25MCG TABLET (0.025MG) PO SCH (05:28)
[2021-12-23 06:00] VITALS: BP 118/57
[2021-12-23 06:35] LABS: BASO % 0.5 % (0.0-1.0); EOS # 0.1 10^3/uL (0.0-0.5); EOS % 1.7 % (0.0-3.0); HEMATOCRIT 25.4 % (36.0-47.0); HEMOGLOBIN 8.1 g/dl (12.0-15.5); LYMPH # 1.4 10^3/uL (1.5-5.0); LYMPH % 21.9 % (24.0-44.0); MEAN CORPUSCULAR HGB CONC 31.9 g/dl (32.0-36.5); MEAN CORPUSCULAR VOLUME 97.3 fl (80.0-96.0); MONO # 0.7 10^3/uL (0.0-0.8); MONO % 10.1 % (2.0-8.0); NEUTROPHILS # 4.2 10^3/uL (1.5-8.5); NEUTROPHILS % 65.2 % (36.0-66.0); PLATELET COUNT, AUTOMATED 302 10^3/uL (150-450); RED BLOOD COUNT 2.61 10^6/uL (4.00-5.40); WHITE BLOOD COUNT 6.4 10^3/uL (4.0-10.0)
[2021-12-23 06:58] LABS: CALCIUM LEVEL 7.7 MG/DL (8.8-10.2); CREATININE FOR GFR 1.41 MG/DL (0.55-1.30); GLOMERULAR FILTRATION RATE 38.2 (>32); POTASSIUM SERUM 3.6 MEQ/L (3.5-5.1)
[2021-12-23] MEDS ORDERED: DARBEPOETIN 100 MCG/0.5 ML *NON-DIALYSIS* SYRINGE (J0881) SC SCH (09:00)
[2021-12-23] MEDS: DOCUSATE SODIUM 100MG CAPSULE PO SCH ×2 (09:00→20:20)
[2021-12-23] MEDS: MULTIVITAMINS/MINERALS THERAP 1 TAB PO SCH (09:45)
[2021-12-23] MEDS: LACTOBACILLUS ACIDOPHILUS CAP (BACID) PO SCH ×4 (09:45→20:20)
[2021-12-23] MEDS: APIXABAN 2.5 MG TAB (ELIQUIS) PO SCH ×2 (09:45→20:19)
[2021-12-23] MEDS: OMEPRAZOLE 20MG CAP PO SCH (09:45)
[2021-12-23] MEDS: ASPIRIN 81MG ENTERIC TABLET PO SCH (09:45)
[2021-12-23] MEDS: predniSONE 5 MG TAB PO SCH (09:45)
[2021-12-23] MEDS: METOPROLOL TARTRATE 100MG TAB PO SCH ×3 (09:46→20:20)
[2021-12-23] MEDS: SANTYL OINT 30GM TOP SCH (09:46)
[2021-12-23] MEDS: NYSTATIN 100,000 UNITS/GM TOPICAL PWD 15 GM TOP SCH ×2 (09:47→20:21)
[2021-12-23] MEDS: LACTIC ACID 12% LOTION 225 GM BTL TOP SCH ×2 (09:47→20:21)
[2021-12-23] MEDS: POLYSPORIN TOPICAL OINTMENT 15GM TOP SCH (09:47)
[2021-12-23] MEDS: REMEDY PHYTOPLEX Z-GUARD PASTE 113GM TUBE (FROM STOREROOM PRODUCT) TOP SCH ×3 (09:48→20:21)
[2021-12-23 14:00] VITALS: BP 120/55
[2021-12-23 19:46] VITALS: BP 116/58
[2021-12-23] MEDS: SENNA 8.6 MG TAB (SENOKOT) PO SCH (20:20)
[2021-12-24] MEDS: LEVOTHYROXINE 25MCG TABLET (0.025MG) PO SCH (05:35)
[2021-12-24 05:38] VITALS: BP 114/54
[2021-12-24] MEDS: DOCUSATE SODIUM 100MG CAPSULE PO SCH ×2 (09:00→20:55)
[2021-12-24] MEDS: LACTOBACILLUS ACIDOPHILUS CAP (BACID) PO SCH ×4 (10:21→20:54)
[2021-12-24] MEDS: MULTIVITAMINS/MINERALS THERAP 1 TAB PO SCH (10:22)
[2021-12-24] MEDS: METOPROLOL TARTRATE 100MG TAB PO SCH ×3 (10:22→20:54)
[2021-12-24] MEDS: ASPIRIN 81MG ENTERIC TABLET PO SCH (10:22)
[2021-12-24] MEDS: OMEPRAZOLE 20MG CAP PO SCH (10:22)
[2021-12-24] MEDS: APIXABAN 2.5 MG TAB (ELIQUIS) PO SCH ×2 (10:23→20:54)
[2021-12-24] MEDS: LACTIC ACID 12% LOTION 225 GM BTL TOP SCH ×2 (10:23→20:55)
[2021-12-24] MEDS: DIGOXIN 0.0625MG PER 1/2TABLET PO SCH (10:23)
[2021-12-24] MEDS: SANTYL OINT 30GM TOP SCH (10:24)
[2021-12-24] MEDS: POLYSPORIN TOPICAL OINTMENT 15GM TOP SCH (10:24)
[2021-12-24] MEDS: NYSTATIN 100,000 UNITS/GM TOPICAL PWD 15 GM TOP SCH ×2 (10:24→20:56)
[2021-12-24] MEDS: REMEDY PHYTOPLEX Z-GUARD PASTE 113GM TUBE (FROM STOREROOM PRODUCT) TOP SCH ×3 (10:25→20:56)
[2021-12-24 14:00] VITALS: BP 137/65
[2021-12-24] MEDS ORDERED: FUROSEMIDE 20MG/2ML VIAL (J1940) IV ONE ×2 (16:45→17:05)
[2021-12-24] MEDS: CEFEPIME HCL 2 GM in D5W MINI-BAG PLUS 50 ML IV SCH (18:55)
[2021-12-24 20:00] VITALS: BP 124/59
[2021-12-24] MEDS: SENNA 8.6 MG TAB (SENOKOT) PO SCH (20:55)
[2021-12-25] MEDS: LEVOTHYROXINE 25MCG TABLET (0.025MG) PO SCH (05:30)
[2021-12-25] MEDS: CEFEPIME HCL 2 GM in D5W MINI-BAG PLUS 50 ML IV SCH (05:30)
[2021-12-25 06:00] VITALS: BP 120/58
[2021-12-25] MEDS: DOCUSATE SODIUM 100MG CAPSULE PO SCH ×2 (07:37→19:36)
[2021-12-25] MEDS: ASPIRIN 81MG ENTERIC TABLET PO SCH (08:18)
[2021-12-25] MEDS: LACTOBACILLUS ACIDOPHILUS CAP (BACID) PO SCH ×4 (08:18→20:40)
[2021-12-25] MEDS: FUROSEMIDE 20 MG TAB PO SCH (08:18)
[2021-12-25] MEDS: MULTIVITAMINS/MINERALS THERAP 1 TAB PO SCH (08:18)
[2021-12-25] MEDS: METOPROLOL TARTRATE 100MG TAB PO SCH ×3 (08:18→20:41)
[2021-12-25] MEDS: LACTIC ACID 12% LOTION 225 GM BTL TOP SCH ×2 (08:19→20:41)
[2021-12-25] MEDS: OMEPRAZOLE 20MG CAP PO SCH (08:19)
[2021-12-25] MEDS: SANTYL OINT 30GM TOP SCH (08:19)
[2021-12-25] MEDS: REMEDY PHYTOPLEX Z-GUARD PASTE 113GM TUBE (FROM STOREROOM PRODUCT) TOP SCH ×3 (08:20→20:42)
[2021-12-25] MEDS: NYSTATIN 100,000 UNITS/GM TOPICAL PWD 15 GM TOP SCH ×2 (08:20→20:42)
[2021-12-25] MEDS: POLYSPORIN TOPICAL OINTMENT 15GM TOP SCH (08:20)
[2021-12-25] MEDS: APIXABAN 2.5 MG TAB (ELIQUIS) PO SCH ×2 (08:20→20:40)
[2021-12-25 10:20] LABS: BASO # 0.1 10^3/uL (0.0-0.2); BASO % 0.9 % (0.0-1.0); EOS # 0.2 10^3/uL (0.0-0.5); EOS % 2.6 % (0.0-3.0); HEMATOCRIT 29.9 % (36.0-47.0); HEMOGLOBIN 9.2 g/dl (12.0-15.5); LYMPH # 1.1 10^3/uL (1.5-5.0); LYMPH % 14.9 % (24.0-44.0); MEAN CORPUSCULAR HEMOGLOBIN 30.8 pg (27.0-33.0); MEAN CORPUSCULAR HGB CONC 30.8 g/dl (32.0-36.5); MONO # 0.6 10^3/uL (0.0-0.8); MONO % 7.8 % (2.0-8.0); NEUTROPHILS # 5.4 10^3/uL (1.5-8.5); NEUTROPHILS % 72.9 % (36.0-66.0); PLATELET COUNT, AUTOMATED 382 10^3/uL (150-450); RED BLOOD COUNT 2.99 10^6/uL (4.00-5.40); WHITE BLOOD COUNT 7.4 10^3/uL (4.0-10.0)
[2021-12-25] MEDS ORDERED: POTASSIUM CHLORIDE 10MEQ SR TABLET PO ONE (11:30)
[2021-12-25 14:00] VITALS: BP 120/56
[2021-12-25] MEDS: SENNA 8.6 MG TAB (SENOKOT) PO SCH (19:36)
[2021-12-25 20:00] VITALS: BP 131/62
[2021-12-25] MEDS: CEFDINIR 300 MG CAP (OMNICEF) PO SCH (20:40)
[2021-12-26] MEDS: LEVOTHYROXINE 25MCG TABLET (0.025MG) PO SCH (05:07)
[2021-12-26 06:00] VITALS: BP 115/55
[2021-12-26 07:21] LABS: ALBUMIN 1.7 GM/DL (3.2-5.2); CALCIUM LEVEL 8.1 MG/DL (8.8-10.2); CREATININE FOR GFR 1.53 MG/DL (0.55-1.30); GLOMERULAR FILTRATION RATE 34.8 (>32); POTASSIUM SERUM 4.1 MEQ/L (3.5-5.1)
[2021-12-26] MEDS: COMBIVENT RESPIMAT 100-20MCG INHALER 4GM INH SCH ×3 (07:25→17:36)
[2021-12-26] MEDS: TIOTROPIUM INHALER/CAPSULE (SPIRIVA) INH SCH (07:25)
[2021-12-26] MEDS: FUROSEMIDE 20 MG TAB PO SCH (08:23)
[2021-12-26] MEDS: CEFDINIR 300 MG CAP (OMNICEF) PO SCH ×2 (08:23→20:49)
[2021-12-26] MEDS: DIGOXIN 0.0625MG PER 1/2TABLET PO SCH (08:24)
[2021-12-26] MEDS: METOPROLOL TARTRATE 100MG TAB PO SCH ×3 (08:26→20:50)
[2021-12-26] MEDS: MULTIVITAMINS/MINERALS THERAP 1 TAB PO SCH (08:26)
[2021-12-26] MEDS: APIXABAN 2.5 MG TAB (ELIQUIS) PO SCH ×2 (08:27→20:49)
[2021-12-26] MEDS: OMEPRAZOLE 20MG CAP PO SCH (08:27)
[2021-12-26] MEDS: ASPIRIN 81MG ENTERIC TABLET PO SCH (08:27)
[2021-12-26] MEDS: LACTOBACILLUS ACIDOPHILUS CAP (BACID) PO SCH ×4 (08:27→20:49)
[2021-12-26] MEDS: DOCUSATE SODIUM 100MG CAPSULE PO SCH ×2 (08:28→19:21)
[2021-12-26] MEDS: NYSTATIN 100,000 UNITS/GM TOPICAL PWD 15 GM TOP SCH ×2 (08:28→20:51)
[2021-12-26] MEDS: LACTIC ACID 12% LOTION 225 GM BTL TOP SCH ×2 (08:28→20:50)
[2021-12-26] MEDS: SANTYL OINT 30GM TOP SCH (08:29)
[2021-12-26] MEDS: POLYSPORIN TOPICAL OINTMENT 15GM TOP SCH (08:30)
[2021-12-26] MEDS: REMEDY PHYTOPLEX Z-GUARD PASTE 113GM TUBE (FROM STOREROOM PRODUCT) TOP SCH ×3 (08:30→20:50)
[2021-12-26] MEDS ORDERED: LASI40TA9 PO (09:14)
[2021-12-26] MEDS ORDERED: ASPI-161 PO (09:14)
[2021-12-26] MEDS ORDERED: LEVO25TA5 PO (09:14)
[2021-12-26] MEDS ORDERED: OMEP40CA5 PO (09:14)
[2021-12-26] MEDS ORDERED: COMBAER6 INH (09:14)
[2021-12-26] MEDS ORDERED: METO100T5 PO (09:14)
[2021-12-26] MEDS ORDERED: CEFD300CAP PO (09:14)
[2021-12-26] MEDS ORDERED: ELIQ2.5T PO (09:14)
[2021-12-26] MEDS ORDERED: TIOT18INH INH (09:14)
[2021-12-26] MEDS ORDERED: DIGO0.123 PO (09:14)
[2021-12-26 14:00] VITALS: BP 135/62
[2021-12-26] MEDS: SENNA 8.6 MG TAB (SENOKOT) PO SCH (19:21)
[2021-12-26 20:00] VITALS: BP 116/54
[2021-12-27] MEDS: LEVOTHYROXINE 25MCG TABLET (0.025MG) PO SCH (05:16)
[2021-12-27 06:00] VITALS: BP 108/61
[2021-12-27] MEDS: COMBIVENT RESPIMAT 100-20MCG INHALER 4GM INH SCH ×2 (07:17→13:22)
[2021-12-27] MEDS: TIOTROPIUM INHALER/CAPSULE (SPIRIVA) INH SCH (07:17)
[2021-12-27 09:00] VITALS: BP 108/61
[2021-12-27] MEDS: METOPROLOL TARTRATE 100MG TAB PO SCH (09:00)
[2021-12-27] MEDS: DOCUSATE SODIUM 100MG CAPSULE PO SCH (09:00)
[2021-12-27] MEDS: ASPIRIN 81MG ENTERIC TABLET PO SCH (09:58)
[2021-12-27] MEDS: LACTOBACILLUS ACIDOPHILUS CAP (BACID) PO SCH ×2 (09:58→12:15)
[2021-12-27] MEDS: CEFDINIR 300 MG CAP (OMNICEF) PO SCH (09:58)
[2021-12-27] MEDS: MULTIVITAMINS/MINERALS THERAP 1 TAB PO SCH (09:59)
[2021-12-27] MEDS: OMEPRAZOLE 20MG CAP PO SCH (09:59)
[2021-12-27] MEDS: APIXABAN 2.5 MG TAB (ELIQUIS) PO SCH (09:59)
[2021-12-27] MEDS: POLYSPORIN TOPICAL OINTMENT 15GM TOP SCH (10:00)
[2021-12-27] MEDS: FUROSEMIDE 20 MG TAB PO SCH (10:00)
[2021-12-27] MEDS: LACTIC ACID 12% LOTION 225 GM BTL TOP SCH (10:01)
[2021-12-27] MEDS: NYSTATIN 100,000 UNITS/GM TOPICAL PWD 15 GM TOP SCH (10:01)
[2021-12-27] MEDS: SANTYL OINT 30GM TOP SCH (10:01)
[2021-12-27] MEDS: REMEDY PHYTOPLEX Z-GUARD PASTE 113GM TUBE (FROM STOREROOM PRODUCT) TOP SCH (10:02)
== END 2021-12-27 13:30 | disposition home health service (06) | DRG 73 ==
LOC: M PM&R 12-17 15:08
PROVIDERS: ADMIT Physical Medicine & Rehabilitation; ATTEND Physical Medicine & Rehabilitation
DX: G62.0 Drug-induced polyneuropathy (principal); J18.9 Pneumonia, unspecified organism; G72.0 Drug-induced myopathy; I13.0 Hypertensive heart and chronic kidney disease with heart failure and stage 1 through stage 4 chronic kidney disease, or unspecified chronic kidney disease; N18.4 Chronic kidney disease, stage 4 (severe); I50.32 Chronic diastolic (congestive) heart failure; N04.9 Nephrotic syndrome with unspecified morphologic changes; I48.91 Unspecified atrial fibrillation; D64.9 Anemia, unspecified; E03.9 Hypothyroidism, unspecified; S81.812D Laceration without foreign body, left lower leg, subsequent encounter; R53.1 Weakness; Z74.09 Other reduced mobility; Z74.1 Need for assistance with personal care; T38.0X5A Adverse effect of glucocorticoids and synthetic analogues, initial encounter; R91.1 Solitary pulmonary nodule; H10.9 Unspecified conjunctivitis; Z79.01 Long term (current) use of anticoagulants; Z79.82 Long term (current) use of aspirin; Z79.52 Long term (current) use of systemic steroids; Z79.899 Other long term (current) drug therapy; Z66 Do not resuscitate

== ENCOUNTER → 2022-01-20 | Outpatient (CLI) | payer MEDICARE, OTHER ==
[~2022-01-20] MED LIST changes: +CEFD300CAP PO; +CIPR250T3 PO; +COMBAER6 INH; +ERYT5OIN25 OU; +LASI40TA9 PO; +NYST10006 TOP; +PRED5TA PO; +TIOT18INH INH
== END ==
LOC: M PLARAD 07:57
PROVIDERS: ATTEND Physician Assistant Medical
DX: R91.1 Solitary pulmonary nodule (principal); J43.9 Emphysema, unspecified; I31.3 Pericardial effusion (noninflammatory); I25.10 Atherosclerotic heart disease of native coronary artery without angina pectoris
CPT/HCPCS: 78815; A9552

== ENCOUNTER → 2022-02-13 | Outpatient (CLI) | payer MEDICARE, OTHER | LOC: M RAD 13:31 | PROVIDERS: ATTEND Surgery | DX: L97.812 Non-pressure chronic ulcer of other part of right lower leg with fat layer exposed (principal); I87.311 Chronic venous hypertension (idiopathic) with ulcer of right lower extremity ==

== ENCOUNTER → 2022-03-03 | Outpatient (REF) | payer MEDICARE, OTHER ==
[~2022-03-03] MED LIST changes: +BUMETADINE; +CALCITROL
== END ==
LOC: M LAB REF 16:55
PROVIDERS: ATTEND Internal Medicine Nephrology
DX: N18.9 Chronic kidney disease, unspecified (principal); D63.1 Anemia in chronic kidney disease

== ENCOUNTER → 2022-03-04 | Outpatient (POV) | payer MEDICARE, OTHER ==
[~2022-03-04] VITALS: Ht 162.6 cm; Wt 50.9 kg
[~2022-03-04] MED LIST changes: -BUMETADINE; -CALCITROL
[2022-03-04 09:55] VITALS: BP 127/60
== END ==
LOC: M IRPOV 09:44
PROVIDERS: ATTEND Radiology Diagnostic Radiology
DX: L97.219 Non-pressure chronic ulcer of right calf with unspecified severity (principal); L97.819 Non-pressure chronic ulcer of other part of right lower leg with unspecified severity; E11.622 Type 2 diabetes mellitus with other skin ulcer; I87.2 Venous insufficiency (chronic) (peripheral); R60.0 Localized edema; L81.8 Other specified disorders of pigmentation; Z79.82 Long term (current) use of aspirin; Z79.899 Other long term (current) drug therapy

== ENCOUNTER → 2022-03-16 | Outpatient (CLI) | payer MEDICARE, OTHER | LOC: M LABSMTC 12:07 | PROVIDERS: ATTEND Anesthesiology | DX: Z01.812 Encounter for preprocedural laboratory examination (principal); Z20.822 Contact with and (suspected) exposure to COVID-19 ==

== ENCOUNTER → 2022-03-17 | Outpatient (CLI) | payer MEDICARE, OTHER ==
[~2022-03-17] MED LIST changes: +BUMETADINE; +CALCITROL
== END ==
LOC: M RAD 15:14
PROVIDERS: ATTEND Internal Medicine Pulmonary Disease
DX: R91.1 Solitary pulmonary nodule (principal); J44.9 Chronic obstructive pulmonary disease, unspecified; M85.88 Other specified disorders of bone density and structure, other site

== ENCOUNTER → 2022-03-19 | Outpatient (CLI) | payer MEDICARE, OTHER ==
[~2022-03-19] MED LIST changes: +LIDOCAINE 1% MDV 20ML VIAL As Ordered ONE; +LIDOCAINE 2% MDV 20ML VIAL As Ordered ONE; +MIDAZOLAM INJ 2MG/2ML VIAL (J2250 PER 1MG) As Ordered ONE; +NS 1,000 ML IV SCH; +diphenhydrAMINE 50MG/ML VIAL (J1200) As Ordered ONE; +fentaNYL 100 MCG/2 ML INJECTION As Ordered ONE
[2022-03-19 07:38] VITALS: BP 150/66
== END ==
LOC: M IRPRO 07:00
PROVIDERS: ATTEND Radiology Diagnostic Radiology
DX: I87.2 Venous insufficiency (chronic) (peripheral) (principal)

== ENCOUNTER → 2022-03-28 | Outpatient (CLI) | payer MEDICARE, OTHER ==
[~2022-03-28] MED LIST changes: -LIDOCAINE 1% MDV 20ML VIAL As Ordered ONE; -LIDOCAINE 2% MDV 20ML VIAL As Ordered ONE; -MIDAZOLAM INJ 2MG/2ML VIAL (J2250 PER 1MG) As Ordered ONE; -NS 1,000 ML IV SCH; -diphenhydrAMINE 50MG/ML VIAL (J1200) As Ordered ONE; -fentaNYL 100 MCG/2 ML INJECTION As Ordered ONE
== END ==
LOC: M RAD 15:24
PROVIDERS: ATTEND Radiology Diagnostic Radiology
DX: I73.9 Peripheral vascular disease, unspecified (principal)

== ENCOUNTER → 2022-04-08 | Outpatient (POV) | payer MEDICARE, OTHER ==
[~2022-04-08] VITALS: Ht 162.6 cm; Wt 50.9 kg
[2022-04-08 13:30] VITALS: BP 151/67
== END ==
LOC: M IRPOV 12:55
PROVIDERS: ATTEND Radiology Diagnostic Radiology
DX: Z09 Encounter for follow-up examination after completed treatment for conditions other than malignant neoplasm (principal); Z86.79 Personal history of other diseases of the circulatory system

== ENCOUNTER → 2022-05-27 | Outpatient (REF) | payer MEDICARE, OTHER ==
[2022-05-27 20:25] LABS: DIGOXIN LEVEL 0.8 NG/ML (0.5-2.0); FREE T4 1.01 NG/DL (0.76-1.46); THYROID STIMULATING HORMONE 2.15 uIU/ML (0.358-3.740)
== END ==
LOC: M LAB REF 16:53
PROVIDERS: ATTEND Internal Medicine Nephrology
DX: N18.9 Chronic kidney disease, unspecified (principal); D63.1 Anemia in chronic kidney disease; E03.9 Hypothyroidism, unspecified

== ENCOUNTER → 2022-07-28 | Outpatient (REF) | payer MEDICARE, OTHER ==
[2022-07-29 19:33] LABS: DIGOXIN LEVEL 1.1 NG/ML (0.5-2.0); FREE T4 0.96 NG/DL (0.76-1.46); THYROID STIMULATING HORMONE 2.51 uIU/ML (0.358-3.740)
== END ==
LOC: M LAB REF 17:35
PROVIDERS: ATTEND Internal Medicine Nephrology
DX: E03.9 Hypothyroidism, unspecified (principal); N18.9 Chronic kidney disease, unspecified; D63.1 Anemia in chronic kidney disease

== ENCOUNTER → 2022-10-02 | Outpatient (CLI) | payer MEDICARE, OTHER | LOC: M PLAIMG 11:02 | PROVIDERS: ATTEND Internal Medicine Pulmonary Disease | DX: R91.1 Solitary pulmonary nodule (principal) ==

== ENCOUNTER → 2022-10-29 | Outpatient (REF) | payer MEDICARE, OTHER ==
[2022-10-29 18:07] LABS: DIGOXIN LEVEL 0.7 NG/ML (0.8-2.0)
[2022-10-29 18:16] LABS: FREE T4 0.98 NG/DL (0.89-1.76)
[2022-10-29 18:17] LABS: THYROID STIMULATING HORMONE 2.624 uIU/ML (0.55-4.78)
== END ==
LOC: M LAB REF 17:30
PROVIDERS: ATTEND Internal Medicine Nephrology
DX: E03.9 Hypothyroidism, unspecified (principal); D63.1 Anemia in chronic kidney disease

== ENCOUNTER 2022-11-20 12:05 | Emergency (ER) | payer MEDICARE, OTHER ==
[~2022-11-20] VITALS: Ht 162.6 cm; Wt 49.1 kg
[2022-11-20 13:12] LABS: RSV AMPLIFICATION NEGATIVE (NEGATIVE)
[2022-11-20] MEDS ORDERED: methylPREDNISolone 125MG 2ML VIAL IV ONE (13:35)
[2022-11-20] MEDS ORDERED: IPRATROPIUM 0.5MG/ALBUTEROL 2.5MG INH SOL UD 3ML (DUONEB) NEB ONE (13:35)
[2022-11-20 14:00] LABS: BASO # 0.1 10^3/uL (0.0-0.2); BASO % 0.8 % (0.0-1.0); EOS # 0.2 10^3/uL (0.0-0.5); EOS % 2.8 % (0.0-3.0); HEMATOCRIT 35.1 % (36.0-47.0); LYMPH # 1.7 10^3/uL (1.5-5.0); LYMPH % 19.7 % (24.0-44.0); MEAN CORPUSCULAR HEMOGLOBIN 31.7 pg (27.0-33.0); MEAN CORPUSCULAR HGB CONC 31.3 g/dl (32.0-36.5); MEAN CORPUSCULAR VOLUME 101.2 fl (80.0-96.0); MONO # 0.8 10^3/uL (0.0-0.8); MONO % 9.4 % (2.0-8.0); NEUTROPHILS # 5.7 10^3/uL (1.5-8.5); NEUTROPHILS % 66.8 % (36.0-66.0); PLATELET COUNT, AUTOMATED 224 10^3/uL (150-450); RED BLOOD COUNT 3.47 10^6/uL (4.00-5.40); WHITE BLOOD COUNT 8.5 10^3/uL (4.0-10.0)
[2022-11-20 14:12] LABS: ALBUMIN 3.2 G/DL (3.2-5.2); BILIRUBIN,DIRECT 0.1 MG/DL (<0.4); BILIRUBIN,TOTAL 0.4 MG/DL (0.3-1.2); CALCIUM LEVEL 8.8 MG/DL (8.3-10.6); CK-MB VALUE MASS 2.1 NG/ML (<3.6); CREATININE FOR GFR 1.84 MG/DL (0.55-1.30); MB/CK RELATIVE INDEX 4.28 (< OR =4); POTASSIUM SERUM 4.3 MMOL/L (3.5-5.1); THYROID STIMULATING HORMONE 2.612 uIU/ML (0.55-4.78); TOTAL PROTEIN 5.9 G/DL (5.7-8.2)
[2022-11-20 14:46] LABS: INR 1.09; PROTHROMBIN TIME 14.3 SECONDS (12.5-14.5)
[2022-11-20 15:19] LABS: CK-MB VALUE MASS 1.6 NG/ML (<3.6)
[2022-11-20 15:20] LABS: MB/CK RELATIVE INDEX 3.63 (< OR =4)
[2022-11-20 16:30] LABS: DIGOXIN LEVEL 0.8 NG/ML (0.8-2.0)
[2022-11-20] MEDS ORDERED: PRED10TA2 PO (18:56)
[2022-11-20] MEDS ORDERED: COMBAER6 INH (18:56)
[2022-11-20 19:30] VITALS: BP 166/77
== END 2022-11-20 19:39 | disposition left against medical advice (07) ==
LOC: M ED 12:05
DX: J44.1 Chronic obstructive pulmonary disease with (acute) exacerbation (principal); R00.1 Bradycardia, unspecified; I44.4 Left anterior fascicular block; I10 Essential (primary) hypertension; N18.30 Chronic kidney disease, stage 3 unspecified; F10.10 Alcohol abuse, uncomplicated; Z86.79 Personal history of other diseases of the circulatory system; Z87.891 Personal history of nicotine dependence; Z79.810 Long term (current) use of selective estrogen receptor modulators (SERMs); Z79.01 Long term (current) use of anticoagulants; Z79.52 Long term (current) use of systemic steroids; Z79.899 Other long term (current) drug therapy; Z53.9 Procedure and treatment not carried out, unspecified reason
CPT/HCPCS: 71045; 80048; 80076; 80162; 82550; 82553; 83880; 84443; 84484; 85025; 85610; 87040; 87631; 93005; 93041; 94640; 94760; 96374; 99285; J2930